=== PATIENT | male | born 1940 | race Two or more races ===

== ENCOUNTER 2024-09-09 12:47 | Emergency (ER) | payer MEDICAID, OTHER ==
[~2024-09-09] VITALS: Ht 172.7 cm; Wt 60.0 kg
[2024-09-09 13:47] VITALS: BP 120/64; PULSE 64; RESP 18; TEMP 98; O2SAT 100
--- NOTE | 2024-09-09 14:24 | ED.PDOC ---
HPI Comments Portions of this chart may have been created with an modal fluency direct voice recognition software. Occasional wrong-word or "sound-alike" substitutions may have occurred due to the inherent limitations of voice recognition software. Please read the chart carefully and recognize, using context, where these substitutions have occurred. 83 y/o M, presents to the ED for CC of wound check. Patient states, he has a superficial wound to his right great toe following, pulling off band aid x1week ago. Patient reports, he has been seen at urgent care for regular cleaning and dressing to wound; today (09/09/24) and was relayed to the ED d/t hypotension. Patient denies fever, chills, numbness, or pain to trauma site. No other symptoms or modifying factors present at this time. Chief Complaint: Wound Check Time Seen by MD: 13:01 Primary Care Provider: MARIA TERESA Reviewed Notes: Nurses Notes, Medications, Allergies Allergies: Coded Allergies: NO KNOWN ALLERGIES (Unverified , 09/09/24) Information Source: Patient Mode of Arrival: Ambulatory Severity: Moderate Severity of Laceration: Controlled Bleeding Complexity: Simple Timing: Days Prehospital treatment: None Laceration Location: Foot, Digit #1 Mechanism: Other (BAND AID) Laceration Length (cm): 1 Depth of Injury: Skin Tender: Moderate Discharge: None Erythema: None Associated Signs and Symptoms: None Past Medical History PAST MEDICAL HISTORY: Denies Surgical History: Denies all surgeries Family History Family History: Unknown Social History Smoker: Non-Smoker Alcohol: Denies ETOH Use Drugs: Denies Drug Use Lives In: Home All Other Systems: Reviewed and Negative ( PER HPI) Physical Exam General Appearance: No Apparent Distress, Normal HEENT: Normal ENT Inspection, Pharynx Normal, TMs Normal Neck: Full Range of Motion, Non-Tender, Normal, Normal Inspection Respiratory: Chest Non-Tender, Lungs Clear, No Accessory Muscle Use, No Respiratory Distress, Normal Breath Sounds Cardiovascular: No Edema, No JVD, No Murmur, No Gallop, Normal Peripheral Pulses, Regular Rate/Rhythm Breast Exam: Deferred Gastrointestinal: No Organomegaly, Non Tender, No Pulsatile Mass, Normal Bowel Sounds, Soft Genitalia: Deferred Pelvic: Deferred Rectal: Deferred Extremities: No calf tenderness, Normal capillary refill, Normal inspection, Normal range of motion, Non-tender, No pedal edema Musculoskeletal : Location: Right Extremity Location: Great Toe (no signs of cellulitis, healing approriately, no ttp, neurovascular senstion intact) Apperance: Normal 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 Was a procedure done?: No Differential diagnosis Generic Laceration: Abrasion/Contusion, Laceration, Avulsion X-Ray, Labs, Meds, VS Vital Signs Date Time Temp Pulse Resp B/P (MAP) Pulse Ox O2 Delivery O2 Flow Rate FiO2 09/09/24 13:47 64 18 100 Room Air 09/09/24 13:47 98.0 62 16 120/64 (82) 96 98.0 09/09/24 13:08 98.0 61 18 119/51 (73) 100 98.0 Current Medications Medications (Trade) Dose Ordered Sig/Miranda Route Start Time Stop Time Status Last Admin Neomycin/ Polymyxin/ Bacitracin (Triple Antibiotic) 1 applic ONCE ONCE TOP 09/09/24 14:15 09/09/24 14:16 DC 09/09/24 14:28 X-Ray, Labs, Meds, VS Comment 83 y/o M, presents to the ED for CC of wound check. Patient arrives alert and oriented, ABC's intact, afebrile, vital signs stable, saturating well in room air Wound was cleansed with normal saline, triple antibiotic was ordered, wound was wrapped with nonadherent dressing and Bonifacio wrap. Stable for discharge at this time. Additional MDM Review of External, Non-ED records: External records reviewed. Discussion with independent historian (EMS, family) history obtained from the patient/parents (if applicable) at bedside Chronic conditions affecting care: None Social determinants of health affecting care: None Consideration of admission (observation or admission): I considered escalation of care to admission for this patient, however given the reassuring workup, the patient is safe for outpatient management. Time of 1ST Reevaluation: 13:31 Reevaluation 1ST: Unchanged Patient Education/Counseling: Diagnosis, Treatment Family Education/Counseling: No Family Present Departure 1 Departure Time of Disposition: 14:24 Impression: Primary Impression: Visit for wound check Disposition: 01 HOME / SELF CARE / HOMELESS Condition: Stable Discharged With: Self Critical Care Note Critical Care Time?: No Stability Stability form required: No Heart Score Heart Score: Heart Score Response (Comments) Value History N/A 0 EKG N/A 0 Age N/A 0 Risk Factors N/A 0 Troponin N/A 0 Total 0 I personally scribed for ISAURO VOGT NP ([email or web address]) on 09/09/24 at 14:48. Electronically submitted by Gertrudis Marquez ([email or web address]). ISAURO VOGT NP Sep 09, 2024 14:24
[2024-09-09] MEDS: NEOMYCIN-BACITRACIN-POLYM UNITDOSE PKG TOP OINT TOP ONE (14:28)
== END 2024-09-09 14:37 | disposition home or self-care (01) ==
LOC: ER 13:04
DX: Z48.00 Encounter for change or removal of nonsurgical wound dressing (principal)

== ENCOUNTER 2024-09-10 12:08 | Inpatient (IN) | payer OTHER, MEDICAID ==
[~2024-09-10] VITALS: Ht 172.7 cm; Wt 67.5 kg
--- NOTE | 2024-09-10 12:44 | ED.PDOC ---
Musculoskeletal HPI Comments 83y M who presents to the ED for chief complaint of extremity pain. Pt states he has been having pain and swelling to the L great toe for the past 3 weeks. Pt states the pain started to get progressively worse and had went to urgent care today. Pt was given 1 gram rocephin and sent to the ED to rule out osteomyelitis. Pt in the ED, otherwise denies fever, shortness of breath, chills, or any associated symptoms. Pt otherwise denies any other symptoms at this time. Chief Complaint: Lower Extremity Time Seen by MD: 12:40 Primary Care Provider: MARIA TERESA Reviewed Notes: Medications, Allergies Allergies: Coded Allergies: NO KNOWN ALLERGIES (Unverified , 09/09/24) Information Source: Patient Mode of Arrival: Wheelchair Brought in by: self Location: Left Extremity Location: Great Toe Prehospital treatment: None Severity: Moderate Able to Move Extremity: Yes Bear Weight: Limited Pain: None Hand Dominance: Right Mechanism: Spontaneous Circumstances: Unknown Symptoms: Swelling, Pain DVT Risk Factors: NONE Last Tetanus: Unknown Associated signs and symptoms: Foot pain Past Medical History PAST MEDICAL HISTORY: DM, High Lipids, HTN Past Medical History (Other): prostate Surgical History: Appendectomy Surgical History (Other): cataracts Family History Family History: Unknown Social History Smoker: Non-Smoker Alcohol: Denies ETOH Use Drugs: Denies Drug Use Lives In: Home Constitutional: denies: chills, diaphoresis, fatigue, fever, malaise, sweats, weakness, others EENTM: denies: blurred vision, double vision, ear bleeding, ear discharge, ear drainage, ear pain, ear ringing, eye pain, eye redness, hearing loss, mouth pain, mouth swelling, nasal discharge, nose bleeding, nose congestion, nose pain, photophobia, tearing, throat pain, throat swelling, voice changes, others Respiratory: denies: cough, hemoptysis, orthopnea, SOB at rest, shortness of breath, SOB with excertion, stridor, wheezing, others Cardiovascular: denies: chest pain, dizzy spells, diaphoresis, Dyspnea on exertion, edema, irregular heart beat, left arm pain, lightheadedness, palpitations, PND, syncope, others Gastrointestinal: denies: abdomen distended, abdominal pain, blood streaked bowels, constipated, diarrhea, dysphagia, difficulty swallowing, hematemesis, melena, nausea, poor appetite, poor fluid intake, rectal bleeding, rectal pain, vomiting, others Genitourinary: denies: burning, dysuria, flank pain, frequency, hematuria, incontinence, penile discharge, penile sore, pain, testicle pain, testicle swelling, urgency, others Neurological: denies: dizziness, fainting, headache, left sided numbness, left sided weakness, numbness, paresthesia, pre-existing deficit, right sided numbness, right sided weakness, seizure, speech problems, tingling, tremors, weakness, others Musculoskeletal: reports: joint pain, joint swelling; denies: back pain, gout, muscle pain, muscle stiffness, neck pain, others Integumetry: denies: bruises, change in color, change in hair/nails, dryness, laceration, lesions, lumps, rash, wounds, others Allergic/Immunocompromised: denies: Difficulty Healing, Frequent Infections, Hives, Itching, others Hematologic/Lymphatic: denies: anemia, blood clots, easy bleeding, easy bruising, swollen glands, others Endocrine: denies: excessive hunger, excessive sweating, excessive thirst, excessive urination, flushing, intolerance to cold, intolerance to heat, unexplained weight gain, unexplained weight loss, others Psychiatric: denies: anxiety, bipolar disorder, depression, hopeless, panic di sorder, schizophrenia, sleepless, suicidal, others All Other Systems: Reviewed and Negative Physical Exam General Appearance: Moderate Distress HEENT: Normal ENT Inspection, Pharynx Normal, TMs Normal Neck: Full Range of Motion, Non-Tender, Normal, Normal Inspection Respiratory: Chest Non-Tender, Lungs Clear, No Accessory Muscle Use, No Respiratory Distress, Normal Breath Sounds Cardiovascular: No Edema, No JVD, No Murmur, No Gallop, Normal Peripheral Pulses, Regular Rate/Rhythm Breast Exam: Deferred Gastrointestinal: No Organomegaly, Non Tender, No Pulsatile Mass, Normal Bowel Sounds, Soft Genitalia: Deferred Pelvic: Deferred Rectal: Deferred Extremities: No calf tenderness, Normal capillary refill, No pedal edema, Other (Left foot great toe with swelling and redness and some drainage) Musculoskeletal : Apperance: Normal 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 Was a procedure done?: No Differential Diagnosis EXT Differential Diagnosis: Cellulitis, Deep Vein Thrombosis Other Differential Diagnosis osteomyelitis, erysipelas, bacteremia, X-Ray, Labs, Meds, VS Vital Signs Date Time Temp Pulse Resp B/P (MAP) Pulse Ox O2 Delivery O2 Flow Rate FiO2 09/10/24 13:27 97.8 80 18 130/76 (94) 98 97.8 09/10/24 13:27 80 18 98 Room Air 09/10/24 12:33 97.7 82 16 131/59 (83) 97 97.7 Lab Test 09/10/24 12:52 09/10/24 12:34 Range/Units White Blood Count 5.8 4.4-10.8 10^3/uL Red Blood Count 4.85 4.5-5.90 10^6/uL Hemoglobin 14.5 13.5-17.5 g/dL Hematocrit 42.7 41.0-53.0 % Mean Corpuscular Volume 88.2 80.0-100.0 fL Mean Corpuscular Hemoglobin 29.9 28.0-32.0 pg Mean Corpuscular Hemoglobin Concent 33.9 32.0-36.0 g/dL Red Cell Distribution Width 14.4 H 11.8-14.3 % Platelet Count 137 L 140-450 10^3/uL Mean Platelet Volume 8.8 6.9-10.8 fL Neutrophils (%) (Auto) 74.1 37.0-80.0 % Lymphocytes (%) (Auto) 16.9 10.0-50.0 % Monocytes (%) (Auto) 7.4 0.0-12.0 % Eosinophils (%) (Auto) 1.3 0.0-7.0 % Basophils (%) (Auto) 0.3 0.0-2.0 % Neutrophils # (Auto) 4.3 1.6-8.6 10 ^3/uL Lymphocytes # (Auto) 1.0 0.4-5.4 10 ^3/uL Monocytes # (Auto) 0.4 0-1.3 10 ^3/uL Eosinophils # (Auto) 0.1 0-0.8 10 ^3/uL Basophils # (Auto) 0 0-0.2 10 ^3/uL Nucleated Red Blood Cells 0.1 % Prothrombin Time 10.3 9.3-11.8 sec Prothrombin Time INR 0.97 0.9-1.15 Activated Partial Thromboplast Time 29.1 24.5-34.5 SEC Sodium Level 139 136-145 mmol/L Potassium Level 4.7 3.5-5.1 mmol/L Chloride Level 107 98-107 mmol/L Carbon Dioxide Level 26 20-31 mmol/L Anion Gap 6 5-15 Blood Urea Nitrogen 26 H 9-23 mg/dL Creatinine 1.10 0.700-1.30 mg/dL Glomerular Filtration Rate Calc 66 >90 mL/min BUN/Creatinine Ratio 23.6 H 10.0-20.0 Serum Glucose 280 H 74-106 mg/dL Calcium Level 9.9 8.7-10.4 mg/dL POC Glucose 295 H 70-106 mg/dl Current Medications Medications (Trade) Dose Ordered Sig/Miranda Route Start Time Stop Time Status Last Admin Sodium Chloride 500 ml @ 500 mls/hr Q1H ONCE IV 09/10/24 12:45 09/10/24 13:44 DC 09/10/24 13:52 EXAM: CT CT L FOOT WO CONTRAST IMPRESSION: 1. No CT evidence of osteomyelitis. If continued clinical concern, consider MRI. 2. No joint effusion. Circumferential subcutaneous tissue edema. No drainable fluid collection The patient's CBC is within normal limits The chemistry panel is within normal limits The patient's glucose is 295 The patient is being admitted at this time The patient is being started on clindamycin IV piggyback The patient understands and agrees with the management The patient is being admitted Images Reviewed?: Images reviewed and evaluated by me Time of 1ST Reevaluation: 13:10 Reevaluation 1ST: Unchanged Patient Education/Counseling: Diagnosis, Treatment, Prognosis Family Education/Counseling: No Family Present Departure 1 Departure Time of Disposition: 14:22 Impression: Primary Impression: Cellulitis of left foot Additional Impressions: Generalized weakness Hyperglycemia Disposition: 09 ADMITTED INPATIENT Condition: Fair Critical Care Note Critical Care Time?: No Stability Stability form required: Yes Unstable for transfer: ED Physician Assesment (Clinical assesment) Heart Score Heart Score: Heart Score Response (Comments) Value History N/A 0 EKG N/A 0 Age N/A 0 Risk Factors N/A 0 Troponin N/A 0 Total 0 I personally scribed for ELIAZAR CASTRO MD ([email or web address]) on 09/10/24 at 12:43. Electronically submitted by Sylvie Mcnulty ([email or web address]). I personally scribed for ELIAZAR CASTRO MD ([email or web address]) on 09/10/24 at 13:33. Electronically submitted by Sylvie Mcnulty ([email or web address]). ELIAZAR CASTRO MD Sep 10, 2024 12:43
[2024-09-10 13:05] LABS: Basophils # (auto) 0 10 ^3/uL (0-0.2); Basophils % (auto) 0.3 % (0.0-2.0); Eosinophils # (auto) 0.1 10 ^3/uL (0-0.8); Eosinophils % (auto) 1.3 % (0.0-7.0); Hematocrit 42.7 % (41.0-53.0); Hemoglobin 14.5 g/dL (13.5-17.5); Lymphocytes % (auto) 16.9 % (10.0-50.0); Mean Corpuscular Hemoglobin 29.9 pg (28.0-32.0); Mean Corpuscular Hgb Conc. 33.9 g/dL (32.0-36.0); Mean Corpuscular Volume 88.2 fL (80.0-100.0); Monocytes # (auto) 0.4 10 ^3/uL (0-1.3); Monocytes % (auto) 7.4 % (0.0-12.0); Neutrophils # (auto) 4.3 10 ^3/uL (1.6-8.6); Neutrophils % (auto) 74.1 % (37.0-80.0); Nucleated Red Blood Cells % 0.1 %; Platelet Count (auto) 137 10^3/uL (140-450); Red Blood Cells 4.85 10^6/uL (4.5-5.90); Red Cell Distribution Width 14.4 % (11.8-14.3); White Blood Cell 5.8 10^3/uL (4.4-10.8)
[2024-09-10 13:11] LABS: Chloride 107 mmol/L (98-107); Potassium 4.7 mmol/L (3.5-5.1); Sodium 139 mmol/L (136-145)
[2024-09-10 13:12] LABS: Anion Gap 6 (5-15); Carbon Dioxide 26 mmol/L (20-31)
[2024-09-10 13:13] LABS: Calcium 9.9 mg/dL (8.7-10.4)
[2024-09-10 13:17] LABS: BUN/Creatinine Ratio 23.6 (10.0-20.0)
[2024-09-10 13:19] LABS: Blood Urea Nitrogen 26 mg/dL (9-23); Glucose 280 mg/dL (74-106)
[2024-09-10 13:24] LABS: INR 0.97 (0.9-1.15); Partial Thromboplastin Time 29.1 SEC (24.5-34.5); Prothrombin Time 10.3 sec (9.3-11.8)
--- NOTE | 2024-09-10 13:24 | DVH ---
EXAM: CT CT L FOOT WO CONTRAST INDICATION: pain and infection TECHNIQUE: Axial images of left foot without contrast have been obtained along with coronal and sagit justine reformatted images. All CT scans at this facility use dose modulation, iterative reconstruction, and/or weight based dosing when appropriate to reduce radiation dose to as low as reasonably achievab le. COMPARISON: None FINDINGS: BONES: No CT evidence of an acute fracture or aggressive osseous lesion. MUSCLES: At least moderate fatty infiltration along the interosseous muscles of the level of the fore foot. JOINT SPACES: No joint effusion. TENDONS/LIGAMENTS: Intact. OTHER: Vascular calcifications. Circumferential subcutaneous tissue edema. IMPRESSION: 1. No CT evidence of osteomyelitis. If continued clinical concern, consider MRI. 2. No joint effusion. Circumferential subcutaneous tissue edema. No drainable fluid collection
[2024-09-10] MEDS: SODIUM CHLORIDE 0.9% 500 ML IV ONE (13:52)
--- NOTE | 2024-09-10 15:21 | DVHHP2 ---
History of Present Illness Reason for Visit: Left great toe pain History of Present Illness 83-year-old male past medical history diabetes hyperlipidemia hypertension prostate issues in the past appendectomy cataract surgery chief complaint patient states he has been having left great toe pain and swelling with a wound he has been going on for three weeks patient states there was no drainage from the wound but is causing him some pain he went to the urgent care today and they told him to go to the ED for IV antibiotics and admission patient is concerned because he is diabetic patient currently lives alone at home when evaluating patient's labs and imaging from the ED looks like normal saline was given CBC was unremarkable glucose was 280 CT scan of the foot shows no osteomyelitis but subacute edema no fluid collection or abscess patient currently has a wound to the dorsal medial aspect of the toe under the bottom of the toe was tenderness and blanching and swelling no drainage with the wound is there with these findings we will admit and provide IV antibiotics also we will consult Podiatry along with wound care consult we will also order ultrasound to check for DVT along with arterial occlusion Past Medical History See HPI above Past Surgical History See HPI above Family History Reviewed, non-contributory to the management of this case. Lives: Alone Past Social History The patient lives at home, denies smoking, alcohol or illicit drugs abuse. Review of Systems Constitutional: No: Fever, Chills, Sweats, Weakness, Malaise, Other Eyes: No: Pain, Vision change, Conjunctivae inflammation, Eyelid inflammation, Other, Redness ENT: No: Ear pain, Ear discharge, Nose pain, Nose discharge, Nose congestion, Mouth pain, Mouth swelling, Throat pain, Throat swelling, Other Respiratory: No: Cough, Dry, Shortness of breath, SOB with excertion, Wheezing, Hemoptysis, Pleuritic Pain, Sputum, Wheezing, Other Cardiovascular: No: Chest Pain, Palpitations, Orthopnea, Paroxysmal Noc. Dyspnea, Edema, Lt Headedness, Other Gastrointestinal: No: Nausea, Vomiting, Abdominal Pain, Diarrhea, Constipation, Melena, Hematochezia, Other Genitourinary: No Dysuria, No Frequency, No Incontinence, No Hematuria, No Retention, No Other Musculoskeletal: foot pain; No: other, neck pain, shoulder pain, arm pain, back pain, hand pain, leg pain Skin: No: Rash, Lesions, Jaundice, Bruising, Other Neurological: No: Weakness, Numbness, Incoordination, Change in speech, Confusion, Seizures, Other Allergies: Coded Allergies: NO KNOWN ALLERGIES (Unverified , 09/09/24) Exam Vital Signs Vital Signs Date Time Temp Pulse Resp B/P (MAP) Pulse Ox O2 Delivery O2 Flow Rate FiO2 09/10/24 13:27 97.8 80 18 130/76 (94) 98 97.8 09/10/24 13:27 Room Air General Appearance: Alert, Oriented X3, Cooperative, No acute distress, mild distress HEENT: Atraumatic, PERRLA, EOMI, Mucous membr. moist/pink Respiratory: Clear to auscultation, Normal air movement Cardiovascular: Regular rate, Normal S1, Normal S2, No murmurs Abdominal: Normal bowel sounds, Soft, No tenderness, No hepatospenomegaly, No masses Extremities: No clubbing, No cyanosis, No edema, Normal pulses, Other (wound to the dorsal medial aspect of the toe under the bottom of the toe was tenderness and blanching and swelling no drainage, no necrosis compartments soft swelling radiating to the dorsal aspect of the foot) Skin: No rashes Neuro: Normal gait, Normal speech, Strength at 5/5 X4 ext, Normal tone, Sensation intact, Cranial nerves 3-12 NL Psych/Mental Status: Mental status NL, Mood NL Labs/Xrays CT scan of the foot shows no osteomyelitis subacute edema no fluid collection I reviewed labs, imaging CT scan abdomen pelvis, EKG and all diagnostic studies on this patient from ED records and the medical chart Labs Test 09/10/24 12:52 09/10/24 12:34 Range/Units White Blood Count 5.8 4.4-10.8 10^3/uL Red Blood Count 4.85 4.5-5.90 10^6/uL Hemoglobin 14.5 13.5-17.5 g/dL Hematocrit 42.7 41.0-53.0 % Mean Corpuscular Volume 88.2 80.0-100.0 fL Mean Corpuscular Hemoglobin 29.9 28.0-32.0 pg Mean Corpuscular Hemoglobin Concent 33.9 32.0-36.0 g/dL Red Cell Distribution Width 14.4 H 11.8-14.3 % Platelet Count 137 L 140-450 10^3/uL Mean Platelet Volume 8.8 6.9-10.8 fL Neutrophils (%) (Auto) 74.1 37.0-80.0 % Lymphocytes (%) (Auto) 16.9 10.0-50.0 % Monocytes (%) (Auto) 7.4 0.0-12.0 % Eosinophils (%) (Auto) 1.3 0.0-7.0 % Basophils (%) (Auto) 0.3 0.0-2.0 % Neutrophils # (Auto) 4.3 1.6-8.6 10 ^3/uL Lymphocytes # (Auto) 1.0 0.4-5.4 10 ^3/uL Monocytes # (Auto) 0.4 0-1.3 10 ^3/uL Eosinophils # (Auto) 0.1 0-0.8 10 ^3/uL Basophils # (Auto) 0 0-0.2 10 ^3/uL Nucleated Red Blood Cells 0.1 % Prothrombin Time 10.3 9.3-11.8 sec Prothrombin Time INR 0.97 0.9-1.15 Activated Partial Thromboplast Time 29.1 24.5-34.5 SEC Sodium Level 139 136-145 mmol/L Potassium Level 4.7 3.5-5.1 mmol/L Chloride Level 107 98-107 mmol/L Carbon Dioxide Level 26 20-31 mmol/L Anion Gap 6 5-15 Blood Urea Nitrogen 26 H 9-23 mg/dL Creatinine 1.10 0.700-1.30 mg/dL Glomerular Filtration Rate Calc 66 >90 mL/min BUN/Creatinine Ratio 23.6 H 10.0-20.0 Serum Glucose 280 H 74-106 mg/dL Calcium Level 9.9 8.7-10.4 mg/dL POC Glucose 295 H 70-106 mg/dl Assessment/Plan Assessment/Plan acute left foot infection diabetic foot left great toe no om Found on ct left foot ordered arterial study fu results ordered ultrasound rule out DVT ordered vancomycin and zosyn ordered Morphine as needed for pain ordered Podiatry consult follow-up recs Wound care consult follow-up recs Monitor for circulation compromise ordered wound culture Uncontrolled type 2 diabetes Accu-Chek ACHS with sliding scale chronic problems dm hld prostrate problems cataracts fen/ppx no gi ppx lovenox diet plan admit to medicine for iv antibiotics for om care and podiatry care Plan discussed with: Patient Date of Service: Sep 10, 2024 Billing Provider: AMOR SMITH DNP Common Visit Codes: 52025-[id number] INP/OBS CARE (HIGH) AMOR SMITH DNP Sep 10, 2024 15:21
[2024-09-10] MEDS ORDERED: NITROGLYCERIN 0.4 MG SL TAB SL PRN (15:45)
[2024-09-10] MEDS ORDERED: DOCUSATE SOD 100 MG CAP PO PRN (15:45)
[2024-09-10] MEDS ORDERED: VANCOMYCIN PER PHARMACY 0 MG IV SCH (15:45)
[2024-09-10] MEDS ORDERED: PIPERACILLIN-TAZOB 3.375GM 100 ML IV ONE (15:45)
[2024-09-10] MEDS ORDERED: DEXTROSE (50%) 50ML SYRG IV PRN (15:45)
[2024-09-10] MEDS: ENOXAPARIN SOD 40 MG/0.4 ML SYRINGE SC SCH (15:45)
[2024-09-10] MEDS ORDERED: MORPHINE SULFATE 4 MG/ML SYR/VIAL IV PRN (16:15)
--- NOTE | 2024-09-10 16:58 | DVH ---
CLINICAL HISTORY: eval dvt with left leg swelling TECHNIQUE: Color and duplex doppler imaging of the left lower extremity veins was performed. Vessel c ompression if possible was also performed. WID: COMPARISON: None FINDINGS: Left common femoral vein: Normal compressibility and flow. Left femoral vein: Normal compressibility and flow. Left popliteal vein: Normal compressibility and flow. Proximal calf veins are normally compressible. IMPRESSION: NO SONOGRAPHIC EVIDENCE FOR DEEP VENOUS THROMBOSIS IN THE LEFT LOWER EXTREMITY VEINS.
[2024-09-10 17:01] VITALS: PULSE 85; RESP 15; O2SAT 99
[2024-09-10] MEDS ORDERED: VANCOMYCIN 1GM/200ML PM 200 ML IV ONE (17:15)
--- NOTE | 2024-09-10 17:30 | DVH ---
BILATERAL LOWER EXTREMITY ARTERIAL DUPLEX ULTRASOUND STUDY: REASON FOR EXAM: eval for arterial occlusiuon TECHNIQUE: The full lengths of the arterial segments were evaluated with color-flow Doppler ultrasoun d. Suspected abnormalities were evaluated with ferrari scale ultrasound. Weather Anchor spectral Doppler waveforms, with velocity measurements were obtained. Spectral waveforms with velocity measurements w ere obtained 2 to 4 cm central to any areas of significant stenosis. Common femoral, superficial femo ral, popliteal, posterior tibial, and dorsal pedal arteries were evaluated. FINDINGS: Right: There is extensive atherosclerotic plaque throughout the right lower extremity. The common fem oral artery waveform is multiphasic with a brisk upstroke. The superficial femoral and popliteal kirstin gabrielle are patent with monophasic waveforms. The popliteal waveform demonstrates tardus parvus morpholo gy. The posterior tibial artery is heavily calcified and demonstrates a monophasic waveform. The edwardo mini pedal artery is patent with low velocity monophasic waveform. Left: There is extensive atherosclerotic plaque throughout the left lower extremity. The common femo ral artery waveform is multiphasic with a brisk upstroke. There is possible short segment occlusion i n the midportion of the superficial femoral artery with distal reconstitution by a collateral. The d istal SFA demonstrates multiphasic morphology. The popliteal artery is patent with monophasic , tard us parvus morphology. The posterior tibial artery and dorsal pedal artery are patent with monophasic waveforms. IMPRESSION: Extensive bilateral lower extremity atherosclerotic vascular disease with possible short segment occl usion in the midportion of the left superficial femoral artery with reconstitution distal to the occl usion by collaterals.
[2024-09-10] MEDS: ACCU-CHEK COMFORT CURVE STRIP VI SCH (18:01)
[2024-09-10] MEDS: InsuLIN REG 1unit/0.01ml Soln (100units/ml) SC SCH (18:05)
[2024-09-10] MEDS: PIPERACILLIN-TAZOB 3.375GM 100 ML IV ONE (20:19)
[2024-09-10] MEDS: SODIUM CHLORIDE 0.9% 1,000 ML IV SCH (20:20)
[2024-09-10 21:00] VITALS: BP 152/72; PULSE 92; RESP 20; TEMP 97.7; O2SAT 98
[2024-09-10] MEDS: VANCOMYCIN 1GM/200ML PM 200 ML IV ONE (21:58)
[2024-09-11 01:00] VITALS: BP 142/70; PULSE 87; RESP 18; TEMP 97.7; O2SAT 96
[2024-09-11 05:00] VITALS: BP 134/62; PULSE 81; RESP 18; TEMP 97.7; O2SAT 98
[2024-09-11] MEDS: PIPERACILLIN-TAZOB 3.375GM 100 ML IV SCH (05:35)
[2024-09-11 06:15] LABS: Basophils # (auto) 0 10 ^3/uL (0-0.2); Basophils % (auto) 0.3 % (0.0-2.0); Eosinophils # (auto) 0 10 ^3/uL (0-0.8); Eosinophils % (auto) 0.4 % (0.0-7.0); Hematocrit 43.2 % (41.0-53.0); Hemoglobin 14.8 g/dL (13.5-17.5); Lymphocytes # (auto) 0.7 10 ^3/uL (0.4-5.4); Lymphocytes % (auto) 13.1 % (10.0-50.0); Mean Corpuscular Hemoglobin 30.1 pg (28.0-32.0); Mean Corpuscular Hgb Conc. 34.2 g/dL (32.0-36.0); Monocytes # (auto) 0.3 10 ^3/uL (0-1.3); Monocytes % (auto) 6.1 % (0.0-12.0); Neutrophils # (auto) 4.4 10 ^3/uL (1.6-8.6); Neutrophils % (auto) 80.1 % (37.0-80.0); Platelet Count (auto) 138 10^3/uL (140-450); Red Blood Cells 4.91 10^6/uL (4.5-5.90); Red Cell Distribution Width 14.7 % (11.8-14.3); White Blood Cell 5.5 10^3/uL (4.4-10.8)
[2024-09-11 06:41] LABS: Alanine Aminotransferase 12 U/L (7-40); Albumin 4.1 g/dL (3.2-4.8); Alkaline Phosphatase 70 U/L (46-116); Anion Gap 11 (5-15); BUN/Creatinine Ratio 19.2 (10.0-20.0); Blood Urea Nitrogen 20 mg/dL (9-23); Calcium 9.5 mg/dL (8.7-10.4); Carbon Dioxide 23 mmol/L (20-31); Potassium 4.7 mmol/L (3.5-5.1); Sodium 141 mmol/L (136-145); Total Protein 6.7 g/dL (5.7-8.2)
[2024-09-11 06:42] LABS: Bilirubin, Total 0.5 mg/dL (0.2-1.0)
[2024-09-11 06:46] LABS: Aspartate Aminotransferase 12 U/L (13-40); Chloride 107 mmol/L (98-107); Glucose 170 mg/dL (74-106)
[2024-09-11 08:37] VITALS: BP 118/64; PULSE 80; RESP 16; TEMP 98; O2SAT 98
--- NOTE | 2024-09-11 11:44 | DVH ---
CLINICAL INDICATION: r/o om COMPARISON: CT CT L FOOT WO CONTRAST on DOS: 09/10/24 TECHNIQUE: Multiplanar, multisequence MRI of the left foot was performed without intravenous contrast . Contrast: None. INTERPRETATION: Bones: There is patchy T1 hypointensity in the 1st distal phalanx with corresponding bone marrow felisa a. There is no fracture plain. Bone marrow Signal is otherwise unremarkable. Soft tissues: There is dorsal soft tissue swelling. There is also soft tissue swelling about the gre at toe distally. There is soft tissue swelling in the ankle, nonspecific. No fluid collection. No hig h-grade tendon or ligament injury. Edema within the intrinsic muscles of the foot. IMPRESSION: 1. Findings suspicious for osteomyelitis in the 1st distal phalanx, with overlying cellulitis. No flu id collection. 2. Edema in the intrinsic muscles of the foot may be related to denervation or myositis. 3. Nonspecific soft tissue edema in the ankle.
--- NOTE | 2024-09-11 12:19 | DVHPN2 ---
Reviewed: Care Plan, H&P, Labs, Medications, Previous Orders, Radiology Changes from previous H/P or p: No Changes Eyes: No Pain, No Vision change, No Conjunctivae inflammation, No Eyelid inflammation, No Other, No Redness ENT: No Ear pain, No Ear discharge, No Nose pain, No Nose discharge, No Nose congestion, No Mouth pain, No Mouth swelling, No Throat pain, No Throat swelling, No Other Cardiovascular: No Chest Pain, No Palpitations, No Orthopnea, No Paroxysmal Noc. Dyspnea, No Edema, No Lt Headedness, No Other Respiratory: No Cough, No Dry, No Shortness of breath, No SOB with excertion, No Wheezing, No Hemoptysis, No Pleuritic Pain, No Sputum, No Other Gastrointestinal: No Nausea, No Vomiting, No Abdominal Pain, No Diarrhea, No Constipation, No Melena, No Hematochezia, No Other Genitourinary: No Dysuria, No Frequency, No Incontinence, No Hematuria, No Retention, No Other Musculoskeletal: No other, No neck pain, No shoulder pain, No arm pain, No back pain, No hand pain, No leg pain; foot pain Skin: No Rash, No Lesions, No Jaundice, No Bruising, No Other Objective Vitals Vital Signs Date Time Temp Pulse Resp B/P (MAP) Pulse Ox O2 Delivery O2 Flow Rate FiO2 09/11/24 08:37 98.0 80 16 118/64 (82) 98 98.0 09/10/24 17:29 Room Air* 0 21 Intake/Output Intake and Output 09/11/24 07:00 Intake Total 1660 ml Balance 1660 ml Intake Oral 360 ml IV Total 1300 ml Medications Current Medications Medications Dose Ordered Sig/Miranda Route Start Time Stop Time Status Last Admin Dose Admin Vancomycin HCl 0 ml @ 0 mls/hr UD IV 09/10/24 15:45 Piperacillin Sod/ Tazobactam Sod 100 ml @ 25 mls/hr Q8HR IV 09/11/24 06:00 09/11/24 05:35 25 MLS/HR Diagnostic Test (Pha) 1 strip ACHS 09/10/24 17:00 09/11/24 11:25 1 STRIP Insulin Human Regular ACHS SC 09/10/24 17:00 09/11/24 11:25 6 UNITS Dextrose 50 ml UD PRN IV 09/10/24 15:45 Sodium Chloride 1,000 ml @ 100 mls/hr Q10H IV 09/10/24 15:45 09/11/24 11:28 100 MLS/HR Ondansetron HCl 4 mg Q4HP PRN IV 09/10/24 15:45 Docusate Sodium 100 mg BIDPRN PRN PO 09/10/24 15:45 Morphine Sulfate 2 mg Q4HPRN PRN IV 09/10/24 16:15 Enoxaparin Sodium 40 mg DAILY SC 09/10/24 15:45 09/11/24 09:16 40 MG Nitroglycerin 0.4 mg Q5MINP PRN SL 09/10/24 15:45 Vancomycin HCl 200 ml @ 200 mls/hr Q24H IV 09/11/24 21:00 Laboratory Results Laboratory Tests 09/11/24 05:37 Chemistry Test 09/10/24 12:52 09/11/24 05:37 Calcium Level 9.9 mg/dL (8.7-10.4) 9.5 mg/dL (8.7-10.4) Albumin 4.1 g/dL (3.2-4.8) Total Protein 6.7 g/dL (5.7-8.2) Coagulation Test 09/10/24 12:52 Prothrombin Time 10.3 sec (9.3-11.8) Prothrombin Time INR 0.97 (0.9-1.15) Activated Partial Thromboplast Time 29.1 SEC (24.5-34.5) LFT Test 09/11/24 05:37 Alanine Aminotransferase (ALT) 12 U/L (7-40) Alkaline Phosphatase 70 U/L (46-116) Aspartate Amino Transferase (AST) 12 U/L (13-40) L Total Bilirubin 0.5 mg/dL (0.2-1.0) Microbiology Microbiology Date/Time Source Procedure Growth Status 09/10/24 18:42 Toe Gram Stain Pending Resulted 09/10/24 18:42 Toe Wound Culture - Preliminary Resulted Labs and/or images reviewed: Labs reviewed by me, Image(s) reviewed by me Assessment/Plan Assessment/Plan Acute osteomyelitis left great toe: Vancomycin 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 Rdz DVT ruled out BPH Diabetes Hypertension Hypercholesterolemia Time spent 50 minutes Advanced care planning time 20 minutes Patient is full code Plan discussed with: Patient Date of Service: Sep 11, 2024 Billing Provider: SHABANA DIETZ MD Common Visit Codes: [id number] INP/OBS CARE(HIGH) SHABANA DIETZ MD Sep 11, 2024 12:19
--- NOTE | 2024-09-11 12:45 | DVHINCON2 ---
Date Seen: Sep 11, 2024 Reason for Consultation Left foot wound History of Present Illness 83-year-old male past medical history diabetes hyperlipidemia hypertension prostate issues in the past appendectomy cataract surgery chief complaint patient states he has been having left great toe pain and swelling with a wound he has been going on for three weeks patient states there was no drainage from the wound but is causing him some pain he went to the urgent care today and they told him to go to the ED for IV antibiotics and admission patient is concerned because he is diabetic patient currently lives alone at home when evaluating patient's labs and imaging from the ED looks like normal saline was given CBC was unremarkable glucose was 280 CT scan of the foot shows no osteomyelitis but subacute edema no fluid collection or abscess patient currently has a wound to the dorsal medial aspect of the toe under the bottom of the toe was tenderness and blanching and swelling no drainage with the wound is there with these findings we will admit and provide IV antibiotics also we will consult Podiatry along with wound care consult we will also order ultrasound to check for DVT along with arterial occlusion Past Medical History See H&P Past Surgical History See H&P Family History: Patient reports no known family medical history. Allergies: Coded Allergies: NO KNOWN ALLERGIES (Unverified , 09/09/24) Current Medications Current Medications Medications (Trade) Dose Ordered Sig/Miranda Route PRN Reason Start Time Stop Time Status Last Admin Vancomycin HCl 0 ml @ 0 mls/hr UD IV 09/10/24 15:45 Piperacillin Sod/ Tazobactam Sod 100 ml @ 25 mls/hr Q8HR IV 09/11/24 06:00 09/11/24 05:35 Diagnostic Test (Pha) (Accu-Chek Comfort Curve T) 1 strip ACHS 09/10/24 17:00 09/11/24 11:25 Insulin Human Regular (InsuLIN R) ACHS SC 09/10/24 17:00 09/11/24 11:25 Dextrose 50 ml UD PRN IV Blood Sugar LESS THAN 60 09/10/24 15:45 Sodium Chloride 1,000 ml @ 100 mls/hr Q10H IV 09/10/24 15:45 09/11/24 11:28 Ondansetron HCl (Zofran) 4 mg Q4HP PRN IV NAUSEA / VOMITING 09/10/24 15:45 Docusate Sodium (Colace Capsule) 100 mg BIDPRN PRN PO FOR CONSTIPATION 09/10/24 15:45 Morphine Sulfate 2 mg Q4HPRN PRN IV SEVERE PAIN (7-10 PAIN SCALE) 09/10/24 16:15 Enoxaparin Sodium (Lovenox) 40 mg DAILY SC 09/10/24 15:45 09/11/24 09:16 Nitroglycerin (Ntrostat Sublingual) 0.4 mg Q5MINP PRN SL FOR CHEST PAIN 09/10/24 15:45 Vancomycin HCl 200 ml @ 200 mls/hr Q24H IV 09/11/24 21:00 Vital Signs Vital Signs Date Time Temp Pulse Resp B/P (MAP) Pulse Ox O2 Delivery O2 Flow Rate FiO2 09/11/24 08:37 98.0 80 16 118/64 (82) 98 98.0 09/11/24 08:00 Room Air* 0 21 Physical Exam Dermatological: Skin is dry with mild erythema and some maceration around the wound site No gross deformities noted Mild non-pitting edema present bilaterally Wound: Location: Left hallux Measures: 1 cm in length, 1 cm in width, and 1 cm in depth. Depth: Full thickness Base: Mix of granulation/slough Drainage: Yes Odor: None Periwound: Yes Vascular: Dorsalis pedis and posterior tibial pulses are 1+ bilaterally Capillary refill is under 2 seconds Skin temperature is warm bilaterally Neurologic: Protective sensation is absent on the plantar forefoot bilaterally Monofilament testing reveals decreased sensation in multiple plantar sites Musculoskeletal: Range of motion at the ankle and MTP joints is within normal limits. Strength is 5/5 in all tested muscle groups. Gait is antalgic due to offloading of the affected limb. Labs/Diagnostic Data Labs Test 09/11/24 10:44 09/11/24 05:37 09/10/24 12:52 Range/Units POC Glucose 273 H 70-106 mg/dl White Blood Count 5.5 4.4-10.8 10^3/uL Red Blood Count 4.91 4.5-5.90 10^6/uL Hemoglobin 14.8 13.5-17.5 g/dL Hematocrit 43.2 41.0-53.0 % Mean Corpuscular Volume 88.0 80.0-100.0 fL Mean Corpuscular Hemoglobin 30.1 28.0-32.0 pg Mean Corpuscular Hemoglobin Concent 34.2 32.0-36.0 g/dL Red Cell Distribution Width 14.7 H 11.8-14.3 % Platelet Count 138 L 140-450 10^3/uL Mean Platelet Volume 9.0 6.9-10.8 fL Neutrophils (%) (Auto) 80.1 H 37.0-80.0 % Lymphocytes (%) (Auto) 13.1 10.0-50.0 % Monocytes (%) (Auto) 6.1 0.0-12.0 % Eosinophils (%) (Auto) 0.4 0.0-7.0 % Basophils (%) (Auto) 0.3 0.0-2.0 % Neutrophils # (Auto) 4.4 1.6-8.6 10 ^3/uL Lymphocytes # (Auto) 0.7 0.4-5.4 10 ^3/uL Monocytes # (Auto) 0.3 0-1.3 10 ^3/uL Eosinophils # (Auto) 0 0-0.8 10 ^3/uL Basophils # (Auto) 0 0-0.2 10 ^3/uL Nucleated Red Blood Cells 0.0 % Sodium Level 141 136-145 mmol/L Potassium Level 4.7 3.5-5.1 mmol/L Chloride Level 107 98-107 mmol/L Carbon Dioxide Level 23 20-31 mmol/L Anion Gap 11 5-15 Blood Urea Nitrogen 20 9-23 mg/dL Creatinine 1.04 0.700-1.30 mg/dL Glomerular Filtration Rate Calc 71 >90 mL/min BUN/Creatinine Ratio 19.2 10.0-20.0 Serum Glucose 170 #H 74-106 mg/dL Calcium Level 9.5 8.7-10.4 mg/dL Total Bilirubin 0.5 0.2-1.0 mg/dL Aspartate Amino Transferase (AST) 12 L 13-40 U/L Alanine Aminotransferase (ALT) 12 7-40 U/L Alkaline Phosphatase 70 46-116 U/L Total Protein 6.7 5.7-8.2 g/dL Albumin 4.1 3.2-4.8 g/dL Random Vancomycin Level 9.1 5-10 ug/mL Prothrombin Time 10.3 9.3-11.8 sec Prothrombin Time INR 0.97 0.9-1.15 Activated Partial Thromboplast Time 29.1 24.5-34.5 SEC Microbiology Date/Time Source Procedure Growth Status 09/10/24 18:42 Toe Gram Stain Pending Resulted 09/10/24 18:42 Toe Wound Culture - Preliminary Resulted Problems(with codes): (1) Visit for wound check (2) Generalized weakness (3) Hyperglycemia (4) Cellulitis of left foot Plan/Recommendation ASSESSMENT: Patient is a 83 year old seen on the floor for a worsening ulcer PLAN: - The patients chart was reviewed, clinical findings were discussed with the patient, the etiologies of the conditions were discussed in detail, and a treatment plan was agreed to at this time, with both oral and written instructions provided. - reviewed advanced imaging - patient does have distal hallux osteomyelitis - recommend vascular consult see if they can improve flow for distal amputation - after evaluation we will plan on procedure All questions were answered and concerns addressed to the patient's satisfaction. The patient was given the phone number to the clinic and was told how to make contact with the clinic should any concerns or questions arise. Patient understands that if any questions or concerns arise prior to the next appointment, we should be contacted immediately. FOLLOW-UP: Continue to follow while inpatient Plan discussed with: Patient Date of Service: Sep 11, 2024 Billing Provider: TANNER LEDEZMA DPM Common Visit Codes: CONSULT ONLY Consultation Codes: [id number] CONSULT <80MIN TANNER LEDEZMA DPM Sep 11, 2024 12:45
[2024-09-11 13:31] VITALS: BP 124/67; PULSE 78; RESP 17; TEMP 97.9; O2SAT 95
--- NOTE | 2024-09-11 15:51 | DVHCONRES ---
Date Seen: Sep 11, 2024 Resident Creating Document: SAEN CONSTANTINO Jr., MD Referring Physician J LUIS Reason for Consultation pad with left foot wound History of Present Illness 83y M who presents to the ED for chief complaint of extremity pain. Pt states he has been having pain and swelling to the L great toe for the past 3 weeks. Pt states the pain started to get progressively worse and had went to urgent care today. Pt was given 1 gram rocephin and sent to the ED to rule out osteomyelitis. Pt in the ED, otherwise denies fever, shortness of breath, chills, or any associated symptoms u/s demonstrated possible short segment occlusion of sfa. pt. does describe claudication of the left leg. non smoker Past Medical History dm, htn, chol Past Surgical History none Family History: Patient reports no known family medical history. Social History nno smoker Allergies: Coded Allergies: NO KNOWN ALLERGIES (Unverified , 09/09/24) Current Medications Current Medications Medications (Trade) Dose Ordered Sig/Miranda Route PRN Reason Start Time Stop Time Status Last Admin Piperacillin Sod/ Tazobactam Sod 100 ml @ 25 mls/hr Q8HR IV 09/11/24 06:00 09/11/24 13:36 Diagnostic Test (Pha) (Accu-Chek Comfort Curve T) 1 strip ACHS 09/10/24 17:00 09/11/24 11:25 Insulin Human Regular (InsuLIN R) ACHS SC 09/10/24 17:00 09/11/24 11:25 Morphine Sulfate 2 mg Q4HPRN PRN IV SEVERE PAIN (7-10 PAIN SCALE) 09/10/24 16:15 Vancomycin HCl 200 ml @ 200 mls/hr Q24H IV 09/11/24 21:00 Review of Systems all systems revieed otherswise negative Vital Signs Vital Signs Date Time Temp Pulse Resp B/P (MAP) Pulse Ox O2 Delivery O2 Flow Rate FiO2 09/11/24 13:31 97.9 78 17 124/67 (86) 95 97.9 09/11/24 08:00 Room Air* 0 21 Physical Exam right foot wrapped. bilateral femoral pulses palpable, weak palp. dp/pt bilaterally Labs/Diagnostic Data Labs Test 09/11/24 10:44 09/11/24 05:37 09/10/24 12:52 Range/Units POC Glucose 273 H 70-106 mg/dl White Blood Count 5.5 4.4-10.8 10^3/uL Red Blood Count 4.91 4.5-5.90 10^6/uL Hemoglobin 14.8 13.5-17.5 g/dL Hematocrit 43.2 41.0-53.0 % Mean Corpuscular Volume 88.0 80.0-100.0 fL Mean Corpuscular Hemoglobin 30.1 28.0-32.0 pg Mean Corpuscular Hemoglobin Concent 34.2 32.0-36.0 g/dL Red Cell Distribution Width 14.7 H 11.8-14.3 % Platelet Count 138 L 140-450 10^3/uL Mean Platelet Volume 9.0 6.9-10.8 fL Neutrophils (%) (Auto) 80.1 H 37.0-80.0 % Lymphocytes (%) (Auto) 13.1 10.0-50.0 % Monocytes (%) (Auto) 6.1 0.0-12.0 % Eosinophils (%) (Auto) 0.4 0.0-7.0 % Basophils (%) (Auto) 0.3 0.0-2.0 % Neutrophils # (Auto) 4.4 1.6-8.6 10 ^3/uL Lymphocytes # (Auto) 0.7 0.4-5.4 10 ^3/uL Monocytes # (Auto) 0.3 0-1.3 10 ^3/uL Eosinophils # (Auto) 0 0-0.8 10 ^3/uL Basophils # (Auto) 0 0-0.2 10 ^3/uL Nucleated Red Blood Cells 0.0 % Sodium Level 141 136-145 mmol/L Potassium Level 4.7 3.5-5.1 mmol/L Chloride Level 107 98-107 mmol/L Carbon Dioxide Level 23 20-31 mmol/L Anion Gap 11 5-15 Blood Urea Nitrogen 20 9-23 mg/dL Creatinine 1.04 0.700-1.30 mg/dL Glomerular Filtration Rate Calc 71 >90 mL/min BUN/Creatinine Ratio 19.2 10.0-20.0 Serum Glucose 170 #H 74-106 mg/dL Calcium Level 9.5 8.7-10.4 mg/dL Total Bilirubin 0.5 0.2-1.0 mg/dL Aspartate Amino Transferase (AST) 12 L 13-40 U/L Alanine Aminotransferase (ALT) 12 7-40 U/L Alkaline Phosphatase 70 46-116 U/L Total Protein 6.7 5.7-8.2 g/dL Albumin 4.1 3.2-4.8 g/dL Random Vancomycin Level 9.1 5-10 ug/mL Prothrombin Time 10.3 9.3-11.8 sec Prothrombin Time INR 0.97 0.9-1.15 Activated Partial Thromboplast Time 29.1 24.5-34.5 SEC Microbiology Date/Time Source Procedure Growth Status 09/10/24 18:42 Toe Gram Stain Pending Resulted 09/10/24 18:42 Toe Wound Culture - Preliminary Resulted BILATERAL LOWER EXTREMITY ARTERIAL DUPLEX ULTRASOUND STUDY: REASON FOR EXAM: eval for arterial occlusiuon TECHNIQUE: The full lengths of the arterial segments were evaluated with color- flow Doppler ultrasound. Suspected abnormalities were evaluated with ferrari scale ultrasound. Pure Culture Operator spectral Doppler waveforms, with velocity measurements were obtained. Spectral waveforms with velocity measurements were obtained 2 to 4 cm central to any areas of significant stenosis. Common femoral, superficial femoral, popliteal, posterior tibial, and dorsal pedal arteries were evaluated. FINDINGS: Right: There is extensive atherosclerotic plaque throughout the right lower extremity. The common femoral artery waveform is multiphasic with a brisk upstroke. The superficial femoral and popliteal arteries are patent with monophasic waveforms. The popliteal waveform demonstrates tardus parvus morphology. The posterior tibial artery is heavily calcified and demonstrates a monophasic waveform. The dorsal pedal artery is patent with low velocity monophasic waveform. Left: There is extensive atherosclerotic plaque throughout the left lower extremity. The common femoral artery waveform is multiphasic with a brisk upstroke. There is possible short segment occlusion in the midportion of the superficial femoral artery with distal reconstitution by a collateral. The distal SFA demonstrates multiphasic morphology. The popliteal artery is patent with monophasic , tardus parvus morphology. The posterior tibial artery and dorsal pedal artery are patent with monophasic waveforms. IMPRESSION: Extensive bilateral lower extremity atherosclerotic vascular disease with possible short segment occlusion in the midportion of the left superficial femoral artery with reconstitution distal to the occlusion by collaterals. Assessment bilaterally peripheral vascular disease. with left 1st toe ulcer. rec. Angiogram, and left lower extremity revascularization prior to surgical debridement will plan for 09/15/24 for angiogram. Plan/Recommendation bilaterally peripheral vascular disease. with left 1st toe ulcer. rec. Angiogram, and left lower extremity revascularization prior to surgical debridement will plan for 09/15/24 for angiogram. Plan discussed with: Patient SEAN CONSTANTINO Jr., MD Sep 11, 2024 15:51
[2024-09-11 17:11] VITALS: BP 105/58; PULSE 68; RESP 17; TEMP 98.3; O2SAT 98
[2024-09-11 21:00] VITALS: BP 111/59; PULSE 78; RESP 16; TEMP 97.4; O2SAT 97
[2024-09-11] MEDS: VANCOMYCIN 1GM/200ML PM 200 ML IV SCH (21:05)
[2024-09-12 01:00] VITALS: BP 112/62; PULSE 75; RESP 17; TEMP 98.5; O2SAT 99
[2024-09-12 05:00] VITALS: BP 144/80; PULSE 82; RESP 17; TEMP 98; O2SAT 99
[2024-09-12 08:56] VITALS: BP 129/57; PULSE 74; RESP 16; TEMP 96.5; O2SAT 99
--- NOTE | 2024-09-12 09:35 | DVHPN2 ---
Reviewed: Care Plan, H&P, Labs, Medications, Previous Orders, Radiology Changes from previous H/P or p: No Changes Eyes: No Pain, No Vision change, No Conjunctivae inflammation, No Eyelid inflammation, No Other, No Redness ENT: No Ear pain, No Ear discharge, No Nose pain, No Nose discharge, No Nose congestion, No Mouth pain, No Mouth swelling, No Throat pain, No Throat swelling, No Other Cardiovascular: No Chest Pain, No Palpitations, No Orthopnea, No Paroxysmal Noc. Dyspnea, No Edema, No Lt Headedness, No Other Respiratory: No Cough, No Dry, No Shortness of breath, No SOB with excertion, No Wheezing, No Hemoptysis, No Pleuritic Pain, No Sputum, No Other Gastrointestinal: No Nausea, No Vomiting, No Abdominal Pain, No Diarrhea, No Constipation, No Melena, No Hematochezia, No Other Genitourinary: No Dysuria, No Frequency, No Incontinence, No Hematuria, No Retention, No Other Musculoskeletal: No other, No neck pain, No shoulder pain, No arm pain, No back pain, No hand pain, No leg pain; foot pain Skin: No Rash, No Lesions, No Jaundice, No Bruising, No Other Objective Vitals Vital Signs Date Time Temp Pulse Resp B/P (MAP) Pulse Ox O2 Delivery O2 Flow Rate FiO2 09/12/24 08:56 96.5 74 16 129/57 (81) 99 96.5 09/11/24 20:00 Room Air* 0 21 Intake/Output Intake and Output 09/12/24 07:00 Intake Total 1600 ml Balance 1600 ml Intake Oral 1200 ml IV Total 400 ml # Voids 4 Medications Current Medications Medications Dose Ordered Sig/Miranda Route Start Time Stop Time Status Last Admin Dose Admin Vancomycin HCl 0 ml @ 0 mls/hr UD IV 09/10/24 15:45 Piperacillin Sod/ Tazobactam Sod 100 ml @ 25 mls/hr Q8HR IV 09/11/24 06:00 09/12/24 06:16 25 MLS/HR Diagnostic Test (Pha) 1 strip ACHS 09/10/24 17:00 09/12/24 06:22 1 STRIP Insulin Human Regular ACHS SC 09/10/24 17:00 09/11/24 21:24 8 UNITS Dextrose 50 ml UD PRN IV 09/10/24 15:45 Sodium Chloride 1,000 ml @ 100 mls/hr Q10H IV 09/10/24 15:45 09/11/24 11:28 100 MLS/HR Ondansetron HCl 4 mg Q4HP PRN IV 09/10/24 15:45 Docusate Sodium 100 mg BIDPRN PRN PO 09/10/24 15:45 Morphine Sulfate 2 mg Q4HPRN PRN IV 09/10/24 16:15 Enoxaparin Sodium 40 mg DAILY SC 09/10/24 15:45 09/11/24 09:16 40 MG Nitroglycerin 0.4 mg Q5MINP PRN SL 09/10/24 15:45 Vancomycin HCl 200 ml @ 200 mls/hr Q24H IV 09/11/24 21:00 09/11/24 21:05 200 MLS/HR Laboratory Results Laboratory Tests 09/11/24 05:37 09/12/24 05:14 Microbiology Microbiology Date/Time Source Procedure Growth Status 09/10/24 18:42 Toe Gram Stain Pending Resulted 09/10/24 18:42 Toe Wound Culture - Preliminary Resulted Labs and/or images reviewed: Labs reviewed by me, Image(s) reviewed by me Assessment/Plan Assessment/Plan Acute osteomyelitis left great toe: Vancomycin 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 Rdz appreciated planning for peripheral angiogram on 09/15/2024 Mon DVT ruled out BPH Diabetes Hypertension Hypercholesterolemia Time spent 50 minutes Advanced care planning time 20 minutes Patient is full code Plan discussed with: Patient My Orders Orders - SHABANA DIETZ MD Procedure Category Date Status Time *Podiatry Consult CONS 09/11/24 Transmitted Amanda([facility]) 12:19 * Cardiology Consult CONS 09/11/24 Transmitted 12:21 Cleanse Wound With JOSE JUAN 09/11/24 In Process Wound Clean 11:07 * Dietary Consult CONS 09/11/24 Transmitted 14:56 Date of Service: Sep 12, 2024 Billing Provider: SHABANA DIETZ MD Common Visit Codes: [id number] INP/OBS CARE(HIGH) SHABANA DIETZ MD Sep 12, 2024 09:35
[2024-09-12 13:00] VITALS: BP 137/71; PULSE 97; RESP 16; TEMP 96.6; O2SAT 98
[2024-09-12 16:59] VITALS: BP 118/64; PULSE 74; RESP 16; TEMP 97.1; O2SAT 98
[2024-09-12 21:00] VITALS: BP 110/58; PULSE 90; RESP 20; TEMP 97.2; O2SAT 97
[2024-09-13 01:00] VITALS: BP 107/52; PULSE 83; RESP 20; TEMP 97.1; O2SAT 95
[2024-09-13 05:00] VITALS: BP 130/74; PULSE 84; RESP 19; TEMP 97.5; O2SAT 99
[2024-09-13 07:10] LABS: Basophils # (auto) 0 10 ^3/uL (0-0.2); Basophils % (auto) 0.5 % (0.0-2.0); Eosinophils # (auto) 0.1 10 ^3/uL (0-0.8); Hematocrit 38.6 % (41.0-53.0); Hemoglobin 13.3 g/dL (13.5-17.5); Lymphocytes # (auto) 1.1 10 ^3/uL (0.4-5.4); Lymphocytes % (auto) 28.8 % (10.0-50.0); Mean Corpuscular Hemoglobin 30.2 pg (28.0-32.0); Mean Corpuscular Hgb Conc. 34.4 g/dL (32.0-36.0); Mean Corpuscular Volume 87.9 fL (80.0-100.0); Monocytes # (auto) 0.4 10 ^3/uL (0-1.3); Monocytes % (auto) 9.6 % (0.0-12.0); Neutrophils # (auto) 2.3 10 ^3/uL (1.6-8.6); Neutrophils % (auto) 58.1 % (37.0-80.0); Nucleated Red Blood Cells % 0.2 %; Platelet Count (auto) 126 10^3/uL (140-450); Red Blood Cells 4.39 10^6/uL (4.5-5.90); Red Cell Distribution Width 14.6 % (11.8-14.3); White Blood Cell 3.9 10^3/uL (4.4-10.8)
[2024-09-13 09:00] VITALS: BP 106/61; PULSE 82; RESP 16; TEMP 97.5; O2SAT 98
--- NOTE | 2024-09-13 09:04 | DVHPN2 ---
Reviewed: Care Plan, H&P, Labs, Medications, Previous Orders, Radiology Changes from previous H/P or p: No Changes Eyes: No Pain, No Vision change, No Conjunctivae inflammation, No Eyelid inflammation, No Other, No Redness ENT: No Ear pain, No Ear discharge, No Nose pain, No Nose discharge, No Nose congestion, No Mouth pain, No Mouth swelling, No Throat pain, No Throat swelling, No Other Cardiovascular: No Chest Pain, No Palpitations, No Orthopnea, No Paroxysmal Noc. Dyspnea, No Edema, No Lt Headedness, No Other Respiratory: No Cough, No Dry, No Shortness of breath, No SOB with excertion, No Wheezing, No Hemoptysis, No Pleuritic Pain, No Sputum, No Other Gastrointestinal: No Nausea, No Vomiting, No Abdominal Pain, No Diarrhea, No Constipation, No Melena, No Hematochezia, No Other Genitourinary: No Dysuria, No Frequency, No Incontinence, No Hematuria, No Retention, No Other Musculoskeletal: No other, No neck pain, No shoulder pain, No arm pain, No back pain, No hand pain, No leg pain; foot pain Skin: No Rash, No Lesions, No Jaundice, No Bruising, No Other Objective Vitals Vital Signs Date Time Temp Pulse Resp B/P (MAP) Pulse Ox O2 Delivery O2 Flow Rate FiO2 09/13/24 05:00 97.5 84 19 130/74 (92) 99 97.5 09/12/24 20:00 Room Air* 0 21 Intake/Output Intake and Output 09/13/24 07:00 Intake Total 2440 ml Balance 2440 ml Intake Oral 1140 ml IV Total 1300 ml # Voids 4 # Bowel Movements 1 Medications Current Medications Medications Dose Ordered Sig/Miranda Route Start Time Stop Time Status Last Admin Dose Admin Vancomycin HCl 0 ml @ 0 mls/hr UD IV 09/10/24 15:45 Piperacillin Sod/ Tazobactam Sod 100 ml @ 25 mls/hr Q8HR IV 09/11/24 06:00 09/13/24 05:47 25 MLS/HR Diagnostic Test (Pha) 1 strip ACHS 09/10/24 17:00 09/13/24 06:45 1 STRIP Insulin Human Regular ACHS SC 09/10/24 17:00 09/13/24 06:45 2 UNITS Dextrose 50 ml UD PRN IV 09/10/24 15:45 Sodium Chloride 1,000 ml @ 100 mls/hr Q10H IV 09/10/24 15:45 09/12/24 15:40 100 MLS/HR Ondansetron HCl 4 mg Q4HP PRN IV 09/10/24 15:45 Docusate Sodium 100 mg BIDPRN PRN PO 09/10/24 15:45 Morphine Sulfate 2 mg Q4HPRN PRN IV 09/10/24 16:15 Enoxaparin Sodium 40 mg DAILY SC 09/10/24 15:45 09/12/24 11:00 40 MG Nitroglycerin 0.4 mg Q5MINP PRN SL 09/10/24 15:45 Vancomycin HCl 200 ml @ 200 mls/hr Q24H IV 09/11/24 21:00 09/12/24 21:08 200 MLS/HR Laboratory Results Laboratory Tests 09/11/24 05:37 09/13/24 05:57 Microbiology Microbiology Date/Time Source Procedure Growth Status 09/10/24 18:42 Toe Gram Stain Pending Resulted 09/10/24 18:42 Toe Wound Culture - Preliminary Resulted Labs and/or images reviewed: Labs reviewed by me, Image(s) reviewed by me Assessment/Plan Assessment/Plan Acute osteomyelitis left great toe: Vancomycin 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 Rdz appreciated planning for peripheral angiogram on 09/15/2024 Mon DVT ruled out BPH Diabetes Hypertension Hypercholesterolemia Time spent 50 minutes Advanced care planning time 20 minutes Patient is full code Wound cultures negative Patient is hospice revoked Patient lives alone Plan discussed with: Patient Date of Service: Sep 13, 2024 Billing Provider: SHABANA DIETZ MD Common Visit Codes: [id number] INP/OBS CARE(HIGH) SHABANA DIETZ MD Sep 13, 2024 09:04
[2024-09-13 12:56] VITALS: BP 125/75; PULSE 95; RESP 16; TEMP 96.9; O2SAT 99
[2024-09-13 16:59] VITALS: BP 111/65; PULSE 88; RESP 16; TEMP 97.1; O2SAT 97
[2024-09-13 21:00] VITALS: BP 116/64; PULSE 95; RESP 18; TEMP 97.6; O2SAT 97
[2024-09-13] MEDS: VANCOMYCIN 1GM/200ML PM 200 ML IV SCH (22:29)
[2024-09-14] VITALS (7 sets, daily range): BP systolic 108–122; BP diastolic 66–79; PULSE 77–93; RESP 15–18; TEMP 96.8–98.3; O2SAT 90–98
[2024-09-14 06:13] LABS: Basophils # (auto) 0 10 ^3/uL (0-0.2); Basophils % (auto) 0.3 % (0.0-2.0); Eosinophils # (auto) 0.2 10 ^3/uL (0-0.8); Hematocrit 36.5 % (41.0-53.0); Hemoglobin 12.8 g/dL (13.5-17.5); Lymphocytes # (auto) 1.3 10 ^3/uL (0.4-5.4); Lymphocytes % (auto) 26.2 % (10.0-50.0); Mean Corpuscular Hemoglobin 30.4 pg (28.0-32.0); Mean Corpuscular Hgb Conc. 35.1 g/dL (32.0-36.0); Mean Corpuscular Volume 86.6 fL (80.0-100.0); Monocytes # (auto) 0.6 10 ^3/uL (0-1.3); Monocytes % (auto) 11.5 % (0.0-12.0); Nucleated Red Blood Cells % 0.2 %; Platelet Count (auto) 141 10^3/uL (140-450); Red Blood Cells 4.22 10^6/uL (4.5-5.90); Red Cell Distribution Width 14.6 % (11.8-14.3); White Blood Cell 5.1 10^3/uL (4.4-10.8)
--- NOTE | 2024-09-14 10:02 | DVHPN2 ---
Reviewed: Care Plan, H&P, Labs, Medications, Previous Orders, Radiology Changes from previous H/P or p: No Changes Eyes: No Pain, No Vision change, No Conjunctivae inflammation, No Eyelid inflammation, No Other, No Redness ENT: No Ear pain, No Ear discharge, No Nose pain, No Nose discharge, No Nose congestion, No Mouth pain, No Mouth swelling, No Throat pain, No Throat swelling, No Other Cardiovascular: No Chest Pain, No Palpitations, No Orthopnea, No Paroxysmal Noc. Dyspnea, No Edema, No Lt Headedness, No Other Respiratory: No Cough, No Dry, No Shortness of breath, No SOB with excertion, No Wheezing, No Hemoptysis, No Pleuritic Pain, No Sputum, No Other Gastrointestinal: No Nausea, No Vomiting, No Abdominal Pain, No Diarrhea, No Constipation, No Melena, No Hematochezia, No Other Genitourinary: No Dysuria, No Frequency, No Incontinence, No Hematuria, No Retention, No Other Musculoskeletal: No other, No neck pain, No shoulder pain, No arm pain, No back pain, No hand pain, No leg pain; foot pain Skin: No Rash, No Lesions, No Jaundice, No Bruising, No Other Objective Vitals Vital Signs Date Time Temp Pulse Resp B/P (MAP) Pulse Ox O2 Delivery O2 Flow Rate FiO2 09/14/24 08:25 97.9 81 15 122/67 (85) 98 97.9 09/13/24 20:00 Room Air* 0 21 Intake/Output Intake and Output 09/14/24 07:00 Intake Total 1980 ml Balance 1980 ml Intake Oral 1280 ml IV Total 700 ml # Voids 5 # Bowel Movements 1 Medications Current Medications Medications Dose Ordered Sig/Miranda Route Start Time Stop Time Status Last Admin Dose Admin Vancomycin HCl 0 ml @ 0 mls/hr UD IV 09/10/24 15:45 Piperacillin Sod/ Tazobactam Sod 100 ml @ 25 mls/hr Q8HR IV 09/11/24 06:00 09/14/24 06:19 25 MLS/HR Diagnostic Test (Pha) 1 strip ACHS 09/10/24 17:00 09/14/24 07:08 1 STRIP Insulin Human Regular ACHS SC 09/10/24 17:00 09/14/24 00:04 6 UNITS Dextrose 50 ml UD PRN IV 09/10/24 15:45 Sodium Chloride 1,000 ml @ 100 mls/hr Q10H IV 09/10/24 15:45 09/13/24 23:45 100 MLS/HR Ondansetron HCl 4 mg Q4HP PRN IV 09/10/24 15:45 Docusate Sodium 100 mg BIDPRN PRN PO 09/10/24 15:45 Morphine Sulfate 2 mg Q4HPRN PRN IV 09/10/24 16:15 Enoxaparin Sodium 40 mg DAILY SC 09/10/24 15:45 09/13/24 10:08 40 MG Nitroglycerin 0.4 mg Q5MINP PRN SL 09/10/24 15:45 Vancomycin HCl 200 ml @ 200 mls/hr Q24H IV 09/13/24 22:30 09/13/24 22:29 200 MLS/HR Laboratory Results Laboratory Tests 09/11/24 05:37 09/14/24 05:36 Microbiology Microbiology Date/Time Source Procedure Growth Status 09/10/24 18:42 Toe Gram Stain - Final Resulted 09/10/24 18:42 Wound Culture - Preliminary Presumptive Sonal albicans Resulted Labs and/or images reviewed: Labs reviewed by me, Image(s) reviewed by me Assessment/Plan Assessment/Plan Acute osteomyelitis left great toe: Vancomycin Zosyn consult for title assistant appreciated, wound cultures growing presumptive Sonal albicans Bilateral peripheral arterial disease: Consult for Dr. Rdz appreciated planning for peripheral angiogram on 09/15/2024 Mon DVT ruled out BPH Diabetes Hypertension Hypercholesterolemia Time spent 50 minutes Advanced care planning time 20 minutes Patient is full code Wound cultures negative Patient is hospice revoked Patient lives alone Plan discussed with: Patient Date of Service: Sep 14, 2024 Billing Provider: SHABANA DIETZ MD Common Visit Codes: [id number] INP/OBS CARE(HIGH) SHABANA DIETZ MD Sep 14, 2024 10:02
[2024-09-14] MEDS: VANCOMYCIN 1GM/200ML PM 200 ML IV SCH (20:11)
[2024-09-15] VITALS (11 sets, daily range): BP systolic 110–127; BP diastolic 63–72; PULSE 82–95; RESP 12–18; TEMP 97.2–98.3; O2SAT 96–100
[2024-09-15 07:00] LABS: Basophils # (auto) 0 10 ^3/uL (0-0.2); Basophils % (auto) 0.4 % (0.0-2.0); Eosinophils # (auto) 0.2 10 ^3/uL (0-0.8); Eosinophils % (auto) 3.1 % (0.0-7.0); Hematocrit 37.5 % (41.0-53.0); Hemoglobin 12.9 g/dL (13.5-17.5); Lymphocytes # (auto) 1.1 10 ^3/uL (0.4-5.4); Lymphocytes % (auto) 21.6 % (10.0-50.0); Mean Corpuscular Hgb Conc. 34.5 g/dL (32.0-36.0); Monocytes # (auto) 0.5 10 ^3/uL (0-1.3); Neutrophils # (auto) 3.4 10 ^3/uL (1.6-8.6); Neutrophils % (auto) 65.9 % (37.0-80.0); Nucleated Red Blood Cells % 0.1 %; Platelet Count (auto) 136 10^3/uL (140-450); Red Blood Cells 4.31 10^6/uL (4.5-5.90); Red Cell Distribution Width 14.5 % (11.8-14.3); White Blood Cell 5.1 10^3/uL (4.4-10.8)
--- NOTE | 2024-09-15 10:02 | DVHPN2 ---
Reviewed: Care Plan, H&P, Labs, Medications, Previous Orders, Radiology Changes from previous H/P or p: No Changes Eyes: No Pain, No Vision change, No Conjunctivae inflammation, No Eyelid inflammation, No Other, No Redness ENT: No Ear pain, No Ear discharge, No Nose pain, No Nose discharge, No Nose congestion, No Mouth pain, No Mouth swelling, No Throat pain, No Throat swelling, No Other Cardiovascular: No Chest Pain, No Palpitations, No Orthopnea, No Paroxysmal Noc. Dyspnea, No Edema, No Lt Headedness, No Other Respiratory: No Cough, No Dry, No Shortness of breath, No SOB with excertion, No Wheezing, No Hemoptysis, No Pleuritic Pain, No Sputum, No Other Gastrointestinal: No Nausea, No Vomiting, No Abdominal Pain, No Diarrhea, No Constipation, No Melena, No Hematochezia, No Other Genitourinary: No Dysuria, No Frequency, No Incontinence, No Hematuria, No Retention, No Other Musculoskeletal: No other, No neck pain, No shoulder pain, No arm pain, No back pain, No hand pain, No leg pain; foot pain Skin: No Rash, No Lesions, No Jaundice, No Bruising, No Other Objective Vitals Vital Signs Date Time Temp Pulse Resp B/P (MAP) Pulse Ox O2 Delivery O2 Flow Rate FiO2 09/15/24 05:00 97.8 90 18 127/67 (87) 99 97.8 09/14/24 20:00 Room Air* 0 21 Intake/Output Intake and Output 09/15/24 07:00 Intake Total 2806 ml Balance 2806 ml Intake Oral 1656 ml IV Total 1150 ml # Voids 6 # Bowel Movements 1 Medications Current Medications Medications Dose Ordered Sig/Miranda Route Start Time Stop Time Status Last Admin Dose Admin Vancomycin HCl 0 ml @ 0 mls/hr UD IV 09/10/24 15:45 Piperacillin Sod/ Tazobactam Sod 100 ml @ 25 mls/hr Q8HR IV 09/11/24 06:00 09/15/24 06:06 25 MLS/HR Diagnostic Test (Pha) 1 strip ACHS 09/10/24 17:00 09/15/24 06:11 1 STRIP Insulin Human Regular ACHS SC 09/10/24 17:00 09/14/24 21:59 4 UNITS Dextrose 50 ml UD PRN IV 09/10/24 15:45 Sodium Chloride 1,000 ml @ 100 mls/hr Q10H IV 09/10/24 15:45 09/15/24 06:06 100 MLS/HR Ondansetron HCl 4 mg Q4HP PRN IV 09/10/24 15:45 Docusate Sodium 100 mg BIDPRN PRN PO 09/10/24 15:45 Morphine Sulfate 2 mg Q4HPRN PRN IV 09/10/24 16:15 Enoxaparin Sodium 40 mg DAILY SC 09/10/24 15:45 09/14/24 10:28 40 MG Nitroglycerin 0.4 mg Q5MINP PRN SL 09/10/24 15:45 Vancomycin HCl 200 ml @ 160 mls/hr Q16H IV 09/14/24 20:00 09/14/24 20:11 160 MLS/HR Laboratory Results Laboratory Tests 09/11/24 05:37 09/15/24 06:07 Microbiology Microbiology Date/Time Source Procedure Growth Status 09/10/24 18:42 Toe Gram Stain - Final Complete 09/10/24 18:42 Wound Culture - Final Staphylococcus haemolyticus Presumptive Sonal albicans Complete Labs and/or images reviewed: Labs reviewed by me, Image(s) reviewed by me Assessment/Plan Assessment/Plan Acute osteomyelitis left great toe: Vancomycin Zosyn consult for clinical ob appreciated, wound cultures growing presumptive Sonal albicans Bilateral peripheral arterial disease: Consult for Dr. Rdz appreciated planning for peripheral angiogram on 09/15/2024Sunday DVT ruled out BPH Diabetes Hypertension Hypercholesterolemia Time spent 50 minutes Advanced care planning time 20 minutes Patient is full code Wound cultures negative Patient is hospice revoked Patient lives alone Plan discussed with: Patient My Orders Orders - SHABANA DIETZ MD Procedure Category Date Status Time Npo (Nothing By DIET 09/15/24 Transmitted Mouth) Diet Breakfast Date of Service: Sep 15, 2024 Billing Provider: SHABANA DIETZ MD Common Visit Codes: [id number] INP/OBS CARE(HIGH) SHABANA DIETZ MD Sep 15, 2024 10:02
--- NOTE | 2024-09-15 11:49 | ECG ---
[facility] Test Date: 2024-09-15 Test Time: 11:45:55 Pat Name: ROULA GODOY Department: Room: 0220 A Gender: M It Specialist: Marvel GALLOWAY : 1940 Requested By: SEAN CONSTANTINO Order Number: [id number] Reading MD: Gael Barboza Measurements Intervals [place] Rate: 94 P: 47 SC: 204 QRS: 23 QRSD: 116 T: 103 QT: 362 QTc: 452 Interpretive Statements Normal sinus rhythm Anterior infarct , age undetermined Electronically Signed On 09-17-2024 20:20:30 PDT by Gael Barboza Please click the below link to view image of tracing.
[2024-09-15] MEDS: IOHEXOL 350 MG/ML 100ML IJ ONE (11:52)
[2024-09-15] MEDS: ANGIOMAX 250 MG VIAL IV ONE (11:59)
[2024-09-15] MEDS: fentaNYL CITRATE 100 MCG/2 ML VL ONE (12:00)
[2024-09-15] MEDS: MIDAZOLAM HCL 2MG/2ML 2ml VIAL (1mg/ml) ONE (12:00)
[2024-09-15] MEDS: LIDOCAINE 2%HCL (LOCAL ANESTH.) INJ 20ML MDV ONE (12:01)
[2024-09-15] MEDS: SODIUM CHL 0.9% 0 ML ONE (12:01)
[2024-09-15] MEDS: IODIXANOL 320MG/ML 100ML BTL IV ONE (12:11)
[2024-09-15] MEDS: HEPARIN SODIUM (PORCINE) 5000 UNITS/ML 1ML VIAL ONE (12:29)
--- NOTE | 2024-09-15 13:08 | DVHOP2 ---
Operative Report - 2 Report Details Date: 09/15/24 Preop Diagnosis: Severe peripheral vascular disease Postop Diagnosis: Left proximal SFA stenosis 70% treated to 0% residual. Distal SFA occlusion. Surgeon: Eliceo Christie MD Anesthesiologist: Conscious sedation Anesthesia: Local Consent: The patient was informed of the risks and benefits of the procedure. These include but are not limited to complications of anesthesia, postoperative infection, incomplete relief of symptoms, recurrence of symptoms, damage to blood vessels, nerves and tendons, deep venous thrombosis, pulmonary embolism and possible need for repeat surgery in the future. Estimated Blood Loss: Minimal Findings: Distal SFA occlusion Name of Procedure Performed Aortogram bilateral lower extremity arteriogram and left SFA angioplasty Procedure Details Procedure Details: Patient was identified in the preop hold area he was consented to preop by myself. He was brought back to the crime laboratory analyst placed on the crime laboratory analyst table in supine position after adequate induction of anesthesia antibiotics and time-out the left and right groin were prepped and draped in normal surgical fashion. 1% lidocaine was injected above the right common femoral artery the right common femoral artery was then cannulated with a four Mongolian micropuncture needle this was then exchanged out for a six Mongolian sheath. A right lower extremity arteriogram demonstrated a widely patent common femoral artery on the right side diseased calcified vessel but patent. Catheter and wire were then passed into the aorta aortogram demonstrated widely patent aorta and common iliacs bilaterally wire and catheter were then manipulated of the left external iliac artery a left lower extremity arteriogram demonstrated widely patent left common femoral artery. Profunda was the main runoff the SFA was sluggish there was multiple stenoses in the proximal SFA the most severe being 70%. Distal SFA was proximally 10 cm long occlusion with reconstitution of the popliteal artery ab ove the knee with collaterals from the profunda. The tibial vessels were patent below the knee however calcified. At this point in time 2007 and so heparin was given to the patient and the six Mongolian sheath was removed a six Mongolian 45 cm destination sheath was inserted using wire and catheter technique the wire was able to be manipulated to the proximal portion of the SFA a 5 x 1 100 mL balloon was used to angioplasty of the proximal stenosis residual stenosis was 0. At this point in time multiple attempts were undergone two traverse the distal SFA occlusion unfortunately this was unsuccessful. At this point in time completion angio demonstrated no significant change in the distal runoff. The wire and catheter were then removed. A six Mongolian Angio-Seal was deployed in the right common femoral artery. Manual pressure was held for proximally 5 minutes. Patient was taken to recovery in stable condition. Condition Good Disposition pacu ELICEO CHRISTIE Jr., MD Sep 15, 2024 13:08
[2024-09-15] MEDS: PIPERACILLIN-TAZOB 3.375GM 100 ML IV SCH (23:56)
[2024-09-16 01:00] VITALS: BP 112/67; PULSE 96; RESP 17; TEMP 98.5; O2SAT 99
[2024-09-16 05:00] VITALS: BP 120/66; PULSE 91; RESP 18; TEMP 98.2; O2SAT 100
[2024-09-16 07:24] LABS: Basophils # (auto) 0 10 ^3/uL (0-0.2); Basophils % (auto) 0.3 % (0.0-2.0); Eosinophils # (auto) 0.1 10 ^3/uL (0-0.8); Eosinophils % (auto) 2.1 % (0.0-7.0); Hemoglobin 12.9 g/dL (13.5-17.5); Lymphocytes # (auto) 0.9 10 ^3/uL (0.4-5.4); Lymphocytes % (auto) 18.5 % (10.0-50.0); Mean Corpuscular Hemoglobin 29.8 pg (28.0-32.0); Mean Corpuscular Volume 87.8 fL (80.0-100.0); Monocytes # (auto) 0.5 10 ^3/uL (0-1.3); Monocytes % (auto) 9.4 % (0.0-12.0); Neutrophils # (auto) 3.5 10 ^3/uL (1.6-8.6); Neutrophils % (auto) 69.7 % (37.0-80.0); Nucleated Red Blood Cells % 0.2 %; Red Blood Cells 4.33 10^6/uL (4.5-5.90); Red Cell Distribution Width 14.3 % (11.8-14.3)
[2024-09-16 07:40] LABS: Platelet Count (auto) 134 10^3/uL (140-450)
--- NOTE | 2024-09-16 08:27 | DVHPN2 ---
Reviewed: Care Plan, H&P, Labs, Medications, Previous Orders, Radiology Changes from previous H/P or p: No Changes Eyes: No Pain, No Vision change, No Conjunctivae inflammation, No Eyelid inflammation, No Other, No Redness ENT: No Ear pain, No Ear discharge, No Nose pain, No Nose discharge, No Nose congestion, No Mouth pain, No Mouth swelling, No Throat pain, No Throat swelling, No Other Cardiovascular: No Chest Pain, No Palpitations, No Orthopnea, No Paroxysmal Noc. Dyspnea, No Edema, No Lt Headedness, No Other Respiratory: No Cough, No Dry, No Shortness of breath, No SOB with excertion, No Wheezing, No Hemoptysis, No Pleuritic Pain, No Sputum, No Other Gastrointestinal: No Nausea, No Vomiting, No Abdominal Pain, No Diarrhea, No Constipation, No Melena, No Hematochezia, No Other Genitourinary: No Dysuria, No Frequency, No Incontinence, No Hematuria, No Retention, No Other Musculoskeletal: No other, No neck pain, No shoulder pain, No arm pain, No back pain, No hand pain, No leg pain; foot pain Skin: No Rash, No Lesions, No Jaundice, No Bruising, No Other Objective Vitals Vital Signs Date Time Temp Pulse Resp B/P (MAP) Pulse Ox O2 Delivery O2 Flow Rate FiO2 09/16/24 05:00 98.2 91 18 120/66 (84) 100 98.2 09/15/24 20:00 Room Air* 0 21 Intake/Output Intake and Output 09/16/24 06:59 Intake Total 1025 ml Output Total 1100 ml Balance -75 ml Intake Oral 425 ml IV Total 600 ml Output Urine Total 1100 ml Medications Current Medications Medications Dose Ordered Sig/Miranda Route Start Time Stop Time Status Last Admin Dose Admin Vancomycin HCl 0 ml @ 0 mls/hr UD IV 09/10/24 15:45 Diagnostic Test (Pha) 1 strip ACHS 09/10/24 17:00 09/16/24 06:05 1 STRIP Insulin Human Regular ACHS SC 09/10/24 17:00 09/16/24 06:06 3 UNITS Dextrose 50 ml UD PRN IV 09/10/24 15:45 Sodium Chloride 1,000 ml @ 100 mls/hr Q10H IV 09/10/24 15:45 09/16/24 05:01 100 MLS/HR Ondansetron HCl 4 mg Q4HP PRN IV 09/10/24 15:45 Docusate Sodium 100 mg BIDPRN PRN PO 09/10/24 15:45 Morphine Sulfate 2 mg Q4HPRN PRN IV 09/10/24 16:15 Enoxaparin Sodium 40 mg DAILY SC 09/10/24 15:45 09/14/24 10:28 40 MG Nitroglycerin 0.4 mg Q5MINP PRN SL 09/10/24 15:45 Vancomycin HCl 200 ml @ 160 mls/hr Q16H IV 09/14/24 20:00 09/16/24 04:14 160 MLS/HR Piperacillin Sod/ Tazobactam Sod 100 ml @ 25 mls/hr Q8H IV 09/16/24 00:00 09/16/24 08:18 25 MLS/HR Laboratory Results Laboratory Tests 09/11/24 05:37 09/16/24 06:03 Microbiology Microbiology Date/Time Source Procedure Growth Status 09/10/24 18:42 Toe Gram Stain - Final Complete 09/10/24 18:42 Wound Culture - Final Staphylococcus haemolyticus Presumptive Sonal albicans Complete Labs and/or images reviewed: Labs reviewed by me Assessment/Plan Assessment/Plan Acute osteomyelitis left great toe: Vancomycin Zosyn consult for process operator appreciated, wound cultures growing presumptive Sonal albicans Bilateral peripheral arterial disease: S/P unsuccessful aortogram bilateral lower extremity arteriogram and left SFA angioplasty by Dr Christie on 09-15-24 DVT ruled out BPH Diabetes Hypertension Hypercholesterolemia Time spent 50 minutes Advanced care planning time 20 minutes Patient is full code Wound cultures negative Patient is hospice revoked Patient lives alone Plan discussed with: Patient My Orders Orders - SHABANA DIETZ MD Procedure Category Date Status Time Cleanse Wound With JOSE JUAN 09/15/24 In Process Wound Clean 15:30 Date of Service: Sep 16, 2024 Billing Provider: SHABANA IDETZ MD Common Visit Codes: [id number] INP/OBS CARE(HIGH) SHABANA DIETZ MD Sep 16, 2024 08:27
[2024-09-16 09:00] VITALS: BP 125/68; PULSE 83; RESP 16; TEMP 98; O2SAT 98
--- NOTE | 2024-09-16 12:50 | DVHPN2 ---
Subjective 83-year-old male past medical history diabetes hyperlipidemia hypertension prostate issues in the past appendectomy cataract surgery chief complaint patient states he has been having left great toe pain and swelling with a wound he has been going on for three weeks patient states there was no drainage from the wound but is causing him some pain he went to the urgent care today and they told him to go to the ED for IV antibiotics and admission patient is concerned because he is diabetic patient currently lives alone at home when evaluating patient's labs and imaging from the ED looks like normal saline was given CBC was unremarkable glucose was 280 CT scan of the foot shows no osteomyelitis but subacute edema no fluid collection or abscess patient currently has a wound to the dorsal medial aspect of the toe under the bottom of the toe was tenderness and blanching and swelling no drainage with the wound is there with these findings we will admit and provide IV antibiotics also we will consult Podiatry along with wound care consult we will also order ultrasound to check for DVT along with arterial occlusion Reviewed: Care Plan, H&P, Labs, Medications, Previous Orders, Radiology Changes from previous H/P or p: No Changes Eyes: No Pain, No Vision change, No Conjunctivae inflammation, No Eyelid inflammation, No Other, No Redness ENT: No Ear pain, No Ear discharge, No Nose pain, No Nose discharge, No Nose congestion, No Mouth pain, No Mouth swelling, No Throat pain, No Throat swelling, No Other Cardiovascular: No Chest Pain, No Palpitations, No Orthopnea, No Paroxysmal Noc. Dyspnea, No Edema, No Lt Headedness, No Other Respiratory: No Cough, No Dry, No Shortness of breath, No SOB with excertion, No Wheezing, No Hemoptysis, No Pleuritic Pain, No Sputum, No Other Gastrointestinal: No Nausea, No Vomiting, No Abdominal Pain, No Diarrhea, No Constipation, No Melena, No Hematochezia, No Other Genitourinary: No Dysuria, No Frequency, No Incontinence, No Hematuria, No Retention, No Other Musculoskeletal: No other, No neck pain, No shoulder pain, No arm pain, No back pain, No hand pain, No leg pain; foot pain Skin: No Rash, No Lesions, No Jaundice, No Bruising, No Other Objective Vitals Vital Signs Date Time Temp Pulse Resp B/P (MAP) Pulse Ox O2 Delivery O2 Flow Rate FiO2 09/16/24 09:00 98.0 83 16 125/68 (87) 98 98.0 09/16/24 08:00 Room Air* 0 21 Intake/Output Intake and Output 09/16/24 07:00 Intake Total 1025 ml Output Total 1100 ml Balance -75 ml Intake Oral 425 ml IV Total 600 ml Output Urine Total 1100 ml Exam Dermatological: Skin is dry with mild erythema and some maceration around the wound site No gross deformities noted Mild non-pitting edema present bilaterally Left hallux with cellulitis and exposed bone Vascular: Dorsalis pedis and posterior tibial pulses are 1+ bilaterally Capillary refill is under 2 seconds Skin temperature is warm bilaterally Neurologic: Protective sensation is absent on the plantar forefoot bilaterally Monofilament testing reveals decreased sensation in multiple plantar sites Musculoskeletal: Range of motion at the ankle and MTP joints is within normal limits. Strength is 5/5 in all tested muscle groups. Gait is antalgic due to offloading of the affected limb. Medications Current Medications Medications Dose Ordered Sig/Miranda Route Start Time Stop Time Status Last Admin Dose Admin Vancomycin HCl 0 ml @ 0 mls/hr UD IV 09/10/24 15:45 Diagnostic Test (Pha) 1 strip ACHS 09/10/24 17:00 09/16/24 11:49 1 STRIP Insulin Human Regular ACHS SC 09/10/24 17:00 09/16/24 11:49 4 UNITS Dextrose 50 ml UD PRN IV 09/10/24 15:45 Sodium Chloride 1,000 ml @ 100 mls/hr Q10H IV 09/10/24 15:45 09/16/24 05:01 100 MLS/HR Ondansetron HCl 4 mg Q4HP PRN IV 09/10/24 15:45 Docusate Sodium 100 mg BIDPRN PRN PO 09/10/24 15:45 Morphine Sulfate 2 mg Q4HPRN PRN IV 09/10/24 16:15 Enoxaparin Sodium 40 mg DAILY SC 09/10/24 15:45 09/16/24 09:46 40 MG Nitroglycerin 0.4 mg Q5MINP PRN SL 09/10/24 15:45 Vancomycin HCl 200 ml @ 160 mls/hr Q16H IV 09/14/24 20:00 09/16/24 04:14 160 MLS/HR Piperacillin Sod/ Tazobactam Sod 100 ml @ 25 mls/hr Q8H IV 09/16/24 00:00 09/16/24 08:18 25 MLS/HR Laboratory Results Laboratory Tests 09/11/24 05:37 09/16/24 06:03 Microbiology Microbiology Date/Time Source Procedure Growth Status 09/10/24 18:42 Toe Gram Stain - Final Complete 09/10/24 18:42 Wound Culture - Final Staphylococcus haemolyticus Presumptive Sonal albicans Complete Assessment/Plan Assessment/Plan ASSESSMENT: Patient is a 83 year old seen on the floor for a worsening ulcer PLAN: - The patients chart was reviewed, clinical findings were discussed with the patient, the etiologies of the conditions were discussed in detail, and a treatment plan was agreed to at this time, with both oral and written instructions provided. - reviewed advanced imaging - discussed plan is to perform an incision and drainage and bone biopsy - patient will be NPO at midnight - take him to the OR tomorrow - we will get cultures in the OR - can weightbear as tolerated in postoperative shoe All questions were answered and concerns addressed to the patient's satisfaction. The patient was given the phone number to the clinic and was told how to make contact with the clinic should any concerns or questions arise. Patient understands that if any questions or concerns arise prior to the next appointment, we should be contacted immediately. FOLLOW-UP: Continue to follow while inpatient Plan discussed with: Patient My Orders Orders - TANNER LEDEZMA DPM Procedure Category Date Status Time Obtain Consent For: ORDERS 09/16/24 Transmitted 12:45 Problem List: (1) Generalized weakness (2) Hyperglycemia (3) Cellulitis of left foot (4) Visit for wound check Date of Service: Sep 16, 2024 Billing Provider: TANNER LEDEZMA DPM Common Visit Codes: [id number] INP/OBS CARE(HIGH) TANNER LEDEZMA DPM Sep 16, 2024 12:50
[2024-09-16 13:00] VITALS: BP 123/77; PULSE 83; RESP 16; TEMP 97.5; O2SAT 98
[2024-09-16 17:00] VITALS: BP 122/85; PULSE 94; RESP 18; TEMP 98.7; O2SAT 97
[2024-09-16 21:00] VITALS: BP 116/63; PULSE 91; RESP 16; TEMP 98.6; O2SAT 96
[2024-09-16] MEDS: MELATONIN 5 MG TAB PO ONE (22:00)
[2024-09-17 01:00] VITALS: BP 109/58; PULSE 80; RESP 17; TEMP 98.4; O2SAT 93
[2024-09-17 05:00] VITALS: BP 127/67; PULSE 89; RESP 18; TEMP 97.6; O2SAT 97
[2024-09-17 07:12] LABS: Basophils # (auto) 0 10 ^3/uL (0-0.2); Basophils % (auto) 0.3 % (0.0-2.0); Eosinophils # (auto) 0.1 10 ^3/uL (0-0.8); Eosinophils % (auto) 2.8 % (0.0-7.0); Hematocrit 36.1 % (41.0-53.0); Hemoglobin 12.3 g/dL (13.5-17.5); Lymphocytes # (auto) 0.7 10 ^3/uL (0.4-5.4); Lymphocytes % (auto) 16.9 % (10.0-50.0); Mean Corpuscular Hgb Conc. 34.1 g/dL (32.0-36.0); Mean Corpuscular Volume 87.8 fL (80.0-100.0); Monocytes # (auto) 0.5 10 ^3/uL (0-1.3); Monocytes % (auto) 10.4 % (0.0-12.0); Neutrophils % (auto) 69.6 % (37.0-80.0); Nucleated Red Blood Cells % 0.1 %; Red Blood Cells 4.11 10^6/uL (4.5-5.90); Red Cell Distribution Width 14.4 % (11.8-14.3); White Blood Cell 4.3 10^3/uL (4.4-10.8)
[2024-09-17 07:19] LABS: Platelet Count (auto) 123 10^3/uL (140-450)
[2024-09-17 07:23] LABS: Alanine Aminotransferase 10 U/L (7-40); Albumin 3.7 g/dL (3.2-4.8); Alkaline Phosphatase 60 U/L (46-116); Anion Gap 9 (5-15); BUN/Creatinine Ratio 13.2 (10.0-20.0); Blood Urea Nitrogen 12 mg/dL (9-23); Calcium 9.3 mg/dL (8.7-10.4); Carbon Dioxide 23 mmol/L (20-31); Potassium 3.7 mmol/L (3.5-5.1); Sodium 141 mmol/L (136-145)
[2024-09-17 07:24] LABS: Aspartate Aminotransferase 8 U/L (13-40); Bilirubin, Total 0.6 mg/dL (0.2-1.0); Chloride 109 mmol/L (98-107); Glucose 205 mg/dL (74-106)
[2024-09-17 07:27] LABS: INR 1.01 (0.9-1.15); Partial Thromboplastin Time 33.3 SEC (24.5-34.5); Prothrombin Time 10.7 sec (9.3-11.8)
--- NOTE | 2024-09-17 08:46 | DVHPN2 ---
Reviewed: Care Plan, H&P, Labs, Medications, Previous Orders, Radiology Changes from previous H/P or p: No Changes Eyes: No Pain, No Vision change, No Conjunctivae inflammation, No Eyelid inflammation, No Other, No Redness ENT: No Ear pain, No Ear discharge, No Nose pain, No Nose discharge, No Nose congestion, No Mouth pain, No Mouth swelling, No Throat pain, No Throat swelling, No Other Cardiovascular: No Chest Pain, No Palpitations, No Orthopnea, No Paroxysmal Noc. Dyspnea, No Edema, No Lt Headedness, No Other Respiratory: No Cough, No Dry, No Shortness of breath, No SOB with excertion, No Wheezing, No Hemoptysis, No Pleuritic Pain, No Sputum, No Other Gastrointestinal: No Nausea, No Vomiting, No Abdominal Pain, No Diarrhea, No Constipation, No Melena, No Hematochezia, No Other Genitourinary: No Dysuria, No Frequency, No Incontinence, No Hematuria, No Retention, No Other Musculoskeletal: No other, No neck pain, No shoulder pain, No arm pain, No back pain, No hand pain, No leg pain; foot pain Skin: No Rash, No Lesions, No Jaundice, No Bruising, No Other Objective Vitals Vital Signs Date Time Temp Pulse Resp B/P (MAP) Pulse Ox O2 Delivery O2 Flow Rate FiO2 09/17/24 07:45 Room Air* 0 21 09/17/24 05:00 97.6 89 18 127/67 (87) 97 97.6 Intake/Output Intake and Output 09/17/24 07:00 Intake Total 2025 ml Output Total 2565 ml Balance -540 ml Intake Oral 1425 ml IV Total 600 ml Output Urine Total 2565 ml Medications Current Medications Medications Dose Ordered Sig/Miranda Route Start Time Stop Time Status Last Admin Dose Admin Vancomycin HCl 0 ml @ 0 mls/hr UD IV 09/10/24 15:45 Diagnostic Test (Pha) 1 strip ACHS 09/10/24 17:00 09/17/24 06:18 1 STRIP Insulin Human Regular ACHS SC 09/10/24 17:00 09/16/24 16:38 4 UNITS Dextrose 50 ml UD PRN IV 09/10/24 15:45 Sodium Chloride 1,000 ml @ 100 mls/hr Q10H IV 09/10/24 15:45 09/17/24 06:19 100 MLS/HR Ondansetron HCl 4 mg Q4HP PRN IV 09/10/24 15:45 Docusate Sodium 100 mg BIDPRN PRN PO 09/10/24 15:45 Morphine Sulfate 2 mg Q4HPRN PRN IV 09/10/24 16:15 Enoxaparin Sodium 40 mg DAILY SC 09/10/24 15:45 09/16/24 09:46 40 MG Nitroglycerin 0.4 mg Q5MINP PRN SL 09/10/24 15:45 Vancomycin HCl 200 ml @ 160 mls/hr Q16H IV 09/14/24 20:00 09/16/24 20:46 160 MLS/HR Piperacillin Sod/ Tazobactam Sod 100 ml @ 25 mls/hr Q8H IV 09/16/24 00:00 09/17/24 07:33 25 MLS/HR Laboratory Results Laboratory Tests 09/17/24 06:31 Chemistry Test 09/17/24 06:31 Albumin 3.7 g/dL (3.2-4.8) Calcium Level 9.3 mg/dL (8.7-10.4) Total Protein 6.0 g/dL (5.7-8.2) Coagulation Test 09/17/24 06:31 Prothrombin Time 10.7 sec (9.3-11.8) Prothrombin Time INR 1.01 (0.9-1.15) Activated Partial Thromboplast Time 33.3 SEC (24.5-34.5) LFT Test 09/17/24 06:31 Alanine Aminotransferase (ALT) 10 U/L (7-40) Alkaline Phosphatase 60 U/L (46-116) Aspartate Amino Transferase (AST) 8 U/L (13-40) L Total Bilirubin 0.6 mg/dL (0.2-1.0) Microbiology Microbiology Date/Time Source Procedure Growth Status 09/10/24 18:42 Toe Gram Stain - Final Complete 09/10/24 18:42 Wound Culture - Final Staphylococcus haemolyticus Presumptive Sonal albicans Complete Labs and/or images reviewed: Labs reviewed by me, Image(s) reviewed by me Assessment/Plan Assessment/Plan Acute osteomyelitis left great toe: consult for battery installer appreciated, wound cultures growing Staph hemolyticus and presumptive Sonal albicans; DC vancomycin and Zosyn start Zyvox and Diflucan; battery installer planning for incision and drainage today Bilateral peripheral arterial disease: S/P unsuccessful aortogram bilateral lower extremity arteriogram and left SFA angioplasty by Dr Christie on 09-15-24 DVT ruled out BPH Diabetes Hypertension Hypercholesterolemia Time spent 50 minutes Advanced care planning time 20 minutes Patient is full code Wound cultures negative Patient is hospice revoked Patient lives alone Plan discussed with: Patient Date of Service: Sep 17, 2024 Billing Provider: SHABANA DIETZ MD Common Visit Codes: [id number] INP/OBS CARE(HIGH) SHABANA DIETZ MD Sep 17, 2024 08:46
[2024-09-17 08:51] VITALS: BP 123/70; PULSE 84; RESP 17; TEMP 97.8; O2SAT 96
[2024-09-17] MEDS: FLUCONAZOLE 200MG/100ML 100 ML IV SCH (09:41)
[2024-09-17] MEDS ORDERED: BUPIVACAINE HCL 50 ML ONE (11:33)
[2024-09-17] MEDS: LINEZOLID 600MG/300ML 300 ML IV SCH (11:47)
[2024-09-17] MEDS ORDERED: ONDANSETRON HCL 4 MG/2 ML VIAL ONE (12:41)
[2024-09-17] MEDS ORDERED: KETOROLAC TROMETH 30 MG/ML 1ML VIAL ONE (12:41)
[2024-09-17] MEDS ORDERED: DexAMETHasone SOD PHOS 10MG/1ML VIAL INJ ONE (12:41)
[2024-09-17] MEDS ORDERED: LIDOCAINE 1% INJ PF 5ML AMP ONE (12:41)
[2024-09-17] MEDS ORDERED: PROPOFOL 10 MG/ML 20 ML IV ONE (12:42)
[2024-09-17] MEDS ORDERED: GLYCOPYRROLATE 0.2 MG/ML 1ML VIAL ONE (12:42)
--- NOTE | 2024-09-17 13:09 | DVHPN2 ---
Subjective 83-year-old male past medical history diabetes hyperlipidemia hypertension prostate issues in the past appendectomy cataract surgery chief complaint patient states he has been having left great toe pain and swelling with a wound he has been going on for three weeks patient states there was no drainage from the wound but is causing him some pain he went to the urgent care today and they told him to go to the ED for IV antibiotics and admission patient is concerned because he is diabetic patient currently lives alone at home when evaluating patient's labs and imaging from the ED looks like normal saline was given CBC was unremarkable glucose was 280 CT scan of the foot shows no osteomyelitis but subacute edema no fluid collection or abscess patient currently has a wound to the dorsal medial aspect of the toe under the bottom of the toe was tenderness and blanching and swelling no drainage with the wound is there with these findings we will admit and provide IV antibiotics also we will consult Podiatry along with wound care consult we will also order ultrasound to check for DVT along with arterial occlusion Reviewed: Care Plan, H&P, Labs, Medications, Previous Orders, Radiology Changes from previous H/P or p: No Changes Eyes: No Pain, No Vision change, No Conjunctivae inflammation, No Eyelid inflammation, No Other, No Redness ENT: No Ear pain, No Ear discharge, No Nose pain, No Nose discharge, No Nose congestion, No Mouth pain, No Mouth swelling, No Throat pain, No Throat swelling, No Other Cardiovascular: No Chest Pain, No Palpitations, No Orthopnea, No Paroxysmal Noc. Dyspnea, No Edema, No Lt Headedness, No Other Respiratory: No Cough, No Dry, No Shortness of breath, No SOB with excertion, No Wheezing, No Hemoptysis, No Pleuritic Pain, No Sputum, No Other Gastrointestinal: No Nausea, No Vomiting, No Abdominal Pain, No Diarrhea, No Constipation, No Melena, No Hematochezia, No Other Genitourinary: No Dysuria, No Frequency, No Incontinence, No Hematuria, No Retention, No Other Musculoskeletal: No other, No neck pain, No shoulder pain, No arm pain, No back pain, No hand pain, No leg pain; foot pain Skin: No Rash, No Lesions, No Jaundice, No Bruising, No Other Objective Vitals Vital Signs Date Time Temp Pulse Resp B/P (MAP) Pulse Ox O2 Delivery O2 Flow Rate FiO2 09/17/24 08:51 97.8 84 17 123/70 (87) 96 97.8 09/17/24 07:45 Room Air* 0 21 Intake/Output Intake and Output 09/17/24 07:00 Intake Total 2025 ml Output Total 2565 ml Balance -540 ml Intake Oral 1425 ml IV Total 600 ml Output Urine Total 2565 ml Exam Dermatological: Skin is dry with mild erythema and some maceration around the wound site No gross deformities noted Mild non-pitting edema present bilaterally Left hallux with cellulitis and exposed bone Vascular: Dorsalis pedis and posterior tibial pulses are 1+ bilaterally Capillary refill is under 2 seconds Skin temperature is warm bilaterally Neurologic: Protective sensation is absent on the plantar forefoot bilaterally Monofilament testing reveals decreased sensation in multiple plantar sites Musculoskeletal: Range of motion at the ankle and MTP joints is within normal limits. Strength is 5/5 in all tested muscle groups. Gait is antalgic due to offloading of the affected limb. Medications Current Medications Medications Dose Ordered Sig/Miranda Route Start Time Stop Time Status Last Admin Dose Admin Diagnostic Test (Pha) 1 strip ACHS 09/10/24 17:00 09/17/24 11:42 1 STRIP Insulin Human Regular ACHS SC 09/10/24 17:00 09/17/24 11:43 4 UNITS Dextrose 50 ml UD PRN IV 09/10/24 15:45 Sodium Chloride 1,000 ml @ 100 mls/hr Q10H IV 09/10/24 15:45 09/17/24 06:19 100 MLS/HR Ondansetron HCl 4 mg Q4HP PRN IV 09/10/24 15:45 Docusate Sodium 100 mg BIDPRN PRN PO 09/10/24 15:45 Morphine Sulfate 2 mg Q4HPRN PRN IV 09/10/24 16:15 Enoxaparin Sodium 40 mg DAILY SC 09/10/24 15:45 09/16/24 09:46 40 MG Nitroglycerin 0.4 mg Q5MINP PRN SL 09/10/24 15:45 Linezolid 300 ml @ 150 mls/hr Q12HR IV 09/17/24 10:00 09/17/24 11:47 150 MLS/HR Fluconazole 100 ml @ 100 mls/hr 10,11 IV 09/17/24 10:00 09/17/24 10:42 100 MLS/HR Laboratory Results Laboratory Tests 09/17/24 06:31 Chemistry Test 09/17/24 06:31 Albumin 3.7 g/dL (3.2-4.8) Calcium Level 9.3 mg/dL (8.7-10.4) Total Protein 6.0 g/dL (5.7-8.2) Coagulation Test 09/17/24 06:31 Prothrombin Time 10.7 sec (9.3-11.8) Prothrombin Time INR 1.01 (0.9-1.15) Activated Partial Thromboplast Time 33.3 SEC (24.5-34.5) LFT Test 09/17/24 06:31 Alanine Aminotransferase (ALT) 10 U/L (7-40) Alkaline Phosphatase 60 U/L (46-116) Aspartate Amino Transferase (AST) 8 U/L (13-40) L Total Bilirubin 0.6 mg/dL (0.2-1.0) Microbiology Microbiology Date/Time Source Procedure Growth Status 09/10/24 18:42 Toe Gram Stain - Final Complete 09/10/24 18:42 Wound Culture - Final Staphylococcus haemolyticus Presumptive Sonal albicans Complete Assessment/Plan Assessment/Plan ASSESSMENT: Patient is a 83 year old seen on the floor for a worsening ulcer PLAN: - The patients chart was reviewed, clinical findings were discussed with the patient, the etiologies of the conditions were discussed in detail, and a treatment plan was agreed to at this time, with both oral and written instructions provided. - reviewed advanced imaging - discussed plan is to perform an incision and drainage and bone biopsy - patient has been NPO since midnight - take him to the OR today - we will get cultures in the OR - can weightbear as tolerated in postoperative shoe All questions were answered and concerns addressed to the patient's satisfaction. The patient was given the phone number to the clinic and was told how to make contact with the clinic should any concerns or questions arise. Patient understands that if any questions or concerns arise prior to the next appointment, we should be contacted immediately. FOLLOW-UP: Continue to follow while inpatient Plan discussed with: Patient My Orders Orders - TANNER LEDEZMA DPM Procedure Category Date Status Time Consistent DIET 09/17/24 Transmitted Carb(Ccho)Diabetes Lunch Anaerobic Culture DAVEY 09/17/24 Logged 13:05 Gram Stain DAVEY 09/17/24 Logged 13:05 Routine Bacterial DAVEY 09/17/24 Logged Culture 13:05 Problem List: (1) Generalized weakness (2) Hyperglycemia (3) Cellulitis of left foot (4) Visit for wound check Date of Service: Sep 17, 2024 Billing Provider: TANNER LEDEZMA DPM Common Visit Codes: [id number] INP/OBS CARE(HIGH) TANNER LEDEZMA DPM Sep 17, 2024 13:09
[2024-09-17 13:12] VITALS: PULSE 79; RESP 18; O2SAT 98
--- NOTE | 2024-09-17 13:27 | DVHOP2 ---
Operative Report - 2 Report Details Date: 09/17/24 Preop Diagnosis: 1. Left foot osteomyelitis 2. Left foot cellulitis 3. Left foot abscess 4. Left foot PAD Postop Diagnosis: Same as preop Surgeon: Tanner Ledezma MD Anesthesiologist: See anesthesia Anesthesia: Mac Consent: The patient was informed of the risks and benefits of the procedure. These include but are not limited to complications of anesthesia, postoperative infection, incomplete relief of symptoms, recurrence of symptoms, damage to blood vessels, nerves and tendons, deep venous thrombosis, pulmonary embolism and possible need for repeat surgery in the future. Complications: None Estimated Blood Loss: Minimal Fluids: See anesthesia Findings: Consistent with a diagnosis Indications for Surgery: Worsening left foot wound Name of Procedure Performed 1. Left foot I&D to bone (89675) 2. Left foot hallux bone biopsy () 3. Left foot rotational skin flap (23126) 4. Left foot delayed closure (48680) Procedure Details Procedure Details: PRE-PROCEDURE INFORMATION: In the pre-op holding area, the extremity to be operated on was clearly marked and the patient verified correct laterality of the marking. The patient was transferred to the OR table and placed in a supine position. A timeout was performed in which identification of the correct patient, procedure, location, and materials was done. The left foot and leg were prepped and draped in normal sterile fashion. DESCRIPTION OF PROCEDURE: Attention was directed to the left where area of fluctuance was noted. An incision was made over this area and was deepened through blunt dissection. The incision was deepened to the level of abscess and bone. Care was taken to the dissection to avoid any neurovascular and tendinous structures. The incision was deepened to the bone, and the abscess appeared to be purulent fluid consistent with pus. The cortices of the bone was then removed with rongeur an all necrotic tissue. After the abscess was drained, the area was irrigated with 3 L normal saline using cysto tubing. Deep cultures were then obtained from the wound. The area was then inspected and any areas of tracking, especially along the tendons were also drained. A bone biopsy was then taken of the left hallux which was deepened to the muscle belly and tendons. The bone was then sent to pathology to determine the extent of osteomyelitis. Due to the soft tissue deficit, rotational advancement flap was designed medially to laterally and elevated preserving vascularity. A delayed closure was then performed using 2-0 nylon after was deemed appropriate with no longer concern for infection. POSTOPERATIVE INFORMATION: The patient tolerated the above noted procedure and anesthesia well and was transferred to the PACU with vital signs stable, and vascular status intact with capillary refill intact to all digits. Recommend patient gets IV antibiotics. Patient can weightbear as a postoperative shoe. The patient can be discharged with the antibiotics. Specimen: Left hallux Condition Good Disposition Still a Patient TANNER LEDEZMA DPM Sep 17, 2024 13:27
[2024-09-17] MEDS ORDERED: NALOXONE HCL 0.4 MG/ML VIAL IV PRN (13:30)
[2024-09-17] MEDS ORDERED: FLUMAZENIL 0.1 MG/ML INJ 10ML MDV IV PRN (13:30)
[2024-09-17] MEDS ORDERED: HYDROmorphone HCL 2 MG/ML VL/or syr IV PRN (13:30)
[2024-09-17] MEDS ORDERED: hydrALAZINE HCL 20 MG/ML VL IV PRN (13:30)
[2024-09-17] MEDS ORDERED: ONDANSETRON HCL 4 MG/2 ML VIAL IV PRN (13:30)
[2024-09-17] MEDS ORDERED: ePHEDrine SULFATE 50 MG/ML AMP IV PRN (13:30)
[2024-09-17] MEDS ORDERED: fentaNYL CITRATE 100 MCG/2 ML VL IV PRN (13:30)
[2024-09-17 17:00] VITALS: BP 111/71; PULSE 94; RESP 17; TEMP 98; O2SAT 95
[2024-09-17 21:00] VITALS: BP 111/72; PULSE 104; RESP 16; TEMP 97.8; O2SAT 94
[2024-09-17] MEDS ORDERED: DEXTROSE (50%) 50ML SYRG IV PRN ×2 (22:30→22:45)
[2024-09-17] MEDS: ACCU-CHEK COMFORT CURVE STRIP VI SCH (22:45)
[2024-09-17] MEDS: MELATONIN 5 MG TAB PO ONE (22:53)
[2024-09-17] MEDS: InsuLIN REG 1unit/0.01ml Soln (100units/ml) SC SCH (22:57)
[2024-09-17] MEDS: MELATONIN 5 MG TAB ONE (22:58)
[2024-09-18] VITALS (7 sets, daily range): BP systolic 111–131; BP diastolic 68–80; PULSE 79–90; RESP 16–20; TEMP 82–98.2; O2SAT 92–98
[2024-09-18] MEDS ORDERED: InsuLIN REG 1unit/0.01ml Soln (100units/ml) SC SCH
[2024-09-18] MEDS ORDERED: ACCU-CHEK COMFORT CURVE STRIP VI SCH
[2024-09-18] MEDS: ACCU-CHEK COMFORT CURVE STRIP VI SCH (02:03)
[2024-09-18] MEDS: InsuLIN REG 1unit/0.01ml Soln (100units/ml) SC SCH (02:07)
--- NOTE | 2024-09-18 09:27 | DVHPN2 ---
Reviewed: Care Plan, H&P, Labs, Medications, Previous Orders, Radiology Changes from previous H/P or p: No Changes Eyes: No Pain, No Vision change, No Conjunctivae inflammation, No Eyelid inflammation, No Other, No Redness ENT: No Ear pain, No Ear discharge, No Nose pain, No Nose discharge, No Nose congestion, No Mouth pain, No Mouth swelling, No Throat pain, No Throat swelling, No Other Cardiovascular: No Chest Pain, No Palpitations, No Orthopnea, No Paroxysmal Noc. Dyspnea, No Edema, No Lt Headedness, No Other Respiratory: No Cough, No Dry, No Shortness of breath, No SOB with excertion, No Wheezing, No Hemoptysis, No Pleuritic Pain, No Sputum, No Other Gastrointestinal: No Nausea, No Vomiting, No Abdominal Pain, No Diarrhea, No Constipation, No Melena, No Hematochezia, No Other Genitourinary: No Dysuria, No Frequency, No Incontinence, No Hematuria, No Retention, No Other Musculoskeletal: No other, No neck pain, No shoulder pain, No arm pain, No back pain, No hand pain, No leg pain; foot pain Skin: No Rash, No Lesions, No Jaundice, No Bruising, No Other Objective Vitals Vital Signs Date Time Temp Pulse Resp B/P (MAP) Pulse Ox O2 Delivery O2 Flow Rate FiO2 09/18/24 07:30 Room Air* 0 21 09/18/24 05:00 97.0 81 16 120/76 (91) 92 97.0 Intake/Output Intake and Output 09/18/24 07:00 Intake Total 1500 ml Output Total 870 ml Balance 630 ml Intake Oral 450 ml IV Total 1050 ml Output Urine Total 870 ml Medications Current Medications Medications Dose Ordered Sig/Miranda Route Start Time Stop Time Status Last Admin Dose Admin Sodium Chloride 1,000 ml @ 100 mls/hr Q10H IV 09/10/24 15:45 09/18/24 01:10 100 MLS/HR Ondansetron HCl 4 mg Q4HP PRN IV 09/10/24 15:45 Docusate Sodium 100 mg BIDPRN PRN PO 09/10/24 15:45 Morphine Sulfate 2 mg Q4HPRN PRN IV 09/10/24 16:15 Enoxaparin Sodium 40 mg DAILY SC 09/10/24 15:45 09/18/24 09:08 40 MG Nitroglycerin 0.4 mg Q5MINP PRN SL 09/10/24 15:45 Linezolid 300 ml @ 150 mls/hr Q12HR IV 09/17/24 10:00 09/17/24 22:38 150 MLS/HR Fluconazole 100 ml @ 100 mls/hr 10,11 IV 09/17/24 10:00 09/18/24 08:06 100 MLS/HR Dextrose 50 ml UD PRN IV 09/17/24 22:45 Diagnostic Test (Pha) 1 strip IQ4HR 09/18/24 02:00 09/18/24 09:08 1 STRIP Insulin Human Regular IQ4HR SC 09/18/24 02:00 09/18/24 05:40 4 UNITS Laboratory Results Laboratory Tests 09/17/24 06:31 Microbiology Microbiology Date/Time Source Procedure Growth Status 09/10/24 18:42 Toe Gram Stain - Final Complete 09/10/24 18:42 Wound Culture - Final Staphylococcus haemolyticus Presumptive Sonal albicans Complete Labs and/or images reviewed: Labs reviewed by me, Image(s) reviewed by me Assessment/Plan Assessment/Plan Acute osteomyelitis left great toe: 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 Patel on 09-17-24 1. Left foot I&D to bone (54543) 2. Left foot hallux bone biopsy () 3. Left foot rotational skin flap (57868) 4. Left foot delayed closure (1316 Bilateral peripheral arterial disease: S/P unsuccessful aortogram bilateral lower extremity arteriogram and left SFA angioplasty by Dr Christie on 09-15-24 DVT ruled out BPH Diabetes Hypertension Hypercholesterolemia Plan discussed with: Patient Date of Service: Sep 18, 2024 Billing Provider: SHABANA DIETZ MD Common Visit Codes: [id number] INP/OBS CARE(HIGH) SHABANA DIETZ MD Sep 18, 2024 09:27
--- NOTE | 2024-09-18 09:34 | DVHDS2 ---
Discharge Summary Date of Admission Sep 10, 2024 at 15:45 Date of Discharge: Sep 18, 2024 Admitting Diagnosis Cellulitis left foot Wounds: Incision drainage of the left foot infection Labs/Diagnostic Data: Laboratory Results Test 09/18/24 09:00 09/17/24 06:31 09/16/24 18:52 09/11/24 05:37 POC Glucose 229 mg/dl (70-106) White Blood Count 4.3 10^3/uL (4.4-10.8) Red Blood Count 4.11 10^6/uL (4.5-5.90) Hemoglobin 12.3 g/dL (13.5-17.5) Hematocrit 36.1 % (41.0-53.0) Mean Corpuscular Volume 87.8 fL (80.0-100.0) Mean Corpuscular Hemoglobin 30.0 pg (28.0-32.0) Mean Corpuscular Hemoglobin Concent 34.1 g/dL (32.0-36.0) Red Cell Distribution Width 14.4 % (11.8-14.3) Platelet Count 123 10^3/uL (140-450) Mean Platelet Volume 9.3 fL (6.9-10.8) Neutrophils (%) (Auto) 69.6 % (37.0-80.0) Lymphocytes (%) (Auto) 16.9 % (10.0-50.0) Monocytes (%) (Auto) 10.4 % (0.0-12.0) Eosinophils (%) (Auto) 2.8 % (0.0-7.0) Basophils (%) (Auto) 0.3 % (0.0-2.0) Neutrophils # (Auto) 3.0 10 ^3/uL (1.6-8.6) Lymphocytes # (Auto) 0.7 10 ^3/uL (0.4-5.4) Monocytes # (Auto) 0.5 10 ^3/uL (0-1.3) Eosinophils # (Auto) 0.1 10 ^3/uL (0-0.8) Basophils # (Auto) 0 10 ^3/uL (0-0.2) Nucleated Red Blood Cells 0.1 % Prothrombin Time 10.7 sec (9.3-11.8) Prothrombin Time INR 1.01 (0.9-1.15) Activated Partial Thromboplast Time 33.3 SEC (24.5-34.5) Sodium Level 141 mmol/L (136-145) Potassium Level 3.7 mmol/L (3.5-5.1) Chloride Level 109 mmol/L (98-107) Carbon Dioxide Level 23 mmol/L (20-31) Anion Gap 9 (5-15) Blood Urea Nitrogen 12 mg/dL (9-23) Creatinine 0.91 mg/dL (0.700-1.30) Glomerular Filtration Rate Calc 83 mL/min (>90) BUN/Creatinine Ratio 13.2 (10.0-20.0) Serum Glucose 205 mg/dL (74-106) Calcium Level 9.3 mg/dL (8.7-10.4) Total Bilirubin 0.6 mg/dL (0.2-1.0) Aspartate Amino Transferase (AST) 8 U/L (13-40) Alanine Aminotransferase (ALT) 10 U/L (7-40) Alkaline Phosphatase 60 U/L (46-116) Total Protein 6.0 g/dL (5.7-8.2) Albumin 3.7 g/dL (3.2-4.8) Vancomycin Level Trough 14.1 ug/mL (5-10) Random Vancomycin Level 9.1 ug/mL (5-10) Other Laboratory Tests 09/17/24 06:31 Brief Hx & Hospital Course: 83-year-old male with a history of diabetes hypertension hypercholesterolemia BPH came in for complaining of chronic infection of the left foot. MRI showed osteomyelitis left great toe podiatric consult Dr. Patel who performed I&D to the bone with a bone biopsy. Wound cultures grew Staph hemolyticus and presumptive Sonal albicans started on Zyvox 600 mg IV q.12h and Diflucan 200 mg IV daily. Patient also had peripheral arterial disease left lower extremity vascular surgeon Dr. Christie attempted to open with the arteries but was unsuccessful. Patient is being discharged home on home health for Zyvox 600 mg IV q.12h for one month along with Diflucan tablets Consults/Reason for consult [employer] Dr. 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 Patel on 09-17-24 1. Left foot I&D to bone () 2. Left foot hallux bone biopsy () 3. Left foot rotational skin flap () 4. Left foot delayed closure (131 Bilateral peripheral arterial disease: S/P unsuccessful aortogram bilateral lower extremity arteriogram and left SFA angioplasty by Dr Christie on 09-15-24 DVT ruled out BPH Diabetes Hypertension Hypercholesterolemia Discharge Disposition: Home with Health Services Discharge Instruct/Medications Diet: Consistent carbohydrate, Cardiac 2g Na,low cholest Activity: Light activity Follow Up/Referral: Follow up with the primary Dr in one week Follow up with the cushion assembler Dr. Patel in two weeks for the biopsy result Resume all your previous home medications Medications: Zyvox 600 mg IV q.12h for one month 39 (Time taken for discharge summary 39 minutes) Discharge Statement: "Patient was advised to return to the ER or call 911 if any headaches, dizziness, shortness of breath, chest pain, abdominal pain, bleeding, fevers, or worsening of medical condition. Patient was counseled about treatment plan, medications, possible side effects, patientverbalized understanding. All questions were answered to the best of my ability. This discharge took greater then 30 minutes in planning, reviewing documentation, counseling the patient, and discussing with other team members." ASSESSMENT ASSESSMENT Hospital Course Uneventful Assessment Acute osteomyelitis left great toe: consult for cushion assembler appreciated, wound cultures growing Staph hemolyticus and presumptive Sonal albicans; continue Zyvox and Diflucan; status post surgery by Dr. Patel on 09-17-24 1. Left foot I&D to bone () 2. Left foot hallux bone biopsy () 3. Left foot rotational skin flap () 4. Left foot delayed closure (131 Bilateral peripheral arterial disease: S/P unsuccessful aortogram bilateral lower extremity arteriogram and left SFA angioplasty by Dr Christie on 09-15-24 DVT ruled out BPH Diabetes Hypertension Hypercholesterolemia Date of Service: Sep 18, 2024 Billing Provider: SHABANA DIETZ MD Common Visit Codes: [id number] DISCH DAY >30min SHABANA DIETZ MD Sep 18, 2024 09:34
[2024-09-18] MEDS: MAALOX PLUS or MAALOX 30 ML PO ONE (17:02)
[2024-09-18] MEDS ORDERED: MELATONIN 5 MG TAB PO ONE (22:00)
[2024-09-19] VITALS (7 sets, daily range): BP systolic 115–134; BP diastolic 69–82; PULSE 78–94; RESP 16–20; TEMP 97.2–98.2; O2SAT 94–98
--- NOTE | 2024-09-19 09:27 | DVHPN2 ---
Reviewed: Care Plan, H&P, Labs, Medications, Previous Orders, Radiology Changes from previous H/P or p: No Changes Eyes: No Pain, No Vision change, No Conjunctivae inflammation, No Eyelid inflammation, No Other, No Redness ENT: No Ear pain, No Ear discharge, No Nose pain, No Nose discharge, No Nose congestion, No Mouth pain, No Mouth swelling, No Throat pain, No Throat swelling, No Other Cardiovascular: No Chest Pain, No Palpitations, No Orthopnea, No Paroxysmal Noc. Dyspnea, No Edema, No Lt Headedness, No Other Respiratory: No Cough, No Dry, No Shortness of breath, No SOB with excertion, No Wheezing, No Hemoptysis, No Pleuritic Pain, No Sputum, No Other Gastrointestinal: No Nausea, No Vomiting, No Abdominal Pain, No Diarrhea, No Constipation, No Melena, No Hematochezia, No Other Genitourinary: No Dysuria, No Frequency, No Incontinence, No Hematuria, No Retention, No Other Musculoskeletal: No other, No neck pain, No shoulder pain, No arm pain, No back pain, No hand pain, No leg pain; foot pain Skin: No Rash, No Lesions, No Jaundice, No Bruising, No Other Objective Vitals Vital Signs Date Time Temp Pulse Resp B/P (MAP) Pulse Ox O2 Delivery O2 Flow Rate FiO2 09/19/24 09:16 97.7 86 17 134/81 (98) 98 97.7 09/18/24 20:00 Room Air* 0 21 Intake/Output Intake and Output 09/19/24 07:00 Intake Total 3780 ml Output Total 1100 ml Balance 2680 ml Intake Oral 500 ml IV Total 2900 ml Tube Feeding 380 ml Output Urine Total 1100 ml Medications Current Medications Medications Dose Ordered Sig/Miranda Route Start Time Stop Time Status Last Admin Dose Admin Sodium Chloride 1,000 ml @ 100 mls/hr Q10H IV 09/10/24 15:45 09/19/24 01:13 100 MLS/HR Ondansetron HCl 4 mg Q4HP PRN IV 09/10/24 15:45 Docusate Sodium 100 mg BIDPRN PRN PO 09/10/24 15:45 Morphine Sulfate 2 mg Q4HPRN PRN IV 09/10/24 16:15 Enoxaparin Sodium 40 mg DAILY SC 09/10/24 15:45 09/19/24 09:15 40 MG Nitroglycerin 0.4 mg Q5MINP PRN SL 09/10/24 15:45 Linezolid 300 ml @ 150 mls/hr Q12HR IV 09/17/24 10:00 09/18/24 20:51 150 MLS/HR Fluconazole 100 ml @ 100 mls/hr 10,11 IV 09/17/24 10:00 09/19/24 09:14 100 MLS/HR Dextrose 50 ml UD PRN IV 09/17/24 22:45 Diagnostic Test (Pha) 1 strip IQ4HR 09/18/24 02:00 09/19/24 08:00 1 STRIP Insulin Human Regular IQ4HR SC 09/18/24 02:00 09/19/24 08:00 2 UNITS Laboratory Results Laboratory Tests 09/17/24 06:31 Microbiology Microbiology Date/Time Source Procedure Growth Status 09/17/24 13:00 Foot Left Gram Stain - Final Resulted 09/17/24 13:00 Foot Left Anaerobic Culture - Preliminary Resulted 09/17/24 13:00 Foot Left Aerobic Culture - Preliminary Resulted Labs and/or images reviewed: Labs reviewed by me, Image(s) reviewed by me Assessment/Plan Assessment/Plan Acute osteomyelitis left great toe: consult for mail sorter appreciated, wound cultures growing Staph hemolyticus and presumptive Sonal albicans; continue Zyvox and Diflucan; status post surgery by Dr. Patel on 09-17-24 1. Left foot I&D to bone (13732) 2. Left foot hallux bone biopsy () 3. Left foot rotational skin flap (05456) 4. Left foot delayed closure (7066 Bilateral peripheral arterial disease: S/P unsuccessful aortogram bilateral lower extremity arteriogram and left SFA angioplasty by Dr Christie on 09-15-24 DVT ruled out BPH Diabetes Hypertension Hypercholesterolemia Patient was discharged home on home health on 09/18/2024, social work associate making arrangements. Plan discussed with: Patient My Orders Orders - SHABANA DIETZ MD Procedure Category Date Status Time Insert Midline ORDERS 09/18/24 Transmitted 09:27 * Control Room Tender CONS 09/18/24 Transmitted Consult Home Health Nursing REFER 09/18/24 Transmitted 09:27 Ss Consult To Arrange JOSE JUAN 09/18/24 In Process Home Iv 09:34 Ss Consult To Arrange JOSE JUAN 09/18/24 In Process Home Iv 09:43 Discharge DISCHARGE 09/19/24 Transmitted 09:12 Date of Service: Sep 19, 2024 Billing Provider: SHABANA DIETZ MD Common Visit Codes: [id number] INP/OBS CARE(HIGH) SHABANA DIEZT MD Sep 19, 2024 09:27
[2024-09-20] VITALS (8 sets, daily range): BP systolic 124–137; BP diastolic 69–84; PULSE 64–90; RESP 15–20; TEMP 96.3–98.1; O2SAT 93–98
[2024-09-20] MEDS: ONDANSETRON HCL 4 MG/2 ML VIAL IV PRN (06:02)
--- NOTE | 2024-09-20 08:46 | DVHPN2 ---
Reviewed: Care Plan, H&P, Labs, Medications, Previous Orders, Radiology Changes from previous H/P or p: No Changes Eyes: No Pain, No Vision change, No Conjunctivae inflammation, No Eyelid inflammation, No Other, No Redness ENT: No Ear pain, No Ear discharge, No Nose pain, No Nose discharge, No Nose congestion, No Mouth pain, No Mouth swelling, No Throat pain, No Throat swelling, No Other Cardiovascular: No Chest Pain, No Palpitations, No Orthopnea, No Paroxysmal Noc. Dyspnea, No Edema, No Lt Headedness, No Other Respiratory: No Cough, No Dry, No Shortness of breath, No SOB with excertion, No Wheezing, No Hemoptysis, No Pleuritic Pain, No Sputum, No Other Gastrointestinal: No Nausea, No Vomiting, No Abdominal Pain, No Diarrhea, No Constipation, No Melena, No Hematochezia, No Other Genitourinary: No Dysuria, No Frequency, No Incontinence, No Hematuria, No Retention, No Other Musculoskeletal: No other, No neck pain, No shoulder pain, No arm pain, No back pain, No hand pain, No leg pain; foot pain Skin: No Rash, No Lesions, No Jaundice, No Bruising, No Other Objective Vitals Vital Signs Date Time Temp Pulse Resp B/P (MAP) Pulse Ox O2 Delivery O2 Flow Rate FiO2 09/20/24 08:40 97.6 90 16 135/72 (93) 96 97.6 09/19/24 20:00 Room Air* 0 21 Intake/Output Intake and Output 09/20/24 07:00 Intake Total 2275 ml Output Total 975 ml Balance 1300 ml Intake Oral 775 ml IV Total 1500 ml Output Urine Total 975 ml # Voids 2 # Bowel Movements 1 Medications Current Medications Medications Dose Ordered Sig/Miranda Route Start Time Stop Time Status Last Admin Dose Admin Sodium Chloride 1,000 ml @ 100 mls/hr Q10H IV 09/10/24 15:45 09/19/24 21:28 100 MLS/HR Ondansetron HCl 4 mg Q4HP PRN IV 09/10/24 15:45 09/20/24 06:02 4 MG Docusate Sodium 100 mg BIDPRN PRN PO 09/10/24 15:45 Enoxaparin Sodium 40 mg DAILY SC 09/10/24 15:45 09/19/24 09:15 40 MG Nitroglycerin 0.4 mg Q5MINP PRN SL 09/10/24 15:45 Linezolid 300 ml @ 150 mls/hr Q12HR IV 09/17/24 10:00 09/19/24 21:27 150 MLS/HR Fluconazole 100 ml @ 100 mls/hr 10,11 IV 09/17/24 10:00 09/19/24 12:09 100 MLS/HR Dextrose 50 ml UD PRN IV 09/17/24 22:45 Diagnostic Test (Pha) 1 strip IQ4HR 09/18/24 02:00 09/20/24 06:02 1 STRIP Insulin Human Regular IQ4HR SC 09/18/24 02:00 09/20/24 02:29 3 UNITS Laboratory Results Laboratory Tests 09/17/24 06:31 Microbiology Microbiology Date/Time Source Procedure Growth Status 09/17/24 13:00 Foot Left Gram Stain - Final Resulted 09/17/24 13:00 Foot Left Anaerobic Culture - Preliminary Resulted 09/17/24 13:00 Foot Left Aerobic Culture - Preliminary Resulted Labs and/or images reviewed: Labs reviewed by me, Image(s) reviewed by me Assessment/Plan Assessment/Plan Acute osteomyelitis left great toe: consult for non destructive testing specialist appreciated, wound cultures growing Staph hemolyticus and presumptive Sonal albicans; continue Zyvox and Diflucan; status post surgery by Dr. Patel on 09-17-24 1. Left foot I&D to bone (51481) 2. Left foot hallux bone biopsy () 3. Left foot rotational skin flap (16459) 4. Left foot delayed closure (1316 Bilateral peripheral arterial disease: S/P unsuccessful aortogram bilateral lower extremity arteriogram and left SFA angioplasty by Dr Christie on 09-15-24 DVT ruled out BPH Diabetes Hypertension Hypercholesterolemia Patient was discharged home on home health on 09/18/2024, social media content specialist making arrangements. Per correctional case records supervisor [place], patient will be discharged home on Sunday and home health will follow up on Sunday for IV antibiotics Plan discussed with: Patient, Other (RN) My Orders Orders - SHABANA DIETZ MD Procedure Category Date Status Time Discharge DISCHARGE 09/19/24 Transmitted 09: Discharge DISCHARGE 09/19/24 Transmitted 09:31 * Business Services Sales Representative CONS 6/13/25 Transmitted Consult 09:31 Date of Service: Sep 20, 2024 Billing Provider: SHABANA DIETZ MD Common Visit Codes: [id number] INP/OBS CARE(HIGH) SHABANA DIETZ MD Sep 20, 2024 08:46
[2024-09-20] MEDS: ACETAMINOPHEN 325 MG TAB PO ONE (09:07)
[2024-09-20] MEDS: ACETAMINOPHEN 325 MG TAB PO PRN (17:20)
[2024-09-21 01:00] VITALS: BP 125/77; PULSE 88; RESP 18; TEMP 97.1; O2SAT 94
[2024-09-21 05:00] VITALS: BP 124/73; PULSE 90; RESP 18; TEMP 97.7; O2SAT 95
[2024-09-21 07:50] VITALS: PULSE 88; RESP 19; O2SAT 94
--- NOTE | 2024-09-21 09:26 | DVHPN2 ---
Reviewed: Care Plan, H&P, Labs, Medications, Previous Orders, Radiology Changes from previous H/P or p: No Changes Eyes: No Pain, No Vision change, No Conjunctivae inflammation, No Eyelid inflammation, No Other, No Redness ENT: No Ear pain, No Ear discharge, No Nose pain, No Nose discharge, No Nose congestion, No Mouth pain, No Mouth swelling, No Throat pain, No Throat swelling, No Other Cardiovascular: No Chest Pain, No Palpitations, No Orthopnea, No Paroxysmal Noc. Dyspnea, No Edema, No Lt Headedness, No Other Respiratory: No Cough, No Dry, No Shortness of breath, No SOB with excertion, No Wheezing, No Hemoptysis, No Pleuritic Pain, No Sputum, No Other Gastrointestinal: No Nausea, No Vomiting, No Abdominal Pain, No Diarrhea, No Constipation, No Melena, No Hematochezia, No Other Genitourinary: No Dysuria, No Frequency, No Incontinence, No Hematuria, No Retention, No Other Musculoskeletal: No other, No neck pain, No shoulder pain, No arm pain, No back pain, No hand pain, No leg pain; foot pain Skin: No Rash, No Lesions, No Jaundice, No Bruising, No Other Objective Vitals Vital Signs Date Time Temp Pulse Resp B/P (MAP) Pulse Ox O2 Delivery O2 Flow Rate FiO2 09/21/24 05:00 97.7 90 18 124/73 (90) 95 97.7 09/20/24 20:00 Room Air* 0 21 Intake/Output Intake and Output 09/21/24 07:00 Intake Total 1800 ml Balance 1800 ml Intake Oral 1000 ml IV Total 800 ml # Voids 3 # Bowel Movements 3 Medications Current Medications Medications Dose Ordered Sig/Miranda Route Start Time Stop Time Status Last Admin Dose Admin Sodium Chloride 1,000 ml @ 100 mls/hr Q10H IV 09/10/24 15:45 09/21/24 01:23 100 MLS/HR Ondansetron HCl 4 mg Q4HP PRN IV 09/10/24 15:45 09/20/24 21:21 4 MG Docusate Sodium 100 mg BIDPRN PRN PO 09/10/24 15:45 Enoxaparin Sodium 40 mg DAILY SC 09/10/24 15:45 09/21/24 09:08 40 MG Nitroglycerin 0.4 mg Q5MINP PRN SL 09/10/24 15:45 Linezolid 300 ml @ 150 mls/hr Q12HR IV 09/17/24 10:00 09/20/24 20:59 150 MLS/HR Fluconazole 100 ml @ 100 mls/hr 10,11 IV 09/17/24 10:00 09/21/24 09:08 100 MLS/HR Dextrose 50 ml UD PRN IV 09/17/24 22:45 Diagnostic Test (Pha) 1 strip IQ4HR 09/18/24 02:00 09/21/24 08:14 1 STRIP Insulin Human Regular IQ4HR SC 09/18/24 02:00 09/21/24 04:14 3 UNITS Acetaminophen 650 mg Q6HP PRN PO 09/20/24 16:30 09/20/24 17:20 650 MG Laboratory Results Laboratory Tests 09/17/24 06:31 Microbiology Microbiology Date/Time Source Procedure Growth Status 09/17/24 13:00 Foot Left Gram Stain - Final Resulted 09/17/24 13:00 Foot Left Anaerobic Culture - Preliminary Resulted 09/17/24 13:00 Foot Left Aerobic Culture - Preliminary Resulted Labs and/or images reviewed: Labs reviewed by me, Image(s) reviewed by me Assessment/Plan Assessment/Plan Acute osteomyelitis left great toe: consult for customs compliance analyst appreciated, wound cultures growing Staph hemolyticus and presumptive Sonal albicans; continue Zyvox and Diflucan; status post surgery by Dr. Patel on 09-17-24 1. Left foot I&D to bone (90422) 2. Left foot hallux bone biopsy () 3. Left foot rotational skin flap (85462) 4. Left foot delayed closure (7056 Bilateral peripheral arterial disease: S/P unsuccessful aortogram bilateral lower extremity arteriogram and left SFA angioplasty by Dr Christie on 09-15-24 DVT ruled out BPH Diabetes Hypertension Hypercholesterolemia Patient is discharged today on home health for IV antibiotics Plan discussed with: Patient My Orders Orders - SHABANA DIETZ MD Procedure Category Date Status Time Acetaminophen Tablet PHA 09/20/24 In Process (Tylenol Tablet) 16:30 Mrsa Screen DAVEY 09/21/24 In Process 07:20 Discharge DISCHARGE 09/21/24 Transmitted 09:21 * Electrical And Instrument Technician CONS 09/21/24 Transmitted Consult Date of Service: Sep 21, 2024 Billing Provider: SHABANA DIETZ MD Common Visit Codes: [id number] INP/OBS CARE(HIGH) SHABANA DIETZ MD Sep 21, 2024 09:26
[2024-09-21 09:30] VITALS: BP 139/77; PULSE 88; RESP 19; TEMP 98.1; O2SAT 94
[2024-09-21 11:23] VITALS: BP 139/77; PULSE 88; RESP 19; TEMP 98.1; O2SAT 94
[2024-09-21 13:00] VITALS: BP 140/74; PULSE 65; RESP 19; TEMP 97.6; O2SAT 94
== END 2024-09-21 14:15 | disposition home health service (06) | DRG 253 ==
LOC: ER 12:08 → OVERFLOW 15:45 → CENTRAL 18:38
PROVIDERS: ADMIT Family Medicine; ATTEND Family Medicine
PROC: 047L3ZZ Dilation of Left Femoral Artery, Percutaneous Approach (ICD-10-PCS; 2024-09-15)
PROC: B41DYZZ Fluoroscopy of Aorta and Bilateral Lower Extremity Arteries using Other Contrast (ICD-10-PCS; 2024-09-15)
PROC: 0HXNXZZ Transfer Left Foot Skin, External Approach (ICD-10-PCS; 2024-09-17)
PROC: 0Y9N0ZZ Drainage of Left Foot, Open Approach (ICD-10-PCS; 2024-09-17)
PROC: 0QBP0ZX Excision of Left Metatarsal, Open Approach, Diagnostic (ICD-10-PCS; principal; 2024-09-17 12:51)
PROC: 05HD33Z Insertion of Infusion Device into Right Cephalic Vein, Percutaneous Approach (ICD-10-PCS; 2024-09-18)
PROC: B54MZZA Ultrasonography of Right Upper Extremity Veins, Guidance (ICD-10-PCS; 2024-09-18)
DX: E11.51 Type 2 diabetes mellitus with diabetic peripheral angiopathy without gangrene (principal); L02.612 Cutaneous abscess of left foot; L03.116 Cellulitis of left lower limb; M86.172 Other acute osteomyelitis, left ankle and foot; E11.69 Type 2 diabetes mellitus with other specified complication; I70.202 Unspecified atherosclerosis of native arteries of extremities, left leg; E11.65 Type 2 diabetes mellitus with hyperglycemia; E78.00 Pure hypercholesterolemia, unspecified; N40.0 Benign prostatic hyperplasia without lower urinary tract symptoms; I10 Essential (primary) hypertension; Z90.49 Acquired absence of other specified parts of digestive tract
CPT/HCPCS: 36415; 37224; 73700; 73718; 80048; 80053; 80202; 82565; 82962; 85025; 85610; 85730; 86850; 86900; 86901; 87070; 87075; 87077; 87081; 87186; 87205; 93005; 93925; 93971; 96361; 96365; 99152; C1769; C1894; G0378; J1100; J1450; J1815; J1885; J2250; J2405; J2543; J2704; J3490; Q9967

== ENCOUNTER 2024-09-25 11:50 | Inpatient (IN) | payer OTHER, MEDICAID ==
[~2024-09-25] VITALS: Ht 170.2 cm; Wt 75.2 kg
--- NOTE | 2024-09-25 11:57 | ED.PDOC ---
History of Present Illness HPI Comments 83 year old male presents to the ED via EMS with a chief complaint of generalized weakness onset 1 week. PMHx DM, HTN, HLD. Per EMS, patient has been experiencing generalized weakness for the past week, was not able to get out of bed this morning due to weakness. He has not taken insulin for the past week, upon EMS arrival blood glucose was 500. No other symptoms or modifying factors present at this time. Time Seen by MD: 11:50 Primary Care Provider: MOREL Reviewed Notes: Medications, Allergies Allergies: Coded Allergies: NO KNOWN ALLERGIES (Unverified , 09/09/24) Home Meds No Active Prescriptions or Reported Meds Information Source: Patient, Emergency Med Personnel Mode of Arrival: EMS Severity: Moderate Timing: Weeks Duration: Since onset Prehospital treatment: None Past Medical History PAST MEDICAL HISTORY: DM, High Lipids, HTN Surgical History: Appendectomy Family History Family History: Unknown Social History Smoker: Non-Smoker Alcohol: Denies ETOH Use Drugs: Denies Drug Use Lives In: Home Constitutional: reports: weakness; denies: chills, diaphoresis, fatigue, fever, malaise, sweats, others EENTM: denies: blurred vision, double vision, ear bleeding, ear discharge, ear drainage, ear pain, ear ringing, eye pain, eye redness, hearing loss, mouth pain, mouth swelling, nasal discharge, nose bleeding, nose congestion, nose pain, photophobia, tearing, throat pain, throat swelling, voice changes, others Respiratory: denies: cough, hemoptysis, orthopnea, SOB at rest, shortness of breath, SOB with excertion, stridor, wheezing, others Cardiovascular: denies: chest pain, dizzy spells, diaphoresis, Dyspnea on exertion, edema, irregular heart beat, left arm pain, lightheadedness, palpitations, PND, syncope, others Gastrointestinal: denies: abdomen distended, abdominal pain, blood streaked bowels, constipated, diarrhea, dysphagia, difficulty swallowing, hematemesis, melena, nausea, poor appetite, poor fluid intake, rectal bleeding, rectal pain, vomiting, others Genitourinary: denies: burning, dysuria, flank pain, frequency, hematuria, incontinence, penile discharge, penile sore, pain, testicle pain, testicle swelling, urgency, others Neurological: reports: weakness; denies: dizziness, fainting, headache, left sided numbness, left sided weakness, numbness, paresthesia, pre-existing deficit, right sided numbness, right sided weakness, seizure, speech problems, tingling, tremors, others Musculoskeletal: denies: back pain, gout, joint pain, joint swelling, muscle pain, muscle stiffness, neck pain, others Integumetry: denies: bruises, change in color, change in hair/nails, dryness, laceration, lesions, lumps, rash, wounds, others Allergic/Immunocompromised: denies: Difficulty Healing, Frequent Infections, Hives, Itching, others Hematologic/Lymphatic: denies: anemia, blood clots, easy bleeding, easy bruising, swollen glands, others Endocrine: denies: excessive hunger, excessive sweating, excessive thirst, excessive urination, flushing, intolerance to cold, intolerance to heat, un explained weight gain, unexplained weight loss, others Psychiatric: denies: anxiety, bipolar disorder, depression, hopeless, panic disorder, schizophrenia, sleepless, suicidal, others All Other Systems: Reviewed and Negative Physical Exam General Appearance: Normal, Other (chronically ill appearing) HEENT: Normal ENT Inspection, Pharynx Normal, TMs Normal Neck: Full Range of Motion, Non-Tender, Normal, Normal Inspection Respiratory: Chest Non-Tender, Lungs Clear, No Accessory Muscle Use, No Respiratory Distress, Normal Breath Sounds Cardiovascular: No Edema, No JVD, No Murmur, No Gallop, Normal Peripheral Pulses, Regular Rate/Rhythm Breast Exam: Deferred Gastrointestinal: No Organomegaly, Non Tender, No Pulsatile Mass, Normal Bowel Sounds, Soft Genitalia: Deferred Pelvic: Deferred Rectal: Deferred Extremities: No calf tenderness, Normal capillary refill, Normal inspection, Normal range of motion, Non-tender, No pedal edema Musculoskeletal : Apperance: Normal Neurologic: Alert, bilingual secretary II-XII nml as Tested, No Motor Deficits, Normal Affect, Normal Mood, No Sensory Deficits Cerebellar Function: Normal Reflexes: Normal Skin: Dry, Normal Color, Warm Lymphatic: No Adenopathy Was a procedure done? Was a procedure done?: No Differential Dx Considerations may include: ACS, CVA, electrolyte abnormality, infectious etiology, viral syndrome X-Ray, Labs, Meds, VS Vital Signs Date Time Temp Pulse Resp B/P (MAP) Pulse Ox O2 Delivery O2 Flow Rate FiO2 6/19/25 12:25 95 20 98 Room Air* 0 21 09/25/24 12:25 97.8 96 18 139/78 (98) 96 97.8 09/25/24 12:25 98.0 95 20 136/76 (96) 98 98.0 09/25/24 11:51 94 Lab Test 09/25/24 14:21 09/25/24 13:40 09/25/24 13:05 09/25/24 12:40 Range/Units Troponin I High Sensitivity 90 *H 91 *H </=54 ng/L Urine Color Pending Urine Clarity Pending Urine pH Pending Urine Specific [place] Pending Urine Protein Pending Urine Ketones Pending Urine Blood Pending Urine Nitrite Pending Urine Bilirubin Pending Urine Urobilinogen Pending Urine Leukocyte Esterase Pending Urine RBC Pending Urine Microscopic WBC Pending Urine Squamous Epithelial Cells Pending Urine Bacteria Pending Urine Glucose Pending White Blood Count 9.9 4.4-10.8 10^3/uL Red Blood Count 4.73 4.5-5.90 10^6/uL Hemoglobin 14.3 13.5-17.5 g/dL Hematocrit 42.4 41.0-53.0 % Mean Corpuscular Volume 89.5 80.0-100.0 fL Mean Corpuscular Hemoglobin 30.2 28.0-32.0 pg Mean Corpuscular Hemoglobin Concent 33.7 32.0-36.0 g/dL Red Cell Distribution Width 15.4 H 11.8-14.3 % Platelet Count 153 140-450 10^3/uL Mean Platelet Volume 9.2 6.9-10.8 fL Neutrophils (%) (Auto) 89.5 H 37.0-80.0 % Lymphocytes (%) (Auto) 4.4 L 10.0-50.0 % Monocytes (%) (Auto) 6.0 0.0-12.0 % Eosinophils (%) (Auto) 0.0 0.0-7.0 % Basophils (%) (Auto) 0.1 0.0-2.0 % Neutrophils # (Auto) 8.8 H 1.6-8.6 10 ^3/uL Lymphocytes # (Auto) 0.4 0.4-5.4 10 ^3/uL Monocytes # (Auto) 0.6 0-1.3 10 ^3/uL Eosinophils # (Auto) 0 0-0.8 10 ^3/uL Basophils # (Auto) 0 0-0.2 10 ^3/uL Nucleated Red Blood Cells 0.1 % Sodium Level 134 L 136-145 mmol/L Potassium Level 5.3 H 3.5-5.1 mmol/L Chloride Level 99 98-107 mmol/L Carbon Dioxide Level 19 L 20-31 mmol/L Anion Gap 16 H 5-15 Blood Urea Nitrogen 40 H 9-23 mg/dL Creatinine 1.25 0.700-1.30 mg/dL Glomerular Filtration Rate Calc 57 >90 mL/min BUN/Creatinine Ratio 32.0 H 10.0-20.0 Serum Glucose 478 *H 74-106 mg/dL Lactic Acid Level 2.2 *H 0.4-2.0 mmol/L Calcium Level 9.4 8.7-10.4 mg/dL Total Bilirubin 0.5 0.2-1.0 mg/dL Aspartate Amino Transferase (AST) 32 <34 U/L Alanine Aminotransferase (ALT) 60 H 7-40 U/L Alkaline Phosphatase 128 H 46-116 U/L Total Protein 6.0 5.7-8.2 g/dL Albumin 3.9 3.2-4.8 g/dL POC Glucose 461 *H 70-106 mg/dl Test 09/25/24 12:39 Range/Units POC Glucose 441 *H 70-106 mg/dl Current Medications Medications (Trade) Dose Ordered Sig/Miranda Route Start Time Stop Time Status Last Admin Insulin Human Regular (InsuLIN R) 10 units ONCE ONCE IV 09/25/24 14:15 09/25/24 14:16 DC 09/25/24 14:21 Sodium Chloride 1,000 ml @ 1,000 mls/hr Q1H ONCE IV 09/25/24 14:15 09/25/24 15:14 DC 09/25/24 14:20 Aspirin 324 mg ONCE ONCE PO 09/25/24 14:15 09/25/24 14:16 DC 09/25/24 14:20 Time of 1ST Reevaluation: 12:20 Reevaluation 1ST: Unchanged Patient Education/Counseling: Diagnosis, Treatment, Prognosis Family Education/Counseling: No Family Present SEPSIS Sepsis Screen Physician Orders Urinalysis (09/25/24 11:54) Chest Portable (09/25/24 12:01) Blood Culture (09/25/24 11:54) Troponin-I Hs (09/25/24 14:54) Electrocardigram (09/25/24 12:32) Vital Signs Date Time Temp Pulse Resp B/P (MAP) Pulse Ox O2 Delivery O2 Flow Rate FiO2 09/25/24 12:25 95 20 98 Room Air* 0 21 09/25/24 12: 97.8 96 18 139/78 (98) 96 97.8 09/25/24 12: 98.0 95 20 136/76 (96) 98 98.0 09/25/24 11:51 94 Laboratory Tests Test 09/25/24 13:05 Lactic Acid Level 2.2 mmol/L (0.4-2.0) *H White Blood Count 9.9 10^3/uL (4.4-10.8) Medications Medications Dose Ordered Sig/Miranda Route Start Time Stop Time Status Last Admin Dose Admin Aspirin 324 mg ONCE ONCE PO 09/25/24 14:15 09/25/24 14:16 DC 09/25/24 14:20 Insulin Human Regular 10 units ONCE ONCE IV 09/25/24 14:15 09/25/24 14:16 DC 09/25/24 14:21 Sodium Chloride 1,000 ml @ 1,000 mls/hr Q1H ONCE IV 09/25/24 14:15 09/25/24 15:14 DC 09/25/24 14:20 Departure 1 Departure Time of Disposition: 16:03 (Patient with cellulitis of the left lower extremity. Patient also with a uncontrolled diabetes. We will empirically cover patient with antibiotics fluids and insulin. Patient is not septic.) Impression: Primary Impression: Uncontrolled diabetes mellitus Qualified Codes: E11.65 - Type 2 diabetes mellitus with hyperglycemia Additional Impression: Cellulitis of left foot Disposition: ADMITTED INPATIENT Admit to: Med Surg Condition: Serious e-Prescriptions No Active Prescriptions or Reported Meds Critical Care Note Critical Care Time?: Yes Critical care comment: Uncontrolled diabetes Authorized and Performed by: Roberta Santana MD Total critical care time: Approximately 43 minutes Due to a high probability of clinically significant, life threatening deterioration, the patient required my highest level of preparedness to intervene emergently and I personally spent this critical care time directly and personally managing the patient. This critical care time included obtaining a history; examining the patient; pulse oximetry; ordering and review of studies; arranging urgent treatment with development of a management plan; evaluation of patient's response to treatment; frequent reassessment; and, discussions with other providers. This critical care time was performed to assess and manage the high probability of imminent, life-threatening deterioration that could result in multi-organ failure. It was exclusive of separately billable procedures and treating other patients and teaching time. Please see my other sections and the rest of the note for further information on patient assessment and treatment. Stability Stability form required: No I personally scribed for ROBERTA SANTANA MD ([email or web address]) on 09/25/24 at 11:57. Electronically submitted by Tina Peña ([email or web address]). ROBERTA SANTANA MD Sep 25, 2024 11:57
--- NOTE | 2024-09-25 12:24 | DVH ---
CHEST RADIOGRAPH Indication: weakness Technique: Single frontal view of the chest was obtained COMPARISON: None FINDINGS: Lines and Tubes: None Lungs: Increased interstitial prominence Pleura: No effusion. No pneumothorax. Cardiomediastinal contours: Cardiomegaly Bones: Unremarkable IMPRESSION: Pulmonary vascular congestion
[2024-09-25 12:25] VITALS: PULSE 95; RESP 20; O2SAT 98
[2024-09-25 13:36] LABS: Basophils # (auto) 0 10 ^3/uL (0-0.2); Basophils % (auto) 0.1 % (0.0-2.0); Eosinophils # (auto) 0 10 ^3/uL (0-0.8); Hematocrit 42.4 % (41.0-53.0); Hemoglobin 14.3 g/dL (13.5-17.5); Lymphocytes # (auto) 0.4 10 ^3/uL (0.4-5.4); Lymphocytes % (auto) 4.4 % (10.0-50.0); Mean Corpuscular Hemoglobin 30.2 pg (28.0-32.0); Mean Corpuscular Hgb Conc. 33.7 g/dL (32.0-36.0); Mean Corpuscular Volume 89.5 fL (80.0-100.0); Monocytes # (auto) 0.6 10 ^3/uL (0-1.3); Neutrophils # (auto) 8.8 10 ^3/uL (1.6-8.6); Neutrophils % (auto) 89.5 % (37.0-80.0); Nucleated Red Blood Cells % 0.1 %; Platelet Count (auto) 153 10^3/uL (140-450); Red Blood Cells 4.73 10^6/uL (4.5-5.90); Red Cell Distribution Width 15.4 % (11.8-14.3); White Blood Cell 9.9 10^3/uL (4.4-10.8)
[2024-09-25 13:53] LABS: Albumin 3.9 g/dL (3.2-4.8); Anion Gap 16 (5-15); Aspartate Aminotransferase 32 U/L (<34); Calcium 9.4 mg/dL (8.7-10.4); Chloride 99 mmol/L (98-107)
[2024-09-25 13:54] LABS: Bilirubin, Total 0.5 mg/dL (0.2-1.0)
[2024-09-25 13:56] LABS: Alanine Aminotransferase 60 U/L (7-40); Alkaline Phosphatase 128 U/L (46-116); Blood Urea Nitrogen 40 mg/dL (9-23); Carbon Dioxide 19 mmol/L (20-31); Glucose 478 mg/dL (74-106); Lactic Acid w/Reflex 2.2 mmol/L (0.4-2.0); Potassium 5.3 mmol/L (3.5-5.1); Sodium 134 mmol/L (136-145)
[2024-09-25] MEDS: ASPirin 81 mg TAB PO ONE (14:20)
[2024-09-25] MEDS: SODIUM CHLORIDE 0.9% 1,000 ML IV ONE ×2 (14:20→16:59)
[2024-09-25] MEDS: InsuLIN REG 1unit/0.01ml Soln (100units/ml) IV ONE (14:21)
[2024-09-25 15:54] LABS: Urine Bacteria None Seen /hpf (None Seen)
[2024-09-25 16:06] LABS: Urine Blood Negative /uL (Negative); Urine Clarity Clear (Clear); Urine Color Light-Yellow (Yellow); Urine Hyaline Cast FEW /lpf (0 - 2); Urine Protein, UAD Negative (Negative); Urine Specific Gravity 1.028 (1.001-1.035); Urine Squamous Epithelial Cell None Seen /hpf (<5); Urine Urobilinogen Normal (Negative); Urine WBC < 1 /HPF (0-3); Urine pH 5.5 (5.0-9.0)
[2024-09-25] MEDS: VANCOMYCIN 1GM/200ML PM 200 ML IV ONE (16:49)
[2024-09-25] MEDS: CEFEPIME 2GM/50ML NS 50 ML IV ONE (17:58)
[2024-09-25 19:40] VITALS: PULSE 94; RESP 18; O2SAT 98
[2024-09-25] MEDS ORDERED: MORPHINE SULFATE INJ 2 MG/ml SYRG IV PRN (22:00)
[2024-09-25] MEDS ORDERED: NITROGLYCERIN 0.4 MG SL TAB SL PRN (22:00)
[2024-09-25 22:20] LABS: Base Excess -6.6 mmol/L (-2.0-3.0)
[2024-09-25 22:28] LABS: Basophils # (auto) 0 10 ^3/uL (0-0.2); Basophils % (auto) 0.2 % (0.0-2.0); Eosinophils # (auto) 0 10 ^3/uL (0-0.8); Hematocrit 40.3 % (41.0-53.0); Hemoglobin 13.8 g/dL (13.5-17.5); Lymphocytes # (auto) 0.4 10 ^3/uL (0.4-5.4); Mean Corpuscular Hemoglobin 30.3 pg (28.0-32.0); Mean Corpuscular Hgb Conc. 34.2 g/dL (32.0-36.0); Mean Corpuscular Volume 88.7 fL (80.0-100.0); Monocytes # (auto) 0.7 10 ^3/uL (0-1.3); Monocytes % (auto) 6.6 % (0.0-12.0); Neutrophils # (auto) 9.4 10 ^3/uL (1.6-8.6); Neutrophils % (auto) 89.2 % (37.0-80.0); Nucleated Red Blood Cells % 0.2 %; Platelet Count (auto) 138 10^3/uL (140-450); Red Blood Cells 4.55 10^6/uL (4.5-5.90); Red Cell Distribution Width 14.6 % (11.8-14.3); White Blood Cell 10.5 10^3/uL (4.4-10.8)
[2024-09-25 22:39] LABS: Chloride 103 mmol/L (98-107); Sodium 136 mmol/L (136-145)
[2024-09-25 22:40] LABS: Anion Gap 11 (5-15); Calcium 8.9 mg/dL (8.7-10.4); Carbon Dioxide 22 mmol/L (20-31)
[2024-09-25 22:42] LABS: INR 1.15 (0.9-1.15); Partial Thromboplastin Time 33.2 SEC (24.5-34.5)
[2024-09-25 22:45] LABS: BUN/Creatinine Ratio 28.6 (10.0-20.0)
[2024-09-25 22:53] LABS: Blood Urea Nitrogen 32 mg/dL (9-23); Glucose 385 mg/dL (74-106)
[2024-09-25 22:57] LABS: Lactic Acid w/Reflex 2.2 mmol/L (0.4-2.0)
[2024-09-26] VITALS (10 sets, daily range): BP systolic 108–124; BP diastolic 53–76; PULSE 88–93; RESP 16–18; TEMP 97.3–98.3; O2SAT 94–98
[2024-09-26] MEDS: INSULIN LANTUS (GLARGINE) 1 /0.01ml (100units/ml) SC ONE (00:06)
[2024-09-26] MEDS: PANTOPRAZOLE 40 MG/10 ML VIAL INJ IV ONE (00:07)
[2024-09-26 00:12] LABS: Rapid Influenza A Negative (Negative); Rapid Influenza B Negative (Negative)
[2024-09-26 00:13] LABS: COVID19 ANTIGEN SOFIA FIA NEGATIVE (NEGATIVE)
[2024-09-26] MEDS: SODIUM CHLORIDE 0.9% 500 ML IV ONE (00:26)
[2024-09-26] MEDS: ENOXAPARIN SOD 40 MG/0.4 ML SYRINGE SC ONE (02:50)
--- NOTE | 2024-09-26 03:32 | DVH ---
CT HEAD WITHOUT CONTRAST INDICATION: rule out brainstem stroke COMPARISON: None TECHNIQUE: CT of the head without intravenous contrast. RADIATION DOSE: CTDIvol: 54.54 mGy, DLP: 765.34 mGy*cm FINDINGS: There is no evidence of acute intracranial hemorrhage, extra-axial collection, mass effect, midline s hift, herniation or hydrocephalus. The ventricles, sulci and cisterns are age appropriate. The ferrari -white differentiation is intact. Mild periventricular white matter hypodensity likely represents chr onic microvascular ischemic change. The patient is post bilateral cataract surgery. The visualized pa ranasal sinuses and mastoid air cells are clear. The surrounding soft tissues and osseous structures are unremarkable. IMPRESSION: 1. No evidence of acute intracranial hemorrhage, mass effect or hydrocephalus.
--- NOTE | 2024-09-26 03:32 | DVH ---
Bilateral lower extremity venous duplex Clinical History: rule out DVT Comparison: US LT LOWER DVT on DOS: 09/10/24 Technique: Duplex Doppler evaluation of the deep venous systems of both lower extremities from the common femora l veins to the popliteal veins including color Doppler and spectral/pulsed waveform analysis was perf ormed. Findings: RIGHT SIDE: The common femoral vein demonstrates appropriate compressibility and waveform variability. There is compressibility/patency of the great saphenous vein at the proximal thigh. The femoral vein demonstrates appropriate compressibility and waveform variability. The deep femoral vein demonstrates appropriate compressibility and waveform variability. The popliteal vein demonstrates appropriate compressibility and waveform variability. There is normal compressibility at the tibioperoneal trunk. LEFT SIDE: The common femoral vein demonstrates appropriate compressibility and waveform variability. There is compressibility/patency of the great saphenous vein at the proximal thigh. The femoral vein demonstrates appropriate compressibility and waveform variability. The deep femoral vein demonstrates appropriate compressibility and waveform variability. The popliteal vein demonstrates appropriate compressibility and waveform variability. There is normal compressibility at the tibioperoneal trunk. Impression: 1. No right or left femoropopliteal venous thrombosis.
--- NOTE | 2024-09-26 03:34 | DVHHPRES ---
History of Present Illness Resident Creating Document: SANDHYA MORIN RESIDENT History of Present Illness Patient is a 83-year-old male with a past medical history of congestive heart failure, insulin-dependent type 2 diabetes mellitus, presented to the ED with a chief complaint of generalized weakness for 1 week. Patient was recently discharged from the hospital after undergoing left foot hallux I&D for a wound and possible osteomyelitis, left SFA angioplasty. Patient reported that when he started to feel weak and had decreased appetite. Also reported of difficulty swallowing with things getting stuck in his throat. Patient denied any focal weakness, blurred vision, headache, dizziness, loss of consciousness. Noted that he had more difficulty swallowing to solids than liquids and whenever he ate food he had to drink water to swallow it. Patient denied fever, chills, cough, chest pain. Denied diarrhea or constipation. Past medical history as per HPI Past surgical history: Left foot I and D, angioplasty to left SFA Social history: Patient lives alone and denies smoking, alcohol, drug use Home medications: Patient does not exactly remember but according to the medication history Insulin Humulin 70 30, Entresto 24-26, clopidogrel, aspirin, Jardiance 25 mg, carvedilol 3.125, atorvastatin 40, tamsulosin 0.4 Review of Systems Review of Systems Patient seen and examined at the bedside Alert and oriented to person, place but disoriented to time Does not report of any shortness of breath, chest pain Reports that he has difficulty swallowing food with the feeling that the food is getting stuck in his throat No dysuria, diarrhea Allergies: Coded Allergies: NO KNOWN ALLERGIES (Unverified , 09/09/24) Medications Current Medications Medications Dose Ordered Sig/Miranda Route Start Time Stop Time Status Last Admin Dose Admin Nitroglycerin 0.4 mg Q5MINP PRN SL 09/25/24 22:00 Morphine Sulfate 2 mg Q30M PRN IV 09/25/24 22:00 Vancomycin HCl 0 ml @ 0 mls/hr UD IV 09/26/24 10:00 UNV Pantoprazole Sodium 40 mg DAILY IV 09/26/24 10:00 Enoxaparin Sodium 40 mg DAILY SC 09/26/24 10:00 Cefepime HCl 50 ml @ 12.5 mls/hr Q12HR IV 09/26/24 10:00 Metronidazole 100 ml @ 100 mls/hr Q8HR IV 09/26/24 06:00 Exam Vital Signs Vital Signs Date Time Temp Pulse Resp B/P (MAP) Pulse Ox O2 Delivery O2 Flow Rate FiO2 09/26/24 00:00 92 09/26/24 00:00 26 127/67 (87) 97 09/25/24 20:00 97.7 97.7 09/25/24 12:25 Room Air* 0 21 Exam Gen - no pallor, no icterus, no cyanosis, no clubbing, no LAD, bilateral lower extremity 2+ pitting edema Skin - Patients skin is warm and dry. HEENT - normocephalic, atraumatic, dry mucous membranes. Neck - full ROM, no LAD, jugular venous pulsation seen of the middle 3rd of the SCM with a positive hepatojugular reflux Pulmonary - B/L air entry present with a right-sided lower lobe inspiratory crackles, no wheezing, no stridor. cardiovascular - regular S1,S2 heard, no added sounds, no murmurs heard. capillary refill normal about 4 sec GI - soft, nontender abdomen. no hepatospleenomegaly. Bowel sounds normoactive Neurological - Patient is A/O X 2 . Bilateral upper extremity strength 4/5, bilateral lower extremity strength 4/5, no facial droop, normal speech, no tremor, no sensory deficiets. Labs/Xrays Labs Test 09/26/24 00:14 09/25/24 23:56 09/25/24 23:46 09/25/24 22:17 Range/Units Lactic Acid Level 2.0 0.4-2.0 mmol/L POC Glucose 370 H 70-106 mg/dl Influenza Type A Antigen Negative Negative Influenza Type B Antigen Negative Negative SARS-CoV-2 Antigen (Rapid) Negative NEGATIVE White Blood Count 10.5 4.4-10.8 10^3/uL Red Blood Count 4.55 4.5-5.90 10^6/uL Hemoglobin 13.8 13.5-17.5 g/dL Hematocrit 40.3 L 41.0-53.0 % Mean Corpuscular Volume 88.7 80.0-100.0 fL Mean Corpuscular Hemoglobin 30.3 28.0-32.0 pg Mean Corpuscular Hemoglobin Concent 34.2 32.0-36.0 g/dL Red Cell Distribution Width 14.6 H 11.8-14.3 % Platelet Count 138 L 140-450 10^3/uL Mean Platelet Volume 8.5 6.9-10.8 fL Neutrophils (%) (Auto) 89.2 H 37.0-80.0 % Lymphocytes (%) (Auto) 4.0 L 10.0-50.0 % Monocytes (%) (Auto) 6.6 0.0-12.0 % Eosinophils (%) (Auto) 0.0 0.0-7.0 % Basophils (%) (Auto) 0.2 0.0-2.0 % Neutrophils # (Auto) 9.4 H 1.6-8.6 10 ^3/uL Lymphocytes # (Auto) 0.4 0.4-5.4 10 ^3/uL Monocytes # (Auto) 0.7 0-1.3 10 ^3/uL Eosinophils # (Auto) 0 0-0.8 10 ^3/uL Basophils # (Auto) 0 0-0.2 10 ^3/uL Nucleated Red Blood Cells 0.2 % Prothrombin Time 12.0 H 9.3-11.8 sec Prothrombin Time INR 1.15 0.9-1.15 Activated Partial Thromboplast Time 33.2 24.5-34.5 SEC Sodium Level 136 136-145 mmol/L Potassium Level 5.0 3.5-5.1 mmol/L Chloride Level 103 98-107 mmol/L Carbon Dioxide Level 22 20-31 mmol/L Anion Gap 11 5-15 Blood Urea Nitrogen 32 H 9-23 mg/dL Creatinine 1.12 0.700-1.30 mg/dL Glomerular Filtration Rate Calc 65 >90 mL/min BUN/Creatinine Ratio 28.6 H 10.0-20.0 Serum Glucose 385 H 74-106 mg/dL Hemoglobin A1c 9.9 H <5.7 % A1C Calcium Level 8.9 8.7-10.4 mg/dL B-Type Natriuretic Peptide 3097.71 0-100 pg/mL Beta-Hydroxybutyric Acid > 4.500 H < 0.4 mmol/L Test 09/25/24 22:11 09/25/24 16:21 09/25/24 13:40 09/25/24 13:05 Range/Units Blood Gas Specimen Type Arterial Blood Gas Sample Site Right radial Blood Gas Patient Temperature 37.0 Arterial Blood Date Drawn [id number] Arterial Blood pH 7.456 H 7.350-7.450 Arterial Blood Partial Pressure CO2 21.9 L 35.0-48.0 mmHg Arterial Blood Partial Pressure O2 76.8 L 83.0-108.0 mmHg Arterial Blood HCO3 15.1 L 21.0-28.0 mmol/L Arterial Blood Oxygen Saturation 94.5 94.0-98.0 % Arterial Blood Base Excess -6.6 L -2.0-3.0 mmol/L Arterial Blood Oxyhemoglobin 92.8 L 94.0-98.0 % Arterial Blood Carboxyhemoglobin 1.1 0.5-1.5 % Arterial Blood Methemoglobin 0.7 0.0-1.5 % Camron Test Modified Blood Gas Total Hemoglobin 13.70 13.5-17.5 g/dL Blood Gas Modality Room air FiO2 % 21.0 Troponin I High Sensitivity 76 *H </=54 ng/L Urine Color Light-yellow Yellow Urine Clarity Clear Clear Urine pH 5.5 5.0-9.0 Urine Specific [place] 1.028 1.001-1.035 Urine Protein Negative Negative Urine Ketones 2+ H Negative Urine Blood Negative Negative /uL Urine Nitrite Negative Negative Urine Bilirubin Negative Negative Urine Urobilinogen Normal Negative mg/dL Urine Leukocyte Esterase Negative Negative /uL Urine RBC 1 0 - 3 /hpf Urine Microscopic WBC < 1 0-3 /HPF Urine Squamous Epithelial Cells None seen <5 /hpf Urine Bacteria None seen None Seen /hpf Urine Hyaline Casts Few 0 - 2 /lpf Urine Glucose 4+ H Normal mg/dL Total Bilirubin 0.5 0.2-1.0 mg/dL Aspartate Amino Transferase (AST) 32 <34 U/L Alanine Aminotransferase (ALT) 60 H 7-40 U/L Alkaline Phosphatase 128 H 46-116 U/L Total Protein 6.0 5.7-8.2 g/dL Albumin 3.9 3.2-4.8 g/dL Assessment/Plan Assessment/Plan Acute metabolic encephalopathy likely due to sepsis - IV antibiotics Congestive heart failure with preserved versus reduced ejection fraction, likely in exacerbation Possible right lower lobe pneumonia due to aspiration NSTEMI likely type 2 due to demand ischemia Peripheral artery disease s/p left SFA angioplasty( done in the last admission ) - IV antibiotics - patient was not taking his medications in the last 1 week including Entresto , carvedilol, Jardiance ( medications as per the records ) - Lasix currently held because the patient was in sepsis - strict I/O - EKG did not show any acute ST or T-wave changes - BNP elevated - echocardiogram pending Left foot hallux osteomyelitis S/p Left foot hallux I&D(done 1 week ago) Sepsis likely due to above Respiratory alkalosis likely from early sepsis - IV antibiotics with the vancomycin, cefepime and metronidazole - 2.5 L IV fluid given, further fluids to be given judiciously as patient is likely in heart failure exacerbation - blood cultures pending - sputum cultures pending Uncontrolled type 2 diabetes mellitus with hyperglycemia Starvation ketosis likely due to difficulty swallowing Probable mild DKA, resolved - insulin Lantus 15 units - mild insulin sliding scale a.c. - IV fluids given - HbA1c 9.9% Dysphagia likely oropharyngeal Rule out stroke - head CT pending - patient may need barium swallow study - swallow evaluation pending - on pureed diet H/O BPH - on tamsulosin PUD prophylaxis: Protonix DVT prophylaxis: Enoxaparin Goals of care discussed with the patient for over 25 minutes. Full code Time spent: 43 minutes Plan discussed with Dr. Rosen Plan discussed with: Patient My Orders Orders - SANDHYA MORIN RESIDENT Procedure Category Date Status Time Admit ADMIT 09/25/24 Transmitted 21:59 Nitroglycerin PHA 09/25/24 In Process Sublingual (Ntrostat 22:00 Morphine Sulfate PHA 09/25/24 In Process Injection 22:00 Oxygen By Nasal RT 09/25/24 Transmitted Cannula 21:59 Stat Ekg For Chest JOSE JUAN 09/25/24 In Process Pain 21:59 Notify Of Changes JOSE JUAN 09/25/24 In Process From Base 21:59 Fire Equipment Operator For JOSE JUAN 09/25/24 In Process 24 Hours 21:59 Emergency Dysrhythmia JOSE JUAN 09/25/24 In Process Protocol 21:59 Respiratory Culture DAVEY 09/25/24 Logged W/ Gs 21:59 Abg W/ Co-Ox RT 09/25/24 Logged 21:59 Vancomycin Per PHA 09/26/24 Pending Pharmacy 10:00 * Swallow Request ST 09/25/24 Transmitted 21:59 Pureed DIET 09/26/24 Transmitted Breakfast Pantoprazole PHA 09/26/24 In Process (Protonix) 10:[address] 09/25/24 Taken 23:45 Bilat Lower Dvt US 09/26/24 Taken 00:08 Enoxaparin Sodium PHA 09/26/24 In Process (Lovenox) 10:00 Echo 2d Mode Cardiac US 09/26/24 Logged DOP 00:08 Cefepime 2gm/50ml Ns PHA 09/26/24 In Process (Maxipime 2gm/50ml) 10:00 Metronidazole PHA 09/26/24 In Process 500mg/100ml (Flagyl 06:00 Chest Xray 1 View XY 09/26/24 Logged 05:00 Date of Service: Sep 25, 2024 Billing Provider: ARNIE ROSEN MD Common Visit Codes: [id number] INP/OBS CARE (HIGH) Secondary Visit Codes: [id number] CARE PLAN 30 MINUTES SANDHYA MORIN RESIDENT Sep 26, 2024 03:34
[2024-09-26] MEDS: TAMSULOSIN HYDROCHLORIDE 0.4 MG CAP PO ONE (03:37)
[2024-09-26] MEDS: metroNIDAZOLE 500MG/100ML 100 ML IV SCH (05:03)
[2024-09-26] MEDS ORDERED: PIPERACILLIN-TAZOB 3.375GM 100 ML IV SCH (06:00)
[2024-09-26] MEDS: ACCU-CHEK COMFORT CURVE STRIP VI SCH (07:06)
[2024-09-26] MEDS: InsuLIN REG 1unit/0.01ml Soln (100units/ml) SC SCH (07:08)
[2024-09-26] MEDS ORDERED: MORPHINE SULFATE 4 MG/ML SYR/VIAL IV PRN ×2 (09:15→11:15)
--- NOTE | 2024-09-26 09:37 | DVH ---
CHEST RADIOGRAPH Indication: SOB Technique: Single frontal view of the chest was obtained COMPARISON: XY CHEST PORTABLE on DOS: 09/25/24 FINDINGS: Lines and Tubes: None Lungs: Multifocal airspace disease. Pleura: No effusion. No pneumothorax. Cardiomediastinal contours: Cardiomegaly Bones: Unremarkable IMPRESSION: Pulmonary edema
[2024-09-26] MEDS: ENOXAPARIN SOD 40 MG/0.4 ML SYRINGE SC SCH (10:00)
[2024-09-26] MEDS ORDERED: VANCOMYCIN PER PHARMACY 0 MG IV SCH (10:00)
[2024-09-26] MEDS: ASPirin 81 mg TAB PO SCH (10:00)
[2024-09-26] MEDS ORDERED: CEFEPIME 1GM/ 50ML 50 ML IV SCH (10:00)
[2024-09-26] MEDS: PANTOPRAZOLE 40 MG/10 ML VIAL INJ IV SCH (10:26)
[2024-09-26] MEDS: CEFEPIME 2GM/50ML NS 50 ML IV SCH (10:26)
[2024-09-26 11:18] LABS: Hepatitis B Surface Antigen Negative (Negative); Hepatitis C Antibody Negative (Negative)
[2024-09-26] MEDS: FUROSEMIDE 40 MG/4 ML VIAL IV ONE (12:28)
--- NOTE | 2024-09-26 13:49 | DVHINCON2 ---
GI Consult Consult Note GI consult note Date of Consultation: 09/2024 Chief Complaint: Dysphagia Referring Physician: Dr. Khalil H&P: 83-year-old male presented to ER with generalized weakness for one-week Patient is status post left foot hallux I and D and possible osteomyelitis Patient now complaining of difficulty swallowing more with solids than liquids, for the past one month. No nausea or vomiting. Denies weight loss. No abdominal pain. No EGD in past. No melena or red blood in stool Patient is on Lovenox and aspirin at this time Past Medical History: congestive heart failure, insulin-dependent type 2 diabetes mellitus, Past Surgical History: Left foot I and D, angioplasty Social History: NO smoking, drinking ETOH and use of illegal drugs. Family History: Noncontributory Review of Systems: Constitutional: no fever, chill, weight loss HEENT: no eye pain, no hearing loss, no oral lesion, no scleral icterus Heart: no chest pain, no chest pressure Lung: no cough, no dyspnea with exertion Abdomen: see HPI Physical exam: General: NAD, AAOX3 Chest: lung prince clear to auscultation Heart: RRR, no murmur Abdomen: non-distended, no tenderness to palpation, +BS Labs: Labs Test 09/26/24 12:15 09/26/24 00:14 09/25/24 23:46 09/25/24 22:17 Range/Units POC Glucose 221 H 70-106 mg/dl Lactic Acid Level 2.0 0.4-2.0 mmol/L Hepatitis B Surface Antigen Negative Negative Hepatitis C Antibody Negative Negative Influenza Type A Antigen Negative Negative Influenza Type B Antigen Negative Negative SARS-CoV-2 Antigen (Rapid) Negative NEGATIVE White Blood Count 10.5 4.4-10.8 10^3/uL Red Blood Count 4.55 4.5-5.90 10^6/uL Hemoglobin 13.8 13.5-17.5 g/dL Hematocrit 40.3 L 41.0-53.0 % Mean Corpuscular Volume 88.7 80.0-100.0 fL Mean Corpuscular Hemoglobin 30.3 28.0-32.0 pg Mean Corpuscular Hemoglobin Concent 34.2 32.0-36.0 g/dL Red Cell Distribution Width 14.6 H 11.8-14.3 % Platelet Count 138 L 140-450 10^3/uL Mean Platelet Volume 8.5 6.9-10.8 fL Neutrophils (%) (Auto) 89.2 H 37.0-80.0 % Lymphocytes (%) (Auto) 4.0 L 10.0-50.0 % Monocytes (%) (Auto) 6.6 0.0-12.0 % Eosinophils (%) (Auto) 0.0 0.0-7.0 % Basophils (%) (Auto) 0.2 0.0-2.0 % Neutrophils # (Auto) 9.4 H 1.6-8.6 10 ^3/uL Lymphocytes # (Auto) 0.4 0.4-5.4 10 ^3/uL Monocytes # (Auto) 0.7 0-1.3 10 ^3/uL Eosinophils # (Auto) 0 0-0.8 10 ^3/uL Basophils # (Auto) 0 0-0.2 10 ^3/uL Nucleated Red Blood Cells 0.2 % Prothrombin Time 12.0 H 9.3-11.8 sec Prothrombin Time INR 1.15 0.9-1.15 Activated Partial Thromboplast Time 33.2 24.5-34.5 SEC Sodium Level 136 136-145 mmol/L Potassium Level 5.0 3.5-5.1 mmol/L Chloride Level 103 98-107 mmol/L Carbon Dioxide Level 22 20-31 mmol/L Anion Gap 11 5-15 Blood Urea Nitrogen 32 H 9-23 mg/dL Creatinine 1.12 0.700-1.30 mg/dL Glomerular Filtration Rate Calc 65 >90 mL/min BUN/Creatinine Ratio 28.6 H 10.0-20.0 Serum Glucose 385 H 74-106 mg/dL Hemoglobin A1c 9.9 H <5.7 % A1C Calcium Level 8.9 8.7-10.4 mg/dL B-Type Natriuretic Peptide 3097.71 0-100 pg/mL Beta-Hydroxybutyric Acid > 4.500 H < 0.4 mmol/L Test 09/25/24 22:11 09/25/24 16:21 09/25/24 13:40 09/25/24 13:05 Range/Units Blood Gas Specimen Type Arterial Blood Gas Sample Site Right radial Blood Gas Patient Temperature 37.0 Arterial Blood Date Drawn [id number] Arterial Blood pH 7.456 H 7.350-7.450 Arterial Blood Partial Pressure CO2 21.9 L 35.0-48.0 mmHg Arterial Blood Partial Pressure O2 76.8 L 83.0-108.0 mmHg Arterial Blood HCO3 15.1 L 21.0-28.0 mmol/L Arterial Blood Oxygen Saturation 94.5 94.0-98.0 % Arterial Blood Base Excess -6.6 L -2.0-3.0 mmol/L Arterial Blood Oxyhemoglobin 92.8 L 94.0-98.0 % Arterial Blood Carboxyhemoglobin 1.1 0.5-1.5 % Arterial Blood Methemoglobin 0.7 0.0-1.5 % Camron Test Modified Blood Gas Total Hemoglobin 13.70 13.5-17.5 g/dL Blood Gas Modality Room air FiO2 % 21.0 Troponin I High Sensitivity 76 *H </=54 ng/L Urine Color Light-yellow Yellow Urine Clarity Clear Clear Urine pH 5.5 5.0-9.0 Urine Specific [place] 1.028 1.001-1.035 Urine Protein Negative Negative Urine Ketones 2+ H Negative Urine Blood Negative Negative /uL Urine Nitrite Negative Negative Urine Bilirubin Negative Negative Urine Urobilinogen Normal Negative mg/dL Urine Leukocyte Esterase Negative Negative /uL Urine RBC 1 0 - 3 /hpf Urine Microscopic WBC < 1 0-3 /HPF Urine Squamous Epithelial Cells None seen <5 /hpf Urine Bacteria None seen None Seen /hpf Urine Hyaline Casts Few 0 - 2 /lpf Urine Glucose 4+ H Normal mg/dL Total Bilirubin 0.5 0.2-1.0 mg/dL Aspartate Amino Transferase (AST) 32 <34 U/L Alanine Aminotransferase (ALT) 60 H 7-40 U/L Alkaline Phosphatase 128 H 46-116 U/L Total Protein 6.0 5.7-8.2 g/dL Albumin 3.9 3.2-4.8 g/dL Microbiology Date/Time Source Procedure Growth Status 09/25/24 13:05 Blood Blood Culture - Preliminary NO GROWTH AFTER 24 HOURS OF INCUBATION. Resulted Imaging: Assessment: Dysphagia Generalized weakness Plan: Discussed with Dr. Velasco Protonix and Carafate Diet as tolerated Possible EGD discussed with patient Patient on blood thinners which we will need to be held for any procedures Thank you for this consult Date of Service: Sep 26, 2024 Billing Provider: DON DIETZ Common Visit Codes: CONSULT ONLY Consultation Codes: [id number] CONSULT <60MIN DON DIETZ Sep 26, 2024 13:49
--- NOTE | 2024-09-26 14:17 | DVHPNRES ---
Progress Note Date Seen: Sep 26, 2024 Resident Creating Document: BLAKE SIMMS RESIDENT Has the PT tested + for MRSA If YES, has PT been informed?: No Medical Necessity Reason Pt with a Central, PICC or Fol: No Subjective Review of Systems Patient is a 83-year-old male with a past medical history of congestive heart failure, insulin-dependent type 2 diabetes mellitus, presented to the ED with a chief complaint of generalized weakness for 1 week. Patient was recently discharged from the hospital after undergoing left foot hallux I&D for a wound and possible osteomyelitis, left SFA angioplasty. Patient reported that when he started to feel weak and had decreased appetite. Also reported of difficulty swallowing with things getting stuck in his throat. Patient denied any focal weakness, blurred vision, headache, dizziness, loss of consciousness. Noted that he had more difficulty swallowing to solids than liquids and whenever he ate food he had to drink water to swallow it. Patient denied fever, chills, cough, chest pain. Denied diarrhea or constipation. Past medical history as per HPI Past surgical history: Left foot I and D, angioplasty to left SFA Social history: Patient lives alone and denies smoking, alcohol, drug use Home medications: Patient does not exactly remember but according to the medication history Insulin Humulin 70 30, Entresto 24-26, clopidogrel, aspirin, Jardiance 25 mg, carvedilol 3.125, atorvastatin 40, tamsulosin 0.4 09/27/2024: sepsis and mentas status is improving, GI consider possible EGD due to dysphagia, pending podiatry consult Objective vital signs Vital Sign Date Time Temp Pulse Resp B/P (MAP) Pulse Ox O2 Delivery O2 Flow Rate FiO2 09/26/24 12:36 97.5 88 17 108/66 (80) 94 97.5 09/26/24 02:37 Room Air* 0 21 Total Intake and Output 09/25/24 09/25/24 09/26/24 15:00 23:00 07:00 Intake Total 2250 ml 340 ml Output Total 0 ml Balance 2250 ml 340 ml medications Current Medications Medications Dose Ordered Sig/Miranda Route Start Time Stop Time Status Last Admin Dose Admin Nitroglycerin 0.4 mg Q5MINP PRN SL 09/25/24 22:00 Morphine Sulfate 2 mg Q30M PRN IV 09/25/24 22:00 Cancel Vancomycin HCl 0 ml @ 0 mls/hr UD IV 09/26/24 10:00 UNV Pantoprazole Sodium 40 mg DAILY IV 09/26/24 10:00 09/26/24 10:26 40 MG Enoxaparin Sodium 40 mg DAILY SC 09/26/24 10:00 Cefepime HCl 50 ml @ 12.5 mls/hr Q12HR IV 09/26/24 10:00 09/26/24 10:26 12.5 MLS/HR Metronidazole 100 ml @ 100 mls/hr Q8HR IV 09/26/24 06:00 09/26/24 05:03 100 MLS/HR Tamsulosin HCl 0.4 mg QPM PO 09/26/24 18:00 Diagnostic Test (Pha) 1 strip ACHS 09/26/24 07:00 09/26/24 11:30 1 STRIP Insulin Human Regular ACHS SC 09/26/24 07:00 09/26/24 12:27 4 UNITS Dextrose 50 ml UD PRN IV 09/26/24 03:15 Aspirin 81 mg DAILY PO 09/26/24 10:00 Atorvastatin Calcium 40 mg HS PO 09/26/24 22:00 Morphine Sulfate 2 mg Q30M PRN IV 09/26/24 09:15 Cancel Insulin Glargine 20 units HS SC 09/26/24 22:00 Morphine Sulfate 2 mg Q30M PRN IV 09/26/24 11:15 Examination Gen - no pallor, no icterus, no cyanosis, no clubbing, no LAD, bilateral lower extremity 2+ pitting edema Skin - Patients skin is warm and dry. HEENT - normocephalic, atraumatic, wet mucous membranes. Neck - full ROM, no LAD, jugular venous pulsation seen of the middle 3rd of the SCM with a positive hepatojugular reflux Pulmonary - B/L air entry present with a right-sided lower lobe inspiratory crackles, no wheezing, no stridor. cardiovascular - regular S1,S2 heard, no added sounds, no murmurs heard. capillary refill normal about 4 sec GI - soft, nontender abdomen. no hepatospleenomegaly. Bowel sounds normoactive Neurological - Patient is A/O X 2 . Bilateral upper extremity strength 4/5, bilateral lower extremity strength 4/5, no facial droop, normal speech, no tremor, no sensory deficiets. laboratory and microbiology Laboratory Tests 09/25/24 22:17 Test 09/25/24 22:17 Range/Units Serum Glucose 385 H 74-106 mg/dL Microbiology Date/Time Source Procedure Growth Status 09/25/24 13:05 Blood Blood Culture - Preliminary NO GROWTH AFTER 24 HOURS OF INCUBATION. Resulted Problem List/Assessment/Plan Problem List/Assessment/Plan cute metabolic encephalopathy likely due to sepsis - IV antibiotics Congestive heart failure with preserved versus reduced ejection fraction, likely in exacerbation Possible right lower lobe pneumonia due to aspiration NSTEMI likely type 2 due to demand ischemia Peripheral artery disease s/p left SFA angioplasty( done in the last admission ) - IV antibiotics - patient was not taking his medications in the last 1 week including Entresto , carvedilol, Jardiance ( medications as per the records ) - Lasix given due to mild pulmonary congestion today - strict I/O - EKG did not show any acute ST or T-wave changes - BNP elevated - echocardiogram pending Left foot hallux osteomyelitis S/p Left foot hallux I&D(done 1 week ago) Sepsis likely due to above Respiratory alkalosis likely from early sepsis - IV antibiotics with the vancomycin, cefepime and metronidazole - 2.5 L IV fluid given, further fluids to be given judiciously as patient is likely in heart failure exacerbation - blood cultures pending - sputum cultures pending -Pending ultrasound technologist assessment Uncontrolled type 2 diabetes mellitus with hyperglycemia Starvation ketosis likely due to difficulty swallowing Probable mild DKA, resolved - insulin Lantus 15 units - mild insulin sliding scale a.c. - IV fluids given - HbA1c 9.9% Dysphagia likely oropharyngeal Rule out stroke - head CT normal - GI on board: possible EGD - on pureed diet H/O BPH - on tamsulosin PUD prophylaxis: Protonix DVT prophylaxis: Enoxaparin Goals of care discussed with the patient for over 25 minutes. Full code Time spent: 43 minutes Plan discussed with Dr. Spencer Plan discussed with: Patient, Other My Orders My Orders Orders - BLAKE SIMMS RESIDENT Procedure Category Date Status Time Insulin Lantus PHA 09/26/24 In Process (Glargine) (Lantus) 22:00 * Gi D[facility] Judge'S Clerk CONS 09/26/24 Transmitted 12:10 Date of Service: Sep 26, 2024 Billing Provider: ETHAN SPENCER MD Common Visit Codes: [id number] INP/OBS CARE(HIGH) BLAKE SIMMS RESIDENT Sep 26, 2024 14:17 ETHAN SPENCER MD Oct 06, 2024 20:48
[2024-09-26] MEDS: VANCOMYCIN 1.25GM/250ML 250 ML IV SCH (17:00)
[2024-09-26] MEDS: TAMSULOSIN HYDROCHLORIDE 0.4 MG CAP PO SCH (18:00)
[2024-09-26] MEDS ORDERED: Glucerna Carbsteady SHAKE Chocolate 8oz PEG SCH (18:00)
--- NOTE | 2024-09-26 20:00 | DVHSR ---
APPROVED REPORT EXAM: Two-dimensional and M-mode echocardiogram with Doppler and color Doppler. Blood Pressure: 109/76 mmHg INDICATION Heart Failure RISK FACTORS Height: 5'7", Weight: 157 DIMENSIONS LVDd5.8 (3.8-5.7cm)LA (2D)4.8 (1.9-4.0cm)Aortic Root2.8 (2.0-3.7cm) LVDs5.7 (2.5-4.0cm)LA (MM) (1.9-4.0cm)Aortic Cusp Exc1.5 (1.5-2.0cm) EF (%) 10.0 (55-70%)Rt. Atrium4.7 (1.9-4.0cm)Asc. Aorta cm IVSd0.6 (0.7-1.1cm)RV (D)4.6 (1.8-2.4cm) Mitral Valve MitralMitral Stenosis E wave0.96m/sMV Mean GR.mmHg A wave0.69m/sMV Peak GR.mmHg E/A ratio1.42D MVAcm2 DECEL [id number] 1/2 Timems Aortic Valve Aortic ValveAortic Stenosis V10.51m/Sanaz Mean GR.2mmHg V20.93m/Sanaz Peak GR.3mmHg LVOT Diameter1.9 (1.8-2.4cm)Doppler AVA1.55cm2 AI P 1/2 Tvlm667.47ms Pulmonic Valve V20.63m/s Tricuspid Valve TR Velocity2.63m/s [id number] Other Information Quality : Technically LimitedRhythm : Conclusion LVEF severely reduced at 10-15%. Global hypokinesis. Moderately dilated ventricle Moderate right ventricular dysfunction, mildly dilated Mild left and right atrial dilation Moderate MR Moderate AR
[2024-09-26] MEDS ORDERED: INSULIN LANTUS (GLARGINE) 1 /0.01ml (100units/ml) SC SCH (22:00)
[2024-09-26] MEDS: ATORVASTATIN 20 MG TAB PO SCH (22:38)
[2024-09-26] MEDS: INSULIN LANTUS (GLARGINE) 1 /0.01ml (100units/ml) SC SCH (22:50)
[2024-09-27] VITALS (7 sets, daily range): BP systolic 109–121; BP diastolic 51–69; PULSE 88–103; RESP 16–18; TEMP 97.4–98.6; O2SAT 97–98
[2024-09-27 07:24] LABS: Anion Gap 9 (5-15); Carbon Dioxide 25 mmol/L (20-31); Chloride 106 mmol/L (98-107); Potassium 3.7 mmol/L (3.5-5.1); Sodium 140 mmol/L (136-145)
[2024-09-27 07:25] LABS: Basophils # (auto) 0 10 ^3/uL (0-0.2); Basophils % (auto) 0.1 % (0.0-2.0); Calcium 8.8 mg/dL (8.7-10.4); Eosinophils # (auto) 0.1 10 ^3/uL (0-0.8); Eosinophils % (auto) 1.3 % (0.0-7.0); Hematocrit 37.8 % (41.0-53.0); Hemoglobin 13.2 g/dL (13.5-17.5); Lymphocytes # (auto) 0.8 10 ^3/uL (0.4-5.4); Mean Corpuscular Hemoglobin 30.4 pg (28.0-32.0); Mean Corpuscular Hgb Conc. 34.8 g/dL (32.0-36.0); Mean Corpuscular Volume 87.2 fL (80.0-100.0); Monocytes # (auto) 0.6 10 ^3/uL (0-1.3); Monocytes % (auto) 6.7 % (0.0-12.0); Neutrophils # (auto) 7.5 10 ^3/uL (1.6-8.6); Neutrophils % (auto) 82.9 % (37.0-80.0); Nucleated Red Blood Cells % 0.1 %; Platelet Count (auto) 106 10^3/uL (140-450); Red Blood Cells 4.34 10^6/uL (4.5-5.90); Red Cell Distribution Width 14.5 % (11.8-14.3)
[2024-09-27 07:30] LABS: BUN/Creatinine Ratio 25.6 (10.0-20.0); Blood Urea Nitrogen 22 mg/dL (9-23)
[2024-09-27 07:33] LABS: Glucose 112 mg/dL (74-106)
--- NOTE | 2024-09-27 11:50 | DVHPNRES ---
Progress Note Date Seen: Sep 27, 2024 Resident Creating Document: TORI HERNANDEZ ALE Has the PT tested + for MRSA If YES, has PT been informed?: No Medical Necessity Reason Pt with a Central, PICC or Fol: No Subjective Review of Systems Patient seen and examined at the bedside. Patient is still complaining of difficulty in swallowing. Patient reports: No new complaints, Feels better Changes from previous H/P or p: Changes Objective vital signs Vital Sign Date Time Temp Pulse Resp B/P (MAP) Pulse Ox O2 Delivery O2 Flow Rate FiO2 09/27/24 08:37 98.6 91 17 114/51 (72) 98 98.6 09/26/24 20:00 Room Air* 0 21 Total Intake and Output 09/26/24 09/26/24 09/27/24 15:00 23:00 07:00 Intake Total 50 ml 650 ml 500 ml Output Total 1500 ml 970 ml Balance 50 ml -850 ml -470 ml medications Current Medications Medications Dose Ordered Sig/Miranda Route Start Time Stop Time Status Last Admin Dose Admin Nitroglycerin 0.4 mg Q5MINP PRN SL 09/25/24 22:00 Morphine Sulfate 2 mg Q30M PRN IV 09/25/24 22:00 Cancel Vancomycin HCl 0 ml @ 0 mls/hr UD IV 09/26/24 10:00 Pantoprazole Sodium 40 mg DAILY IV 09/26/24 10:00 09/27/24 10:48 40 MG Enoxaparin Sodium 40 mg DAILY SC 09/26/24 10:00 Cefepime HCl 50 ml @ 12.5 mls/hr Q12HR IV 09/26/24 10:00 09/27/24 10:49 12.5 MLS/HR Metronidazole 100 ml @ 100 mls/hr Q8HR IV 09/26/24 06:00 09/27/24 05:54 100 MLS/HR Tamsulosin HCl 0.4 mg QPM PO 09/26/24 18:00 09/26/24 18:00 0.4 MG Diagnostic Test (Pha) 1 strip ACHS 09/26/24 07:00 09/27/24 05:54 1 STRIP Insulin Human Regular ACHS SC 09/26/24 07:00 09/26/24 22:49 3 UNITS Dextrose 50 ml UD PRN IV 09/26/24 03:15 Aspirin 81 mg DAILY PO 09/26/24 10:00 Atorvastatin Calcium 40 mg HS PO 09/26/24 22:00 09/26/24 22:38 40 MG Morphine Sulfate 2 mg Q30M PRN IV 09/26/24 09:15 Cancel Insulin Glargine 20 units HS SC 09/26/24 22:00 09/26/24 22:50 20 UNITS Morphine Sulfate 2 mg Q30M PRN IV 09/26/24 11:15 Vancomycin HCl 250 ml @ 200 mls/hr DAILY@1700 IV 09/26/24 17:00 09/26/24 17:00 200 MLS/HR Examination Gen - no pallor, no icterus, no cyanosis, no clubbing, no LAD, bilateral lower extremity 2+ pitting edema Skin - Patients skin is warm and dry. HEENT - normocephalic, atraumatic, wet mucous membranes. Neck - full ROM, no LAD, jugular venous pulsation seen of the middle 3rd of the SCM with a positive hepatojugular reflux Pulmonary - B/L air entry present with a right-sided lower lobe inspiratory crackles, no wheezing, no stridor. cardiovascular - regular S1,S2 heard, no added sounds, no murmurs heard. capillary refill normal about 4 sec GI - soft, nontender abdomen. no hepatospleenomegaly. Bowel sounds normoactive Neurological - Patient is A/O X 2 . Bilateral upper extremity strength 4/5, bilateral lower extremity strength 4/5, no facial droop, normal speech, no tremor, no sensory deficiets. laboratory and microbiology Laboratory Tests 09/27/24 06:19 Test 09/27/24 06:19 Range/Units Serum Glucose 112 #H 74-106 mg/dL Microbiology Date/Time Source Procedure Growth Status 09/25/24 13:05 Blood Blood Culture - Preliminary NO GROWTH AFTER 24 HOURS OF INCUBATION. Resulted Labs and/or images reviewed: Labs reviewed by me, Image(s) reviewed by me Problem List/Assessment/Plan Problem List/Assessment/Plan cute metabolic encephalopathy likely due to sepsis - IV antibiotics Congestive heart failure with preserved versus reduced ejection fraction, likely in exacerbation Possible right lower lobe pneumonia due to aspiration NSTEMI likely type 2 due to demand ischemia Peripheral artery disease s/p left SFA angioplasty( done in the last admission ) - IV antibiotics - patient was not taking his medications in the last 1 week including Entresto , carvedilol, Jardiance ( medications as per the records ) - Lasix given due to mild pulmonary congestion today - strict I/O - EKG did not show any acute ST or T-wave changes - BNP elevated - echocardiogram pending Left foot hallux osteomyelitis S/p Left foot hallux I&D(done 1 week ago) Sepsis likely due to above Respiratory alkalosis likely from early sepsis - IV antibiotics with the vancomycin, cefepime and metronidazole - 2.5 L IV fluid given, further fluids to be given judiciously as patient is likely in heart failure exacerbation - blood cultures pending - sputum cultures pending -Pending junior electrical engineer assessment Uncontrolled type 2 diabetes mellitus with hyperglycemia Starvation ketosis likely due to difficulty swallowing Probable mild DKA, resolved - insulin Lantus 15 units - mild insulin sliding scale a.c. - IV fluids given - HbA1c 9.9% Dysphagia likely oropharyngeal Rule out stroke - head CT normal - GI on board: Planned for EGD - on pureed diet H/O BPH - on tamsulosin PUD prophylaxis: Protonix DVT prophylaxis: Enoxaparin Goals of care discussed with the patient for over 25 minutes. Full code Time spent: 43 minutes Plan discussed with Dr. Spencer Plan discussed with: Patient, Other (RN) Date of Service: Sep 27, 2024 Billing Provider: ETHAN SPENCER MD Common Visit Codes: [id number] INP/OBS CARE(HIGH) PITOSHARATHMIRELAPITOLuis RESDIENT Sep 27, 2024 11:50 ETHAN SPENCER MD Oct 06, 2024 20:51
[2024-09-28] VITALS (8 sets, daily range): BP systolic 111–124; BP diastolic 63–79; PULSE 53–97; RESP 16–18; TEMP 97.6–97.9; O2SAT 97–100
[2024-09-28] MEDS: MELATONIN 5 MG TAB PO SCH (00:20)
[2024-09-28 06:36] LABS: Basophils # (auto) 0 10 ^3/uL (0-0.2); Eosinophils # (auto) 0.1 10 ^3/uL (0-0.8); Eosinophils % (auto) 0.8 % (0.0-7.0); Hematocrit 35.3 % (41.0-53.0); Hemoglobin 12.2 g/dL (13.5-17.5); Lymphocytes # (auto) 0.8 10 ^3/uL (0.4-5.4); Lymphocytes % (auto) 9.3 % (10.0-50.0); Mean Corpuscular Hemoglobin 30.1 pg (28.0-32.0); Mean Corpuscular Hgb Conc. 34.6 g/dL (32.0-36.0); Monocytes # (auto) 0.5 10 ^3/uL (0-1.3); Monocytes % (auto) 6.3 % (0.0-12.0); Neutrophils # (auto) 6.8 10 ^3/uL (1.6-8.6); Neutrophils % (auto) 83.6 % (37.0-80.0); Platelet Count (auto) 103 10^3/uL (140-450); Red Blood Cells 4.06 10^6/uL (4.5-5.90); Red Cell Distribution Width 14.9 % (11.8-14.3); White Blood Cell 8.1 10^3/uL (4.4-10.8)
[2024-09-28 06:45] LABS: Anion Gap 8 (5-15); Carbon Dioxide 28 mmol/L (20-31); Chloride 105 mmol/L (98-107); Sodium 141 mmol/L (136-145)
[2024-09-28 06:51] LABS: BUN/Creatinine Ratio 23.3 (10.0-20.0); Blood Urea Nitrogen 20 mg/dL (9-23); Glucose 86 mg/dL (74-106)
--- NOTE | 2024-09-28 11:18 | DVH ---
MRI LEFT HEEL WITHOUT CONTRAST HISTORY: r/o OM COMPARISON: MRI MRI L FOOT WO CONTRAST on DOS: 09/11/24, CT CT L FOOT WO CONTRAST on DOS: 09/10/24 CONTRAST: none TECHNIQUE: Standard MR imaging of the left heel without contrast. FINDINGS: There is marrow placement with edema involving the entirety of the 1st distal phalanx. There is overl jay soft tissue swelling of the 1st digit. No additional areas marrow placement identified. Mild 1st metatarsophalangeal joint and interphalangeal joint degenerative changes. There is extensive subcutaneous edema and mild edema within the intrinsic muscles of the foot. Image tendons appear int act. No abscess. IMPRESSION: 1. Worsening acute osteomyelitis of the 1st distal phalanx when compared to 09/11/2024 2. Diffuse subcutaneous and intrinsic foot muscle edema. Foot muscle edema again may be related to my ositis versus denervation.
--- NOTE | 2024-09-28 14:13 | DVHPNRES ---
Progress Note Date Seen: Sep 28, 2024 Resident Creating Document: BLAKE SIMMS RESIDENT Has the PT tested + for MRSA If YES, has PT been informed?: No Medical Necessity Reason Pt with a Central, PICC or Fol: No Subjective Review of Systems Patient is a 83-year-old male with a past medical history of congestive heart failure, insulin-dependent type 2 diabetes mellitus, presented to the ED with a chief complaint of generalized weakness for 1 week. Patient was recently discharged from the hospital after undergoing left foot hallux I&D for a wound and possible osteomyelitis, left SFA angioplasty. Patient reported that when he started to feel weak and had decreased appetite. Also reported of difficulty swallowing with things getting stuck in his throat. Patient denied any focal weakness, blurred vision, headache, dizziness, loss of consciousness. Noted that he had more difficulty swallowing to solids than liquids and whenever he ate food he had to drink water to swallow it. Patient denied fever, chills, cough, chest pain. Denied diarrhea or constipation. Past medical history as per HPI Past surgical history: Left foot I and D, angioplasty to left SFA Social history: Patient lives alone and denies smoking, alcohol, drug use Home medications: Patient does not exactly remember but according to the medication history Insulin Humulin 70 30, Entresto 24-26, clopidogrel, aspirin, Jardiance 25 mg, carvedilol 3.125, atorvastatin 40, tamsulosin 0.4 09/27/2024: sepsis and mental status is improving, GI consider possible EGD due to dysphagia, pending podiatry consult 09/28/2024: foot MRI showed Worsening acute osteomyelitis of the 1st distal phalanx when compared to 09/11/2024, pending EGD Objective vital signs Vital Sign Date Time Temp Pulse Resp B/P (MAP) Pulse Ox O2 Delivery O2 Flow Rate FiO2 09/28/24 12:45 97.9 91 18 124/63 (83) 97 97.9 09/28/24 08:20 Room Air* 0 21 Total Intake and Output 09/27/24 09/27/24 09/28/24 15:00 23:00 07:00 Intake Total 50 ml 1310 ml 125 ml Output Total 740 ml Balance 50 ml 570 ml 125 ml medications Current Medications Medications Dose Ordered Sig/Miranda Route Start Time Stop Time Status Last Admin Dose Admin Nitroglycerin 0.4 mg Q5MINP PRN SL 09/25/24 22:00 Morphine Sulfate 2 mg Q30M PRN IV 09/25/24 22:00 Cancel Vancomycin HCl 0 ml @ 0 mls/hr UD IV 09/26/24 10:00 Pantoprazole Sodium 40 mg DAILY IV 09/26/24 10:00 09/28/24 10:18 40 MG Enoxaparin Sodium 40 mg DAILY SC 09/26/24 10:00 Cefepime HCl 50 ml @ 12.5 mls/hr Q12HR IV 09/26/24 10:00 09/28/24 10:18 12.5 MLS/HR Metronidazole 100 ml @ 100 mls/hr Q8HR IV 09/26/24 06:00 09/28/24 06:01 100 MLS/HR Tamsulosin HCl 0.4 mg QPM PO 09/26/24 18:00 09/27/24 18:01 0.4 MG Diagnostic Test (Pha) 1 strip ACHS 09/26/24 07:00 09/28/24 11:41 1 STRIP Insulin Human Regular ACHS SC 09/26/24 07:00 09/28/24 11:38 4 UNITS Dextrose 50 ml UD PRN IV 09/26/24 03:15 Aspirin 81 mg DAILY PO 09/26/24 10:00 09/28/24 10:18 81 MG Atorvastatin Calcium 40 mg HS PO 09/26/24 22:00 09/27/24 21:55 40 MG Morphine Sulfate 2 mg Q30M PRN IV 09/26/24 09:15 Cancel Insulin Glargine 20 units HS SC 09/26/24 22:00 09/27/24 21:49 20 UNITS Morphine Sulfate 2 mg Q30M PRN IV 09/26/24 11:15 Vancomycin HCl 250 ml @ 200 mls/hr DAILY@1700 IV 09/26/24 17:00 09/27/24 18:01 200 MLS/HR Melatonin 5 mg HS PO 09/28/24 00:07 09/28/24 00:20 5 MG Examination Gen - no pallor, no icterus, no cyanosis, no clubbing, no LAD, bilateral lower extremity 2+ pitting edema Skin - Patients skin is warm and dry. HEENT - normocephalic, atraumatic, wet mucous membranes. Neck - full ROM, no LAD, jugular venous pulsation seen of the middle 3rd of the SCM with a positive hepatojugular reflux Pulmonary - B/L air entry present with a right-sided lower lobe inspiratory crackles, no wheezing, no stridor. cardiovascular - regular S1,S2 heard, no added sounds, no murmurs heard. capillary refill normal about 4 sec GI - soft, nontender abdomen. no hepatospleenomegaly. Bowel sounds normoactive Neurological - Patient is A/O X 2 . Bilateral upper extremity strength 4/5, bilateral lower extremity strength 4/5, no facial droop, normal speech, no tremor, no sensory deficiets. laboratory and microbiology Laboratory Tests 09/28/24 05:53 Test 09/28/24 05:53 Range/Units Serum Glucose 86 74-106 mg/dL Microbiology Date/Time Source Procedure Growth Status 09/25/24 13:05 Blood Blood Culture - Preliminary NO GROWTH AFTER 72 HOURS OF INCUBATION. Resulted Problem List/Assessment/Plan Problem List/Assessment/Plan Acute metabolic encephalopathy likely due to sepsis - IV antibiotics Congestive heart failure with reduced ejection fraction, likely in exacerbation Possible right lower lobe pneumonia due to aspiration NSTEMI likely type 2 due to demand ischemia Peripheral artery disease s/p left SFA angioplasty( done in the last admission ) - IV antibiotics - patient was not taking his medications in the last 1 week including Entresto , carvedilol, Jardiance ( medications as per the records ) - Lasix given due to mild pulmonary congestion today - strict I/O - EKG did not show any acute ST or T-wave changes - BNP elevated - echocardiogram LVEF severely reduced at 10-15%. Global hypokinesis. Moderately dilated ventricle Left foot hallux osteomyelitis S/p Left foot hallux I&D(done 1 week ago) Sepsis likely due to above Respiratory alkalosis likely from early sepsis - IV antibiotics with the vancomycin, cefepime and metronidazole - 2.5 L IV fluid given, further fluids to be given judiciously as patient is likely in heart failure exacerbation - blood cultures: prelim negative -MRI: foot MRI showed Worsening acute osteomyelitis of the 1st distal phalanx when compared to 09/11/2024 Uncontrolled type 2 diabetes mellitus with hyperglycemia Starvation ketosis likely due to difficulty swallowing Probable mild DKA, resolved - insulin Lantus 15 units - mild insulin sliding scale a.c. - IV fluids given - HbA1c 9.9% Dysphagia likely oropharyngeal Rule out stroke - head CT normal - GI on board: possible EGD - on pureed diet H/O BPH - on tamsulosin PUD prophylaxis: Protonix DVT prophylaxis: Enoxaparin Goals of care discussed with the patient for over 25 minutes. Full code Time spent: 43 minutes Plan discussed with Dr. Spencer Plan discussed with: Patient, Other (rn) My Orders My Orders Orders - BLAKE SIMMS RESIDENT Procedure Category Date Status Time Notify Provider NOTICE 09/27/24 Transmitted Malnutrition 14:06 Nutritional NOURISH 09/27/24 Transmitted Supplements 14:06 Dietary NOTICE 09/27/24 Transmitted Recommendations 14:06 Dietary Evaluation Review Recommendations by RD: Dietary education by RD, Protein Supplementation Comments: 1) Initiate Eze @ 1 pk bid 2) Initate MVI @ 1 tb qd 3) Add 60g CCHo restriction to puree diet 4) Encourage optimal PO intake 5) Advance to 60g CCHO cardiac diet when medically feasible, pending ST approval 6) Refer to outpatient RD/[facility] for diabetes education 7) Follow-up with podiatry 8) Continue to monitor I&O, labs, and skin integrity Expected Outcomes/Goals: 1) appetite and labs to improve 2) wound to improve 3) f/u in 3-5 days Date of Service: Sep 28, 2024 Billing Provider: ETHAN SPENCER MD Common Visit Codes: [id number] INP/OBS CARE(HIGH) BLAKE SIMMS RESIDENT Sep 28, 2024 14:13 ETHAN SPENCER MD Oct 06, 2024 21:11
--- NOTE | 2024-09-28 15:13 | DVHPN2 ---
Progress Note - Dictate Date Seen: Sep 28, 2024 Has the PT tested + for MRSA If YES, has PT been informed?: No Medical Necessity Reason Pt with a Central, PICC or Fol: No Subjective No new complaints, patient resting comfortably He still has complaints of some dysphagia but he is tolerating a pureed diet MRI of the foot shows worsening osteomyelitis vital signs Vital Sign Date Time Temp Pulse Resp B/P (MAP) Pulse Ox O2 Delivery O2 Flow Rate FiO2 09/28/24 12:45 97.9 91 18 124/63 (83) 97 97.9 09/28/24 08:20 Room Air* 0 21 Total Intake and Output 09/27/24 09/27/24 09/28/24 15:00 23:00 07:00 Intake Total 50 ml 1310 ml 125 ml Output Total 740 ml Balance 50 ml 570 ml 125 ml medications Current Medications Medications Dose Ordered Sig/Miranda Route Start Time Stop Time Status Last Admin Dose Admin Nitroglycerin 0.4 mg Q5MINP PRN SL 09/25/24 22:00 Morphine Sulfate 2 mg Q30M PRN IV 09/25/24 22:00 Cancel Vancomycin HCl 0 ml @ 0 mls/hr UD IV 09/26/24 10:00 Pantoprazole Sodium 40 mg DAILY IV 09/26/24 10:00 09/28/24 10:18 40 MG Enoxaparin Sodium 40 mg DAILY SC 09/26/24 10:00 Cefepime HCl 50 ml @ 12.5 mls/hr Q12HR IV 09/26/24 10:00 09/28/24 10:18 12.5 MLS/HR Metronidazole 100 ml @ 100 mls/hr Q8HR IV 09/26/24 06:00 09/28/24 06:01 100 MLS/HR Tamsulosin HCl 0.4 mg QPM PO 09/26/24 18:00 09/27/24 18:01 0.4 MG Diagnostic Test (Pha) 1 strip ACHS 09/26/24 07:00 09/28/24 11:41 1 STRIP Insulin Human Regular ACHS SC 09/26/24 07:00 09/28/24 11:38 4 UNITS Dextrose 50 ml UD PRN IV 09/26/24 03:15 Aspirin 81 mg DAILY PO 09/26/24 10:00 09/28/24 10:18 81 MG Atorvastatin Calcium 40 mg HS PO 09/26/24 22:00 09/27/24 21:55 40 MG Morphine Sulfate 2 mg Q30M PRN IV 09/26/24 09:15 Cancel Insulin Glargine 20 units HS SC 09/26/24 22:00 09/27/24 21:49 20 UNITS Morphine Sulfate 2 mg Q30M PRN IV 09/26/24 11:15 Vancomycin HCl 250 ml @ 200 mls/hr DAILY@1700 IV 09/26/24 17:00 09/27/24 18:01 200 MLS/HR Melatonin 5 mg HS PO 09/28/24 00:07 09/28/24 00:20 5 MG objective General: NAD, AAOX3 Chest: lung prince clear to auscultation Heart: RRR, no murmur Abdomen: non-distended, no tenderness to palpation, +BS laboratory and microbiology Laboratory Tests 09/28/24 05:53 Test 09/28/24 05:53 Range/Units Serum Glucose 86 74-106 mg/dL Problems(with codes): (1) Oropharyngeal dysphagia (2) Cellulitis of left foot (3) Hyperglycemia (4) Generalized weakness Prognosis Plan Sepsis and mental status is improving, Continue IV antibiotics IV Protonix 40 mg q.12 hours NPO after midnight for tentative plan for an endoscopy with possible dilation on 09/29/2024 Dietary Evaluation Review Recommendations by RD: Dietary education by RD, Protein Supplementation Comments: 1) Initiate Eze @ 1 pk bid 2) Initate MVI @ 1 tb qd 3) Add 60g CCHo restriction to puree diet 4) Encourage optimal PO intake 5) Advance to 60g CCHO cardiac diet when medically feasible, pending ST approval 6) Refer to outpatient RD/[facility] for diabetes education 7) Follow-up with podiatry 8) Continue to monitor I&O, labs, and skin integrity Expected Outcomes/Goals: 1) appetite and labs to improve 2) wound to improve 3) f/u in 3-5 days Plan discussed with: Patient, Other (Nurse Shaji) BETH PATE MD Sep 28, 2024 15:13
[2024-09-28] MEDS ORDERED: MELATONIN 5 MG TAB PO SCH (22:00)
[2024-09-29 01:00] VITALS: BP 110/83; PULSE 98; RESP 17; TEMP 97.7; O2SAT 100
[2024-09-29 01:51] LABS: Urine Bacteria None Seen /hpf (None Seen)
[2024-09-29 02:13] LABS: Urine Blood Negative /uL (Negative); Urine Clarity Clear (Clear); Urine Color Yellow (Yellow); Urine Hyaline Cast FEW /lpf (0 - 2); Urine Mucus FEW (None Seen); Urine Protein, UAD TRACE (Negative); Urine Specific Gravity 1.027 (1.001-1.035); Urine Squamous Epithelial Cell FEW /hpf (<5); Urine Urobilinogen Normal (Negative); Urine WBC 1 /HPF (0-3)
[2024-09-29 05:00] VITALS: BP 111/58; PULSE 98; RESP 17; TEMP 97.5; O2SAT 100
[2024-09-29] MEDS: DEXTROSE (50%) 50ML SYRG IV PRN (06:13)
[2024-09-29 06:44] LABS: INR 1.25 (0.9-1.15); Partial Thromboplastin Time 35.1 SEC (24.5-34.5)
[2024-09-29 08:00] VITALS: PULSE 83
--- NOTE | 2024-09-29 08:10 | ECG ---
[facility] Test Date: 2024-09-29 Test Time: 06:24:30 Pat Name: ROULA GODOY Department: Respiratoy Room: 0220T B Gender: M Drawing Hand: : 1940 Requested By: BETH PATE Order Number: [id number] Reading MD: Gael Barboza Measurements Intervals [place] Rate: 89 P: 41 IA: 177 QRS: 10 QRSD: 102 T: 0 QT: 399 QTc: 486 Interpretive Statements Sinus rhythm Paired ventricular premature complexes Low voltage, extremity leads Nonspecific T abnormalities, lateral leads Borderline prolonged QT interval Electronically Signed On 09-30-2024 22:18:24 PDT by Gael Barboza Please click the below link to view image of tracing.
[2024-09-29 08:20] VITALS: PULSE 88; RESP 16; O2SAT 100
[2024-09-29 09:00] VITALS: BP 107/76; PULSE 88; RESP 16; TEMP 97; O2SAT 100
--- NOTE | 2024-09-29 12:15 | ECG ---
[facility] Test Date: 2024-09-25 Test Time: 11:51:57 Pat Name: ROULA GODOY Department: ED Room: 0220T B Gender: M Assistant Surveyor: HARISH : 1940 Requested By: ROBERTA MCLAUGHLIN Order Number: [id number] Reading MD: Gael Barboza Measurements Intervals [place] Rate: 94 P: 37 NM: 155 QRS: 14 QRSD: 124 T: -41 QT: 373 QTc: 467 Interpretive Statements Sinus rhythm Nonspecific intraventricular conduction delay Borderline T abnormalities, diffuse leads Electronically Signed On 09-30-2024 22:29:43 PDT by Gael Barboza Please click the below link to view image of tracing.
--- NOTE | 2024-09-29 15:38 | DVHDSRES ---
Discharge Summary Date of Admission Resident Creating Document: BLAKE SIMMS RESIDENT Sep 25, 2024 at 21:59 Date of Discharge: Sep 30, 2024 Admitting Diagnosis Acute metabolic encephalopathy likely due to sepsis Labs/Diagnostic Data: Laboratory Results Test 09/29/24 07:27 09/29/24 06:09 09/29/24 01:26 09/28/24 15:53 POC Glucose 104 mg/dl (70-106) Prothrombin Time 13.0 sec (9.3-11.8) Prothrombin Time INR 1.25 (0.9-1.15) Activated Partial Thromboplast Time 35.1 SEC (24.5-34.5) Creatinine 0.86 mg/dL (0.700-1.30) Glomerular Filtration Rate Calc 85 mL/min (>90) Urine Color Yellow (Yellow) Urine Clarity Clear (Clear) Urine pH 5.0 (5.0-9.0) Urine Specific [place] 1.027 (1.001-1.035) Urine Protein Trace (Negative) Urine Ketones 1+ (Negative) Urine Blood Negative /uL (Negative) Urine Nitrite 1+ (Negative) Urine Bilirubin Negative (Negative) Urine Urobilinogen Normal mg/dL (Negative) Urine Leukocyte Esterase Negative /uL (Negative) Urine RBC 1 /hpf (0 - 3) Urine Microscopic WBC 1 /HPF (0-3) Urine Squamous Epithelial Cells Few /hpf (<5) Urine Bacteria None seen /hpf (None Seen) Urine Hyaline Casts Few /lpf (0 - 2) Urine Mucus Few (None Seen) Urine Glucose 1+ mg/dL (Normal) Vancomycin Level Trough 11.0 ug/mL (5-10) Test 09/28/24 05:53 09/26/24 00:14 09/25/24 23:46 09/25/24 22:17 White Blood Count 8.1 10^3/uL (4.4-10.8) Red Blood Count 4.06 10^6/uL (4.5-5.90) Hemoglobin 12.2 g/dL (13.5-17.5) Hematocrit 35.3 % (41.0-53.0) Mean Corpuscular Volume 87.0 fL (80.0-100.0) Mean Corpuscular Hemoglobin 30.1 pg (28.0-32.0) Mean Corpuscular Hemoglobin Concent 34.6 g/dL (32.0-36.0) Red Cell Distribution Width 14.9 % (11.8-14.3) Platelet Count 103 10^3/uL (140-450) Mean Platelet Volume 8.6 fL (6.9-10.8) Neutrophils (%) (Auto) 83.6 % (37.0-80.0) Lymphocytes (%) (Auto) 9.3 % (10.0-50.0) Monocytes (%) (Auto) 6.3 % (0.0-12.0) Eosinophils (%) (Auto) 0.8 % (0.0-7.0) Basophils (%) (Auto) 0.0 % (0.0-2.0) Neutrophils # (Auto) 6.8 10 ^3/uL (1.6-8.6) Lymphocytes # (Auto) 0.8 10 ^3/uL (0.4-5.4) Monocytes # (Auto) 0.5 10 ^3/uL (0-1.3) Eosinophils # (Auto) 0.1 10 ^3/uL (0-0.8) Basophils # (Auto) 0 10 ^3/uL (0-0.2) Nucleated Red Blood Cells 0.0 % Sodium Level 141 mmol/L (136-145) Potassium Level 4.0 mmol/L (3.5-5.1) Chloride Level 105 mmol/L (98-107) Carbon Dioxide Level 28 mmol/L (20-31) Anion Gap 8 (5-15) Blood Urea Nitrogen 20 mg/dL (9-23) BUN/Creatinine Ratio 23.3 (10.0-20.0) Serum Glucose 86 mg/dL (74-106) Calcium Level 9.0 mg/dL (8.7-10.4) Lactic Acid Level 2.0 mmol/L (0.4-2.0) Hepatitis B Surface Antigen Negative (Negative) Hepatitis C Antibody Negative (Negative) Influenza Type A Antigen Negative (Negative) Influenza Type B Antigen Negative (Negative) SARS-CoV-2 Antigen (Rapid) Negative (NEGATIVE) Hemoglobin A1c 9.9 % A1C (<5.7) B-Type Natriuretic Peptide 3097.71 pg/mL (0-100) Beta-Hydroxybutyric Acid > 4.500 mmol/L (< 0.4) Test 09/25/24 22:11 09/25/24 16:21 09/25/24 13:05 Blood Gas Specimen Type Arterial Blood Gas Sample Site Right radial Blood Gas Patient Temperature 37.0 Arterial Blood Date Drawn [id number] Arterial Blood pH 7.456 (7.350-7.450) Arterial Blood Partial Pressure CO2 21.9 mmHg (35.0-48.0) Arterial Blood Partial Pressure O2 76.8 mmHg (83.0-108.0) Arterial Blood HCO3 15.1 mmol/L (21.0-28.0) Arterial Blood Oxygen Saturation 94.5 % (94.0-98.0) Arterial Blood Base Excess -6.6 mmol/L (-2.0-3.0) Arterial Blood Oxyhemoglobin 92.8 % (94.0-98.0) Arterial Blood Carboxyhemoglobin 1.1 % (0.5-1.5) Arterial Blood Methemoglobin 0.7 % (0.0-1.5) Camron Test Modified Blood Gas Total Hemoglobin 13.70 g/dL (13.5-17.5) Blood Gas Modality Room air FiO2 % 21.0 Troponin I High Sensitivity 76 ng/L (</=54) Total Bilirubin 0.5 mg/dL (0.2-1.0) Aspartate Amino Transferase (AST) 32 U/L (<34) Alanine Aminotransferase (ALT) 60 U/L (7-40) Alkaline Phosphatase 128 U/L (46-116) Total Protein 6.0 g/dL (5.7-8.2) Albumin 3.9 g/dL (3.2-4.8) Other Laboratory Tests 09/29/24 06:09 09/28/24 05:53 Brief Hx & Hospital Course: A 63-year-old male with a history of congestive heart failure with reduced ejection fraction, insulin-dependent type 2 diabetes mellitus, and recent left foot hallux I&D for osteomyelitis was admitted with one week of generalized weakness. He reported dysphagia, chills, and decreased appetite, without focal neurological symptoms. He was recently discharged from a prior hospitalization and had not been compliant with home medications including Entresto, Jardiance, and carvedilol. Pertinent Hospital Course: Infectious Disease: Treated empirically for sepsis likely from left foot osteomyelitis with vancomycin, cefepime, and metronidazole. Blood cultures remained negative. Cardiology: CHF exacerbation managed with diuretics. Echo showed LVEF severely reduced (10-15%) with global hypokinesis and moderately dilated ventricles. Pulmonary: Concern for aspiration pneumonia; treated empirically. No respiratory distress observed during stay. GI: Dysphagia with solids and liquids; CT neck unremarkable. EGD was pending but not performed. Endocrine: Hyperglycemia and suspected starvation ketosis (mild DKA, resolved). IV insulin and fluids given. HbA1c 9.6%. Podiatry: Foot MRI on 09/28/2024 showed worsening osteomyelitis of the 1st distal phalanx. Podiatry consultation was pending. Nutrition: Patient on pureed diet; poor oral intake. Neurology: Head CT scan normal, acute stroke was ruled out Left the hospital against medical advice prior to completion of full evaluation including EGD and podiatry re-evaluation. Gen - no pallor, no icterus, no cyanosis, no clubbing, no LAD, bilateral lower extremity 2+ pitting edema Skin - Patients skin is warm and dry. HEENT - normocephalic, atraumatic, wet mucous membranes. Neck - full ROM, no LAD, jugular venous pulsation seen of the middle 3rd of the SCM with a positive hepatojugular reflux Pulmonary - B/L air entry present with a right-sided lower lobe inspiratory crackles, no wheezing, no stridor. cardiovascular - regular S1,S2 heard, no added sounds, no murmurs heard. capillary refill normal about 4 sec GI - soft, nontender abdomen. no hepatospleenomegaly. Bowel sounds normoactive Neurological - Patient is A/O X 2 . Bilateral upper extremity strength 4/5, bilateral lower extremity strength 4/5, no facial droop, normal speech, no tremor, no sensory deficiets. 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 FINDINGS: There is marrow placement with edema involving the entirety of the 1st distal phalanx. There is overlying soft tissue swelling of the 1st digit. No additional areas marrow placement identified. Mild 1st metatarsophalangeal joint and interphalangeal joint degenerative changes. There is extensive subcutaneous edema and mild edema within the intrinsic muscles of the foot. Image tendons appear intact. No abscess. IMPRESSION: 1. Worsening acute osteomyelitis of the 1st distal phalanx when compared to 09/11/2024 2. Diffuse subcutaneous and intrinsic foot muscle edema. Foot muscle edema again may be related to myositis versus denervation. Condition at Discharge: Stable Final Diagnosis/Problems List Acute metabolic encephalopathy likely due to sepsis Congestive heart failure with reduced ejection fraction, likely in exacerbation Possible right lower lobe pneumonia due to aspiration NSTEMI likely type 2 due to demand ischemia Peripheral artery disease s/p left SFA angioplasty( done in the last admission ) Left foot hallux osteomyelitis S/p Left foot hallux I&D(done 1 week ago) Sepsis likely due to above Respiratory alkalosis likely from early sepsis Uncontrolled type 2 diabetes mellitus with hyperglycemia Starvation ketosis likely due to difficulty swallowing Probable mild DKA, resolved Dysphagia likely oropharyngeal Ruled out stroke H/O BPH Discharge Disposition: AMA Discharge Statement: "Patient was advised to return to the ER or call 911 if any headaches, dizziness, shortness of breath, chest pain, abdominal pain, bleeding, fevers, or worsening of medical condition. Patient was counseled about treatment plan, medications, possible side effects, patientverbalized understanding. All questions were answered to the best of my ability. This discharge took greater then 30 minutes in planning, reviewing documentation, counseling the patient, and discussing with other team members." ASSESSMENT ASSESSMENT Assessment Date of Service: Sep 30, 2024 Billing Provider: ETHAN SPENCER MD Common Visit Codes: 01262-LJA/OBS DISCH DAY >30min BLAKE SIMMS RESIDENT Sep 29, 2024 15:38 ETHAN SPENCER MD Oct 06, 2024 21:37
[2024-09-29] MEDS ORDERED: VANCOMYCIN 1.75GM/350ML 350 ML IV SCH (17:00)
== END 2024-09-29 11:00 | disposition left against medical advice (07) | DRG 871 ==
LOC: EDBD 11:50 → ER 11:50 → OVERFLOW 21:59 → TELE-CENTR 09-26 01:36
PROVIDERS: ADMIT Student in an Organized Health Care Education/Training Program; ATTEND Student in an Organized Health Care Education/Training Program
DX: A41.9 Sepsis, unspecified organism (principal); E11.10 Type 2 diabetes mellitus with ketoacidosis without coma; G93.41 Metabolic encephalopathy; J69.0 Pneumonitis due to inhalation of food and vomit; I21.A1 Myocardial infarction type 2; I50.23 Acute on chronic systolic (congestive) heart failure; J18.9 Pneumonia, unspecified organism; E87.3 Alkalosis; L03.116 Cellulitis of left lower limb; M86.8X7 Other osteomyelitis, ankle and foot; Z53.29 Procedure and treatment not carried out because of patient's decision for other reasons; R13.12 Dysphagia, oropharyngeal phase; E78.5 Hyperlipidemia, unspecified; E11.69 Type 2 diabetes mellitus with other specified complication; T73.0XXA Starvation, initial encounter; N40.0 Benign prostatic hyperplasia without lower urinary tract symptoms; I11.0 Hypertensive heart disease with heart failure; Z79.4 Long term (current) use of insulin; Z91.148 Patient's other noncompliance with medication regimen for other reason; Z79.899 Other long term (current) drug therapy; X58.XXXA Exposure to other specified factors, initial encounter
CPT/HCPCS: 36415; 36600; 70450; 71045; 73718; 80048; 80053; 80202; 81001; 82010; 82565; 82805; 82962; 83036; 83605; 83880; 84484; 85025; 85610; 85730; 86803; 86850; 86900; 86901; 87040; 87340; 87426; 87804; 93005; 93306; 93970; 96365; 99291; G0378; J0692; J1815; J2470; J3490

== ENCOUNTER 2024-11-10 14:19 | Inpatient (IN) | payer OTHER, MEDICAID ==
[~2024-11-10] VITALS: Ht 172.7 cm; Wt 60.0 kg
[~2024-11-10 14:19] MED LIST: CARV3.1240 PO; SIMV20TA20 PO
--- NOTE | 2024-11-10 16:06 | ED.PDOC ---
Musculoskeletal HPI Comments This is a 84 year old male presenting to the ED with chief complaint of wound check. Patient reports that he has had a black left great toe worsening for the past 2 weeks along with associated left foot redness and pain. Patient denies any fever, chills, leg pain, numbness, or weakness. Chief Complaint: Wound Check Time Seen by MD: 16:03 Primary Care Provider: MARIA TERESA Reviewed Notes: Nurses Notes, Medications, Allergies Allergies: Coded Allergies: NO KNOWN ALLERGIES (Unverified , 09/09/24) Home Meds No Active Prescriptions or Reported Meds Information Source: Patient Mode of Arrival: Ambulatory Location: Left Extremity Location: Foot, Great Toe Timing: Weeks Prehospital treatment: None Severity: Severe Able to Move Extremity: Yes Bear Weight: Limited Pain: Moderate Mechanism: Spontaneous Circumstances: Preceding Wound Onset of Symptoms: Spontaneous Symptoms: Pain, Erythema DVT Risk Factors: NONE Last Tetanus: Unknown Past Medical History PAST MEDICAL HISTORY: DM, High Lipids, HTN Surgical History: Appendectomy Family History Family History: Unknown Social History Smoker: Non-Smoker Alcohol: Denies ETOH Use Drugs: Denies Drug Use Lives In: Home Constitutional: denies: chills, diaphoresis, fatigue, fever, malaise, sweats, weakness, others EENTM: denies: blurred vision, double vision, ear bleeding, ear discharge, ear drainage, ear pain, ear ringing, eye pain, eye redness, hearing loss, mouth pain, mouth swelling, nasal discharge, nose bleeding, nose congestion, nose pain, photophobia, tearing, throat pain, throat swelling, voice changes, others Respiratory: denies: cough, hemoptysis, orthopnea, SOB at rest, shortness of breath, SOB with excertion, stridor, wheezing, others Cardiovascular: denies: chest pain, dizzy spells, diaphoresis, Dyspnea on exertion, edema, irregular heart beat, left arm pain, lightheadedness, palpitations, PND, syncope, others Gastrointestinal: denies: abdomen distended, abdominal pain, blood streaked bowels, constipated, diarrhea, dysphagia, difficulty swallowing, hematemesis, melena, nausea, poor appetite, poor fluid intake, rectal bleeding, rectal pain, vomiting, others Genitourinary: denies: burning, dysuria, flank pain, frequency, hematuria, incontinence, penile discharge, penile sore, pain, testicle pain, testicle swelling, urgency, others Neurological: denies: dizziness, fainting, headache, left sided numbness, left sided weakness, numbness, paresthesia, pre-existing deficit, right sided numbness, right sided weakness, seizure, speech problems, tingling, tremors, weakness, others Musculoskeletal: denies: back pain, gout, joint pain, joint swelling, muscle pain, muscle stiffness, neck pain, others Integumetry: reports: change in color, wounds (Left great toe necrotic, left foot redness); denies: bruises, change in hair/nails, dryness, laceration, lesions, lumps, rash, others Allergic/Immunocompromised: denies: Difficulty Healing, Frequent Infections, Hives, Itching, others Hematologic/Lymphatic: denies: anemia, blood clots, easy bleeding, easy bruising, swollen glands, others Endocrine: denies: excessive hunger, excessive sweating, excessive thirst, excessive urination, flushing, intolerance to cold, intolerance to heat, unexplained weight gain, unexplained weight loss, others Psychiatric: denies: anxiety, bipolar disorder, depression, hopeless, panic disorder, schizophrenia, sleepless, suicidal, others All Other Systems: Reviewed and Negative Physical Exam General Appearance: Moderate Distress, Normal HEENT: Normal ENT Inspection, Pharynx Normal, TMs Normal Neck: Full Range of Motion, Non-Tender, Normal, Normal Inspection Respiratory: Chest Non-Tender, Lungs Clear, No Accessory Muscle Use, No Respiratory Distress, Normal Breath Sounds Cardiovascular: No Edema, No JVD, No Murmur, No Gallop, Normal Peripheral Pulses, Regular Rate/Rhythm Breast Exam: Deferred Gastrointestinal: No Organomegaly, Non Tender, No Pulsatile Mass, Normal Bowel Sounds, Soft Genitalia: Deferred Pelvic: Deferred Rectal: Deferred Extremities: No calf tenderness, Normal capillary refill, Normal range of motion, Non-tender, No pedal edema Musculoskeletal : Apperance: Normal Neurologic: Alert, settlement technician II-XII nml as Tested, No Motor Deficits, Normal Affect, Normal Mood, No Sensory Deficits Cerebellar Function: NOT DONE Reflexes: NOT DONE Skin: Dry, Normal Color, Warm, Wounds (Left great toe necrotic other toes red) Peripheral Pulses: 3+ Radial (R), 3+ Radial (L) Lymphatic: No Adenopathy Was a procedure done? Was a procedure done?: No Differential Diagnosis EXT Differential Diagnosis: Cellulitis, Other (Necrosis) X-Ray, Labs, Meds, VS Vital Signs Date Time Temp Pulse Resp B/P (MAP) Pulse Ox O2 Delivery O2 Flow Rate FiO2 11/10/24 14:20 97.8 101 15 103/53 99 97.8 Patient alert. Necrotic left great toe. Vitals stable. Answering questions. Establish intravenous access. Was given fluids. Was given Zosyn. Was given clindamycin. Sepsis protocol. Explained to the patient. Podiatric consultation. Time of 1ST Reevaluation: 17:03 Reevaluation 1ST: Unchanged Patient Education/Counseling: Diagnosis, Treatment Family Education/Counseling: No Family Present Departure 1 Departure Time of Disposition: 16:10 Impression: Primary Impression: Uncontrolled diabetes mellitus Qualified Codes: E13.65 - Other specified diabetes mellitus with hyperg lycemia Additional Impression: Necrosis of toe Disposition: ADMITTED INPATIENT Admit to: Med Surg Condition: Guarded e-Prescriptions No Active Prescriptions or Reported Meds Critical Care Note Critical Care Time?: Yes (90 min-critical care time only) Stability Stability form required: No Heart Score Heart Score: Heart Score Response (Comments) Value History N/A 0 EKG N/A 0 Age N/A 0 Risk Factors N/A 0 Troponin N/A 0 Total 0 I personally scribed for CUCA CHUNG MD ([email or web address]) on 11/10/24 at 16:06. Electronically submitted by Luís Mendoza ([email or web address]). CUCA CHUNG MD Nov 10, 2024 16:06
[2024-11-10 16:40] LABS: Hematocrit 43.0 % (41.0-53.0); Hemoglobin 14.8 g/dL (13.5-17.5); Mean Corpuscular Hemoglobin 30.4 pg (28.0-32.0); Mean Corpuscular Volume 88.1 fL (80.0-100.0); Nucleated Red Blood Cells % 0.1 %
[2024-11-10 16:47] LABS: Chloride 95 mmol/L (98-107); Potassium 3.9 mmol/L (3.5-5.1); Sodium 135 mmol/L (136-145)
[2024-11-10 16:48] LABS: Anion Gap 14 (5-15); Calcium 9.2 mg/dL (8.7-10.4); Carbon Dioxide 26 mmol/L (20-31)
[2024-11-10 16:53] LABS: BUN/Creatinine Ratio 27.0 (10.0-20.0)
[2024-11-10 16:59] LABS: Blood Urea Nitrogen 34 mg/dL (9-23); Glucose 186 mg/dL (74-106)
[2024-11-10 17:05] LABS: Lactic Acid w/Reflex 3.9 mmol/L (0.4-2.0)
--- NOTE | 2024-11-10 20:43 | DVH ---
EXAMINATION: CT CT L FOOT WO CONTRAST INDICATION: necrotic COMPARISON: MRI MRI L FOOT WO CONTRAST on DOS: 09/28/24, MRI MRI L FOOT WO CONTRAST on DOS: 09/11/24, CT CT L FOOT WO CONTRAST on DOS: 09/10/24 TECHNIQUE: CT of the rightleft foot was performed without contrast. Volume transverse images were obt ained reconstructed in multiple planes using bone and soft tissue algorithms. FINDINGS: Further worsening of 1st distal phalangeal erosion with intraosseous gas and deficient soft tissues. Gas extends along the plantar aspect of the toe to the level of the proximal phalangeal neck. No obv ious associated fluid collection. No other evidence of soft tissue ulceration or osseous pathologic sclerosis, erosion, or periostitis. Mild polyarticular osteoarthrosis. Unremarkable CT appearance of the muscles and tendons. Mild generalized subcutaneous stranding/edema. Dense peripheral atherosclerosis. IMPRESSION: 1. 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 2. No other CT evidence of osteomyelitis within the left foot.
--- NOTE | 2024-11-10 21:20 | DVHHPRES ---
History of Present Illness Resident Creating Document: MAG KULKARNI RESIDENT History of Present Illness Chin Villanueva is a 84 year old male with past medical history if CHF, DM2, CAD and BPH. The patient presented to the ED with chief complaint of 2 weeks of noticing change in color on his left great toe, associated left foot redness, cool to touch, swelling and pain 7/10 with pins and needles sensation. The patient reports he was admitted at [facility] 2 mo ago for an infected small wound/ulcer on the left foot first digit after 2 weeks of admission she was discharged with home-health services and wound care. The patient reports that despite the wound care, the left great toe start changing in color, appearance and increase in pain. Today, the pain exacerbates to 9/10 that prompt his visit to the ED. On the ED, the left foot CT scan showed: Worsened appearance of 1st toe osteomyelitis from 09/28/2024, now with development of intraosseous gas c oncerning for emphysematous osteomyelitis. No other CT evidence of osteomyelitis within the left foot. WBC 13.0 x10e3, HbA1C 9.8mg/dl. The patient denies any fever, chills, weakness or other complains. Cardiovascular: CAD, CHF Renal/: Benign prostatic enlarg. Past Surgical History: None Family History: None Smoke: Quit (Smoked for about 15 years, quit >40 years ago. ) ALCOHOL: none Drugs: None Lives: Alone Review of Systems Constitutional: No: Fever, Chills, Sweats, Weakness, Malaise, Other Eyes: No: Pain, Vision change, Conjunctivae inflammation, Eyelid inflammation, Other, Redness ENT: No: Ear pain, Ear discharge, Nose pain, Nose discharge, Nose congestion, Mouth pain, Mouth swelling, Throat pain, Throat swelling, Other Respiratory: No: Cough, Dry, Shortness of breath, SOB with excertion, Wheezing, Hemoptysis, Pleuritic Pain, Sputum, Wheezing, Other Cardiovascular: No: Chest Pain, Palpitations, Orthopnea, Paroxysmal Noc. Dyspnea, Edema, Lt Headedness, Other Gastrointestinal: No: Nausea, Vomiting, Abdominal Pain, Diarrhea, Constipation, Melena, Hematochezia, Other Genitourinary: No Dysuria, No Frequency, No Incontinence, No Hematuria, No Retention, No Other Musculoskeletal: foot pain (Left great toe with ulcer and now has turned back. ) Skin: No: Rash, Lesions, Jaundice, Bruising, Other Neurological: No: Weakness, Numbness, Incoordination, Change in speech, Confusion, Seizures, Other Allergies: Coded Allergies: NO KNOWN ALLERGIES (Unverified , 09/09/24) Exam Vital Signs Vital Signs Date Time Temp Pulse Resp B/P (MAP) Pulse Ox O2 Delivery O2 Flow Rate FiO2 11/10/24 14:20 97.8 101 15 103/53 99 97.8 General Appearance: Alert, Oriented X3, Cooperative, mild distress HEENT: Atraumatic, PERRLA, Mucous membr. moist/pink Respiratory: Clear to auscultation, Normal air movement Cardiovascular: Regular rate, Normal S1, Normal S2, No murmurs Abdominal: Normal bowel sounds, Soft, No tenderness, No hepatospenomegaly, No masses Extremities: No clubbing, No cyanosis, Other (Left foot with diffused erythema and swelling up to the ankle. Left foot is cold to touch with absent dorsal pedis pulse, 1st toe with black schar extending laterally to the 2nd digit, hard to touch. ) Skin: No rashes, No breakdown, No significant lesion (Multiple scars of healed ulcer on left polk and leg. ) Neuro: Normal speech, Strength at 5/5 X4 ext, Normal tone, Cranial nerves 3-12 NL Psych/Mental Status: Mental status NL, Mood NL Labs/Xrays Labs Test 11/10/24 18:58 11/10/24 16:22 Range/Units Lactic Acid Level 2.1 *H 0.4-2.0 mmol/L White Blood Count 13.0 H 4.4-10.8 10^3/uL Red Blood Count 4.88 4.5-5.90 10^6/uL Hemoglobin 14.8 13.5-17.5 g/dL Hematocrit 43.0 41.0-53.0 % Mean Corpuscular Volume 88.1 80.0-100.0 fL Mean Corpuscular Hemoglobin 30.4 28.0-32.0 pg Mean Corpuscular Hemoglobin Concent 34.5 32.0-36.0 g/dL Red Cell Distribution Width 16.0 H 11.8-14.3 % Platelet Count 109 L 140-450 10^3/uL Mean Platelet Volume 9.2 6.9-10.8 fL Neutrophils (%) (Auto) 91.9 H 37.0-80.0 % Lymphocytes (%) (Auto) 5.3 L 10.0-50.0 % Monocytes (%) (Auto) 2.6 0.0-12.0 % Eosinophils (%) (Auto) 0.0 0.0-7.0 % Basophils (%) (Auto) 0.2 0.0-2.0 % Neutrophils # (Auto) 11.9 H 1.6-8.6 10 ^3/uL Lymphocytes # (Auto) 0.7 0.4-5.4 10 ^3/uL Monocytes # (Auto) 0.3 0-1.3 10 ^3/uL Eosinophils # (Auto) 0 0-0.8 10 ^3/uL Basophils # (Auto) 0 0-0.2 10 ^3/uL Nucleated Red Blood Cells 0.1 % Sodium Level 135 L 136-145 mmol/L Potassium Level 3.9 3.5-5.1 mmol/L Chloride Level 95 L 98-107 mmol/L Carbon Dioxide Level 26 20-31 mmol/L Anion Gap 14 5-15 Blood Urea Nitrogen 34 H 9-23 mg/dL Creatinine 1.26 0.700-1.30 mg/dL Glomerular Filtration Rate Calc 56 >90 mL/min BUN/Creatinine Ratio 27.0 H 10.0-20.0 Serum Glucose 186 H 74-106 mg/dL Calcium Level 9.2 8.7-10.4 mg/dL SEPSIS Sepsis Screen Date sepsis recognized/suspect: Nov 10, 2024 Time Sepsis recognized/suspect: 4 Recent Procedure: No On Antibiotic Therapy: No Respiratory Rate >20: No Heart Rate >90: No Temp<36 C (96.8 F) or >38.3 C: No SBP <90 or MAP <65 mmHG: No New Acute Mental Status Change: No Is the patient on CPAP, BIPAP,: No Physician Orders Ct L Foot Wo Contrast (11/10/24 16:06) Blood Culture (11/10/24 16:06) Urinalysis (11/10/24 16:06) Sodium Chloride 0.9% (11/10/24 16:15) Podiatry Consult (11/10/24 16:11) Vital Signs Date Time Temp Pulse Resp B/P (MAP) Pulse Ox O2 Delivery O2 Flow Rate FiO2 11/10/24 14:20 97.8 101 15 103/53 99 97.8 Laboratory Tests Test 11/10/24 16:22 11/10/24 18:58 Lactic Acid Level 3.9 mmol/L (0.4-2.0) *H 2.1 mmol/L (0.4-2.0) *H White Blood Count 13.0 10^3/uL (4.4-10.8) H Assessment/Plan Assessment/Plan #Left foot 1st and 2nd digit osteomyelitis with necrosis. #Peripheral artery disease #Diabetic left foot ulcer Clindamycin IV Zosyn IV Morphine 2mg IV Surgical consult Wound Consult #Peripheral neuropathy Gabapentin 100mg TID #Uncontrolled DM2 with hyperglycemia Insulin Sliding scale Hb A1c #CHF Entresto 2mg (med reconciliation) Jardiance 25mg #BPH Tamsulosin (med reconciliation) Diabetic diet DVT prophylaxis PUD prophylaxis Protonic Goals of care discussed with the patient > 35 min. Discussed plan of care with Dr. Carmichael Code status : DNR PCP: Dr. Antony. Plan discussed with: Patient, the patient agrees with the admission plan. Plan discussed with: Patient Common Visit Codes: 02722-[id number] INP/OBS CARE (HIGH) Secondary Visit Codes: 46914-[id number] CARE PLAN 30 MINUTES MAG KULKARNI RESIDENT Nov 10, 2024 21:20
[2024-11-10 22:16] LABS: Potassium 4.1 mmol/L (3.5-5.1)
[2024-11-10 22:17] LABS: Anion Gap 14 (5-15); Calcium 9.6 mg/dL (8.7-10.4); Carbon Dioxide 24 mmol/L (20-31); Chloride 97 mmol/L (98-107); Sodium 135 mmol/L (136-145)
[2024-11-10 22:22] LABS: BUN/Creatinine Ratio 33.6 (10.0-20.0); Blood Urea Nitrogen 37 mg/dL (9-23); Glucose 210 mg/dL (74-106)
[2024-11-10] MEDS ORDERED: DEXTROSE (50%) 50ML SYRG IV PRN (23:00)
[2024-11-11] MEDS: SODIUM CHLORIDE 0.9% 1,000 ML IV ONE ×2 (01:57)
[2024-11-11] MEDS: ACCU-CHEK COMFORT CURVE STRIP VI SCH (02:00)
[2024-11-11] MEDS: GABAPENTIN 100 MG CAP PO SCH (02:08)
[2024-11-11] MEDS: InsuLIN REG 1unit/0.01ml Soln (100units/ml) SC SCH (02:08)
[2024-11-11] MEDS: PIPERACILLIN-TAZOB 3.375GM 100 ML IV ONE (02:08)
[2024-11-11] MEDS: CLINDAMYCIN 300MG IV 50 ML IV ONE (04:24)
[2024-11-11 04:33] VITALS: PULSE 112; RESP 18; O2SAT 98
[2024-11-11 04:59] LABS: Urine Budding Yeast FEW /hpf (None Seen); Urine Protein, UAD Negative (Negative)
[2024-11-11 05:12] LABS: Amphetamine Screen, Urine Neg (NEGATIVE); Barbiturate Scree,Urine Neg (NEGATIVE); Benzodiazephine Screen, Urine Neg (NEGATIVE); Cannabinoid Screen, Urine Neg (NEGATIVE); Cocaine Screen, Urine Neg (NEGATIVE); Opiate Scree,Urine Neg (NEGATIVE); Phencyclidine Screen, Urine Neg (NEGATIVE)
[2024-11-11] MEDS ORDERED: METO5TAB5 PO (06:00)
[2024-11-11] MEDS ORDERED: CLOP75TA70 PO (06:00)
[2024-11-11] MEDS ORDERED: ASPI-325 PO (06:00)
[2024-11-11] MEDS ORDERED: LINE1TAB10 PO (06:00)
[2024-11-11] MEDS ORDERED: TAMS0.4C39 PO (06:00)
[2024-11-11] MEDS ORDERED: GAB100C PO (06:00)
[2024-11-11] MEDS ORDERED: EMPA1TAB3 PO (06:00)
[2024-11-11] MEDS ORDERED: SACU1TAB PO (06:00)
[2024-11-11] MEDS: CLINDAMYCIN 300MG IV 50 ML IV SCH (06:38)
[2024-11-11 08:00] VITALS: RESP 18; O2SAT 96
[2024-11-11 08:45] VITALS: BP 110/51; PULSE 88; RESP 16; TEMP 98.3; O2SAT 98
[2024-11-11 09:01] LABS: Hematocrit 31.6 % (41.0-53.0); Hemoglobin 11.0 g/dL (13.5-17.5); Mean Corpuscular Hemoglobin 30.7 pg (28.0-32.0); Mean Corpuscular Volume 88.1 fL (80.0-100.0); Nucleated Red Blood Cells % 0.0 %
[2024-11-11 09:16] LABS: Alanine Aminotransferase 12 U/L (7-40); Albumin 3.5 g/dL (3.2-4.8); Alkaline Phosphatase 90 U/L (46-116); Anion Gap 10 (5-15); BUN/Creatinine Ratio 33.3 (10.0-20.0); Bilirubin, Total 0.5 mg/dL (0.2-1.0); Carbon Dioxide 28 mmol/L (20-31); Chloride 100 mmol/L (98-107); Sodium 138 mmol/L (136-145); Total Protein 6.0 g/dL (5.7-8.2)
[2024-11-11 09:40] LABS: Blood Urea Nitrogen 34 mg/dL (9-23); Calcium 8.4 mg/dL (8.7-10.4); Glucose 50 mg/dL (74-106); Potassium 3.2 mmol/L (3.5-5.1)
[2024-11-11] MEDS: SACUBITRIL-VALSARTAN 24mg/26mg TAB PO SCH (10:00)
[2024-11-11] MEDS: PANTOPRAZOLE 40 MG TAB PO SCH (10:25)
[2024-11-11] MEDS: CEFEPIME 1GM/ 50ML 50 ML IV SCH (10:25)
[2024-11-11] MEDS ORDERED: VANCOMYCIN PER PHARMACY 0 MG IV SCH (10:45)
[2024-11-11 12:49] VITALS: BP 104/53; PULSE 84; RESP 18; TEMP 97.6; O2SAT 96
--- NOTE | 2024-11-11 12:57 | DVHCONRES ---
Date Seen: Nov 11, 2024 Reason for Consultation Left hallux gangrene History of Present Illness Chin Villanueva is a 84 year old male with past medical history if CHF, DM2, CAD and BPH. The patient presented to the ED with chief complaint of 2 weeks of noticing change in color on his left great toe, associated left foot redness, cool to touch, swelling and pain 7/10 with pins and needles sensation. The patient reports he was admitted at [facility] 2 mo ago for an infected small wound/ulcer on the left foot first digit after 2 weeks of admission she was discharged with home-health services and wound care. The patient reports that despite the wound care, the left great toe start changing in color, appearance and increase in pain. Today, the pain exacerbates to 9/10 that prompt his visit to the ED. 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 No other CT evidence of osteomyelitis within the left foot. WBC 13.0 x10e3, HbA1C 9.8mg/dl. The patient denies any fever, chills, weakness or other complains. Past Medical History See H&P Past Surgical History See H&P Family History: Diabetes mellitus G8 MOTHER G8 FATHER Allergies: Coded Allergies: NO KNOWN ALLERGIES (Unverified , 09/09/24) Home Meds Reported Medications Clopidogrel Bisulfate (CLOPIDOGREL) 75 Mg Tab, 1 TAB PO DAILY 11/11/24 Metolazone (Metolazone) 5 Mg Tab, 2.5 MG PO DAILY 11/11/24 Empagliflozin (Jardiance) 25 Mg Tab, 1 TAB PO DAILY 11/11/24 Linezolid (Linezolid) 600 Mg Tab, 1 TAB PO BID 11/11/24 Sacubitril-Valsartan (Entresto 24-26 mg) 1 Tab Tab, 1 TAB PO BID 11/11/24 Aspirin (Aspirin Low Dose) 81 Mg Tab, 1 TAB PO DAILY 11/11/24 Gabapentin (Gabapentin) 100 Mg Cap, 1 CAP PO DAILY 11/11/24 Tamsulosin Hcl (Tamsulosin Hcl) 0.4 Mg Cap, 0.4 MG PO DAILY 11/11/24 Current Medications Current Medications Medications (Trade) Dose Ordered Sig/Miranda Route PRN Reason Start Time Stop Time Status Last Admin Acetaminophen/ Hydrocodone Bitart ([place] 5/325MG Tab) 1 tab Q4HP PRN PO MODERATE PAIN (4-6 PAIN SCALE) 11/10/24 21:30 Morphine Sulfate 2 mg Q4HPRN PRN IV SEVERE PAIN (7-10 PAIN SCALE) 11/10/24 21:30 Enoxaparin Sodium (Lovenox) 30 mg DAILY SC 11/11/24 10:00 Gabapentin (Neurontin Capsule) 100 mg TID PO 11/10/24 22:00 11/11/24 06:16 Pantoprazole Sodium (Protonix Tablet) 40 mg DAILY PO 11/11/24 10:00 11/11/24 10:25 Diagnostic Test (Pha) (Accu-Chek Comfort Curve T) 1 strip Q6HR 11/11/24 00:00 11/11/24 06:19 Insulin Human Regular (InsuLIN R) Q6HR SC 11/11/24 00:00 11/11/24 06:19 Dextrose 50 ml UD PRN IV Blood Sugar LESS THAN 60 11/10/24 23:00 Clindamycin Phosphate 50 ml @ 50 mls/hr Q8HR IV 11/11/24 06:00 11/11/24 10:40 DC 11/11/24 06:38 Cefepime HCl 50 ml @ 12.5 mls/hr DAILY IV 11/11/24 10:00 11/11/24 10:25 Aspirin (Ecotrin Enteric Coated Tablet) 81 mg DAILY PO 11/11/24 10:00 Clopidogrel Bisulfate (Plavix) 75 mg DAILY PO 11/11/24 10:00 Metolazone (Zaroxolyn) 2.5 mg DAILY PO 11/11/24 10:00 Hold Sacubitril/ Valsartan (Entresto 24-26 Mg tab) 1 tab BID PO 11/11/24 10:00 Hold Vancomycin HCl 0 ml @ 0 mls/hr UD IV 11/11/24 10:45 Vital Signs Vital Signs Date Time Temp Pulse Resp B/P (MAP) Pulse Ox O2 Delivery O2 Flow Rate FiO2 11/11/24 12:49 97.6 84 18 104/53 (70) 96 97.6 11/11/24 04:33 Room Air* 0 21 Physical Exam Dermatological: Skin is dry with mild erythema and some maceration around the wound site No gross deformities noted Mild non-pitting edema present bilaterally Left hallux gangrene with fluctuance Vascular: Dorsalis pedis and posterior tibial pulses are 1+ bilaterally Capillary refill is under 2 seconds Skin temperature is warm bilaterally Neurologic: Protective sensation is absent on the plantar forefoot bilaterally Monofilament testing reveals decreased sensation in multiple plantar sites Musculoskeletal: Range of motion at the ankle and MTP joints is within normal limits. Strength is 5/5 in all tested muscle groups. Gait is antalgic due to offloading of the affected limb. Labs/Diagnostic Data Labs Test 11/11/24 12:05 11/11/24 08:47 11/11/24 04:58 11/11/24 03:30 Range/Units White Blood Count 10.2 4.4-10.8 10^3/uL Red Blood Count 3.58 L 4.5-5.90 10^6/uL Hemoglobin 11.0 #L 13.5-17.5 g/dL Hematocrit 31.6 #L 41.0-53.0 % Mean Corpuscular Volume 88.1 80.0-100.0 fL Mean Corpuscular Hemoglobin 30.7 28.0-32.0 pg Mean Corpuscular Hemoglobin Concent 34.9 32.0-36.0 g/dL Red Cell Distribution Width 16.0 H 11.8-14.3 % Platelet Count 97 L 140-450 10^3/uL Mean Platelet Volume 9.2 6.9-10.8 fL Neutrophils (%) (Auto) 77.5 37.0-80.0 % Lymphocytes (%) (Auto) 15.4 10.0-50.0 % Monocytes (%) (Auto) 6.8 0.0-12.0 % Eosinophils (%) (Auto) 0.1 0.0-7.0 % Basophils (%) (Auto) 0.2 0.0-2.0 % Neutrophils # (Auto) 7.9 1.6-8.6 10 ^3/uL Lymphocytes # (Auto) 1.6 0.4-5.4 10 ^3/uL Monocytes # (Auto) 0.7 0-1.3 10 ^3/uL Eosinophils # (Auto) 0 0-0.8 10 ^3/uL Basophils # (Auto) 0 0-0.2 10 ^3/uL Nucleated Red Blood Cells 0.0 % Sodium Level 138 136-145 mmol/L Potassium Level 3.2 L 3.5-5.1 mmol/L Chloride Level 100 98-107 mmol/L Carbon Dioxide Level 28 20-31 mmol/L Anion Gap 10 5-15 Blood Urea Nitrogen 34 H 9-23 mg/dL Creatinine 1.02 0.700-1.30 mg/dL Glomerular Filtration Rate Calc 72 >90 mL/min BUN/Creatinine Ratio 33.3 H 10.0-20.0 Serum Glucose 50 L 74-106 mg/dL Calcium Level 8.4 L 8.7-10.4 mg/dL Total Bilirubin 0.5 0.2-1.0 mg/dL Aspartate Amino Transferase (AST) 16 13-40 U/L Alanine Aminotransferase (ALT) 12 7-40 U/L Alkaline Phosphatase 90 46-116 U/L B-Type Natriuretic Peptide 2262.90 0-100 pg/mL Total Protein 6.0 5.7-8.2 g/dL Albumin 3.5 3.2-4.8 g/dL Thyroid Stimulating Hormone (TSH) 0.82 0.55-4.78 uIU/mL Plasma/Serum Blood Alcohol 3.0 <10 mg/dL POC Glucose 160 H 70-106 mg/dl Urine Color Light-yellow Yellow Urine Clarity Clear Clear Urine pH 5.0 5.0-9.0 Urine Specific [place] 1.022 1.001-1.035 Urine Protein Negative Negative Urine Ketones Negative Negative Urine Blood Negative Negative /uL Urine Nitrite Negative Negative Urine Bilirubin Negative Negative Urine Urobilinogen Normal Negative mg/dL Urine Leukocyte Esterase 1+ Negative /uL Urine RBC 3 0 - 3 /hpf Urine Microscopic WBC 2 0-3 /HPF Urine Squamous Epithelial Cells Few <5 /hpf Urine Bacteria None seen None Seen /hpf Urine Yeast (Budding) Few None Seen /hpf Urine Glucose 4+ H Normal mg/dL Urine Opiates Screen Neg NEGATIVE Urine Fentanyl Screen Neg NEGATIVE Urine Barbiturates Screen Neg NEGATIVE Urine Phencyclidine Screen Neg NEGATIVE Urine Amphetamines Screen Neg NEGATIVE Urine Benzodiazepines Screen Neg NEGATIVE Urine Cocaine Screen Neg NEGATIVE Urine Cannabinoids Screen Neg NEGATIVE Test 11/10/24 16:22 Range/Units Hemoglobin A1c 9.8 H <5.7 % A1C Problems(with codes): (1) Visit for wound check (2) Cellulitis of left foot (3) Oropharyngeal dysphagia (4) Generalized weakness (5) Hyperglycemia (6) Uncontrolled diabetes mellitus (7) Necrosis of toe Plan/Recommendation ASSESSMENT: Patient is a 84 year old seen on the floor for a worsening ulcer PLAN: - The patients chart was reviewed, clinical findings were discussed with the patient, the etiologies of the conditions were discussed in detail, and a treatment plan was agreed to at this time, with both oral and written instructions provided. - reviewed advanced imaging - discussed plan is to perform hallux amputation tomorrow - patient will be NPO at midnight - take him to the OR tomorrow - we will get cultures in the OR - can weightbear as tolerated in postoperative shoe All questions were answered and concerns addressed to the patient's satisfaction. The patient was given the phone number to the clinic and was told how to make contact with the clinic should any concerns or questions arise. Patient understands that if any questions or concerns arise prior to the next appointment, we should be contacted immediately. FOLLOW-UP: Continue to follow while inpatient Plan discussed with: Patient Visit Coding Podiatry Date of Service if different f: Nov 11, 2024 Billing Provider: TANNER LEDEZMA DPM Podiatry Common Visit Codes: CONSULT ONLY Podiatry Consult Codes: 84375-OQ/OBS [id number] NEW/EST HI 80 TANNER LEDEZMA DPM Nov 11, 2024 12:57
[2024-11-11] MEDS: POTASSIUM CHL 20 Meq TABLET PO ONE (13:29)
[2024-11-11] MEDS: VANCOMYCIN 1.25GM/250ML 250 ML IV ONE (13:31)
[2024-11-11] MEDS: ENOXAPARIN SOD 30 MG/0.3 ML SYRINGE SC SCH (13:44)
[2024-11-11] MEDS: CLOPIDOGREL BISULFATE 75 MG TAB PO SCH (13:44)
[2024-11-11] MEDS: ASPirin-EC 81 mg tab PO SCH (13:44)
[2024-11-11 16:58] VITALS: BP 102/62; PULSE 89; RESP 16; TEMP 98.1; O2SAT 94
--- NOTE | 2024-11-11 17:33 | DVHPNRES ---
Progress Note Date Seen: Nov 11, 2024 Resident Creating Document: RAUL MCCRACKEN RESIDENT Medical Necessity Reason Pt with a Central, PICC or Fol: No Subjective Review of Systems 84-year-old male with a past medical history of CHF with HFrEF 10 -15%, diabetes mellitus type 2 (HBA1c 9.8), CAD and BPH came to the emergency yesterday with chief complaints discoloration of his left great toe associated with left foot redness, cool to touch, swelling and pain of 7/ in 10 intensity with pins and needles sensation. He says that he is being having these symptoms for the past 2 weeks. Patient reports that in September you need to cough his bandage from his legs this can we would go off and he had come to the hospital and podiatry had done an incision and drainage procedure. He was sent home with home health services and wound care and his home health worker had gone for a vacation. It was then that his left big toe became black and so when she came back suggested that he come to the hospital. PMH: CHF, CAD, type 2 diabetes mellitus, BPH PSH: None ( patient refused pacemaker suggested by door repairer bus) Family History: reviewed and noncontributory to this case Smoke: Quit (Smoked for about 15 years, quit >20 years ago. ) ALCOHOL: none Drugs: None Lives: Alone Code status : DNR PCP: Dr. Antony. ROS: Patient was seen and examined by me at the bedside. Patient's clindamycin was stopped and replaced by vancomycin. Cefepime is continued. we are giving morphine for pain management and podiatry has suggested a hallux amputation tomorrow and that the patient can weight bear as tolerated in the postoperative shoe. He is going to be kept NPO from [facility] at midnight. Objective vital signs Vital Sign Date Time Temp Pulse Resp B/P (MAP) Pulse Ox O2 Delivery O2 Flow Rate FiO2 11/11/24 16:58 98.1 89 16 102/62 (75) 94 98.1 11/11/24 04:33 Room Air* 0 21 Total Intake and Output 11/10/24 11/10/24 11/11/24 15:00 23:00 07:00 Intake Total 400 ml Balance 400 ml medications Current Medications Medications Dose Ordered Sig/Miranda Route Start Time Stop Time Status Last Admin Dose Admin Acetaminophen/ Hydrocodone Bitart 1 tab Q4HP PRN PO 8/4/25 21:30 Morphine Sulfate 2 mg Q4HPRN PRN IV 11/10/24 21:30 Enoxaparin Sodium 30 mg DAILY SC 11/11/24 10:00 11/11/24 13:44 30 MG Gabapentin 100 mg TID PO 11/10/24 22:00 11/11/24 13:31 100 MG Pantoprazole Sodium 40 mg DAILY PO 11/11/24 10:00 11/11/24 10:25 40 MG Diagnostic Test (Pha) 1 strip Q6HR 11/11/24 00:00 11/11/24 17:22 1 STRIP Insulin Human Regular Q6HR SC 11/11/24 00:00 11/11/24 17:22 3 UNITS Dextrose 50 ml UD PRN IV 11/10/24 23:00 Cefepime HCl 50 ml @ 12.5 mls/hr DAILY IV 11/11/24 10:00 11/11/24 10:25 12.5 MLS/HR Aspirin 81 mg DAILY PO 11/11/24 10:00 11/11/24 13:44 81 MG Clopidogrel Bisulfate 75 mg DAILY PO 11/11/24 10:00 11/11/24 13:44 75 MG Metolazone 2.5 mg DAILY PO 11/11/24 10:00 Hold Sacubitril/ Valsartan 1 tab BID PO 11/11/24 10:00 Hold Vancomycin HCl 0 ml @ 0 mls/hr UD IV 11/11/24 10:45 Examination General Appearance: Alert, Oriented X3, Cooperative, mild distress HEENT: Atraumatic, PERRLA, Mucous membr. moist/pink Respiratory: Clear to auscultation, Normal air movement Cardiovascular: Regular rate, Normal S1, Normal S2, No murmurs Abdominal: Normal bowel sounds, Soft, No tenderness, No hepatospenomegaly, No masses Extremities: No clubbing, No cyanosis, Other (Left foot with diffused erythema and swelling up to the ankle. Left foot is cold to touch with absent dorsal pedis pulse, 1st toe with black schar extending laterally to the 2nd digit, hard to touch. right foot has chronic wound on 2nd toe which is black in color.) Skin: No rashes, No breakdown, No significant lesion (Multiple scars of healed ulcer on left polk and leg. ) Neuro: Normal speech, Strength at 5/5 X4 ext, Normal tone, Cranial nerves 3-12 NL Psych/Mental Status: Mental status NL, Mood NL laboratory and microbiology Laboratory Tests 11/11/24 08:47 Test 11/11/24 08:47 Range/Units Serum Glucose 50 L 74-106 mg/dL Microbiology Date/Time Source Procedure Growth Status 11/10/24 16:22 Blood Blood Culture - Preliminary NO GROWTH AFTER 24 HOURS OF INCUBATION. 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 -Clindamycin IV stopped replaced by vancomycin IV -Cefepime IV -Morphine 2mg IV -Surgical consult -Wound Consult podiatry consult suggested: discussed plan is to perform hallux amputation tomorrow, can weightbear as tolerated in postoperative shoe -NPO #Peripheral neuropathy -Gabapentin 100mg TID #Uncontrolled DM2 with hyperglycemia -Insulin Sliding scale -Hb A1c #CHF -Entresto 2mg (med reconciliation) -Jardiance 25mg #BPH -Tamsulosin (med reconciliation) GI prophylaxis: Protonix 40 mg per orally daily DVT prophylaxis: Lovenox 40 mg subcutaneous daily Diet: diabetic diet Goals of care discussed with the patient for more than 27 minutes: Full code status Case discussed with Dr. Gaines, patient and nurse. Plan discussed with: Patient, Other (rn) My Orders My Orders Orders - RAUL MCCRACKEN Procedure Category Date Status Time Microalbumin Random LAB 11/11/24 Logged Urine 09:43 Urine LAB 11/11/24 Logged Protein/Creatinine Date of Service: Nov 11, 2024 Billing Provider: PRASAD ARIAS MD Common Visit Codes: [id number] INP/OBS CARE(HIGH) RAUL MCCRACKEN Nov 11, 2024 17:33 PRASAD ARIAS MD Nov 24, 2024 02:14
[2024-11-11 23:37] LABS: Protein, Urine 6.1 mg/dL (1-14)
[2024-11-12] VITALS (8 sets, daily range): BP systolic 93–110; BP diastolic 57–62; PULSE 101–112; RESP 14–17; TEMP 97.5–100.6; O2SAT 96–100
[2024-11-12] MEDS: SODIUM CHLORIDE 0.9% 500 ML IV ONE (01:30)
[2024-11-12 07:32] LABS: Hematocrit 30.1 % (41.0-53.0); Hemoglobin 10.5 g/dL (13.5-17.5); Mean Corpuscular Hemoglobin 31.0 pg (28.0-32.0); Mean Corpuscular Volume 88.8 fL (80.0-100.0); Nucleated Red Blood Cells % 0.0 %
[2024-11-12 07:47] LABS: Chloride 102 mmol/L (98-107); Potassium 4.2 mmol/L (3.5-5.1); Sodium 138 mmol/L (136-145)
[2024-11-12 07:48] LABS: Anion Gap 10 (5-15); Carbon Dioxide 26 mmol/L (20-31)
[2024-11-12 07:53] LABS: BUN/Creatinine Ratio 26.2 (10.0-20.0)
[2024-11-12 07:59] LABS: Blood Urea Nitrogen 28 mg/dL (9-23); Calcium 8.6 mg/dL (8.7-10.4); Glucose 182 mg/dL (74-106)
[2024-11-12 08:13] LABS: INR 1.08 (0.9-1.15); Partial Thromboplastin Time 49.0 SEC (24.5-34.5); Prothrombin Time 11.4 sec (9.3-11.8)
--- NOTE | 2024-11-12 08:45 | DVH ---
CHEST RADIOGRAPH Indication: congestion, chf Technique: Single frontal view of the chest was obtained Comparison: XY CHEST XRAY 1 VIEW on DOS: 09/26/24, XY CHEST PORTABLE on DOS: 09/25/24 FINDINGS: Lines and Tubes: None Lungs: No focal consolidation. Pleura: No effusion. No pneumothorax. Cardiomediastinal contours: Unremarkable Bones: No acute osseous abnormality. IMPRESSION: No acute cardiopulmonary disease.
--- NOTE | 2024-11-12 08:54 | DVHPNRES ---
Progress Note Date Seen: Nov 12, 2024 Resident Creating Document: RAUL MCCRACKEN RESIDENT Medical Necessity Reason Pt with a Central, PICC or Fol: No Subjective Review of Systems 84-year-old male with a past medical history of CHF with HFrEF 10 -15%, diabetes mellitus type 2 (HBA1c 9.8), CAD and BPH came to the emergency yesterday with chief complaints discoloration of his left great toe associated with left foot redness, cool to touch, swelling and pain of 7/ in 10 intensity with pins and needles sensation. He says that he is being having these symptoms for the past 2 weeks. Patient reports that in September you need to cough his bandage from his legs this can we would go off and he had come to the hospital and podiatry had done an incision and drainage procedure. He was sent home with home health services and wound care and his home health worker had gone for a vacation. It was then that his left big toe became black and so when she came back suggested that he come to the hospital. PMH: CHF, CAD, type 2 diabetes mellitus, BPH PSH: None ( patient refused pacemaker suggested by catalyst supervisor) Family History: reviewed and noncontributory to this case Smoke: Quit (Smoked for about 15 years, quit >20 years ago. ) ALCOHOL: none Drugs: None Lives: Alone Code status : DNR PCP: Dr. Antony. ROS: Patient was seen and examined by me at the bedside. Patient's clindamycin was stopped and replaced by vancomycin. Cefepime is continued. we are giving morphine for pain management and podiatry has suggested a hallux amputation tomorrow and that the patient can weight bear as tolerated in the postoperative shoe. He is going to be kept NPO from [facility] at midnight. 11/12/2024 patient was seen and examined by me at the bedside. Overnight events were reviewed. Patient has no new active complaints. Podiatry did Left foot I&D to bone, Left hallux amputation. Objective vital signs Vital Sign Date Time Temp Pulse Resp B/P (MAP) Pulse Ox O2 Delivery O2 Flow Rate FiO2 11/12/24 05:00 98.4 112 14 104/62 (76) 97 98.4 11/11/24 04:33 Room Air* 0 21 Total Intake and Output 11/11/24 11/11/24 11/12/24 15:00 23:00 07:00 Intake Total 300 ml 0 ml Output Total 775 ml Balance 300 ml -775 ml medications Current Medications Medications Dose Ordered Sig/Miranda Route Start Time Stop Time Status Last Admin Dose Admin Acetaminophen/ Hydrocodone Bitart 1 tab Q4HP PRN PO 11/10/24 21:30 Morphine Sulfate 2 mg Q4HPRN PRN IV 11/10/24 21:30 Enoxaparin Sodium 30 mg DAILY SC 11/11/24 10:00 11/11/24 13:44 30 MG Gabapentin 100 mg TID PO 11/10/24 22:00 11/11/24 13:31 100 MG Pantoprazole Sodium 40 mg DAILY PO 11/11/24 10:00 11/11/24 10:25 40 MG Diagnostic Test (Pha) 1 strip Q6HR 11/11/24 00:00 11/12/24 05:20 1 STRIP Insulin Human Regular Q6HR SC 11/11/24 00:00 11/11/24 17:22 3 UNITS Dextrose 50 ml UD PRN IV 11/10/24 23:00 Cefepime HCl 50 ml @ 12.5 mls/hr DAILY IV 11/11/24 10:00 11/11/24 10:25 12.5 MLS/HR Aspirin 81 mg DAILY PO 11/11/24 10:00 11/11/24 13:44 81 MG Clopidogrel Bisulfate 75 mg DAILY PO 11/11/24 10:00 11/11/24 13:44 75 MG Metolazone 2.5 mg DAILY PO 11/11/24 10:00 Hold Sacubitril/ Valsartan 1 tab BID PO 11/11/24 10:00 Hold Vancomycin HCl 0 ml @ 0 mls/hr UD IV 11/11/24 10:45 Examination General Appearance: Alert, Oriented X3, Cooperative, mild distress HEENT: Atraumatic, PERRLA, Mucous membr. moist/pink Respiratory: Clear to auscultation, Normal air movement Cardiovascular: Regular rate, Normal S1, Normal S2, No murmurs Abdominal: Normal bowel sounds, Soft, No tenderness, No hepatospenomegaly, No masses Extremities: No clubbing, No cyanosis, Other (Left foot with diffused erythema and swelling up to the ankle. Left foot is cold to touch with absent dorsal pedis pulse, 1st toe with black schar extending laterally to the 2nd digit, hard to touch. right foot has chronic wound on 2nd toe which is black in color.) Skin: No rashes, No breakdown, No significant lesion (Multiple scars of healed ulcer on left polk and leg. ) Neuro: Normal speech, Strength at 5/5 X4 ext, Normal tone, Cranial nerves 3-12 NL Psych/Mental Status: Mental status NL, Mood NL laboratory and microbiology Laboratory Tests 11/12/24 06:28 Test 11/12/24 06:28 Range/Units Serum Glucose 182 #H 74-106 mg/dL Microbiology Date/Time Source Procedure Growth Status 11/10/24 16:22 Blood Blood Culture - Preliminary NO GROWTH AFTER 24 HOURS OF INCUBATION. 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 -Clindamycin IV stopped replaced by vancomycin IV -Cefepime IV -Morphine 2mg IV -Surgical consult -Wound Consult -Left foot I&D to bone, Left hallux amputation #Peripheral neuropathy -Gabapentin 100mg TID #Uncontrolled DM2 with hyperglycemia -Insulin Sliding scale -Hb A1c 9.8 #CHF -Entresto 2mg (med reconciliation) -Jardiance 25mg #BPH -Tamsulosin (med reconciliation) GI prophylaxis: Protonix 40 mg per orally daily DVT prophylaxis: Lovenox 40 mg subcutaneous daily Diet: diabetic diet Goals of care discussed with the patient for more than 27 minutes: Full code status Case discussed with Dr. Gaines, patient and nurse. Plan discussed with: Patient, Other (rn) My Orders My Orders Orders - RAUL MCCRACKEN RESIDENT Procedure Category Date Status Time Mrsa Screen DAVEY 11/12/24 In Process 01:40 Covid19 Antigen Day LAB 11/12/24 Logged Rapid Influenza A&B LAB 11/12/24 Logged 06:49 Urine Bacterial DAVEY 11/12/24 Logged Culture 06:49 Blood Culture DAVEY 11/12/24 Logged 06:49 Date of Service: Nov 12, 2024 Billing Provider: PRASAD ARIAS MD Common Visit Codes: [id number] INP/OBS CARE(HIGH) RAUL MCCRACKEN RESIDENT Nov 12, 2024 08:54 PRASAD ARIAS MD Nov 24, 2024 02:40
[2024-11-12] MEDS ORDERED: MIDAZOLAM HCL 2MG/2ML 2ml VIAL (1mg/ml) ONE (16:27)
[2024-11-12] MEDS ORDERED: fentaNYL CITRATE 100 MCG/2 ML VL ONE (16:27)
[2024-11-12] MEDS ORDERED: PROPOFOL 10 MG/ML 20 ML IV ONE (16:28)
[2024-11-12] MEDS ORDERED: LIDOCAINE 2% (LOCAL ANESTH.) PF 5ml SDV ONE (16:28)
[2024-11-12] MEDS ORDERED: METOCLOPRAMIDE HCL 5MG/ml INJ 2ml VIAL ONE (16:28)
[2024-11-12] MEDS ORDERED: ONDANSETRON HCL 4 MG/2 ML VIAL ONE (16:28)
[2024-11-12] MEDS ORDERED: HYDROmorphone HCL 2 MG/ML VL/or syr IV PRN (16:30)
[2024-11-12] MEDS ORDERED: hydrALAZINE HCL 20 MG/ML VL IV PRN (16:30)
[2024-11-12] MEDS: BUPIVACAINE 0.5% MPF INJ 30ML SDV IJ ONE (16:44)
--- NOTE | 2024-11-12 16:53 | DVHOP2 ---
Operative Report - 2 Report Details Date: 11/12/24 Preop Diagnosis: 1. Left hallux osteomyelitis 2. Left hallux gas gangrene 3. Left hallux cellulitis 4. Left hallux abscess Postop Diagnosis: Same as preop Surgeon: Tanner Ledezma MD Anesthesiologist: See anesthesia Anesthesia: Mac Consent: The patient was informed of the risks and benefits of the procedure. These include but are not limited to complications of anesthesia, postoperative infection, incomplete relief of symptoms, recurrence of symptoms, damage to blood vessels, nerves and tendons, deep venous thrombosis, pulmonary embolism and possible need for repeat surgery in the future. Complications: None Estimated Blood Loss: Minimal Fluids: See anesthesia Findings: Consistent with diagnosis Indications for Surgery: Worsening left foot wound Name of Procedure Performed 1. Left foot I&D to bone (62902) 2. Left hallux amputation (62888) Procedure Details Procedure Details: PRE-PROCEDURE INFORMATION: In the pre-op holding area, the extremity to be operated on was clearly marked and the patient verified correct laterality of the marking. The patient was transferred to the OR table and placed in a supine position. A timeout was performed in which identification of the correct patient, procedure, location, and materials was done. The left foot and leg were prepped and draped in normal sterile fashion. The foot and leg were exsanguinated and the _ tourniquet was inflated to 250 mmHg. DESCRIPTION OF PROCEDURE: Attention was directed to the left where area of fluctuance was noted. An incision was made over this area and was deepened through blunt dissection. The incision was deepened to the level of abscess and bone. Care was taken to the dissection to avoid any neurovascular and tendinous structures. The incision was deepened to the bone, and the abscess appeared to be purulent fluid consistent with pus. The cortices of the bone was then removed with rongeur an all necrotic tissue. Sedative this point that a complete amputation of the hallux to be made at the [facility]. Using sharp instrumentation, the hallux was amputated at the metatarsophalangeal joint. After the abscess was drained, the area was irrigated with 3 L normal saline using cysto tubing. Deep cultures were then obtained from the wound. The area was then inspected and any areas of tracking, especially along the tendons were also drained. The wound was packed with Betadine-soaked gauze and we will need to be closed at a later date. POSTOPERATIVE INFORMATION: The patient tolerated the above noted procedure and anesthesia well and was transferred to the PACU with vital signs stable, and vascular status intact with capillary refill intact to all digits. Deep cultures were taken. Patient will return to floor continue IV antibiotics. Patient needs vascular consult as there was no some minimal bleeding after amputation of the infected hallux. Condition Good Disposition Still a Patient Visit Coding Podiatry Date of Service if different f: Nov 12, 2024 Billing Provider: TANNER LEDEZMA DPM Podiatry Common Visit Codes: PROCEDURE ONLY TANNER LEDEZMA DPM Nov 12, 2024 16:53
--- NOTE | 2024-11-12 17:00 | DVHPN2 ---
Subjective Chin Villanueva is a 84 year old male with past medical history if CHF, DM2, CAD and BPH. The patient presented to the ED with chief complaint of 2 weeks of noticing change in color on his left great toe, associated left foot redness, cool to touch, swelling and pain 7/10 with pins and needles sensation. The patient reports he was admitted at [facility] 2 mo ago for an infected small wound/ulcer on the left foot first digit after 2 weeks of admission she was discharged with home-health services and wound care. The patient reports that despite the wound care, the left great toe start changing in color, appearance and increase in pain. Today, the pain exacerbates to 9/10 that prompt his visit to the ED. 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 No other CT evidence of osteomyelitis within the left foot. WBC 13.0 x10e3, HbA1C 9.8mg/dl. The patient denies any fever, chills, weakness or other complains. Changes from previous H/P or p: No Changes Eyes: No Pain, No Vision change, No Conjunctivae inflammation, No Eyelid inflammation, No Other, No Redness ENT: No Ear pain, No Ear discharge, No Nose pain, No Nose discharge, No Nose congestion, No Mouth pain, No Mouth swelling, No Throat pain, No Throat swelling, No Other Cardiovascular: No Chest Pain, No Palpitations, No Orthopnea, No Paroxysmal Noc. Dyspnea, No Edema, No Lt Headedness, No Other Respiratory: No Cough, No Dry, No Shortness of breath, No SOB with excertion, No Wheezing, No Hemoptysis, No Pleuritic Pain, No Sputum, No Other Gastrointestinal: No Nausea, No Vomiting, No Abdominal Pain, No Diarrhea, No Constipation, No Melena, No Hematochezia, No Other Genitourinary: No Dysuria, No Frequency, No Incontinence, No Hematuria, No Retention, No Other Musculoskeletal: foot pain (Left great toe with ulcer and now has turned back. ) Skin: No Rash, No Lesions, No Jaundice, No Bruising, No Other Objective Vitals Vital Signs Date Time Temp Pulse Resp B/P (MAP) Pulse Ox O2 Delivery O2 Flow Rate FiO2 11/12/24 13:00 97.5 101 17 105/62 (76) 98 97.5 11/11/24 04:33 Room Air* 0 21 Intake/Output Intake and Output 11/12/24 07:00 Intake Total 300 ml Output Total 775 ml Balance -475 ml Intake Oral 300 ml Output Urine Total 775 ml # Voids 1 # Bowel Movements 1 Exam Dermatological: Skin is dry with mild erythema and some maceration around the wound site No gross deformities noted Mild non-pitting edema present bilaterally Left hallux gangrene with fluctuance Vascular: Dorsalis pedis and posterior tibial pulses are 1+ bilaterally Capillary refill is under 2 seconds Skin temperature is warm bilaterally Neurologic: Protective sensation is absent on the plantar forefoot bilaterally Monofilament testing reveals decreased sensation in multiple plantar sites Musculoskeletal: Range of motion at the ankle and MTP joints is within normal limits. Strength is 5/5 in all tested muscle groups. Gait is antalgic due to offloading of the affected limb. Medications Current Medications Medications Dose Ordered Sig/Miranda Route Start Time Stop Time Status Last Admin Dose Admin Acetaminophen/ Hydrocodone Bitart 1 tab Q4HP PRN PO 11/10/24 21:30 Morphine Sulfate 2 mg Q4HPRN PRN IV 11/10/24 21:30 Enoxaparin Sodium 30 mg DAILY SC 11/11/24 10:00 11/11/24 13:44 30 MG Gabapentin 100 mg TID PO 11/10/24 22:00 11/11/24 13:31 100 MG Pantoprazole Sodium 40 mg DAILY PO 11/11/24 10:00 11/11/24 10:25 40 MG Diagnostic Test (Pha) 1 strip Q6HR 11/11/24 00:00 11/12/24 12:00 1 STRIP Insulin Human Regular Q6HR SC 11/11/24 00:00 11/11/24 17:22 3 UNITS Dextrose 50 ml UD PRN IV 11/10/24 23:00 Cefepime HCl 50 ml @ 12.5 mls/hr DAILY IV 11/11/24 10:00 11/12/24 10:00 12.5 MLS/HR Aspirin 81 mg DAILY PO 11/11/24 10:00 11/11/24 13:44 81 MG Clopidogrel Bisulfate 75 mg DAILY PO 11/11/24 10:00 11/11/24 13:44 75 MG Metolazone 2.5 mg DAILY PO 11/11/24 10:00 Hold Sacubitril/ Valsartan 1 tab BID PO 11/11/24 10:00 Hold Vancomycin HCl 0 ml @ 0 mls/hr UD IV 11/11/24 10:45 Hydralazine HCl 2.5 mg Q20M PRN IV 11/12/24 16:30 11/12/24 17:31 Hydromorphone HCl 0.5 mg Q10M PRN IV 11/12/24 16:30 11/12/24 17:11 Laboratory Results Laboratory Tests 11/12/24 06:28 Chemistry Test 11/12/24 06:28 Calcium Level 8.6 mg/dL (8.7-10.4) L Coagulation Test 11/12/24 06:28 Prothrombin Time 11.4 sec (9.3-11.8) Prothrombin Time INR 1.08 (0.9-1.15) Activated Partial Thromboplast Time 49.0 SEC (24.5-34.5) H Urinalysis Test 11/11/24 03:30 Urine Color Light-yellow (Yellow) Urine Clarity Clear (Clear) Urine pH 5.0 (5.0-9.0) Urine Specific [place] 1.022 (1.001-1.035) Urine Protein Negative (Negative) Urine Ketones Negative (Negative) Urine Blood Negative /uL (Negative) Urine Nitrite Negative (Negative) Urine Bilirubin Negative (Negative) Urine Urobilinogen Normal mg/dL (Negative) Urine Leukocyte Esterase 1+ /uL (Negative) Urine RBC 3 /hpf (0 - 3) Urine Microscopic WBC 2 /HPF (0-3) Urine Squamous Epithelial Cells Few /hpf (<5) Urine Bacteria None seen /hpf (None Seen) Urine Yeast (Budding) Few /hpf (None Seen) Urine Creatinine 63.45 mg/dL (30.0-125.0) Urine Microalbumin 4.0 mg/L (<30.0) Urine Protein/Creatinine Ratio 0.10 Urine Glucose 4+ mg/dL (Normal) H Urine Total Protein 6.1 mg/dL (1-14) Microbiology Microbiology Date/Time Source Procedure Growth Status 11/12/24 01:40 Nose MRSA Screen - Final Complete 11/10/24 16:22 Blood Blood Culture - Preliminary NO GROWTH AFTER 48 HOURS OF INCUBATION. Resulted Assessment/Plan Assessment/Plan ASSESSMENT: Patient is a 84 year old seen on the floor for a worsening ulcer PLAN: - The patients chart was reviewed, clinical findings were discussed with the patient, the etiologies of the conditions were discussed in detail, and a treatment plan was agreed to at this time, with both oral and written instructions provided. - reviewed advanced imaging - discussed plan is to perform an incision and drainage - patient has been NPO since midnight - take him to the OR today - we will get cultures in the OR - can weightbear as tolerated in postoperative shoe All questions were answered and concerns addressed to the patient's satisfaction. The patient was given the phone number to the clinic and was told how to make contact with the clinic should any concerns or questions arise. Patient understands that if any questions or concerns arise prior to the next appointment, we should be contacted immediately. FOLLOW-UP: Continue to follow while inpatient Plan discussed with: Patient My Orders Orders - TANNER LEDEZMA DPM Procedure Category Date Status Time Anaerobic Culture DAVEY 11/12/24 Logged 16:47 Gram Stain DAVEY 11/12/24 Logged 16:47 Routine Bacterial DAVEY 11/12/24 Logged Culture 16:47 Problem List: (1) Oropharyngeal dysphagia (2) Generalized weakness (3) Hyperglycemia (4) Uncontrolled diabetes mellitus (5) Cellulitis of left foot (6) Visit for wound check (7) Necrosis of toe Visit Coding Podiatry Date of Service if different f: Nov 12, 2024 Billing Provider: TANNER LEDEZMA DPM Podiatry Common Visit Codes: [id number] INP/OBS CARE(HIGH) TANNER LEDEZMA DPM Nov 12, 2024 17:00
[2024-11-12] MEDS: VANCOMYCIN 1GM/250ML KIT 250 ML IV SCH (18:13)
[2024-11-13] VITALS (8 sets, daily range): BP systolic 91–107; BP diastolic 49–68; PULSE 89–94; RESP 12–20; TEMP 97.2–99.1; O2SAT 82–99
[2024-11-13 06:43] LABS: Hematocrit 30.9 % (41.0-53.0); Hemoglobin 10.8 g/dL (13.5-17.5); Mean Corpuscular Hemoglobin 30.9 pg (28.0-32.0); Mean Corpuscular Volume 88.6 fL (80.0-100.0); Nucleated Red Blood Cells % 0.0 %
[2024-11-13 06:59] LABS: Chloride 103 mmol/L (98-107); Potassium 3.9 mmol/L (3.5-5.1); Sodium 140 mmol/L (136-145)
[2024-11-13 07:00] LABS: Anion Gap 9 (5-15); Calcium 9.1 mg/dL (8.7-10.4); Carbon Dioxide 28 mmol/L (20-31)
[2024-11-13 07:05] LABS: BUN/Creatinine Ratio 24.5 (10.0-20.0); Blood Urea Nitrogen 24 mg/dL (9-23); Glucose 65 mg/dL (74-106)
[2024-11-13] MEDS: HYDROcodone-ACET 5/325MG TAB PO PRN (10:20)
[2024-11-13] MEDS: MORPHINE SULFATE INJ 2 MG/ml SYRG IV PRN (13:17)
[2024-11-13] MEDS: BUPIVACAINE W/ EPINEPH 0.5% MPF 30ML VIAL IJ ONE (16:15)
[2024-11-13] MEDS: ONDANSETRON HCL 4 MG/2 ML VIAL IV ONE (16:15)
--- NOTE | 2024-11-13 18:21 | DVHPNRES ---
Progress Note Date Seen: Nov 13, 2024 Resident Creating Document: RAUL MCCRACKEN RESIDENT Medical Necessity Reason Pt with a Central, PICC or Fol: No Subjective Review of Systems 84-year-old male with a past medical history of CHF with HFrEF 10 -15%, diabetes mellitus type 2 (HBA1c 9.8), CAD and BPH came to the emergency yesterday with chief complaints discoloration of his left great toe associated with left foot redness, cool to touch, swelling and pain of 7/ in 10 intensity with pins and needles sensation. He says that he is being having these symptoms for the past 2 weeks. Patient reports that in September you need to cough his bandage from his legs this can we would go off and he had come to the hospital and podiatry had done an incision and drainage procedure. He was sent home with home health services and wound care and his home health worker had gone for a vacation. It was then that his left big toe became black and so when she came back suggested that he come to the hospital. PMH: CHF, CAD, type 2 diabetes mellitus, BPH PSH: None ( patient refused pacemaker suggested by senior database programmer) Family History: reviewed and noncontributory to this case Smoke: Quit (Smoked for about 15 years, quit >20 years ago. ) ALCOHOL: none Drugs: None Lives: Alone Code status : DNR PCP: Dr. Antony. ROS: Patient was seen and examined by me at the bedside. Patient's clindamycin was stopped and replaced by vancomycin. Cefepime is continued. we are giving morphine for pain management and podiatry has suggested a hallux amputation tomorrow and that the patient can weight bear as tolerated in the postoperative shoe. He is going to be kept NPO from [facility] at midnight. 11/12/2024 patient was seen and examined by me at the bedside. Overnight events were reviewed. Patient has no new active complaints. 11/13/2024: Patient was seen and examined by me at the bedside. Overnight events were reviewed. Patient has no new active complaints. he had an amputation of the left for stool done yesterday. Patient tolerated the procedure well. Patient offered PT evaluation which she declined today. We consulted vascular surgery as podiatry had suggested patient needs consult vascular. Aspirin to be continued, Plavix held. Objective vital signs Vital Sign Date Time Temp Pulse Resp B/P (MAP) Pulse Ox O2 Delivery O2 Flow Rate FiO2 11/13/24 16:52 97.2 90 17 98/56 (70) 99 97.2 11/13/24 08:00 Room Air* 0 21 Total Intake and Output 11/12/24 11/12/24 11/13/24 15:00 23:00 07:00 Intake Total 250 ml 500 ml Output Total 1000 ml 1000 ml Balance -750 ml -500 ml medications Current Medications Medications Dose Ordered Sig/Miranda Route Start Time Stop Time Status Last Admin Dose Admin Acetaminophen/ Hydrocodone Bitart 1 tab Q4HP PRN PO 11/10/24 21:30 11/13/24 10:20 1 TAB Morphine Sulfate 2 mg Q4HPRN PRN IV 11/10/24 21:30 11/13/24 13:17 2 MG Enoxaparin Sodium 30 mg DAILY SC 11/11/24 10:00 11/13/24 13:08 30 MG Gabapentin 100 mg TID PO 11/10/24 22:00 11/13/24 13:08 100 MG Pantoprazole Sodium 40 mg DAILY PO 11/11/24 10:00 11/13/24 10:14 40 MG Diagnostic Test (Pha) 1 strip Q6HR 11/11/24 00:00 11/13/24 18:09 1 STRIP Insulin Human Regular Q6HR SC 11/11/24 00:00 11/13/24 13:09 6 UNITS Dextrose 50 ml UD PRN IV 11/10/24 23:00 Cefepime HCl 50 ml @ 12.5 mls/hr DAILY IV 11/11/24 10:00 11/13/24 10:14 12.5 MLS/HR Metolazone 2.5 mg DAILY PO 11/11/24 10:00 Hold Sacubitril/ Valsartan 1 tab BID PO 11/11/24 10:00 Hold Vancomycin HCl 0 ml @ 0 mls/hr UD IV 11/11/24 10:45 Vancomycin HCl 250 ml @ 250 mls/hr DAILY@1800 IV 11/12/24 18:00 11/13/24 18:09 250 MLS/HR Examination General Appearance: Alert, Oriented X3, Cooperative, mild distress HEENT: Atraumatic, PERRLA, Mucous membr. moist/pink Respiratory: Clear to auscultation, Normal air movement Cardiovascular: Regular rate, Normal S1, Normal S2, No murmurs Abdominal: Normal bowel sounds, Soft, No tenderness, No hepatospenomegaly, No masses Extremities: No clubbing, No cyanosis, left leg bandaged, no soakage, right foot has chronic wound on 2nd toe which is black in color Skin: No rashes, No breakdown, No significant lesion (Multiple scars of healed ulcer on left polk and leg. ) Neuro: Normal speech, Strength at 5/5 X4 ext, Normal tone, Cranial nerves 3-12 NL Psych/Mental Status: Mental status NL, Mood NL laboratory and microbiology Laboratory Tests 11/13/24 06:19 Test 11/13/24 06:19 Range/Units Serum Glucose 65 #L 74-106 mg/dL Microbiology Date/Time Source Procedure Growth Status 11/12/24 16:46 Foot Left Gram Stain Pending Resulted 11/12/24 16:46 Foot Left Anaerobic Culture - Preliminary Resulted 11/12/24 16:46 Foot Left Aerobic Culture - Preliminary Resulted 11/12/24 09:20 Blood Blood Culture - Preliminary NO GROWTH AFTER 24 HOURS OF INCUBATION. 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 -Clindamycin IV stopped replaced by vancomycin IV -Cefepime IV -Morphine 2mg IV -Surgical consult -Wound Consult -Left foot I&D to bone, Left hallux amputation -physical therapy declined today, will try tomm -aspirin continued, Plavix hold #Peripheral neuropathy -Gabapentin 100mg TID #Uncontrolled DM2 with hyperglycemia -Insulin Sliding scale -Hb A1c #CHF -Entresto 2mg (med reconciliation) -Jardiance 25mg #BPH -Tamsulosin (med reconciliation) GI prophylaxis: Protonix 40 mg per orally daily DVT prophylaxis: Lovenox 40 mg subcutaneous daily Diet: diabetic diet Goals of care discussed with the patient for more than 27 minutes: Full code status Case discussed with Dr. Gaines, patient and nurse. Plan discussed with: Patient, Other (rn) My Orders My Orders Orders - RAUL MCCRACKEN Procedure Category Date Status Time Consistent DIET 11/12/24 [facility]Diabetes Dinner Pt Request For Service PT 11/13/24 Logged 08:10 Dietary Evaluation Review Comments: [facility]-45 cardiac diet Glucerna PO 240ml bid supplementation Expected Outcomes/Goals: Gradaully healed wounds. Gradual wt gain Date of Service: Nov 13, 2024 Billing Provider: PRASAD ARIAS MD Common Visit Codes: [id number] INP/OBS CARE(HIGH) RAUL MCCRACKEN Nov 13, 2024 18:21 PRASAD ARIAS MD Nov 24, 2024 03:00
[2024-11-14] VITALS (8 sets, daily range): BP systolic 102–127; BP diastolic 56–78; PULSE 64–104; RESP 17–20; TEMP 97.4–98.4; O2SAT 91–100
[2024-11-14 08:48] LABS: COVID19 ANTIGEN SOFIA FIA NEGATIVE (NEGATIVE)
[2024-11-14] MEDS: ASPirin-EC 81 mg tab PO SCH (10:00)
[2024-11-14 11:15] LABS: Hematocrit 29.8 % (41.0-53.0); Hemoglobin 10.1 g/dL (13.5-17.5); Mean Corpuscular Hemoglobin 30.2 pg (28.0-32.0); Mean Corpuscular Volume 89.3 fL (80.0-100.0); Nucleated Red Blood Cells % 0.0 %
[2024-11-14] MEDS ORDERED: cefTAZidime 2GM/NS 50 ML IV SCH (14:00)
--- NOTE | 2024-11-14 14:25 | DVHPNRES ---
Progress Note Date Seen: Nov 14, 2024 Resident Creating Document: RAUL MCCRACKEN RESIDENT Medical Necessity Reason Pt with a Central, PICC or Fol: No Subjective Review of Systems 84-year-old male with a past medical history of CHF with HFrEF 10 -15%, diabetes mellitus type 2 (HBA1c 9.8), CAD and BPH came to the emergency yesterday with chief complaints discoloration of his left great toe associated with left foot redness, cool to touch, swelling and pain of 7/ in 10 intensity with pins and needles sensation. He says that he is being having these symptoms for the past 2 weeks. Patient reports that in September you need to cough his bandage from his legs this can we would go off and he had come to the hospital and podiatry had done an incision and drainage procedure. He was sent home with home health services and wound care and his home health worker had gone for a vacation. It was then that his left big toe became black and so when she came back suggested that he come to the hospital. PMH: CHF, CAD, type 2 diabetes mellitus, BPH PSH: None ( patient refused pacemaker suggested by director regulatory agency) Family History: reviewed and noncontributory to this case Smoke: Quit (Smoked for about 15 years, quit >20 years ago. ) ALCOHOL: none Drugs: None Lives: Alone Code status : DNR PCP: Dr. Antony. ROS: Patient was seen and examined by me at the bedside. Patient's clindamycin was stopped and replaced by vancomycin. Cefepime is continued. we are giving morphine for pain management and podiatry has suggested a hallux amputation tomorrow and that the patient can weight bear as tolerated in the postoperative shoe. He is going to be kept NPO from [facility] at midnight. 11/12/2024 patient was seen and examined by me at the bedside. Overnight events were reviewed. Patient has no new active complaints. 11/13/2024: Patient was seen and examined by me at the bedside. Overnight events were reviewed. Patient has no new active complaints. he had an amputation of the left for stool done yesterday. Patient tolerated the procedure well. Patient offered PT evaluation which she declined today. We consulted vascular surgery as podiatry had suggested patient needs consult vascular. Aspirin to be continued, Plavix held. 11/14/2024. Patient was seen and examined by me at the bedside. Overnight events were reviewed. Patient reports he has been in the sole of his feet on the operated leg. Patient declined PT evaluation yesterday and is going to be evaluated today. We are waiting on vascular surgery. we are holding Plavix for now, aspirin will be held from Sunday and Lovenox is being continued for now. Objective vital signs Vital Sign Date Time Temp Pulse Resp B/P (MAP) Pulse Ox O2 Delivery O2 Flow Rate FiO2 11/14/24 09:00 97.7 103 18 110/57 (74) 97 97.7 11/13/24 20:00 Room Air* 0 21 Total Intake and Output 11/13/24 11/13/24 11/14/24 15:00 23:00 07:00 Intake Total 1000 ml 800 ml Output Total 600 ml 400 ml Balance 400 ml 400 ml medications Current Medications Medications Dose Ordered Sig/Miranda Route Start Time Stop Time Status Last Admin Dose Admin Acetaminophen/ Hydrocodone Bitart 1 tab Q4HP PRN PO 11/10/24 21:30 11/13/24 10:20 1 TAB Morphine Sulfate 2 mg Q4HPRN PRN IV 11/10/24 21:30 11/13/24 13:17 2 MG Enoxaparin Sodium 30 mg DAILY SC 11/11/24 10:00 11/14/24 11:42 30 MG Gabapentin 100 mg TID PO 11/10/24 22:00 11/14/24 06:20 100 MG Pantoprazole Sodium 40 mg DAILY PO 11/11/24 10:00 11/14/24 10:19 40 MG Diagnostic Test (Pha) 1 strip Q6HR 11/11/24 00:00 11/14/24 11:33 1 STRIP Insulin Human Regular Q6HR SC 11/11/24 00:00 11/14/24 11:40 6 UNITS Dextrose 50 ml UD PRN IV 11/10/24 23:00 Metolazone 2.5 mg DAILY PO 11/11/24 10:00 Hold Sacubitril/ Valsartan 1 tab BID PO 11/11/24 10:00 Hold Aspirin 81 mg DAILY PO 11/14/24 10:00 11/14/24 11:41 81 MG Ceftazidime/ Dextrose 50 ml @ 12.5 mls/hr Q8HR IV 11/14/24 14:00 UNV Examination General Appearance: Alert, Oriented X3, Cooperative, mild distress HEENT: Atraumatic, PERRLA, Mucous membr. moist/pink Respiratory: Clear to auscultation, Normal air movement Cardiovascular: Regular rate, Normal S1, Normal S2, No murmurs Abdominal: Normal bowel sounds, Soft, No tenderness, No hepatospenomegaly, No masses Extremities: No clubbing, No cyanosis, left leg bandaged, no soakage, right foot has chronic wound on 2nd toe which is black in color Skin: No rashes, No breakdown, No significant lesion (Multiple scars of healed ulcer on left polk and leg. ) Neuro: Normal speech, Strength at 5/5 X4 ext, Normal tone, Cranial nerves 3-12 NL Psych/Mental Status: Mental status NL, Mood NL laboratory and microbiology Laboratory Tests 11/14/24 10:15 11/13/24 06:19 Test 11/13/24 06:19 Range/Units Serum Glucose 65 #L 74-106 mg/dL Microbiology Date/Time Source Procedure Growth Status 11/12/24 16:46 Foot Left Gram Stain Pending Resulted 11/12/24 16:46 Foot Left Anaerobic Culture - Preliminary Resulted 11/12/24 16:46 Aerobic Culture - Preliminary Citrobacter freundii Klebsiella oxytoca Resulted 11/12/24 09:20 Blood Blood Culture - Preliminary NO GROWTH AFTER 48 HOURS OF INCUBATION. 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 -Clindamycin IV stopped replaced by vancomycin IV -Cefepime IV replaced by ceftazidime (11/14/24) -Morphine 2mg IV -Surgical consult -Wound Consult -Left foot I&D to bone, Left hallux amputation -physical therapy -aspirin continued, lovenox cont, Plavix hold for possible vasc surg #Peripheral neuropathy -Gabapentin 100mg TID #Uncontrolled DM2 with hyperglycemia -Insulin Sliding scale -Hb A1c 9.8 #CHF -Entresto 2mg (med reconciliation) -Jardiance 25mg #BPH -Tamsulosin (med reconciliation) GI prophylaxis: Protonix 40 mg per orally daily DVT prophylaxis: Lovenox 40 mg subcutaneous daily Diet: diabetic diet Goals of care discussed with the patient for more than 27 minutes: Full code status Case discussed with Dr. Gaines, patient and nurse. Plan discussed with: Patient, Other (rn) My Orders My Orders Orders - RAUL MCCRACKEN Procedure Category Date Status Time Aspirin Enteric PHA 11/14/24 In Process Coated Tablet 10:00 Dietary Evaluation Review Comments: [facility]-45 cardiac diet Glucerna PO 240ml bid supplementation Expected Outcomes/Goals: Gradaully healed wounds. Gradual wt gain Date of Service: Nov 14, 2024 Billing Provider: PRASAD ARIAS MD Common Visit Codes: [id number] INP/OBS CARE(HIGH) RAUL MCCRACKEN Nov 14, 2024 14:25 PRASAD ARIAS MD Nov 24, 2024 03:19
[2024-11-14] MEDS: cefTAZidime 1GM/50ML D5W 50 ML IV ONE (15:23)
[2024-11-15] VITALS (8 sets, daily range): BP systolic 98–110; BP diastolic 54–67; PULSE 87–109; RESP 16–18; TEMP 97.5–98.3; O2SAT 96–99
[2024-11-15] MEDS: cefTAZidime 1GM/50ML D5W 50 ML IV ONE (01:00)
--- NOTE | 2024-11-15 16:04 | DVHPNRES ---
Progress Note Date Seen: Nov 15, 2024 Resident Creating Document: RAUL MCCRACKEN RESIDENT Medical Necessity Reason Pt with a Central, PICC or Fol: No Subjective Review of Systems 84-year-old male with a past medical history of CHF with HFrEF 10 -15%, diabetes mellitus type 2 (HBA1c 9.8), CAD and BPH came to the emergency yesterday with chief complaints discoloration of his left great toe associated with left foot redness, cool to touch, swelling and pain of 7/ in 10 intensity with pins and needles sensation. He says that he is being having these symptoms for the past 2 weeks. Patient reports that in September you need to cough his bandage from his legs this can we would go off and he had come to the hospital and podiatry had done an incision and drainage procedure. He was sent home with home health services and wound care and his home health worker had gone for a vacation. It was then that his left big toe became black and so when she came back suggested that he come to the hospital. PMH: CHF, CAD, type 2 diabetes mellitus, BPH PSH: None ( patient refused pacemaker suggested by biological engineer) Family History: reviewed and noncontributory to this case Smoke: Quit (Smoked for about 15 years, quit >20 years ago. ) ALCOHOL: none Drugs: None Lives: Alone Code status : DNR PCP: Dr. Antony. Patient was seen and examined by me at the bedside. Patient's clindamycin was stopped and replaced by vancomycin. Cefepime is continued. we are giving morphine for pain management and podiatry has suggested a hallux amputation tomorrow and that the patient can weight bear as tolerated in the postoperative shoe. He is going to be kept NPO from [facility] at midnight. 11/12/2024 patient was seen and examined by me at the bedside. Overnight events were reviewed. Patient has no new active complaints. 11/13/2024: Patient was seen and examined by me at the bedside. Overnight events were reviewed. Patient has no new active complaints. he had an amputation of the left for stool done yesterday. Patient tolerated the procedure well. Patient offered PT evaluation which she declined today. We consulted vascular surgery as podiatry had suggested patient needs consult vascular. Aspirin to be continued, Plavix held. 11/14/2024. Patient was seen and examined by me at the bedside. Overnight events were reviewed. Patient reports he has been in the sole of his feet on the operated leg. Patient declined PT evaluation yesterday and is going to be evaluated today. We are waiting on vascular surgery. we are holding Plavix for now, aspirin will be held from Sunday and Lovenox is being continued for now. 11/15/2024: Patient was seen and examined by me at the bedside. Overnight events were reviewed. Patient complained that he had pain and denied and pain killers helped him. He has agreed for physical therapy evaluation today. We are going to be discontinuing aspirin tomorrow, Plavix held. Waiting for vascular surgery to see him tomorrow. Objective vital signs Vital Sign Date Time Temp Pulse Resp B/P (MAP) Pulse Ox O2 Delivery O2 Flow Rate FiO2 11/15/24 08:30 97.6 89 16 107/63 (78) 98 97.6 11/15/24 08:10 Room Air* 0 21 Total Intake and Output 11/14/24 11/14/24 11/15/24 15:00 23:00 07:00 Intake Total 725 ml 375 ml Output Total 700 ml 150 ml Balance 25 ml 225 ml medications Current Medications Medications Dose Ordered Sig/Miranda Route Start Time Stop Time Status Last Admin Dose Admin Acetaminophen/ Hydrocodone Bitart 1 tab Q4HP PRN PO 11/10/24 21:30 11/14/24 23:33 1 TAB Morphine Sulfate 2 mg Q4HPRN PRN IV 11/10/24 21:30 11/13/24 13:17 2 MG Enoxaparin Sodium 30 mg DAILY SC 11/11/24 10:00 11/15/24 09:26 30 MG Gabapentin 100 mg TID PO 11/10/24 22:00 11/15/24 14:19 100 MG Pantoprazole Sodium 40 mg DAILY PO 11/11/24 10:00 11/15/24 09:26 40 MG Diagnostic Test (Pha) 1 strip Q6HR 11/11/24 00:00 11/15/24 11:48 1 STRIP Insulin Human Regular Q6HR SC 11/11/24 00:00 11/15/24 12:06 6 UNITS Dextrose 50 ml UD PRN IV 11/10/24 23:00 Metolazone 2.5 mg DAILY PO 11/11/24 10:00 Hold Sacubitril/ Valsartan 1 tab BID PO 11/11/24 10:00 Hold Aspirin 81 mg DAILY PO 11/14/24 10:00 11/14/24 11:41 81 MG Ceftazidime/ Dextrose 50 ml @ 12.5 mls/hr Q8HR IV 11/14/24 14:00 UNV laboratory and microbiology Laboratory Tests 11/14/24 10:15 11/13/24 06:19 Test 11/13/24 06:19 Range/Units Serum Glucose 65 #L 74-106 mg/dL Microbiology Date/Time Source Procedure Growth Status 11/12/24 16:46 Foot Left Gram Stain Pending Resulted 11/12/24 16:46 Foot Left Anaerobic Culture - Preliminary Resulted 11/12/24 16:46 Aerobic Culture - Preliminary Citrobacter freundii Klebsiella oxytoca Resulted 11/12/24 09:20 Blood Blood Culture - Preliminary NO GROWTH AFTER 72 HOURS OF INCUBATION. 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 -Clindamycin IV stopped replaced by vancomycin IV -Cefepime IV replaced by ceftazidime (11/14/24) -Morphine 2mg IV -Surgical consult -Wound Consult -Left foot I&D to bone, Left hallux amputation -physical therapy -aspirin continued, lovenox cont, Plavix hold for possible vasc surg #Peripheral neuropathy -Gabapentin 100mg TID #Uncontrolled DM2 with hyperglycemia -Insulin Sliding scale -Hb A1c 9.8 #CHF -Entresto 2mg (med reconciliation) -Jardiance 25mg #BPH -Tamsulosin (med reconciliation) GI prophylaxis: Protonix 40 mg per orally daily DVT prophylaxis: Lovenox 40 mg subcutaneous daily Diet: diabetic diet Goals of care discussed with the patient for more than 27 minutes: Full code status Case discussed with Dr. Spencer, patient and nurse. Plan discussed with: Patient, Other (rn) My Orders My Orders Orders - RAUL MCCRACKEN RESIDENT Procedure Category Date Status Time Pt Request For Service PT 11/15/24 Logged 06:45 Dietary Evaluation Review Comments: CCHO-45 cardiac diet Glucerna PO 240ml bid supplementation Expected Outcomes/Goals: Gradaully healed wounds. Gradual wt gain Date of Service: Nov 15, 2024 Billing Provider: ETHAN SPENCER MD Common Visit Codes: [id number] INP/OBS CARE(HIGH) RAUL MCCRACKEN RESIDENT Nov 15, 2024 16:04 ETHAN SPENCER MD Nov 17, 2024 21:09
[2024-11-16] VITALS (7 sets, daily range): BP systolic 92–117; BP diastolic 48–70; PULSE 74–94; RESP 14–18; TEMP 97.5–98.8; O2SAT 94–100
--- NOTE | 2024-11-16 14:54 | DVHPNRES ---
Progress Note Date Seen: Nov 16, 2024 Resident Creating Document: MONICA BARROS RESIDENT Medical Necessity Reason Pt with a Central, PICC or Fol: No Subjective Review of Systems 84-year-old male with a past medical history of CHF with HFrEF 10 -15%, diabetes mellitus type 2 (HBA1c 9.8), CAD and BPH came to the emergency yesterday with chief complaints discoloration of his left great toe associated with left foot redness, cool to touch, swelling and pain of 7/ in 10 intensity with pins and needles sensation. He says that he is being having these symptoms for the past 2 weeks. Patient reports that in September you need to cough his bandage from his legs this can we would go off and he had come to the hospital and podiatry had done an incision and drainage procedure. He was sent home with home health services and wound care and his home health worker had gone for a vacation. It was then that his left big toe became black and so when she came back suggested that he come to the hospital. PMH: CHF, CAD, type 2 diabetes mellitus, BPH PSH: None ( patient refused pacemaker suggested by civil engineering technician) Family History: reviewed and noncontributory to this case Smoke: Quit (Smoked for about 15 years, quit >20 years ago. ) ALCOHOL: none Drugs: None Lives: Alone Code status : DNR PCP: Dr. Antony. Patient was seen and examined by me at the bedside. Patient's clindamycin was stopped and replaced by vancomycin. Cefepime is continued. we are giving morphine for pain management and podiatry has suggested a hallux amputation tomorrow and that the patient can weight bear as tolerated in the postoperative shoe. He is going to be kept NPO from [facility] at midnight. 11/12/2024 patient was seen and examined by me at the bedside. Overnight events were reviewed. Patient has no new active complaints. 11/13/2024: Patient was seen and examined by me at the bedside. Overnight events were reviewed. Patient has no new active complaints. he had an amputation of the left for stool done yesterday. Patient tolerated the procedure well. Patient offered PT evaluation which she declined today. We consulted vascular surgery as podiatry had suggested patient needs consult vascular. Aspirin to be continued, Plavix held. 11/14/2024. Patient was seen and examined by me at the bedside. Overnight events were reviewed. Patient reports he has been in the sole of his feet on the operated leg. Patient declined PT evaluation yesterday and is going to be evaluated today. We are waiting on vascular surgery. we are holding Plavix for now, aspirin will be held from Sunday and Lovenox is being continued for now. 11/15/2024: Patient was seen and examined by me at the bedside. Overnight events were reviewed. Patient complained that he had pain and denied and pain killers helped him. He has agreed for physical therapy evaluation today. We are going to be discontinuing aspirin tomorrow, Plavix held. Waiting for vascular surgery to see him tomorrow. 11/16/2024: patient was seen at bedside. no overnight events were noted. Patient complained of pain in left foot . waiting for vascular surgery to see him tomorrow. RCRI score 3 points, 10% of major cardiac event. Objective vital signs Vital Sign Date Time Temp Pulse Resp B/P (MAP) Pulse Ox O2 Delivery O2 Flow Rate FiO2 11/16/24 13:17 98.3 88 16 98/48 (65) 100 98.3 11/16/24 08:05 Room Air* 0 21 Total Intake and Output 11/15/24 11/15/24 11/16/24 15:00 23:00 07:00 Intake Total 400 ml 580 ml Output Total 690 ml Balance -290 ml 580 ml medications Current Medications Medications Dose Ordered Sig/Miranda Route Start Time Stop Time Status Last Admin Dose Admin Acetaminophen/ Hydrocodone Bitart 1 tab Q4HP PRN PO 11/10/24 21:30 11/14/24 23:33 1 TAB Morphine Sulfate 2 mg Q4HPRN PRN IV 11/10/24 21:30 11/13/24 13:17 2 MG Enoxaparin Sodium 30 mg DAILY SC 11/11/24 10:00 11/15/24 09:26 30 MG Gabapentin 100 mg TID PO 11/10/24 22:00 11/16/24 14:38 100 MG Pantoprazole Sodium 40 mg DAILY PO 11/11/24 10:00 11/16/24 10:03 40 MG Diagnostic Test (Pha) 1 strip Q6HR 11/11/24 00:00 11/16/24 12:11 1 STRIP Insulin Human Regular Q6HR SC 11/11/24 00:00 11/16/24 12:19 6 UNITS Dextrose 50 ml UD PRN IV 11/10/24 23:00 Metolazone 2.5 mg DAILY PO 11/11/24 10:00 Hold Sacubitril/ Valsartan 1 tab BID PO 11/11/24 10:00 Hold Aspirin 81 mg DAILY PO 11/14/24 10:00 11/16/24 10:03 81 MG Ceftazidime/ Dextrose 50 ml @ 12.5 mls/hr Q8HR IV 11/14/24 14:00 UNV Examination General: Patient alert and oriented in person, place and time. Patient following commands. HEENT: Normocephalic, atraumatic, moist mucous membranes Respiratory/pulmonary: Clear lungs bilaterally, vesicular murmurs present in almost all lung prince, no associated crackles or wheezes. Cardiovascular: Normal heart sounds S1 and S2 with no associated murmurs Abdomen: Abdomen nondistended, there is no pain to palpation in any of the abdominal quadrants, no palpable masses. Extremities: There is no peripheral edema present at the lower extremities. right foot has chronic wound on 2nd toe which is black in color, S/P Left hallux amputation Peripheral Pulses: 3+ Radial (R). 3+ Radial (L). 3+ Dorsalis pedis (R). 3+ Dorsalis pedis(L) Skin: No rashes or pruritus, there is no sacral edema present at this time. Neurological: Intact cranial nerves with no focal neurologic deficits laboratory and microbiology Laboratory Tests 11/14/24 10:15 11/13/24 06:19 Test 11/13/24 06:19 Range/Units Serum Glucose 65 #L 74-106 mg/dL Microbiology Date/Time Source Procedure Growth Status 11/12/24 16:46 Foot Left Gram Stain - Final Resulted 11/12/24 16:46 Foot Left Anaerobic Culture - Preliminary Resulted 11/12/24 16:46 Aerobic Culture - Final Citrobacter freundii Klebsiella oxytoca Resulted 11/12/24 09:20 Blood Blood Culture - Preliminary NO GROWTH AFTER 72 HOURS OF INCUBATION. 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 -Clindamycin IV stopped replaced by vancomycin IV -Cefepime IV replaced by ceftazidime (11/14/24) -Morphine 2mg IV -Surgical consult -Wound Consult -Left foot I&D to bone, Left hallux amputation -physical therapy -aspirin continued, lovenox cont, Plavix hold for possible vasc surg -RCRI risk of 3 points, 10% risk of major cardiac event #Peripheral neuropathy -Gabapentin 100mg TID #Uncontrolled DM2 with hyperglycemia -Insulin Sliding scale -Hb A1c 9.8 #CHF -Entresto 2mg (med reconciliation) -Jardiance 25mg #BPH -Tamsulosin (med reconciliation) GI prophylaxis: Protonix 40 mg per orally daily DVT prophylaxis: Lovenox 40 mg subcutaneous daily Diet: diabetic diet Goals of care discussed with the patient for more than 27 minutes: Full code status Case discussed with Dr. Hyatt, patient and nurse. Plan discussed with: Patient, Other (RN) Dietary Evaluation Review Comments[facility] Glucerna PO 240ml bid supplementation Expected Outcomes/Goals: Gradaully healed wounds. Gradual wt gain Date of Service: Nov 16, 2024 Billing Provider: ETHAN HYATT MD Common Visit Codes: [id number] INP/OBS CARE(HIGH) MONICA BARROS RESIDENT Nov 16, 2024 14:54 ETHAN HYATT MD Nov 21, 2024 21:48
[2024-11-17] VITALS (7 sets, daily range): BP systolic 102–109; BP diastolic 54–60; PULSE 68–101; RESP 16–18; TEMP 96.6–99.4; O2SAT 90–100
[2024-11-17 07:44] LABS: Hematocrit 29.7 % (41.0-53.0); Hemoglobin 10.2 g/dL (13.5-17.5); Mean Corpuscular Hemoglobin 30.3 pg (28.0-32.0); Mean Corpuscular Volume 88.2 fL (80.0-100.0); Nucleated Red Blood Cells % 0.1 %
[2024-11-17 07:51] LABS: INR 1.09 (0.9-1.15); Prothrombin Time 11.5 sec (9.3-11.8)
[2024-11-17 07:53] LABS: Anion Gap 11 (5-15); Carbon Dioxide 25 mmol/L (20-31); Chloride 99 mmol/L (98-107); Potassium 4.3 mmol/L (3.5-5.1)
[2024-11-17 07:59] LABS: BUN/Creatinine Ratio 27.6 (10.0-20.0)
[2024-11-17 08:00] LABS: Blood Urea Nitrogen 24 mg/dL (9-23); Calcium 8.5 mg/dL (8.7-10.4); Glucose 143 mg/dL (74-106); Sodium 135 mmol/L (136-145)
--- NOTE | 2024-11-17 14:31 | DVH ---
Bilateral Lower Extremity Arterial Duplex Clinical History: PAD, history of angioplasty one month back Comparison: US BILAT LOWER DVT on DOS: 09/26/24, CL ANGIO EXTREMITY BILAT Laura on DOS: 09/15/24, US KALE AT LOW EXT ART DUPLEX on DOS: 09/10/24, US LT LOWER DVT on DOS: 09/10/24 Technique: Duplex Doppler evaluation including color Doppler and spectral/pulsed waveform analysis of the lower extremity arteries was performed. Findings: RIGHT: Peak systolic velocities are less than 150 cm/sec. The waveforms are monophasic with diastolic flow. LEFT: Peak systolic velocities are less than 150 cm/sec. The waveforms are monophasic with diastolic flow. IMPRESSION: No hemodynamically significant stenosis based on peak systolic velocity criteria. Monophasic arterial waveforms are present within bilateral lower extremities suggestive of underlying peripheral arterial disease. REFERENCE VALUES, [facility]) vascular Imaging Lab Criteria: Peak systolic velocity rang es (in cm/sec) are as follows: <150 cm/s - <20 % stenosis 150-200 cm/s - 20-49% stenosis 200-300 cm/s - 50-75% stenosis >300 cm/s -> 75% stenosis
--- NOTE | 2024-11-17 16:30 | DVHPNRES ---
Progress Note Date Seen: Nov 17, 2024 Resident Creating Document: RAUL MCCRACKEN RESIDENT Medical Necessity Reason Pt with a Central, PICC or Fol: No Subjective Review of Systems 84-year-old male with a past medical history of CHF with HFrEF 10 -15%, diabetes mellitus type 2 (HBA1c 9.8), CAD and BPH came to the emergency yesterday with chief complaints discoloration of his left great toe associated with left foot redness, cool to touch, swelling and pain of 7/ in 10 intensity with pins and needles sensation. He says that he is being having these symptoms for the past 2 weeks. Patient reports that in September you need to cough his bandage from his legs this can we would go off and he had come to the hospital and podiatry had done an incision and drainage procedure. He was sent home with home health services and wound care and his home health worker had gone for a vacation. It was then that his left big toe became black and so when she came back suggested that he come to the hospital. PMH: CHF, CAD, type 2 diabetes mellitus, BPH PSH: None ( patient refused pacemaker suggested by rail assembler) Family History: reviewed and noncontributory to this case Smoke: Quit (Smoked for about 15 years, quit >20 years ago. ) ALCOHOL: none Drugs: None Lives: Alone Code status : DNR PCP: Dr. Antony. 11/12/2024 patient was seen and examined by me at the bedside. Overnight events were reviewed. Patient has no new active complaints. 11/13/2024: Patient was seen and examined by me at the bedside. Overnight events were reviewed. Patient has no new active complaints. he had an amputation of the left for stool done yesterday. Patient tolerated the procedure well. Patient offered PT evaluation which she declined today. We consulted vascular surgery as podiatry had suggested patient needs consult vascular. Aspirin to be continued, Plavix held. 11/14/2024. Patient was seen and examined by me at the bedside. Overnight events were reviewed. Patient reports he has been in the sole of his feet on the operated leg. Patient declined PT evaluation yesterday and is going to be evaluated today. We are waiting on vascular surgery. we are holding Plavix for now, aspirin will be held from Sunday and Lovenox is being continued for now. 11/15/2024: Patient was seen and examined by me at the bedside. Overnight events were reviewed. Patient complained that he had pain and denied and pain killers helped him. He has agreed for physical therapy evaluation today. We are going to be discontinuing aspirin tomorrow, Plavix held. Waiting for vascular surgery to see him tomorrow. 11/16/2024: patient was seen at bedside. no overnight events were noted. Patient complained of pain in left foot . waiting for vascular surgery to see him tomorrow. RCRI score 3 points, 10% of major cardiac event. 11/17/2024: Patient was seen at bedside. No overnight events were noted. Patient still complains of slight pain in the left foot. arterial duplex was ordered and showedNo hemodynamically significant stenosis based on peak systolic velocity criteria. ask the surgery consult pending. Objective vital signs Vital Sign Date Time Temp Pulse Resp B/P (MAP) Pulse Ox O2 Delivery O2 Flow Rate FiO2 11/17/24 13:00 96.6 68 17 109/56 (73) 98 96.6 11/17/24 08:30 Room Air* 0 21 Total Intake and Output 11/16/24 11/16/24 11/17/24 15:00 23:00 07:00 Intake Total 236 ml 600 ml 400 ml Output Total 236 ml Balance 236 ml 364 ml 400 ml medications Current Medications Medications Dose Ordered Sig/Miranda Route Start Time Stop Time Status Last Admin Dose Admin Acetaminophen/ Hydrocodone Bitart 1 tab Q4HP PRN PO 11/10/24 21:30 11/16/24 21:00 1 TAB Morphine Sulfate 2 mg Q4HPRN PRN IV 11/10/24 21:30 11/13/24 13:17 2 MG Enoxaparin Sodium 30 mg DAILY SC 11/11/24 10:00 11/15/24 09:26 30 MG Gabapentin 100 mg TID PO 11/10/24 22:00 11/17/24 13:41 100 MG Pantoprazole Sodium 40 mg DAILY PO 11/11/24 10:00 11/16/24 10:03 40 MG Diagnostic Test (Pha) 1 strip Q6HR 11/11/24 00:00 11/17/24 11:58 1 STRIP Insulin Human Regular Q6HR SC 11/11/24 00:00 11/17/24 06:28 2 UNITS Dextrose 50 ml UD PRN IV 11/10/24 23:00 Metolazone 2.5 mg DAILY PO 11/11/24 10:00 Hold Sacubitril/ Valsartan 1 tab BID PO 11/11/24 10:00 Hold Aspirin 81 mg DAILY PO 11/14/24 10:00 11/16/24 10:03 81 MG Ceftazidime/ Dextrose 50 ml @ 12.5 mls/hr Q8HR IV 11/14/24 14:00 UNV Ceftazidime/ Dextrose 1 gm/ Sodium Chloride 50 ml @ 16.667 mls/ hr Q8HR IV 11/17/24 14:00 Examination General Appearance: Alert, Oriented X3, Cooperative, mild distress HEENT: Atraumatic, PERRLA, Mucous membr. moist/pink Respiratory: Clear to auscultation, Normal air movement Cardiovascular: Regular rate, Normal S1, Normal S2, No murmurs Abdominal: Normal bowel sounds, Soft, No tenderness, No hepatospenomegaly, No masses Extremities: No clubbing, No cyanosis, Fresh bandage wrapped around the left foot no soakage. right foot has chronic wound on 2nd toe which is black in color.) Skin: No rashes, No breakdown, No significant lesion (Multiple scars of healed ulcer on left polk and leg. ) Neuro: Normal speech, Strength at 5/5 X4 ext, Normal tone, Cranial nerves 3-12 NL Psych/Mental Status: Mental status NL, Mood NL laboratory and microbiology Laboratory Tests 11/17/24 06:58 Test 11/17/24 06:58 Range/Units Serum Glucose 143 H 74-106 mg/dL Microbiology Date/Time Source Procedure Growth Status 11/12/24 16:46 Foot Left Gram Stain - Final Resulted 11/12/24 16:46 Foot Left Anaerobic Culture - Preliminary Resulted 11/12/24 16:46 Aerobic Culture - Final Citrobacter freundii Klebsiella oxytoca Resulted 11/12/24 09:20 Blood Blood Culture - Final NO GROWTH AFTER 5 DAYS OF INCUBATION. 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 -Clindamycin IV stopped replaced by vancomycin IV -Cefepime IV stopped -Morphine 2mg IV -Surgical consult -Wound Consult -Left foot I&D to bone, Left hallux amputation -pt declined today, will try tomm -aspirin continued, Plavix hold -wound culture reports show Citrobacter freundii and klebsiella oxytoca -abx changed to ceftazidime since 11/15/24 -Art duplex(11/17)- No hemodynamically significant stenosis based on peak systolic velocity criteria. -vasc surg consult,pending #Peripheral neuropathy -Gabapentin 100mg TID #Uncontrolled DM2 with hyperglycemia HbA1c- 9.8 -Mod Insulin Sliding scale #CHF -Entresto 2mg (med reconciliation) -Jardiance 25mg #BPH -Tamsulosin (med reconciliation) GI prophylaxis: Protonix 40 mg per orally daily DVT prophylaxis: Lovenox 40 mg subcutaneous daily Diet: diabetic diet Goals of care discussed with the patient for more than 27 minutes: Full code status Case discussed with Dr. Gaines, patient and nurse. Diabetic diet DVT prophylaxis PUD prophylaxis Protonic Plan discussed with: Patient, Other (rn) My Orders My Orders Orders - RAUL MCCRACKEN Procedure Category Date Status Time Consult CONS 11/17/24 Transmitted Vascular/Endovascular 06:29 Bilat Low Ext Art US 11/17/24 Resulted Duplex 13:18 Cardiac DIET 11/17/24 Transmitted Diet-2gna,Lofat,Lochol Lunch Dietary Evaluation Review Comments: CCHO-45 cardiac diet Glucerna PO 240ml bid supplementation Expected Outcomes/Goals: Gradaully healed wounds. Gradual wt gain Date of Service: Nov 17, 2024 Billing Provider: ZENAIDA DE MD Common Visit Codes: [id number] INP/OBS CARE(HIGH) RAUL MCCRACKEN Nov 17, 2024 16:30 ZENAIDA DE MD Nov 18, 2024 17:39
[2024-11-17] MEDS: cefTAZidime 1 GM in SODIUM CHL 0.9% 50 ML IV SCH (17:43)
--- NOTE | 2024-11-17 20:26 | DVHCONRES ---
Date Seen: Nov 17, 2024 Resident Creating Document: SEAN CONSTANTINO Jr., MD Referring Physician medicine Reason for Consultation Severe peripheral vascular disease of the left leg. Nonhealing toe amputation noon SFA occlusion History of Present Illness 84 year old male with past medical history if CHF, DM2, CAD and BPH. The patient presented to the ED with chief complaint of 2 weeks of noticing change in color on his left great toe, associated left foot redness, cool to touch, swelling and pain 7/10 with pins and needles sensation. The patient reports he was admitted at [facility] 2 mo ago for an infected small wound/ulcer on the left foot first digit after 2 weeks of admission she was discharged with home-health services and wound care. The patient reports that despite the wound care, the left great toe start changing in color, appearance and increase in pain. Today, the pain exacerbates to 9/10 that prompt his visit to the ED. 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 No other CT evidence of osteomyelitis within the left foot. WBC 13.0 x10e3, HbA1C 9.8mg/dl. The patient denies any fever, chills, weakness or other complains. Patient underwent amputation of his digit on the left side several days ago with comments of no bleeding at all at the incision sites line. Patient 2 months ago had a SFA angioplasty however the had a distal occlusion which was proximally 10 cm long with reconstitution of the popliteal artery via profunda. With tibial vessel is patent [id number]. His main runoff was via the profunda and branches. Patient states over the last several weeks his pain has worsened on the left side. He also has a significant history of CHF with the EF of 10-15%. Patient at this time was counseled on the need for probable below-knee amputation. At this point he is refusing. Would like to consider surgical options. I discussed with them significant risk of surgery and we will need cardiac clearance prior to any intervention. Past Medical History CHF, DM2, CAD and BPH. Past Surgical History Amputation Family History: Diabetes mellitus G8 MOTHER G8 FATHER Social History Nonsmoker Allergies: Coded Allergies: NO KNOWN ALLERGIES (Unverified , 09/09/24) Home Meds Reported Medications Clopidogrel Bisulfate (CLOPIDOGREL) 75 Mg Tab, 1 TAB PO DAILY 11/11/24 Metolazone (Metolazone) 5 Mg Tab, 2.5 MG PO DAILY 11/11/24 Empagliflozin (Jardiance) 25 Mg Tab, 1 TAB PO DAILY 11/11/24 Linezolid (Linezolid) 600 Mg Tab, 1 TAB PO BID 11/11/24 Sacubitril-Valsartan (Entresto 24-26 mg) 1 Tab Tab, 1 TAB PO BID 11/11/24 Aspirin (Aspirin Low Dose) 81 Mg Tab, 1 TAB PO DAILY 11/11/24 Gabapentin (Gabapentin) 100 Mg Cap, 1 CAP PO DAILY 11/11/24 Tamsulosin Hcl (Tamsulosin Hcl) 0.4 Mg Cap, 0.4 MG PO DAILY 11/11/24 Current Medications Current Medications Medications (Trade) Dose Ordered Sig/Miranda Route PRN Reason Start Time Stop Time Status Last Admin Ceftazidime/ Dextrose 1 gm/ Sodium Chloride 50 ml @ 16.667 mls/ hr Q8HR IV 11/17/24 14:00 11/17/24 17:43 Review of Systems All systems reviewed otherwise negative other than what is in HPI. Vital Signs Vital Signs Date Time Temp Pulse Resp B/P (MAP) Pulse Ox O2 Delivery O2 Flow Rate FiO2 11/17/24 17:00 97.7 96 16 108/58 (75) 98 97.7 11/17/24 08:30 Room Air* 0 21 Physical Exam Head eyes ears nose and throat exam eyes are nonicteric lungs clear to auscultation heart was regular rate and rhythm abdomen is soft nontender tubular with no pulsatile abdominal masses or bruits lower extremities palpable femoral pulses nonpalpable pedal pulses bilaterally he has a nonhealing left amputation wound with the gangrenous 2nd and 3rd digits. The 1st digit amputation site nonhealing. TS dependent rubor. Labs/Diagnostic Data Labs Test 11/17/24 17:28 11/17/24 06:58 11/14/24 08:10 11/12/24 06:28 Range/Units POC Glucose 252 H 70-106 mg/dl White Blood Count 10.5 4.4-10.8 10^3/uL Red Blood Count 3.37 L 4.5-5.90 10^6/uL Hemoglobin 10.2 L 13.5-17.5 g/dL Hematocrit 29.7 L 41.0-53.0 % Mean Corpuscular Volume 88.2 80.0-100.0 fL Mean Corpuscular Hemoglobin 30.3 28.0-32.0 pg Mean Corpuscular Hemoglobin Concent 34.3 32.0-36.0 g/dL Red Cell Distribution Width 15.9 H 11.8-14.3 % Platelet Count 255 # 140-450 10^3/uL Mean Platelet Volume 8.7 6.9-10.8 fL Neutrophils (%) (Auto) 86.7 H 37.0-80.0 % Lymphocytes (%) (Auto) 7.8 L 10.0-50.0 % Monocytes (%) (Auto) 5.2 0.0-12.0 % Eosinophils (%) (Auto) 0.1 0.0-7.0 % Basophils (%) (Auto) 0.2 0.0-2.0 % Neutrophils # (Auto) 9.1 H 1.6-8.6 10 ^3/uL Lymphocytes # (Auto) 0.8 0.4-5.4 10 ^3/uL Monocytes # (Auto) 0.5 0-1.3 10 ^3/uL Eosinophils # (Auto) 0 0-0.8 10 ^3/uL Basophils # (Auto) 0 0-0.2 10 ^3/uL Nucleated Red Blood Cells 0.1 % Erythrocyte Sedimentation Rate 49 H 0-20 mm/hr Prothrombin Time 11.5 9.3-11.8 sec Prothrombin Time INR 1.09 0.9-1.15 Sodium Level 135 #L 136-145 mmol/L Potassium Level 4.3 3.5-5.1 mmol/L Chloride Level 99 98-107 mmol/L Carbon Dioxide Level 25 20-31 mmol/L Anion Gap 11 5-15 Blood Urea Nitrogen 24 H 9-23 mg/dL Creatinine 0.87 0.700-1.30 mg/dL Glomerular Filtration Rate Calc 85 >90 mL/min BUN/Creatinine Ratio 27.6 H 10.0-20.0 Serum Glucose 143 H 74-106 mg/dL Calcium Level 8.5 L 8.7-10.4 mg/dL C-Reactive Protein High Sensitivity 6.67 H <1.0 mg/dL Influenza Type A Antigen Negative Negative Influenza Type B Antigen Negative Negative SARS-CoV-2 Antigen (Rapid) Negative NEGATIVE Activated Partial Thromboplast Time 49.0 H 24.5-34.5 SEC Random Vancomycin Level 11.3 H 5-10 ug/mL Test 11/11/24 12:05 11/11/24 08:47 11/11/24 03:30 11/10/24 16:22 Range/Units Lactic Acid Level 1.1 0.4-2.0 mmol/L Total Bilirubin 0.5 0.2-1.0 mg/dL Aspartate Amino Transferase (AST) 16 13-40 U/L Alanine Aminotransferase (ALT) 12 7-40 U/L Alkaline Phosphatase 90 46-116 U/L B-Type Natriuretic Peptide 2262.90 0-100 pg/mL Total Protein 6.0 5.7-8.2 g/dL Albumin 3.5 3.2-4.8 g/dL Thyroid Stimulating Hormone (TSH) 0.82 0.55-4.78 uIU/mL Plasma/Serum Blood Alcohol 3.0 <10 mg/dL Urine Color Light-yellow Yellow Urine Clarity Clear Clear Urine pH 5.0 5.0-9.0 Urine Specific [place] 1.022 1.001-1.035 Urine Protein Negative Negative Urine Ketones Negative Negative Urine Blood Negative Negative /uL Urine Nitrite Negative Negative Urine Bilirubin Negative Negative Urine Urobilinogen Normal Negative mg/dL Urine Leukocyte Esterase 1+ Negative /uL Urine RBC 3 0 - 3 /hpf Urine Microscopic WBC 2 0-3 /HPF Urine Squamous Epithelial Cells Few <5 /hpf Urine Bacteria None seen None Seen /hpf Urine Yeast (Budding) Few None Seen /hpf Urine Creatinine 63.45 30.0-125.0 mg/dL Urine Microalbumin 4.0 <30.0 mg/L Urine Protein/Creatinine Ratio 0.10 Urine Glucose 4+ H Normal mg/dL Urine Total Protein 6.1 1-14 mg/dL Urine Opiates Screen Neg NEGATIVE Urine Fentanyl Screen Neg NEGATIVE Urine Barbiturates Screen Neg NEGATIVE Urine Phencyclidine Screen Neg NEGATIVE Urine Amphetamines Screen Neg NEGATIVE Urine Benzodiazepines Screen Neg NEGATIVE Urine Cocaine Screen Neg NEGATIVE Urine Cannabinoids Screen Neg NEGATIVE Hemoglobin A1c 9.8 H <5.7 % A1C Microbiology Date/Time Source Procedure Growth Status 11/12/24 16:46 Foot Left Gram Stain - Final Resulted 11/12/24 16:46 Foot Left Anaerobic Culture - Preliminary Resulted 11/12/24 16:46 Aerobic Culture - Final Citrobacter freundii Klebsiella oxytoca Resulted 11/12/24 09:20 Blood Blood Culture - Final NO GROWTH AFTER 5 DAYS OF INCUBATION. Complete Bilateral Lower Extremity Arterial Duplex Clinical History: PAD, history of angioplasty one month back Comparison: US BILAT LOWER DVT on DOS: 09/26/24, CL ANGIO EXTREMITY BILAT Laura on DOS: 09/15/24, US BILAT LOW EXT ART DUPLEX on DOS: 09/10/24, US LT LOWER DVT on DOS: 09/10/24 Technique: Duplex Doppler evaluation including color Doppler and spectral/pulsed waveform analysis of the lower extremity arteries was performed. Findings: RIGHT: Peak systolic velocities are less than 150 cm/sec. The waveforms are monophasic with diastolic flow. LEFT: Peak systolic velocities are less than 150 cm/sec. The waveforms are monophasic with diastolic flow. IMPRESSION: No hemodynamically significant stenosis based on peak systolic velocity criteria. Monophasic arterial waveforms are present within bilateral lower extremities sug gestive of underlying peripheral arterial disease. Assessment Left SFA occlusion severe peripheral vascular disease nonhealing toe amputation on the left side 1st digit with gangrenous changes of his remaining digits. At this point in time he has a severe peripheral vascular disease with a significantly low EF. Discussed with the patient his options of highly risky bypass surgery versus below-knee amputation. We will discuss with the Cardiology tomorrow regarding the possibility of clearing for any intervention. Plan/Recommendation Left SFA occlusion severe peripheral vascular disease nonhealing toe amputation on the left side 1st digit with gangrenous changes of his remaining digits. At this point in time he has a severe peripheral vascular disease with a significantly low EF. Discussed with the patient his options of highly risky bypass surgery versus below-knee amputation. We will discuss with the Cardiology tomorrow regarding the possibility of clearing for any intervention. Plan discussed with: Patient SEAN CONSTANTINO Jr., MD Nov 17, 2024 20:26
[2024-11-18] VITALS (7 sets, daily range): BP systolic 91–113; BP diastolic 49–62; PULSE 75–87; RESP 16–22; TEMP 97.5–98.8; O2SAT 86–99
[2024-11-18] MEDS ORDERED: PATIENTS OWN MEDICATION (Empagliflozin (Jardiance) 1 TAB) PO SCH (10:00)
[2024-11-18] MEDS: EMPAGLIFLOZIN 10 MG TAB PO SCH (10:34)
[2024-11-18 11:30] LABS: Iron 25.0 ug/dL (65-175)
[2024-11-18 11:36] LABS: Total Iron Binding Capacity 186.0 ug/dL (250-425)
--- NOTE | 2024-11-18 11:36 | DVHINCON2 ---
Date Seen: Nov 18, 2024 Referring Physician MD Елена resident Reason for Consultation Cardiac risk stratification History of Present Illness This is a Kazakh-speaking 84-year-old male patient who presents to the emergency room with chief complaint of left great toe wound. The patient came to the emergency room for further evaluation of his left great toe which was becoming necrotic at home. During this admission, the patient underwent a left foot I&D to bone and left hallux amputation. Cardiology consultation has been requested by vascular for cardiac risk stratification pending possible [id number] amputation. No twelve lead electrocardiogram was done during this admission. A twelve lead electrocardiogram was ordered at time of assessment and reveals normal sinus rhythm with nonspecific ST segment changes to anterolateral leads. The patient denies any cardiac symptoms such as chest pain, shortness of breath, or palpitations. Significant past medical history includes questionable coronary artery disease, congestive heart failure, hy pertension, dyslipidemia, peripheral arterial disease, and BPH. The patient states he sees manager investment banking in the outpatient setting. The patient is a very poor historian, but claims that he has had a coronary angiogram in the past to which no stents were placed but he was told that he had a "blockage" and has since then been medically managed with Plavix. Past Medical History Past medical history reviewed. No other significant than mentioned above. Past Surgical History Appendectomy Left foot I&D to bone and left hallux amputation on 11/12/2024 Family History: Diabetes mellitus G8 MOTHER G8 FATHER Family History Family history reviewed. Social History Denies the use of tobacco, alcohol or illicit drugs. Allergies: Coded Allergies: NO KNOWN ALLERGIES (Unverified , 09/09/24) Home Meds Reported Medications Carvedilol (Carvedilol) 3.125 Mg Tab, 1 TAB PO BID for 90 Days, #180 11/18/24 Simvastatin (Simvastatin) 20 Mg Tab, 1 TAB PO DAILY for 31 Days, #31 11/18/24 Clopidogrel Bisulfate (CLOPIDOGREL) 75 Mg Tab, 1 TAB PO DAILY 11/11/24 Metolazone (Metolazone) 5 Mg Tab, 2.5 MG PO DAILY 11/11/24 Empagliflozin (Jardiance) 25 Mg Tab, 1 TAB PO DAILY 11/11/24 Linezolid (Linezolid) 600 Mg Tab, 1 TAB PO BID 11/11/24 Sacubitril-Valsartan (Entresto 24-26 mg) 1 Tab Tab, 1 TAB PO BID 11/11/24 Aspirin (Aspirin Low Dose) 81 Mg Tab, 1 TAB PO DAILY 11/11/24 Gabapentin (Gabapentin) 100 Mg Cap, 1 CAP PO DAILY 11/11/24 Tamsulosin Hcl (Tamsulosin Hcl) 0.4 Mg Cap, 0.4 MG PO DAILY 11/11/24 Home Meds Home medications reviewed. Current Medications Current Medications Medications (Trade) Dose Ordered Sig/Miranda Route PRN Reason Start Time Stop Time Status Last Admin Ceftazidime/ Dextrose 1 gm/ Sodium Chloride 50 ml @ 16.667 mls/ hr Q8HR IV 11/17/24 14:00 11/18/24 05:27 Patient Own Medication 1 tab DAILY PO 11/18/24 10:00 11/18/24 06:55 DC Empaglifozin (Jardiance) 25 mg DAILY PO 11/18/24 10:00 11/18/24 10:34 Review of Systems Constitutional: No symptom reported Ears, Nose, & Throat: No symptom reported Eyes: No symptom reported Neurological: No symptoms reported Pulmonary/Respiratory: No symptoms reported Cardiovascular: No symptom reported Gastrointestinal: No symptom reported Genitourinary: No symptom reported Musculoskeletal: No symptom reported Skin: Left great toe wound Psychiatric: No symptom reported Endocrine: No symptom reported Hematologic/Lymphatic: No symptom reported Vital Signs Vital Signs Date Time Temp Pulse Resp B/P (MAP) Pulse Ox O2 Delivery O2 Flow Rate FiO2 11/18/24 09:00 97.5 81 16 100/62 (75) 97 97.5 11/17/24 20:00 Room Air* 0 21 Physical Exam General Appearance: Cooperative. Well-developed. Well-nourished. No acute distress. Pulmonary/Respiratory: Clear, bilateral breaths sounds. Cardiovascular/Chest: Regular rate and rhythm. Peripheral Pulses: 2+ Radial (R). 2+ Radial (L). Abdominal Exam: Normal bowel sounds. Ankle Exam: Negative ankle edema Lower extremities: Negative lower extremity edema Neuro/Mental Status: A/OX4, coherent. Thoughts/Psych: Normal thought pattern. Appropriate mood and affect. Good judgment and insight. Appearance: No acute distress. Skin Exam: Dressing to left foot clean, dry, and intact. Labs/Diagnostic Data Labs Test 11/18/24 10:55 11/18/24 04:34 11/17/24 06:58 11/14/24 08:10 Range/Units Iron Level 25 L 65-175 ug/dL POC Glucose 137 H 70-106 mg/dl White Blood Count 10.5 4.4-10.8 10^3/uL Red Blood Count 3.37 L 4.5-5.90 10^6/uL Hemoglobin 10.2 L 13.5-17.5 g/dL Hematocrit 29.7 L 41.0-53.0 % Mean Corpuscular Volume 88.2 80.0-100.0 fL Mean Corpuscular Hemoglobin 30.3 28.0-32.0 pg Mean Corpuscular Hemoglobin Concent 34.3 32.0-36.0 g/dL Red Cell Distribution Width 15.9 H 11.8-14.3 % Platelet Count 255 # 140-450 10^3/uL Mean Platelet Volume 8.7 6.9-10.8 fL Neutrophils (%) (Auto) 86.7 H 37.0-80.0 % Lymphocytes (%) (Auto) 7.8 L 10.0-50.0 % Monocytes (%) (Auto) 5.2 0.0-12.0 % Eosinophils (%) (Auto) 0.1 0.0-7.0 % Basophils (%) (Auto) 0.2 0.0-2.0 % Neutrophils # (Auto) 9.1 H 1.6-8.6 10 ^3/uL Lymphocytes # (Auto) 0.8 0.4-5.4 10 ^3/uL Monocytes # (Auto) 0.5 0-1.3 10 ^3/uL Eosinophils # (Auto) 0 0-0.8 10 ^3/uL Basophils # (Auto) 0 0-0.2 10 ^3/uL Nucleated Red Blood Cells 0.1 % Erythrocyte Sedimentation Rate 49 H 0-20 mm/hr Prothrombin Time 11.5 9.3-11.8 sec Prothrombin Time INR 1.09 0.9-1.15 Sodium Level 135 #L 136-145 mmol/L Potassium Level 4.3 3.5-5.1 mmol/L Chloride Level 99 98-107 mmol/L Carbon Dioxide Level 25 20-31 mmol/L Anion Gap 11 5-15 Blood Urea Nitrogen 24 H 9-23 mg/dL Creatinine 0.87 0.700-1.30 mg/dL Glomerular Filtration Rate Calc 85 >90 mL/min BUN/Creatinine Ratio 27.6 H 10.0-20.0 Serum Glucose 143 H 74-106 mg/dL Calcium Level 8.5 L 8.7-10.4 mg/dL C-Reactive Protein High Sensitivity 6.67 H <1.0 mg/dL Influenza Type A Antigen Negative Negative Influenza Type B Antigen Negative Negative SARS-CoV-2 Antigen (Rapid) Negative NEGATIVE Test 11/12/24 06:28 11/11/24 12:05 11/11/24 08:47 11/11/24 03:30 Range/Units Activated Partial Thromboplast Time 49.0 H 24.5-34.5 SEC Random Vancomycin Level 11.3 H 5-10 ug/mL Lactic Acid Level 1.1 0.4-2.0 mmol/L Total Bilirubin 0.5 0.2-1.0 mg/dL Aspartate Amino Transferase (AST) 16 13-40 U/L Alanine Aminotransferase (ALT) 12 7-40 U/L Alkaline Phosphatase 90 46-116 U/L B-Type Natriuretic Peptide 2262.90 0-100 pg/mL Total Protein 6.0 5.7-8.2 g/dL Albumin 3.5 3.2-4.8 g/dL Thyroid Stimulating Hormone (TSH) 0.82 0.55-4.78 uIU/mL Plasma/Serum Blood Alcohol 3.0 <10 mg/dL Urine Color Light-yellow Yellow Urine Clarity Clear Clear Urine pH 5.0 5.0-9.0 Urine Specific [place] 1.022 1.001-1.035 Urine Protein Negative Negative Urine Ketones Negative Negative Urine Blood Negative Negative /uL Urine Nitrite Negative Negative Urine Bilirubin Negative Negative Urine Urobilinogen Normal Negative mg/dL Urine Leukocyte Esterase 1+ Negative /uL Urine RBC 3 0 - 3 /hpf Urine Microscopic WBC 2 0-3 /HPF Urine Squamous Epithelial Cells Few <5 /hpf Urine Bacteria None seen None Seen /hpf Urine Yeast (Budding) Few None Seen /hpf Urine Creatinine 63.45 30.0-125.0 mg/dL Urine Microalbumin 4.0 <30.0 mg/L Urine Protein/Creatinine Ratio 0.10 Urine Glucose 4+ H Normal mg/dL Urine Total Protein 6.1 1-14 mg/dL Urine Opiates Screen Neg NEGATIVE Urine Fentanyl Screen Neg NEGATIVE Urine Barbiturates Screen Neg NEGATIVE Urine Phencyclidine Screen Neg NEGATIVE Urine Amphetamines Screen Neg NEGATIVE Urine Benzodiazepines Screen Neg NEGATIVE Urine Cocaine Screen Neg NEGATIVE Urine Cannabinoids Screen Neg NEGATIVE Test 11/10/24 16:22 Range/Units Hemoglobin A1c 9.8 H <5.7 % A1C Microbiology Date/Time Source Procedure Growth Status 11/12/24 16:46 Foot Left Gram Stain - Final Complete 11/12/24 16:46 Foot Left Anaerobic Culture - Final Complete 11/12/24 16:46 Aerobic Culture - Final Citrobacter freundii Klebsiella oxytoca Complete 11/12/24 09:20 Blood Blood Culture - Final NO GROWTH AFTER 5 DAYS OF INCUBATION. Complete Assessment Preprocedural cardiovascular examination Chronic compensated HFrEF, NYHA class II Coronary artery disease without stent placement (on Plavix) Severe peripheral arterial disease Moderate aortic and mitral regurgitation Hypertension Dyslipidemia Type 2 diabetes mellitus BPH Plan/Recommendation We will continue with the following plan/recommendations (Dr. Gomez): Patient seen and examined at bedside with . A previous transthoracic echocardiogram from 09/26/2024 reveals an EF of 10-15% with a global hypokinesis and RVSP 43 mmHg. A chest x-ray done on this admission reveals no acute cardiopulmonary disease. Revised cardiac risk index (Shaji criteria): 2 points (5% risk of major cardiac event). The patient does have an underlying history of congestive heart failure as well as coronary artery disease. At the time of assessment, the patient has no cardiac symptoms. Prior to admission, the patient reports a good functional capacity. Per Cardiology standpoint, the patient is at a moderate risk for moderate risk surgery. Spoke with the patient and educated him that he has a low ejection fraction and he has at least a moderate risk for surgery. Patient verified understanding, all questions answered. There is no additional cardiac workup indicated prior to surgery. Thank you for allowing us to care for this patient. Please call with any questions or concerns. Critical care time spent: 44 minutes This medical document was created using an electronic medical record system with voice recognition software and computerized dictation system. Although this document has been carefully reviewed, there might still be some phonetic and typographical errors. Occasional wrong-word or ``sound-alike substitutions may have occurred due to the inherent limitations of voice recognition software. These areas are purely typographical due to imperfections of the software programs and do not reflect any compromise in the patient's medical care. Please read the chart carefully and recognize, using context, where these substitutions have occurred. Plan discussed with: Patient NYHA Physical activity limitations: Class2(Slight)fatigue,sob (palpitatns, angina w activityv) Date of Service: Nov 18, 2024 Billing Provider: LEOPOLDO COLON Cardiology Common Codes: 58932-FDMJVWC INP/OBS CARE (High) Cardiology Consultation Codes: 16326-[id number] CONSULT <45MIN LEOPOLDO COLON Nov 18, 2024 11:35
--- NOTE | 2024-11-18 14:50 | DVHPNRES ---
Progress Note Date Seen: Nov 18, 2024 Resident Creating Document: RAUL MCCRACKEN RESIDENT Medical Necessity Reason Pt with a Central, PICC or Fol: No Subjective Review of Systems 84-year-old male with a past medical history of CHF with HFrEF 10 -15%, diabetes mellitus type 2 (HBA1c 9.8), CAD and BPH came to the emergency yesterday with chief complaints discoloration of his left great toe associated with left foot redness, cool to touch, swelling and pain of 7/ in 10 intensity with pins and needles sensation. He says that he is being having these symptoms for the past 2 weeks. Patient reports that in September you need to cough his bandage from his legs this can we would go off and he had come to the hospital and podiatry had done an incision and drainage procedure. He was sent home with home health services and wound care and his home health worker had gone for a vacation. It was then that his left big toe became black and so when she came back suggested that he come to the hospital. PMH: CHF, CAD, type 2 diabetes mellitus, BPH PSH: None ( patient refused pacemaker suggested by transcribing machine operator) Family History: reviewed and noncontributory to this case Smoke: Quit (Smoked for about 15 years, quit >20 years ago. ) ALCOHOL: none Drugs: None Lives: Alone Code status : DNR PCP: Dr. Antony. 11/12/2024 patient was seen and examined by me at the bedside. Overnight events were reviewed. Patient has no new active complaints. 11/13/2024: Patient was seen and examined by me at the bedside. Overnight events were reviewed. Patient has no new active complaints. he had an amputation of the left for stool done yesterday. Patient tolerated the procedure well. Patient offered PT evaluation which she declined today. We consulted vascular surgery as podiatry had suggested patient needs consult vascular. Aspirin to be continued, Plavix held. 11/14/2024. Patient was seen and examined by me at the bedside. Overnight events were reviewed. Patient reports he has been in the sole of his feet on the operated leg. Patient declined PT evaluation yesterday and is going to be evaluated today. We are waiting on vascular surgery. we are holding Plavix for now, aspirin will be held from Sunday and Lovenox is being continued for now. 11/15/2024: Patient was seen and examined by me at the bedside. Overnight events were reviewed. Patient complained that he had pain and denied and pain killers helped him. He has agreed for physical therapy evaluation today. We are going to be discontinuing aspirin tomorrow, Plavix held. Waiting for vascular surgery to see him tomorrow. 11/16/2024: patient was seen at bedside. no overnight events were noted. Patient complained of pain in left foot . waiting for vascular surgery to see him tomorrow. RCRI score 3 points, 10% of major cardiac event. 11/17/2024: Patient was seen at bedside. No overnight events were noted. Patient still complains of slight pain in the left foot. arterial duplex was ordered and showed-No hemodynamically significant stenosis based on peak systolic velocity criteria. ask the surgery consult pending. 11/18/2024: Patient was seen at the bedside. No overnight events were noted. Patient is of pain in the right foot. Vascular surgery consult was done and we are awaiting cardiac clearance so that a procedure can be done by vascular surgery tomorrow. Objective vital signs Vital Sign Date Time Temp Pulse Resp B/P (MAP) Pulse Ox O2 Delivery O2 Flow Rate FiO2 11/18/24 13:00 97.7 77 19 103/54 (70) 94 97.7 11/17/24 20:00 Room Air* 0 21 Total Intake and Output 11/17/24 11/17/24 11/18/24 15:00 23:00 07:00 Intake Total 500 ml Output Total 260 ml Balance 240 ml medications Current Medications Medications Dose Ordered Sig/Miranda Route Start Time Stop Time Status Last Admin Dose Admin Acetaminophen/ Hydrocodone Bitart 1 tab Q4HP PRN PO 11/10/24 21:30 11/17/24 23:57 1 TAB Morphine Sulfate 2 mg Q4HPRN PRN IV 11/10/24 21:30 11/13/24 13:17 2 MG Enoxaparin Sodium 30 mg DAILY SC 11/11/24 10:00 11/18/24 10:34 30 MG Gabapentin 100 mg TID PO 11/10/24 22:00 11/18/24 14:09 100 MG Pantoprazole Sodium 40 mg DAILY PO 11/11/24 10:00 11/18/24 10:29 40 MG Diagnostic Test (Pha) 1 strip Q6HR 11/11/24 00:00 11/18/24 12:27 1 STRIP Insulin Human Regular Q6HR SC 11/11/24 00:00 11/18/24 12:54 9 UNITS Dextrose 50 ml UD PRN IV 11/10/24 23:00 Metolazone 2.5 mg DAILY PO 11/11/24 10:00 Hold Sacubitril/ Valsartan 1 tab BID PO 11/11/24 10:00 Hold Aspirin 81 mg DAILY PO 11/14/24 10:00 11/18/24 10:29 81 MG Ceftazidime/ Dextrose 50 ml @ 12.5 mls/hr Q8HR IV 11/14/24 14:00 UNV Ceftazidime/ Dextrose 1 gm/ Sodium Chloride 50 ml @ 16.667 mls/ hr Q8HR IV 11/17/24 14:00 11/18/24 14:15 16.667 MLS/HR Empaglifozin 25 mg DAILY PO 11/18/24 10:00 11/18/24 10:34 25 MG Examination General Appearance: Alert, Oriented X3, Cooperative, mild distress HEENT: Atraumatic, PERRLA, Mucous membr. moist/pink Respiratory: Clear to auscultation, Normal air movement Cardiovascular: Regular rate, Normal S1, Normal S2, No murmurs Abdominal: Normal bowel sounds, Soft, No tenderness, No hepatospenomegaly, No masses Extremities: No clubbing, No cyanosis, Fresh bandage wrapped around the left foot no soakage. right foot has chronic wound on 2nd toe which is black in color.) Skin: No rashes, No breakdown, No significant lesion (Multiple scars of healed ulcer on left polk and leg. ) Neuro: Normal speech, Strength at 5/5 X4 ext, Normal tone, Cranial nerves 3-12 NL Psych/Mental Status: Mental status NL, Mood NL laboratory and microbiology Laboratory Tests 11/17/24 06:58 Test 11/17/24 06:58 Range/Units Serum Glucose 143 H 74-106 mg/dL Microbiology Date/Time Source Procedure Growth Status 11/12/24 16:46 Foot Left Gram Stain - Final Complete 11/12/24 16:46 Foot Left Anaerobic Culture - Final Complete 11/12/24 16:46 Aerobic Culture - Final Citrobacter freundii Klebsiella oxytoca Complete 11/12/24 09:20 Blood Blood Culture - Final NO GROWTH AFTER 5 DAYS OF INCUBATION. 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 -Clindamycin IV stopped replaced by vancomycin IV -Cefepime IV stopped -Morphine 2mg IV -Surgical consult -Wound Consult -Left foot I&D to bone, Left hallux amputation -pt declined today, will try tomm -aspirin continued, Plavix hold -wound culture reports show Citrobacter freundii and klebsiella oxytoca -abx changed to ceftazidime since 11/15/24 -Art duplex(11/17)- No hemodynamically significant stenosis based on peak systolic velocity criteria. -vasc surg consult, Left SFA occlusion severe peripheral vascular disease nonhealing toe amputation on the left side 1st digit with gangrenous changes of his remaining digits. At this point in time he has a severe peripheral vascular disease with a significantly low EF. Discussed with the patient his options of highly risky bypass surgery versus below-knee amputation. We will discuss with the Cardiology tomorrow regarding the possibility of clearing for any intervention. -cardiac consultation for clearance, pending #Peripheral neuropathy -Gabapentin 100mg TID #Uncontrolled DM2 with hyperglycemia HbA1c- 9.8 -Mod Insulin Sliding scale #CHF -Entresto 2mg (med reconciliation) -Jardiance 25mg #BPH -Tamsulosin (med reconciliation) GI prophylaxis: Protonix 40 mg per orally daily DVT prophylaxis: Lovenox 40 mg subcutaneous daily Diet: diabetic diet Goals of care discussed with the patient for more than 27 minutes: Full code status Case discussed with Dr. De, patient and nurse. Plan discussed with: Patient, Other (rn) My Orders My Orders Orders - RAUL MCCRACKEN RESIDENT Procedure Category Date Status Time Empagliflozin PHA 11/18/24 In Process (Jardiance) 10:00 * Cardiology Consult CONS 11/18/24 Transmitted 11:06 Dietary Evaluation Review Comments: [facility]-45 cardiac diet Glucerna PO 240ml bid supplementation Expected Outcomes/Goals: Gradaully healed wounds. Gradual wt gain Date of Service: Nov 18, 2024 Billing Provider: ZENAIDA DE MD Common Visit Codes: [id number] INP/OBS CARE(HIGH) RAUL MCCRACKEN RESIDENT Nov 18, 2024 14:50 ZENAIDA DE MD Nov 18, 2024 17:40
--- NOTE | 2024-11-18 23:45 | DVHINCON2 ---
Date Seen: Nov 18, 2024 Referring Physician MD Елена resident Reason for Consultation Cardiac risk stratification History of Present Illness This is a Armenian-speaking 84-year-old male with a PMH of questionable coronary artery disease, congestive heart failure, hypertension, dyslipidemia, peripheral arterial disease, and BPH who presented to the ED with complaints of left great toe wound. The patient came to the ED for further evaluation of his left great toe which was becoming necrotic at home. During this admission, the patient underwent a left foot I&D to bone and left hallux amputation. Cardiology consultation has been requested by vascular for cardiac risk stratification pending possible [id number] amputation. No twelve lead electrocardiogram was done during this admission. A twelve lead electrocardiogram was ordered at time of assessment and reveals normal sinus rhythm with nonspecific ST segment changes to anterolateral leads. The patient denies any cardiac symptoms such as chest pain, shortness of breath, or palpitations. The patient states he sees sap analyst in the outpatient setting. The patient is a very poor historian, but claims that he has had a coronary angiogram in the past to which no stents were placed but he was told that he had a "blockage" and has since then been medically managed with Plavix. Past Medical History Past medical history reviewed. No other significant than mentioned above. Past Surgical History Appendectomy Left foot I&D to bone and left hallux amputation on 11/12/2024 Family History: Diabetes mellitus G8 MOTHER G8 FATHER Allergies: Coded Allergies: NO KNOWN ALLERGIES (Unverified , 09/09/24) Home Meds Reported Medications Carvedilol (Carvedilol) 3.125 Mg Tab, 1 TAB PO BID for 90 Days, #180 11/18/24 Simvastatin (Simvastatin) 20 Mg Tab, 1 TAB PO DAILY for 31 Days, #31 11/18/24 Clopidogrel Bisulfate (CLOPIDOGREL) 75 Mg Tab, 1 TAB PO DAILY 11/11/24 Metolazone (Metolazone) 5 Mg Tab, 2.5 MG PO DAILY 11/11/24 Empagliflozin (Jardiance) 25 Mg Tab, 1 TAB PO DAILY 11/11/24 Linezolid (Linezolid) 600 Mg Tab, 1 TAB PO BID 11/11/24 Sacubitril-Valsartan (Entresto 24-26 mg) 1 Tab Tab, 1 TAB PO BID 11/11/24 Aspirin (Aspirin Low Dose) 81 Mg Tab, 1 TAB PO DAILY 11/11/24 Gabapentin (Gabapentin) 100 Mg Cap, 1 CAP PO DAILY 11/11/24 Tamsulosin Hcl (Tamsulosin Hcl) 0.4 Mg Cap, 0.4 MG PO DAILY 11/11/24 Current Medications Current Medications Medications (Trade) Dose Ordered Sig/Miranda Route PRN Reason Start Time Stop Time Status Last Admin Patient Own Medication 1 tab DAILY PO 11/18/24 10:00 11/18/24 06:55 DC Empaglifozin (Jardiance) 25 mg DAILY PO 11/18/24 10:00 11/18/24 10:34 Review of Systems Constitutional: No symptom reported Ears, Nose, & Throat: No symptom reported Eyes: No symptom reported Neurological: No symptoms reported Pulmonary/Respiratory: No symptoms reported Cardiovascular: No symptom reported Gastrointestinal: No symptom reported Genitourinary: No symptom reported Musculoskeletal: No symptom reported Skin: Left great toe wound Psychiatric: No symptom reported Endocrine: No symptom reported Hematologic/Lymphatic: No symptom reported Vital Signs Vital Signs Date Time Temp Pulse Resp B/P (MAP) Pulse Ox O2 Delivery O2 Flow Rate FiO2 11/18/24 21:00 97.8 84 18 91/53 (66) 98 97.8 11/18/24 20:00 Room Air* 0 21 Physical Exam GENERAL: Alert and oriented x 3. No acute distress. EYES: PERRL, EOMI. Anicteric. HENT: Moist mucous membranes. LUNGS: Clear to auscultation bilaterally. CARDIOVASCULAR: Regular rate and rhythm. ABDOMEN: Soft, non-tender and non-distended. EXTREMITIES: No edema. NEUROLOGIC: No focal neurological deficits. SKIN: Warm, dry. Labs/Diagnostic Data Labs Test 11/18/24 21:00 11/18/24 10:55 11/17/24 06:58 11/14/24 08:10 Range/Units POC Glucose 143 H 70-106 mg/dl Iron Level 25 L 65-175 ug/dL Total Iron Binding Capacity 186 L 250-425 ug/dL Percent Iron Saturation 13.4 L 20-55 % Ferritin 308.2 22-322 ng/mL B-Type Natriuretic Peptide 3467.64 0-100 pg/mL White Blood Count 10.5 4.4-10.8 10^3/uL Red Blood Count 3.37 L 4.5-5.90 10^6/uL Hemoglobin 10.2 L 13.5-17.5 g/dL Hematocrit 29.7 L 41.0-53.0 % Mean Corpuscular Volume 88.2 80.0-100.0 fL Mean Corpuscular Hemoglobin 30.3 28.0-32.0 pg Mean Corpuscular Hemoglobin Concent 34.3 32.0-36.0 g/dL Red Cell Distribution Width 15.9 H 11.8-14.3 % Platelet Count 255 # 140-450 10^3/uL Mean Platelet Volume 8.7 6.9-10.8 fL Neutrophils (%) (Auto) 86.7 H 37.0-80.0 % Lymphocytes (%) (Auto) 7.8 L 10.0-50.0 % Monocytes (%) (Auto) 5.2 0.0-12.0 % Eosinophils (%) (Auto) 0.1 0.0-7.0 % Basophils (%) (Auto) 0.2 0.0-2.0 % Neutrophils # (Auto) 9.1 H 1.6-8.6 10 ^3/uL Lymphocytes # (Auto) 0.8 0.4-5.4 10 ^3/uL Monocytes # (Auto) 0.5 0-1.3 10 ^3/uL Eosinophils # (Auto) 0 0-0.8 10 ^3/uL Basophils # (Auto) 0 0-0.2 10 ^3/uL Nucleated Red Blood Cells 0.1 % Erythrocyte Sedimentation Rate 49 H 0-20 mm/hr Prothrombin Time 11.5 9.3-11.8 sec Prothrombin Time INR 1.09 0.9-1.15 Sodium Level 135 #L 136-145 mmol/L Potassium Level 4.3 3.5-5.1 mmol/L Chloride Level 99 98-107 mmol/L Carbon Dioxide Level 25 20-31 mmol/L Anion Gap 11 5-15 Blood Urea Nitrogen 24 H 9-23 mg/dL Creatinine 0.87 0.700-1.30 mg/dL Glomerular Filtration Rate Calc 85 >90 mL/min BUN/Creatinine Ratio 27.6 H 10.0-20.0 Serum Glucose 143 H 74-106 mg/dL Calcium Level 8.5 L 8.7-10.4 mg/dL C-Reactive Protein High Sensitivity 6.67 H <1.0 mg/dL Influenza Type A Antigen Negative Negative Influenza Type B Antigen Negative Negative SARS-CoV-2 Antigen (Rapid) Negative NEGATIVE Test 11/12/24 06:28 11/11/24 12:05 11/11/24 08:47 11/11/24 03:30 Range/Units Activated Partial Thromboplast Time 49.0 H 24.5-34.5 SEC Random Vancomycin Level 11.3 H 5-10 ug/mL Lactic Acid Level 1.1 0.4-2.0 mmol/L Total Bilirubin 0.5 0.2-1.0 mg/dL Aspartate Amino Transferase (AST) 16 13-40 U/L Alanine Aminotransferase (ALT) 12 7-40 U/L Alkaline Phosphatase 90 46-116 U/L Total Protein 6.0 5.7-8.2 g/dL Albumin 3.5 3.2-4.8 g/dL Thyroid Stimulating Hormone (TSH) 0.82 0.55-4.78 uIU/mL Plasma/Serum Blood Alcohol 3.0 <10 mg/dL Urine Color Light-yellow Yellow Urine Clarity Clear Clear Urine pH 5.0 5.0-9.0 Urine Specific [place] 1.022 1.001-1.035 Urine Protein Negative Negative Urine Ketones Negative Negative Urine Blood Negative Negative /uL Urine Nitrite Negative Negative Urine Bilirubin Negative Negative Urine Urobilinogen Normal Negative mg/dL Urine Leukocyte Esterase 1+ Negative /uL Urine RBC 3 0 - 3 /hpf Urine Microscopic WBC 2 0-3 /HPF Urine Squamous Epithelial Cells Few <5 /hpf Urine Bacteria None seen None Seen /hpf Urine Yeast (Budding) Few None Seen /hpf Urine Creatinine 63.45 30.0-125.0 mg/dL Urine Microalbumin 4.0 <30.0 mg/L Urine Protein/Creatinine Ratio 0.10 Urine Glucose 4+ H Normal mg/dL Urine Total Protein 6.1 1-14 mg/dL Urine Opiates Screen Neg NEGATIVE Urine Fentanyl Screen Neg NEGATIVE Urine Barbiturates Screen Neg NEGATIVE Urine Phencyclidine Screen Neg NEGATIVE Urine Amphetamines Screen Neg NEGATIVE Urine Benzodiazepines Screen Neg NEGATIVE Urine Cocaine Screen Neg NEGATIVE Urine Cannabinoids Screen Neg NEGATIVE Test 11/10/24 16:22 Range/Units Hemoglobin A1c 9.8 H <5.7 % A1C Microbiology Date/Time Source Procedure Growth Status 11/12/24 16:46 Foot Left Gram Stain - Final Complete 11/12/24 16:46 Foot Left Anaerobic Culture - Final Complete 11/12/24 16:46 Aerobic Culture - Final Citrobacter freundii Klebsiella oxytoca Complete 11/12/24 09:20 Blood Blood Culture - Final NO GROWTH AFTER 5 DAYS OF INCUBATION. Complete Assessment Preprocedural cardiovascular examination. Chronic compensated HFrEF, NYHA class II. Coronary artery disease without stent placement (on Plavix). Severe peripheral arterial disease. Moderate aortic and mitral regurgitation. Hypertension. Dyslipidemia. Type 2 diabetes mellitus. BPH. Plan/Recommendation I agree with your ongoing assessment and care of plan. Patient has been seen by Olga Grider NP on my behalf. We have discussed the plan with the patient. Patient seen and examined at bedside. A previous transthoracic echocardiogram from 09/26/2024 reveals an EF of 10-15% with a global hypokinesis and RVSP 43 mmHg. A chest x-ray done on this admission reveals no acute cardiopulmonary disease. Revised cardiac risk index (Shaji criteria): 2 points (5% risk of major cardiac event). The patient does have an underlying history of congestive heart failure as well as coronary artery disease. At the time of assessment, the patient has no cardiac symptoms. Prior to admission, the patient reports a good functional capacity. Per Cardiology standpoint, the patient is at a moderate risk for moderate risk surgery. Spoke with the patient and educated him that he has a low ejection fraction and he has at least a moderate risk for surgery. Patient verified understanding, all questions answered. There is no additional cardiac workup indicated prior to surgery. Additional plan as per the hospital course. Plan discussed with: Patient NYHA Physical activity limitations: Class2(Slight)fatigue,sob Date of Service: Nov 18, 2024 Billing Provider: LUIGI WALL MD Cardiology Common Codes: [id number] INP/OBS CARE (High) Cardiology Consultation Codes: [id number] CONSULT <45MIN LUIGI WALL MD Nov 18, 2024 23:45
[2024-11-19] VITALS (8 sets, daily range): BP systolic 102–119; BP diastolic 62–67; PULSE 74–91; RESP 16–20; TEMP 97.3–98; O2SAT 95–100
[2024-11-19 06:42] LABS: Hematocrit 27.3 % (41.0-53.0); Hemoglobin 9.6 g/dL (13.5-17.5); Mean Corpuscular Hemoglobin 31.0 pg (28.0-32.0); Mean Corpuscular Volume 87.6 fL (80.0-100.0); Nucleated Red Blood Cells % 0.1 %
[2024-11-19 07:08] LABS: Anion Gap 8 (5-15); Carbon Dioxide 25 mmol/L (20-31); Chloride 99 mmol/L (98-107); Potassium 4.0 mmol/L (3.5-5.1)
[2024-11-19 07:15] LABS: BUN/Creatinine Ratio 22.7 (10.0-20.0)
[2024-11-19 07:18] LABS: Blood Urea Nitrogen 25 mg/dL (9-23); Calcium 8.4 mg/dL (8.7-10.4); Glucose 134 mg/dL (74-106); Sodium 132 mmol/L (136-145)
[2024-11-19 07:45] LABS: INR 1.09 (0.9-1.15); Partial Thromboplastin Time 41.9 SEC (24.5-34.5); Prothrombin Time 11.5 sec (9.3-11.8)
--- NOTE | 2024-11-19 08:51 | ECG ---
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
--- NOTE | 2024-11-19 10:54 | DVHPNRES ---
Progress Note Date Seen: Nov 19, 2024 Resident Creating Document: RAUL MCCRACKEN RESIDENT Medical Necessity Reason Pt with a Central, PICC or Fol: No Subjective Review of Systems 84-year-old male with a past medical history of CHF with HFrEF 10 -15%, diabetes mellitus type 2 (HBA1c 9.8), CAD and BPH came to the emergency yesterday with chief complaints discoloration of his left great toe associated with left foot redness, cool to touch, swelling and pain of 7/ in 10 intensity with pins and needles sensation. He says that he is being having these symptoms for the past 2 weeks. Patient reports that in September you need to cough his bandage from his legs this can we would go off and he had come to the hospital and podiatry had done an incision and drainage procedure. He was sent home with home health services and wound care and his home health worker had gone for a vacation. It was then that his left big toe became black and so when she came back suggested that he come to the hospital. PMH: CHF, CAD, type 2 diabetes mellitus, BPH PSH: None ( patient refused pacemaker suggested by debug technician) Family History: reviewed and noncontributory to this case Smoke: Quit (Smoked for about 15 years, quit >20 years ago. ) ALCOHOL: none Drugs: None Lives: Alone Code status : DNR PCP: Dr. Antony. 11/12/2024 patient was seen and examined by me at the bedside. Overnight events were reviewed. Patient has no new active complaints. 11/13/2024: Patient was seen and examined by me at the bedside. Overnight events were reviewed. Patient has no new active complaints. he had an amputation of the left for stool done yesterday. Patient tolerated the procedure well. Patient offered PT evaluation which she declined today. We consulted vascular surgery as podiatry had suggested patient needs consult vascular. Aspirin to be continued, Plavix held. 11/14/2024. Patient was seen and examined by me at the bedside. Overnight events were reviewed. Patient reports he has been in the sole of his feet on the operated leg. Patient declined PT evaluation yesterday and is going to be evaluated today. We are waiting on vascular surgery. we are holding Plavix for now, aspirin will be held from Sunday and Lovenox is being continued for now. 11/15/2024: Patient was seen and examined by me at the bedside. Overnight events were reviewed. Patient complained that he had pain and denied and pain killers helped him. He has agreed for physical therapy evaluation today. We are going to be discontinuing aspirin tomorrow, Plavix held. Waiting for vascular surgery to see him tomorrow. 11/16/2024: patient was seen at bedside. no overnight events were noted. Patient complained of pain in left foot . waiting for vascular surgery to see him tomorrow. RCRI score 3 points, 10% of major cardiac event. 11/17/2024: Patient was seen at bedside. No overnight events were noted. Patient still complains of slight pain in the left foot. arterial duplex was ordered and showed-No hemodynamically significant stenosis based on peak systolic velocity criteria. ask the surgery consult pending. 11/18/2024: Patient was seen at the bedside. No overnight events were noted. Patient is of pain in the left foot. Vascular surgery consult was done and we are awaiting cardiac clearance so that a procedure can be done by vascular surgery tomorrow. 11/19/24: patient was seen at the bedside. Patient reports that this still pain in his left foot. Cardiac clearance was given yesterday and suggested moderate risk for surgery. Vascular surgery was consulted and they have plan to do a procedure of [id number] amputation on the Left leg tomorrow. Patient will be kept NPO after midnight. Objective vital signs Vital Sign Date Time Temp Pulse Resp B/P (MAP) Pulse Ox O2 Delivery O2 Flow Rate FiO2 11/19/24 09:00 97.4 86 16 108/67 (81) 100 97.4 11/18/24 20:00 Room Air* 0 21 Total Intake and Output 11/18/24 11/18/24 11/19/24 14:59 22:59 06:59 Intake Total 50 ml 50 ml 50 ml Balance 50 ml 50 ml 50 ml medications Current Medications Medications Dose Ordered Sig/Miranda Route Start Time Stop Time Status Last Admin Dose Admin Acetaminophen/ Hydrocodone Bitart 1 tab Q4HP PRN PO 11/10/24 21:30 11/19/24 05:31 1 TAB Morphine Sulfate 2 mg Q4HPRN PRN IV 11/10/24 21:30 11/13/24 13:17 2 MG Enoxaparin Sodium 30 mg DAILY SC 11/11/24 10:00 Hold 11/18/24 10:34 30 MG Gabapentin 100 mg TID PO 11/10/24 22:00 11/19/24 05:06 100 MG Pantoprazole Sodium 40 mg DAILY PO 11/11/24 10:00 11/19/24 10:20 40 MG Diagnostic Test (Pha) 1 strip Q6HR 11/11/24 00:00 11/19/24 05:29 1 STRIP Insulin Human Regular Q6HR SC 11/11/24 00:00 11/19/24 05:19 2 UNITS Dextrose 50 ml UD PRN IV 11/10/24 23:00 Metolazone 2.5 mg DAILY PO 11/11/24 10:00 Hold Sacubitril/ Valsartan 1 tab BID PO 11/11/24 10:00 Hold Aspirin 81 mg DAILY PO 11/14/24 10:00 Hold 11/18/24 10:29 81 MG Ceftazidime/ Dextrose 50 ml @ 12.5 mls/hr Q8HR IV 11/14/24 14:00 UNV Ceftazidime/ Dextrose 1 gm/ Sodium Chloride 50 ml @ 16.667 mls/ hr Q8HR IV 11/17/24 14:00 11/19/24 05:06 16.667 MLS/HR Empaglifozin 25 mg DAILY PO 11/18/24 10:00 11/19/24 10:20 25 MG Examination General Appearance: Alert, Oriented X3, Cooperative, mild distress HEENT: Atraumatic, PERRLA, Mucous membr. moist/pink Respiratory: Clear to auscultation, Normal air movement Cardiovascular: Regular rate, Normal S1, Normal S2, No murmurs Abdominal: Normal bowel sounds, Soft, No tenderness, No hepatospenomegaly, No masses Extremities: No clubbing, No cyanosis, bandage wrapped around the left foot no soakage. right foot has chronic wound on 2nd toe which is black in color.) Skin: No rashes, No breakdown, No significant lesion (Multiple scars of healed ulcer on left polk and leg. ) Neuro: Normal speech, Strength at 5/5 X4 ext, Normal tone, Cranial nerves 3-12 NL Psych/Mental Status: Mental status NL, Mood NL laboratory and microbiology Laboratory Tests 11/19/24 05:58 Test 11/19/24 05:58 Range/Units Serum Glucose 134 H 74-106 mg/dL Microbiology Date/Time Source Procedure Growth Status 11/12/24 16:46 Foot Left Gram Stain - Final Complete 11/12/24 16:46 Foot Left Anaerobic Culture - Final Complete 11/12/24 16:46 Aerobic Culture - Final Citrobacter freundii Klebsiella oxytoca Complete 11/12/24 09:20 Blood Blood Culture - Final NO GROWTH AFTER 5 DAYS OF INCUBATION. 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 -Clindamycin IV stopped replaced by vancomycin IV -Cefepime IV stopped -Morphine 2mg IV -Surgical consult -Wound Consult -Left foot I&D to bone, Left hallux amputation -pt declined today, will try tomm -aspirin continued, Plavix hold -wound culture reports show Citrobacter freundii and klebsiella oxytoca -abx changed to ceftazidime since 11/15/24 -Art duplex(11/17)- No hemodynamically significant stenosis based on peak systolic velocity criteria. -vasc surg consult, Left SFA occlusion severe peripheral vascular disease nonhealing toe amputation on the left side 1st digit with gangrenous changes of his remaining digits. At this point in time he has a severe peripheral vascular disease with a significantly low EF. Discussed with the patient his options of highly risky bypass surgery versus below-knee amputation. We will discuss with the Cardiology tomorrow regarding the possibility of clearing for any intervention. -cardiac consultation suggested-Per Cardiology standpoint, the patient is at a moderate risk for moderate risk surgery. -BKA on left leg tomm as per vascsurg -NPO from midnight #Peripheral neuropathy -Gabapentin 100mg TID #Uncontrolled DM2 with hyperglycemia HbA1c- 9.8 -Mod Insulin Sliding scale #CHF -Entresto 2mg (med reconciliation) -Jardiance 25mg #BPH -Tamsulosin (med reconciliation) GI prophylaxis: Protonix 40 mg per orally daily DVT prophylaxis: Lovenox 40 mg subcutaneous daily Diet: diabetic diet Goals of care discussed with the patient for more than 27 minutes: Full code status Case discussed with Dr. De, patient and nurse. Plan discussed with: Patient, Other (rn) My Orders My Orders Orders - RAUL MCCRACKEN Procedure Category Date Status Time * Cardiology Consult CONS 11/18/24 Transmitted 11:06 Cardiac DIET 11/19/24 Transmitted Diet-2gna,Lofat,Lochol Lunch Dietary Evaluation Review Comments: [facility]-45 cardiac diet Glucerna PO 240ml bid supplementation Expected Outcomes/Goals: Gradaully healed wounds. Gradual wt gain Date of Service: Nov 19, 2024 Billing Provider: ZENAIDA DE MD Common Visit Codes: [id number] INP/OBS CARE(HIGH) RAUL MCCRACKEN Nov 19, 2024 10:54 ZENAIDA DE MD Nov 19, 2024 23:56
--- NOTE | 2024-11-19 23:40 | DVHPN2 ---
Progress Note - Dictate Date Seen: Nov 19, 2024 Medical Necessity Reason Pt with a Central, PICC or Fol: No Subjective Patient was seen and evaluated in follow up. Patient is complaining of LLE pain. The patient is scheduled for a LLE BKA tomorrow by Dr. Christie. HGB 9.6, HCT 27.3, PT 41.9, NA 132, BUN 25, GLUC 319, CA 8.4. Telemetry reviewed. vital signs Vital Sign Date Time Temp Pulse Resp B/P (MAP) Pulse Ox O2 Delivery O2 Flow Rate FiO2 11/19/24 21:00 98.0 87 18 108/62 (77) 100 98.0 11/19/24 08:00 Room Air* 0 21 Total Intake and Output 11/18/24 11/18/24 11/19/24 15:00 23:00 07:00 Intake Total 50 ml 50 ml 50 ml Balance 50 ml 50 ml 50 ml medications Current Medications Medications Dose Ordered Sig/Miranda Route Start Time Stop Time Status Last Admin Dose Admin Acetaminophen/ Hydrocodone Bitart 1 tab Q4HP PRN PO 11/10/24 21:30 11/19/24 18:10 1 TAB Morphine Sulfate 2 mg Q4HPRN PRN IV 11/10/24 21:30 11/13/24 13:17 2 MG Enoxaparin Sodium 30 mg DAILY SC 11/11/24 10:00 Hold 11/18/24 10:34 30 MG Gabapentin 100 mg TID PO 11/10/24 22:00 11/19/24 21:45 100 MG Pantoprazole Sodium 40 mg DAILY PO 11/11/24 10:00 11/19/24 10:20 40 MG Diagnostic Test (Pha) 1 strip Q6HR 11/11/24 00:00 11/19/24 18:02 1 STRIP Insulin Human Regular Q6HR SC 11/11/24 00:00 11/19/24 18:05 12 UNITS Dextrose 50 ml UD PRN IV 11/10/24 23:00 Metolazone 2.5 mg DAILY PO 11/11/24 10:00 Hold Sacubitril/ Valsartan 1 tab BID PO 11/11/24 10:00 Hold Aspirin 81 mg DAILY PO 11/14/24 10:00 Hold 11/18/24 10:29 81 MG Ceftazidime/ Dextrose 50 ml @ 12.5 mls/hr Q8HR IV 11/14/24 14:00 UNV Empaglifozin 25 mg DAILY PO 11/18/24 10:00 11/19/24 10:20 25 MG Ceftazidime/ Dextrose 1 gm/ Sodium Chloride 50 ml @ 16.667 mls/ hr Q12HR IV 11/20/24 10:00 objective GENERAL: Alert and oriented x 3. No acute distress. EYES: PERRL, EOMI. Anicteric. HENT: Moist mucous membranes. LUNGS: Clear to auscultation bilaterally. CARDIOVASCULAR: Regular rate and rhythm. ABDOMEN: Soft, non-tender and non-distended. EXTREMITIES: No edema. NEUROLOGIC: No focal neurological deficits. SKIN: Warm, dry. laboratory and microbiology Laboratory Tests 11/19/24 05:58 Test 11/19/24 05:58 Range/Units Serum Glucose 134 H 74-106 mg/dL Problem List Preprocedural cardiovascular examination. Chronic compensated HFrEF, NYHA class II. Coronary artery disease without stent placement (on Plavix). Severe peripheral arterial disease. Moderate aortic and mitral regurgitation. Hypertension. Dyslipidemia. Type 2 diabetes mellitus. BPH. Assessment/Plan Continued all current supportive medical care. Morphine and Urania for pain management. IV antibiotics as ordered. GI prophylactics. Additional plan as per the hospital course. [facility]ary Evaluation [facility] Glucerna PO 240ml bid supplementation Expected Outcomes/Goals: Gradaully healed wounds. Gradual wt gain Plan discussed with: Patient LUIGI WALL MD Nov 19, 2024 22:08
[2024-11-20] VITALS (11 sets, daily range): BP systolic 101–118; BP diastolic 59–69; PULSE 74–94; RESP 12–19; TEMP 97.3–98; O2SAT 98–100
[2024-11-20] MEDS: HYDROcodone-ACET 5/325MG TAB PO PRN (05:21)
--- NOTE | 2024-11-20 05:32 | DVH ---
CHEST RADIOGRAPH Indication: Surgery Technique: Single frontal view of the chest was obtained Comparison: XY CHEST XRAY 1 VIEW on DOS: 11/12/24 FINDINGS: Lines and Tubes: None Lungs: No focal consolidation. Pleura: No effusion. No pneumothorax. Cardiomediastinal contours: Cardiomegaly. Bones: No acute osseous abnormality. IMPRESSION: 1. No acute cardiopulmonary disease.
[2024-11-20] MEDS: LIDOCAINE 2% JELLY 11ml (GLYDO) ONE (07:23)
[2024-11-20] MEDS: BUPIVACAINE 0.5% P/F INJ 10 ML VIAL ONE (07:30)
[2024-11-20] MEDS: ceFAZolin 2 GM/D5W50ml 50 ML IV ONE (07:35)
[2024-11-20] MEDS ORDERED: LIDOCAINE 1% INJ PF 5ML AMP ONE (07:36)
[2024-11-20] MEDS ORDERED: MIDAZOLAM HCL 2MG/2ML 2ml VIAL (1mg/ml) ONE (07:36)
[2024-11-20] MEDS ORDERED: PROPOFOL 10 MG/ML 20 ML IV ONE (07:36)
[2024-11-20] MEDS ORDERED: fentaNYL CITRATE 100 MCG/2 ML VL ONE (07:36)
[2024-11-20] MEDS: LIDOCAINE 1% HCL (LOCAL ANESTH.) INJ 20ML MDV ONE (08:07)
[2024-11-20] MEDS: BUPIVACAINE 0.25% INJ 50ML VIAL ONE (08:07)
[2024-11-20] MEDS ORDERED: hydrALAZINE HCL 20 MG/ML VL IV PRN (08:15)
[2024-11-20] MEDS ORDERED: HYDROmorphone HCL 2 MG/ML VL/or syr IV PRN (08:15)
[2024-11-20] MEDS ORDERED: MORPHINE SULFATE 4 MG/ML SYR/VIAL IV PRN (08:15)
[2024-11-20] MEDS ORDERED: MIDAZOLAM HCL 2MG/2ML 2ml VIAL (1mg/ml) IV PRN (08:15)
[2024-11-20] MEDS: ONDANSETRON HCL 4 MG/2 ML VIAL IV ONE (08:15)
--- NOTE | 2024-11-20 09:09 | DVHOP2 ---
Operative Report - 2 Report Details Date: 11/20/24 Preop Diagnosis: Severe peripheral vascular disease left foot gangrene Postop Diagnosis: Same as preop Surgeon: Eliceo Christie MD Anesthesiologist: Dr. carr Anesthesia: [facility] Consent: The patient was informed of the risks and benefits of the procedure. These include but are not limited to complications of anesthesia, postoperative infection, incomplete relief of symptoms, recurrence of symptoms, damage to blood vessels, nerves and tendons, deep venous thrombosis, pulmonary embolism and possible need for repeat surgery in the future. Estimated Blood Loss: 150 mL Name of Procedure Performed Left below-knee amputation Procedure Details Procedure Details: Patient was identified in the preop hold area is being Mr. Langston. He was consented and preopped by myself he was brought back to the operating room placed the operating table in supine position after adequate induction of anesthesia antibiotics and time-out the left leg was then prepped and draped in normal surgical fashion. Incision was made 10 cm below the tibial tuberosity a standard BKA incision was made with a posterior flaps dissection was taken down to the tibia tibia was circumferentially controlled the anterior compartment was then divided the anterior tibial artery was ligated however it was heavily calcified with minimal bleeding. Attention was then placed to the saphenous vein which was divided and ligated. The fibula was also then circumferentially controlled. Using a bone saw the tibia was then divided and then beveled the fibula was then divided with a bone saw a proximally 1 cm higher. The posterior muscles were then taken off of the tibia and fibula it with sharp dissection. The specimen was then sent off for pathology. The posterior flap was healthy. There was tibioperoneal arteries were ligated distally there was minimal bleeding from those as well. Heavily calcified vessels. The flap was then irrigated out there was no signs of infection healthy muscle. The pretibial fascia was then sewn to the Achilles tendon create the posterior flap. The deep layer was then closed with 2-0 Vicryl sutures followed by dermal layers of 2-0 Vicryl sutures followed by skin closure with christina. Sponge and needle counts were correct a sterile dressing was applied and the patient was taken to the PACU in stable condition. Specimen: Left below-knee amputation Condition Good Disposition Still a Patient ELICEO CHRISTIE Jr., MD Nov 20, 2024 09:09
[2024-11-20] MEDS: cefTAZidime 1 GM in SODIUM CHL 0.9% 50 ML IV SCH (10:00)
[2024-11-20] MEDS: ACCU-CHEK COMFORT CURVE STRIP VI ONE (10:02)
[2024-11-20] MEDS ORDERED: LEVO750T40 PO (10:52)
[2024-11-20] MEDS ORDERED: LEVO500T91 PO (11:14)
[2024-11-20 11:15] LABS: Hematocrit 26.6 % (41.0-53.0); Hemoglobin 9.0 g/dL (13.5-17.5); Mean Corpuscular Hemoglobin 29.9 pg (28.0-32.0); Mean Corpuscular Volume 88.5 fL (80.0-100.0); Nucleated Red Blood Cells % 0.0 %
[2024-11-20 11:20] LABS: Chloride 99 mmol/L (98-107); Potassium 4.6 mmol/L (3.5-5.1)
[2024-11-20 11:21] LABS: Anion Gap 10 (5-15); Carbon Dioxide 25 mmol/L (20-31); Sodium 134 mmol/L (136-145)
[2024-11-20 11:23] LABS: Calcium 8.5 mg/dL (8.7-10.4)
[2024-11-20 11:26] LABS: BUN/Creatinine Ratio 21.2 (10.0-20.0)
[2024-11-20 11:27] LABS: Blood Urea Nitrogen 24 mg/dL (9-23); Glucose 207 mg/dL (74-106)
--- NOTE | 2024-11-20 20:07 | DVHPNRES ---
Progress Note Date Seen: Nov 20, 2024 Resident Creating Document: RAUL MCCRACKEN RESIDENT Medical Necessity Reason Pt with a Central, PICC or Fol: No Subjective Review of Systems 84-year-old male with a past medical history of CHF with HFrEF 10 -15%, diabetes mellitus type 2 (HBA1c 9.8), CAD and BPH came to the emergency yesterday with chief complaints discoloration of his left great toe associated with left foot redness, cool to touch, swelling and pain of 7/ in 10 intensity with pins and needles sensation. He says that he is being having these symptoms for the past 2 weeks. Patient reports that in September you need to cough his bandage from his legs this can we would go off and he had come to the hospital and podiatry had done an incision and drainage procedure. He was sent home with home health services and wound care and his home health worker had gone for a vacation. It was then that his left big toe became black and so when she came back suggested that he come to the hospital. PMH: CHF, CAD, type 2 diabetes mellitus, BPH PSH: None ( patient refused pacemaker suggested by stockroom associate) Family History: reviewed and noncontributory to this case Smoke: Quit (Smoked for about 15 years, quit >20 years ago. ) ALCOHOL: none Drugs: None Lives: Alone Code status : DNR PCP: Dr. Antony. 11/12/2024 patient was seen and examined by me at the bedside. Overnight events were reviewed. Patient has no new active complaints. 11/13/2024: Patient was seen and examined by me at the bedside. Overnight events were reviewed. Patient has no new active complaints. he had an amputation of the left for stool done yesterday. Patient tolerated the procedure well. Patient offered PT evaluation which she declined today. We consulted vascular surgery as podiatry had suggested patient needs consult vascular. Aspirin to be continued, Plavix held. 11/14/2024. Patient was seen and examined by me at the bedside. Overnight events were reviewed. Patient reports he has been in the sole of his feet on the operated leg. Patient declined PT evaluation yesterday and is going to be evaluated today. We are waiting on vascular surgery. we are holding Plavix for now, aspirin will be held from Sunday and Lovenox is being continued for now. 11/15/2024: Patient was seen and examined by me at the bedside. Overnight events were reviewed. Patient complained that he had pain and denied and pain killers helped him. He has agreed for physical therapy evaluation today. We are going to be discontinuing aspirin tomorrow, Plavix held. Waiting for vascular surgery to see him tomorrow. 11/16/2024: patient was seen at bedside. no overnight events were noted. Patient complained of pain in left foot . waiting for vascular surgery to see him tomorrow. RCRI score 3 points, 10% of major cardiac event. 11/17/2024: Patient was seen at bedside. No overnight events were noted. Patient still complains of slight pain in the left foot. arterial duplex was ordered and showed-No hemodynamically significant stenosis based on peak systolic velocity criteria. ask the surgery consult pending. 11/18/2024: Patient was seen at the bedside. No overnight events were noted. Patient is of pain in the left foot. Vascular surgery consult was done and we are awaiting cardiac clearance so that a procedure can be done by vascular surgery tomorrow. 11/19/24: patient was seen at the bedside. Patient reports that this still pain in his left foot. Cardiac clearance was given yesterday and suggested moderate risk for surgery. Vascular surgery was consulted and they have plan to do a procedure of vzhso-ldv-bucp amputation on the Left leg tomorrow. Patient will be kept NPO after midnight. 11/20: Patient was seen at the bedside by me. Patient 11/18/2024: Patient was seen at the bedside. No overnight events were noted. Patient is of pain in the left foot. Vascular surgery consult was done and we are awaiting cardiac clearance so that a procedure can be done by vascular surgery tomorrow. 11/19/24: patient was seen at the bedside. patient had a yeftb-hck-vtwr amputation of the left leg with vascular surgery today. Possible discharge tomorrow. Objective vital signs Vital Sign Date Time Temp Pulse Resp B/P (MAP) Pulse Ox O2 Delivery O2 Flow Rate FiO2 11/20/24 17:02 97.3 91 16 101/59 (73) 100 97.3 11/20/24 10:18 Room Air* 0 21 Total Intake and Output 11/19/24 11/19/24 11/20/24 15:00 23:00 07:00 Intake Total 50 ml 100 ml 50 ml Output Total 400 ml Balance 50 ml 100 ml -350 ml medications Current Medications Medications Dose Ordered Sig/Miranda Route Start Time Stop Time Status Last Admin Dose Admin Enoxaparin Sodium 30 mg DAILY SC 11/11/24 10:00 Hold 11/18/24 10:34 30 MG Gabapentin 100 mg TID PO 11/10/24 22:00 11/20/24 14:40 100 MG Pantoprazole Sodium 40 mg DAILY PO 11/11/24 10:00 11/20/24 13:17 40 MG Diagnostic Test (Pha) 1 strip Q6HR 11/11/24 00:00 11/20/24 17:16 1 STRIP Insulin Human Regular Q6HR SC 11/11/24 00:00 11/20/24 17:29 15 UNITS Dextrose 50 ml UD PRN IV 11/10/24 23:00 Metolazone 2.5 mg DAILY PO 11/11/24 10:00 Hold Sacubitril/ Valsartan 1 tab BID PO 11/11/24 10:00 Hold Aspirin 81 mg DAILY PO 11/14/24 10:00 Hold 11/18/24 10:29 81 MG Ceftazidime/ Dextrose 50 ml @ 12.5 mls/hr Q8HR IV 11/14/24 14:00 UNV Empaglifozin 25 mg DAILY PO 11/18/24 10:00 11/20/24 13:17 25 MG Ceftazidime/ Dextrose 1 gm/ Sodium Chloride 50 ml @ 16.667 mls/ hr Q12HR IV 11/20/24 10:00 Acetaminophen/ Hydrocodone Bitart 1 tab Q4HPRN PRN PO 11/20/24 05:15 11/20/24 05:21 1 TAB Examination General Appearance: Alert, Oriented X3, Cooperative, mild distress HEENT: Atraumatic, PERRLA, Mucous membr. moist/pink Respiratory: Clear to auscultation, Normal air movement Cardiovascular: Regular rate, Normal S1, Normal S2, No murmurs Abdominal: Normal bowel sounds, Soft, No tenderness, No hepatospenomegaly, No masses Extremities: No clubbing, No cyanosis, rflbe-xuk-zind amputation done today (left leg), right foot has chronic wound on 2nd toe which is black in color.) Skin: No rashes, No breakdown, No significant lesion (Multiple scars of healed ulcer on left polk and leg. ) Neuro: Normal speech, Strength at 5/5 X4 ext, Normal tone, Cranial nerves 3-12 NL Psych/Mental Status: Mental status NL, Mood NL laboratory and microbiology Laboratory Tests 11/20/24 10:56 Test 11/20/24 10:56 Range/Units Serum Glucose 207 H 74-106 mg/dL Microbiology Date/Time Source Procedure Growth Status 11/12/24 16:46 Foot Left Gram Stain - Final Complete 11/12/24 16:46 Foot Left Anaerobic Culture - Final Complete 11/12/24 16:46 Aerobic Culture - Final Citrobacter freundii Klebsiella oxytoca Complete 11/12/24 09:20 Blood Blood Culture - Final NO GROWTH AFTER 5 DAYS OF INCUBATION. 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 -Clindamycin IV stopped replaced by vancomycin IV -Cefepime IV stopped -Morphine 2mg IV -Surgical consult -Wound Consult -Left foot I&D to bone, Left hallux amputation -pt declined today, will try tomm -aspirin continued, Plavix hold -wound culture reports show Citrobacter freundii and klebsiella oxytoca -abx changed to ceftazidime since 11/15/24 -Art duplex(11/17)- No hemodynamically significant stenosis based on peak systolic velocity criteria. -vasc surg consult, Left SFA occlusion severe peripheral vascular disease nonhealing toe amputation on the left side 1st digit with gangrenous changes of his remaining digits. At this point in time he has a severe peripheral vascular disease with a significantly low EF. Discussed with the patient his options of highly risky bypass surgery versus below-knee amputation. We will discuss with the Cardiology tomorrow regarding the possibility of clearing for any intervention. -cardiac consultation suggested-Per Cardiology standpoint, the patient is at a moderate risk for moderate risk surgery. -BKA on left leg Done today on 11/20/2024 #Peripheral neuropathy -Gabapentin 100mg TID #Uncontrolled DM2 with hyperglycemia HbA1c- 9.8 -Mod Insulin Sliding scale #CHF -Entresto 2mg (med reconciliation) -Jardiance 25mg #BPH -Tamsulosin (med reconciliation) GI prophylaxis: Protonix 40 mg per orally daily DVT prophylaxis: Lovenox 40 mg subcutaneous daily Diet: diabetic diet Goals of care discussed with the patient for more than 27 minutes: Full code status Case discussed with Dr. De, patient and nurse. Plan discussed with: Patient, Other (rn) My Orders My Orders Orders - RAUL MCCRACKEN Procedure Category Date Status Time * Account Leader CONS 11/20/24 Transmitted Consult Dietary Evaluation Review Comments: CCHO-45 cardiac diet Glucerna PO 240ml bid supplementation Expected Outcomes/Goals: Gradaully healed wounds. Gradual wt gain Date of Service: Nov 20, 2024 Billing Provider: ZENAIDA DE MD Common Visit Codes: [id number] INP/OBS CARE(HIGH) RAUL MCCRACKEN RESIDENT Nov 20, 2024 20:07 ZENAIDA DE MD Nov 20, 2024 21:41
--- NOTE | 2024-11-20 23:02 | DVHPN2 ---
Progress Note - Dictate Date Seen: Nov 20, 2024 Medical Necessity Reason Pt with a Central, PICC or Fol: No Subjective Patient was seen and evaluated in follow up. Patient underwent left below-knee amputation by Dr. Christie. Patient tolerated procedure well. Patient complains of pain at the amputation site. WBC 11.7, HGB 9, HCT 26.6, BUN 24, CA 8.5. Chest x-ray showed NAD. Telemetry reviewed. vital signs Vital Sign Date Time Temp Pulse Resp B/P (MAP) Pulse Ox O2 Delivery O2 Flow Rate FiO2 11/20/24 10:49 81 16 112/66 (81) 98 11/20/24 09:30 Room Air 0 11/20/24 09:30 100 11/20/24 09:05 97.2 97.2 Total Intake and Output 11/19/24 11/19/24 11/20/24 15:00 23:00 07:00 Intake Total 50 ml 100 ml 50 ml Output Total 400 ml Balance 50 ml 100 ml -350 ml medications Current Medications Medications Dose Ordered Sig/Miranda Route Start Time Stop Time Status Last Admin Dose Admin Enoxaparin Sodium 30 mg DAILY SC 11/11/24 10:00 Hold 11/18/24 10:34 30 MG Gabapentin 100 mg TID PO 11/10/24 22:00 11/20/24 05:19 100 MG Pantoprazole Sodium 40 mg DAILY PO 11/11/24 10:00 11/19/24 10:20 40 MG Diagnostic Test (Pha) 1 strip Q6HR 11/11/24 00:00 11/20/24 12:00 1 STRIP Insulin Human Regular Q6HR SC 11/11/24 00:00 11/19/24 18:05 12 UNITS Dextrose 50 ml UD PRN IV 11/10/24 23:00 Metolazone 2.5 mg DAILY PO 11/11/24 10:00 Hold Sacubitril/ Valsartan 1 tab BID PO 11/11/24 10:00 Hold Aspirin 81 mg DAILY PO 11/14/24 10:00 Hold 11/18/24 10:29 81 MG Ceftazidime/ Dextrose 50 ml @ 12.5 mls/hr Q8HR IV 11/14/24 14:00 UNV Empaglifozin 25 mg DAILY PO 11/18/24 10:00 11/19/24 10:20 25 MG Ceftazidime/ Dextrose 1 gm/ Sodium Chloride 50 ml @ 16.667 mls/ hr Q12HR IV 11/20/24 10:00 Acetaminophen/ Hydrocodone Bitart 1 tab Q4HPRN PRN PO 11/20/24 05:15 11/20/24 05:21 1 TAB objective GENERAL: Alert and oriented x 3. No acute distress. EYES: PERRL, EOMI. Anicteric. HENT: Moist mucous membranes. LUNGS: Clear to auscultation bilaterally. CARDIOVASCULAR: Regular rate and rhythm. ABDOMEN: Soft, non-tender and non-distended. EXTREMITIES: No edema. NEUROLOGIC: No focal neurological deficits. SKIN: Warm, dry. laboratory and microbiology Laboratory Tests 11/20/24 10:56 Test 11/20/24 10:56 Range/Units Serum Glucose 207 H 74-106 mg/dL Problem List Preprocedural cardiovascular examination. Chronic compensated HFrEF, NYHA class II. Coronary artery disease without stent placement (on Plavix). Severe peripheral arterial disease. Moderate aortic and mitral regurgitation. Hypertension. Dyslipidemia. Type 2 diabetes mellitus. BPH. Assessment/Plan Continued all current supportive medical care. [place] for pain management. IV antibiotics as ordered. Additional plan as per the hospital course. Dietary Evaluation Review Comments: CCHO-45 cardiac diet Glucerna PO 240ml bid supplementation Expected Outcomes/Goals: Gradaully healed wounds. Gradual wt gain Plan discussed with: Patient LUIGI WALL MD Nov 20, 2024 13:00
[2024-11-21] VITALS (9 sets, daily range): BP systolic 98–118; BP diastolic 59–72; PULSE 65–88; RESP 14–19; TEMP 97.3–97.9; O2SAT 98–100
[2024-11-21 10:23] LABS: Chloride 102 mmol/L (98-107); Potassium 4.5 mmol/L (3.5-5.1)
[2024-11-21 10:24] LABS: Anion Gap 9 (5-15); Carbon Dioxide 24 mmol/L (20-31)
[2024-11-21 10:29] LABS: BUN/Creatinine Ratio 21.3 (10.0-20.0); Blood Urea Nitrogen 23 mg/dL (9-23)
--- NOTE | 2024-11-21 10:30 | DVHPNRES ---
Progress Note Date Seen: Nov 21, 2024 Resident Creating Document: RAUL MCCRACKEN RESIDENT Medical Necessity Reason Pt with a Central, PICC or Fol: No Subjective Review of Systems 84-year-old male with a past medical history of CHF with HFrEF 10 -15%, diabetes mellitus type 2 (HBA1c 9.8), CAD and BPH came to the emergency yesterday with chief complaints discoloration of his left great toe associated with left foot redness, cool to touch, swelling and pain of 7/ in 10 intensity with pins and needles sensation. He says that he is being having these symptoms for the past 2 weeks. Patient reports that in September you need to cough his bandage from his legs this can we would go off and he had come to the hospital and podiatry had done an incision and drainage procedure. He was sent home with home health services and wound care and his home health worker had gone for a vacation. It was then that his left big toe became black and so when she came back suggested that he come to the hospital. PMH: CHF, CAD, type 2 diabetes mellitus, BPH PSH: None ( patient refused pacemaker suggested by warranty manager) Family History: reviewed and noncontributory to this case Smoke: Quit (Smoked for about 15 years, quit >20 years ago. ) ALCOHOL: none Drugs: None Lives: Alone Code status : DNR PCP: Dr. Antony. 11/12/2024 patient was seen and examined by me at the bedside. Overnight events were reviewed. Patient has no new active complaints. 11/13/2024: Patient was seen and examined by me at the bedside. Overnight events were reviewed. Patient has no new active complaints. he had an amputation of the left for stool done yesterday. Patient tolerated the procedure well. Patient offered PT evaluation which she declined today. We consulted vascular surgery as podiatry had suggested patient needs consult vascular. Aspirin to be continued, Plavix held. 11/14/2024. Patient was seen and examined by me at the bedside. Overnight events were reviewed. Patient reports he has been in the sole of his feet on the operated leg. Patient declined PT evaluation yesterday and is going to be evaluated today. We are waiting on vascular surgery. we are holding Plavix for now, aspirin will be held from Sunday and Lovenox is being continued for now. 11/15/2024: Patient was seen and examined by me at the bedside. Overnight events were reviewed. Patient complained that he had pain and denied and pain killers helped him. He has agreed for physical therapy evaluation today. We are going to be discontinuing aspirin tomorrow, Plavix held. Waiting for vascular surgery to see him tomorrow. 11/16/2024: patient was seen at bedside. no overnight events were noted. Patient complained of pain in left foot . waiting for vascular surgery to see him tomorrow. RCRI score 3 points, 10% of major cardiac event. 11/17/2024: Patient was seen at bedside. No overnight events were noted. Patient still complains of slight pain in the left foot. arterial duplex was ordered and showed-No hemodynamically significant stenosis based on peak systolic velocity criteria. ask the surgery consult pending. 11/18/2024: Patient was seen at the bedside. No overnight events were noted. Patient is of pain in the left foot. Vascular surgery consult was done and we are awaiting cardiac clearance so that a procedure can be done by vascular surgery tomorrow. 11/19/24: patient was seen at the bedside. Patient reports that this still pain in his left foot. Cardiac clearance was given yesterday and suggested moderate risk for surgery. Vascular surgery was consulted and they have plan to do a procedure of exoif-gim-nnst amputation on the Left leg tomorrow. Patient will be kept NPO after midnight. 11/20: Patient was seen at the bedside by me. Patient 11/18/2024: Patient was seen at the bedside. No overnight events were noted. Patient is of pain in the left foot. Vascular surgery consult was done and we are awaiting cardiac clearance so that a procedure can be done by vascular surgery tomorrow. 11/19/24: patient was seen at the bedside. patient had a jgndg-vyg-kaut amputation of the left leg with vascular surgery today. Possible discharge tomorrow. 11/19/2024: Patient was seen at bedside. Below the knee amputation done yesterday, patient complains of no pain. He has no new active complaints. Possible discharge tomorrow with home hospice as daughter will be back in [place] only than. We resumed aspirin and Plavix from today. Objective vital signs Vital Sign Date Time Temp Pulse Resp B/P (MAP) Pulse Ox O2 Delivery O2 Flow Rate FiO2 11/21/24 08:58 97.3 82 14 108/63 (78) 98 97.3 11/20/24 20:00 Room Air* 0 21 Total Intake and Output 11/20/24 11/20/24 11/21/24 15:00 23:00 07:00 Intake Total 50 ml 640 ml 50 ml Output Total 600 ml Balance 50 ml 640 ml -550 ml medications Current Medications Medications Dose Ordered Sig/Miranda Route Start Time Stop Time Status Last Admin Dose Admin Enoxaparin Sodium 30 mg DAILY SC 11/11/24 10:00 Hold 11/18/24 10:34 30 MG Gabapentin 100 mg TID PO 11/10/24 22:00 11/21/24 06:12 100 MG Pantoprazole Sodium 40 mg DAILY PO 11/11/24 10:00 11/21/24 09:39 40 MG Diagnostic Test (Pha) 1 strip Q6HR 11/11/24 00:00 11/21/24 06:08 1 STRIP Insulin Human Regular Q6HR SC 11/11/24 00:00 11/21/24 06:16 6 UNITS Dextrose 50 ml UD PRN IV 11/10/24 23:00 Metolazone 2.5 mg DAILY PO 11/11/24 10:00 Hold Sacubitril/ Valsartan 1 tab BID PO 11/11/24 10:00 Hold Aspirin 81 mg DAILY PO 11/14/24 10:00 Hold 11/18/24 10:29 81 MG Ceftazidime/ Dextrose 50 ml @ 12.5 mls/hr Q8HR IV 11/14/24 14:00 UNV Empaglifozin 25 mg DAILY PO 11/18/24 10:00 11/21/24 09:39 25 MG Ceftazidime/ Dextrose 1 gm/ Sodium Chloride 50 ml @ 16.667 mls/ hr Q12HR IV 11/20/24 10:00 11/21/24 09:39 16.667 MLS/HR Acetaminophen/ Hydrocodone Bitart 1 tab Q4HPRN PRN PO 11/20/24 05:15 11/20/24 21:21 1 TAB Examination General Appearance: Alert, Oriented X3, Cooperative, mild distress HEENT: Atraumatic, PERRLA, Mucous membr. moist/pink Respiratory: Clear to auscultation, Normal air movement Cardiovascular: Regular rate, Normal S1, Normal S2, No murmurs Abdominal: Normal bowel sounds, Soft, No tenderness, No hepatospenomegaly, No masses Extremities: No clubbing, No cyanosis, gasto-nho-syqm amputation of the left leg, Fresh bandage wrapped around the left foot no soakage. right foot has chronic wound on 2nd toe which is black in color.) Skin: No rashes, No breakdown, No significant lesion (Multiple scars of healed ulcer on left polk and leg. ) Neuro: Normal speech, Strength at 5/5 X4 ext, Normal tone, Cranial nerves 3-12 NL Psych/Mental Status: Mental status NL, Mood NL laboratory and microbiology Laboratory Tests 11/20/24 10:56 Test 11/21/24 09:42 Range/Units Serum Glucose Pending Microbiology Date/Time Source Procedure Growth Status 11/12/24 16:46 Foot Left Gram Stain - Final Complete 11/12/24 16:46 Foot Left Anaerobic Culture - Final Complete 11/12/24 16:46 Aerobic Culture - Final Citrobacter freundii Klebsiella oxytoca Complete 11/12/24 09:20 Blood Blood Culture - Final NO GROWTH AFTER 5 DAYS OF INCUBATION. 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 -Clindamycin IV stopped replaced by vancomycin IV -Cefepime IV stopped -Morphine 2mg IV -Surgical consult -Wound Consult -Left foot I&D to bone, Left hallux amputation -pt declined today, will try tomm -aspirin continued, Plavix hold -wound culture reports show Citrobacter freundii and klebsiella oxytoca -abx changed to ceftazidime since 11/15/24 -Art duplex(11/17)- No hemodynamically significant stenosis based on peak systolic velocity criteria. -vasc surg consult, Left SFA occlusion severe peripheral vascular disease nonhealing toe amputation on the left side 1st digit with gangrenous changes of his remaining digits. At this point in time he has a severe peripheral vascular disease with a significantly low EF. Discussed with the patient his options of highly risky bypass surgery versus below-knee amputation. We will discuss with the Cardiology tomorrow regarding the possibility of clearing for any intervention. -cardiac consultation suggested-Per Cardiology standpoint, the patient is at a moderate risk for moderate risk surgery. -BKA on left leg Done today on 11/20/2024 #Peripheral neuropathy -Gabapentin 100mg TID #Uncontrolled DM2 with hyperglycemia HbA1c- 9.8 -Mod Insulin Sliding scale #Chronic compensated HFrEF, NYHA class II #Moderate aortic and mitral regurgitation #hypertension #Coronary artery disease without stent placement (on Plavix). -Entresto 2mg (med reconciliation) -Jardiance 25mg -aspirin and plavix resumed today (11/21/24) #BPH -Tamsulosin (med reconciliation) GI prophylaxis: Protonix 40 mg per orally daily DVT prophylaxis: Lovenox 40 mg subcutaneous daily Diet: diabetic diet Goals of care discussed with the patient for more than 27 minutes: Full code status Case discussed with Dr. De, patient and nurse. Plan discussed with: Patient, Other (rn) My Orders My Orders Orders - RAUL MCCRACKEN Procedure Category Date Status Time * Waste Baler CONS 11/20/24 Transmitted Consult Complete Blood Count LAB 11/21/24 Logged 04:00 Basic Metabolic Panel LAB 11/21/24 In Process 04:00 Aspirin Tablet PHA 11/21/24 Logged 10:30 Clopidogrel Bisulfate PHA 11/21/24 Logged (Plavix) 10:30 Dietary Evaluation Review Comments: CCHO-45 cardiac diet Glucerna PO 240ml bid supplementation Expected Outcomes/Goals: Gradaully healed wounds. Gradual wt gain Date of Service: Nov 21, 2024 Billing Provider: ZENAIDA DE MD Common Visit Codes: [id number] INP/OBS CARE(HIGH) RAUL MCCRACKEN Nov 21, 2024 10:30 ZENAIDA DE MD Nov 21, 2024 23:26
[2024-11-21 10:39] LABS: Calcium 8.6 mg/dL (8.7-10.4); Glucose 190 mg/dL (74-106); Sodium 135 mmol/L (136-145)
[2024-11-21] MEDS: CLOPIDOGREL BISULFATE 75 MG TAB PO SCH (12:20)
[2024-11-21] MEDS: ARTIFICIAL TEARS 15ml EACHEYE PRN (18:09)
--- NOTE | 2024-11-21 20:24 | DVHPN2 ---
Progress Note - Dictate Date Seen: Nov 21, 2024 Medical Necessity Reason Pt with a Central, PICC or Fol: No Subjective Patient was seen and evaluated in follow up. Patient complains of amputation site pain. GLUC 228. Telemetry reviewed. vital signs Vital Sign Date Time Temp Pulse Resp B/P (MAP) Pulse Ox O2 Delivery O2 Flow Rate FiO2 11/21/24 08:58 97.3 82 14 108/63 (78) 98 97.3 11/21/24 07:50 Room Air* 0 21 Total Intake and Output 11/20/24 11/20/24 11/21/24 15:00 23:00 07:00 Intake Total 50 ml 640 ml 50 ml Output Total 600 ml Balance 50 ml 640 ml -550 ml medications Current Medications Medications Dose Ordered Sig/Miranda Route Start Time Stop Time Status Last Admin Dose Admin Enoxaparin Sodium 30 mg DAILY SC 11/11/24 10:00 Hold 11/18/24 10:34 30 MG Gabapentin 100 mg TID PO 11/10/24 22:00 11/21/24 06:12 100 MG Pantoprazole Sodium 40 mg DAILY PO 11/11/24 10:00 11/21/24 09:39 40 MG Diagnostic Test (Pha) 1 strip Q6HR 11/11/24 00:00 11/21/24 12:22 1 STRIP Insulin Human Regular Q6HR SC 11/11/24 00:00 11/21/24 12:19 6 UNITS Dextrose 50 ml UD PRN IV 11/10/24 23:00 Metolazone 2.5 mg DAILY PO 11/11/24 10:00 Hold Sacubitril/ Valsartan 1 tab BID PO 11/11/24 10:00 Hold Ceftazidime/ Dextrose 50 ml @ 12.5 mls/hr Q8HR IV 11/14/24 14:00 UNV Empaglifozin 25 mg DAILY PO 11/18/24 10:00 11/21/24 09:39 25 MG Ceftazidime/ Dextrose 1 gm/ Sodium Chloride 50 ml @ 16.667 mls/ hr Q12HR IV 11/20/24 10:00 11/21/24 09:39 16.667 MLS/HR Acetaminophen/ Hydrocodone Bitart 1 tab Q4HPRN PRN PO 11/20/24 05:15 11/20/24 21:21 1 TAB Aspirin 81 mg DAILY PO 11/21/24 10:30 11/21/24 12:20 81 MG Clopidogrel Bisulfate 75 mg DAILY PO 11/21/24 10:30 11/21/24 12:20 75 MG objective GENERAL: Alert and oriented x 3. No acute distress. EYES: PERRL, EOMI. Anicteric. HENT: Moist mucous membranes. LUNGS: Clear to auscultation bilaterally. CARDIOVASCULAR: Regular rate and rhythm. ABDOMEN: Soft, non-tender and non-distended. EXTREMITIES: No edema. NEUROLOGIC: No focal neurological deficits. SKIN: Warm, dry. laboratory and microbiology Laboratory Tests 11/21/24 09:42 11/20/24 10:56 Test 11/21/24 09:42 Range/Units Serum Glucose 190 H 74-106 mg/dL Problem List Preprocedural cardiovascular examination. Chronic compensated HFrEF, NYHA class II. Coronary artery disease without stent placement (on Plavix). Severe peripheral arterial disease. Moderate aortic and mitral regurgitation. Hypertension. Dyslipidemia. Type 2 diabetes mellitus. BPH. Assessment/Plan Continued all current supportive medical care. Aspirin, Plavix. GI prophylactics. IV antibiotics as ordered. Additional plan as per the hospital course. [facility] Evaluation [facility] Glucerna PO 240ml bid supplementation Expected Outcomes/Goals: Gradaully healed wounds. Gradual wt gain Plan discussed with: Patient LUIGI WALL MD Nov 21, 2024 13:27
[2024-11-22] VITALS (9 sets, daily range): BP systolic 95–107; BP diastolic 45–58; PULSE 19–88; RESP 15–89; TEMP 97.3–98.6; O2SAT 93–100
[2024-11-22 08:50] LABS: Hematocrit 27.1 % (41.0-53.0); Hemoglobin 9.2 g/dL (13.5-17.5); Mean Corpuscular Hemoglobin 30.1 pg (28.0-32.0); Mean Corpuscular Volume 88.5 fL (80.0-100.0); Nucleated Red Blood Cells % 0.1 %
--- NOTE | 2024-11-22 16:11 | DVHDSRES ---
Discharge Summary Date of Admission Resident Creating Document: RAUL MCCRACKEN RESIDENT Nov 10, 2024 at 21:20 Date of Discharge: Nov 22, 2024 Admitting Diagnosis Diabetic ulcer of the 1st toe on the left leg Labs/Diagnostic Data: Laboratory Results Test 11/22/24 12:45 11/22/24 07:41 11/21/24 09:42 11/19/24 05:58 POC Glucose 241 mg/dl (70-106) White Blood Count 8.6 10^3/uL (4.4-10.8) Red Blood Count 3.06 10^6/uL (4.5-5.90) Hemoglobin 9.2 g/dL (13.5-17.5) Hematocrit 27.1 % (41.0-53.0) Mean Corpuscular Volume 88.5 fL (80.0-100.0) Mean Corpuscular Hemoglobin 30.1 pg (28.0-32.0) Mean Corpuscular Hemoglobin Concent 34.1 g/dL (32.0-36.0) Red Cell Distribution Width 17.0 % (11.8-14.3) Platelet Count 383 10^3/uL (140-450) Mean Platelet Volume 8.5 fL (6.9-10.8) Neutrophils (%) (Auto) 77.5 % (37.0-80.0) Lymphocytes (%) (Auto) 13.0 % (10.0-50.0) Monocytes (%) (Auto) 9.1 % (0.0-12.0) Eosinophils (%) (Auto) 0.1 % (0.0-7.0) Basophils (%) (Auto) 0.3 % (0.0-2.0) Neutrophils # (Auto) 6.6 10 ^3/uL (1.6-8.6) Lymphocytes # (Auto) 1.1 10 ^3/uL (0.4-5.4) Monocytes # (Auto) 0.8 10 ^3/uL (0-1.3) Eosinophils # (Auto) 0 10 ^3/uL (0-0.8) Basophils # (Auto) 0 10 ^3/uL (0-0.2) Nucleated Red Blood Cells 0.1 % Sodium Level 135 mmol/L (136-145) Potassium Level 4.5 mmol/L (3.5-5.1) Chloride Level 102 mmol/L (98-107) Carbon Dioxide Level 24 mmol/L (20-31) Anion Gap 9 (5-15) Blood Urea Nitrogen 23 mg/dL (9-23) Creatinine 1.08 mg/dL (0.700-1.30) Glomerular Filtration Rate Calc 67 mL/min (>90) BUN/Creatinine Ratio 21.3 (10.0-20.0) Serum Glucose 190 mg/dL (74-106) Calcium Level 8.6 mg/dL (8.7-10.4) Prothrombin Time 11.5 sec (9.3-11.8) Prothrombin Time INR 1.09 (0.9-1.15) Activated Partial Thromboplast Time 41.9 SEC (24.5-34.5) Test 11/18/24 10:55 11/17/24 06:58 11/14/24 08:10 11/12/24 06:28 Iron Level 25 ug/dL (65-175) Total Iron Binding Capacity 186 ug/dL (250-425) Percent Iron Saturation 13.4 % (20-55) Ferritin 308.2 ng/mL (22-322) B-Type Natriuretic Peptide 3467.64 pg/mL (0-100) Erythrocyte Sedimentation Rate 49 mm/hr (0-20) C-Reactive Protein High Sensitivity 6.67 mg/dL (<1.0) Influenza Type A Antigen Negative (Negative) Influenza Type B Antigen Negative (Negative) SARS-CoV-2 Antigen (Rapid) Negative (NEGATIVE) Random Vancomycin Level 11.3 ug/mL (5-10) Test 11/11/24 12:05 11/11/24 08:47 11/11/24 03:30 11/10/24 16:22 Lactic Acid Level 1.1 mmol/L (0.4-2.0) Total Bilirubin 0.5 mg/dL (0.2-1.0) Aspartate Amino Transferase (AST) 16 U/L (13-40) Alanine Aminotransferase (ALT) 12 U/L (7-40) Alkaline Phosphatase 90 U/L (46-116) Total Protein 6.0 g/dL (5.7-8.2) Albumin 3.5 g/dL (3.2-4.8) Thyroid Stimulating Hormone (TSH) 0.82 uIU/mL (0.55-4.78) Plasma/Serum Blood Alcohol 3.0 mg/dL (<10) Urine Color Light-yellow (Yellow) Urine Clarity Clear (Clear) Urine pH 5.0 (5.0-9.0) Urine Specific [place] 1.022 (1.001-1.035) Urine Protein Negative (Negative) Urine Ketones Negative (Negative) Urine Blood Negative /uL (Negative) Urine Nitrite Negative (Negative) Urine Bilirubin Negative (Negative) Urine Urobilinogen Normal mg/dL (Negative) Urine Leukocyte Esterase 1+ /uL (Negative) Urine RBC 3 /hpf (0 - 3) Urine Microscopic WBC 2 /HPF (0-3) Urine Squamous Epithelial Cells Few /hpf (<5) Urine Bacteria None seen /hpf (None Seen) Urine Yeast (Budding) Few /hpf (None Seen) Urine Creatinine 63.45 mg/dL (30.0-125.0) Urine Microalbumin 4.0 mg/L (<30.0) Urine Protein/Creatinine Ratio 0.10 Urine Glucose 4+ mg/dL (Normal) Urine Total Protein 6.1 mg/dL (1-14) Urine Opiates Screen Neg (NEGATIVE) Urine Fentanyl Screen Neg (NEGATIVE) Urine Barbiturates Screen Neg (NEGATIVE) Urine Phencyclidine Screen Neg (NEGATIVE) Urine Amphetamines Screen Neg (NEGATIVE) Urine Benzodiazepines Screen Neg (NEGATIVE) Urine Cocaine Screen Neg (NEGATIVE) Urine Cannabinoids Screen Neg (NEGATIVE) Hemoglobin A1c 9.8 % A1C (<5.7) Other Laboratory Tests 11/22/24 07:41 11/21/24 09:42 Brief Hx & Hospital Course: 84-year-old male with a past medical history of CHF with HFrEF 10 -15%, diabetes mellitus type 2 (HBA1c 9.8), CAD and BPH came to the emergency yesterday with chief complaints discoloration of his left great toe associated with left foot redness, cool to touch, swelling and pain of 7/ in 10 intensity with pins and needles sensation. He says that he is being having these symptoms for the past 2 weeks. Patient reports that in September you need to cough his bandage from his legs this can we would go off and he had come to the hospital and podiatry had done an incision and drainage procedure. He was sent home with home health services and wound care and his home health worker had gone for a vacation. It was then that his left big toe became black and so when she came back suggested that he come to the hospital. 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 ) ALCOHOL: none Drugs: None Lives: Alone Code status : DNR PCP: Dr. nAtony. Brief history of hospitalization: Patient came in with left foot 1st and 2nd digit osteomyelitis with necrosis. 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 We gave the patient clindamycin first and replaced it by vancomycin. Cefepime was given in the beginning and stopped. For his pain we gave morphine 2 mg IV and did a surgical and wound consult. Podiatry was consulted and they did a left foot incision and drainage to bone, left hallux amputation. Wound culture showed Citrobacter for freundii and klebsiella oxytoca ceftazidime was begun since 11/15/2024. Pod[address] Dr. Patel, reported that there was minimal bleeding during his procedure which is why we consulted vascular surgery. Arterial duplex on 11/17 showed no hemodynamically significant stenosis based on peak systolic velocity criteria. Vascular surgery reviewed and suggested that the patient had left SFA occlusion, severe peripheral vascular disease, nonhealing toe amputation of the left 1st digit with gangrenous changes of his remaining digits. Patient was counseled that he needed a [id number] amputation which the patient agreed to. Cardiology clearance was received with a moderate risk surgery consult and patient had a [id number] amputation of the left leg done on 11/20/2024. Patient reports no pain in the stump site and a bandage was placed over it which has not been soaked. For patient's peripheral neuropathy gabapentin 100 mg twice a day was continued. For uncontrolled diabetes mellitus with hyperglycemia and lab value of HbA1c 9.8 -moderate sliding scale insulin was begun. Patient had chronic compensated HFrEF NYHA class 2, hypertension, moderate aortic and mitral regurgitation, coronary artery disease without stent placement on Plavix. We continued with his Salome Valladares. Plavix was held 5 days before, and aspirin one day before the day of amputation and resumed the next day post BKA. For patient's BPH we continued the tamsulosin during hospitalization. Patient was also given Protonix 40 mg orally and Lovenox 40 mg subcutaneously throughout his hospitalization. Patient is now stable for discharge. Signals Collection Technician have been consulted for wound care and home health physical therapy. Spoke to the patient's daughter regarding home hospice which will be provided to the patient and patient and daughter both have communicated understanding and agreed to the discharge plan. General Appearance: Alert, Oriented X3, Cooperative, mild distress HEENT: Atraumatic, PERRLA, Mucous membr. moist/pink Respiratory: Clear to auscultation, Normal air movement Cardiovascular: Regular rate, Normal S1, Normal S2, No murmurs Abdominal: Normal bowel sounds, Soft, No tenderness, No hepatospenomegaly, No masses Extremities: No clubbing, No cyanosis, [id number] amputation of the left leg, bandage wrapped around the left foot- no soakage. right foot has chronic wound on 2nd toe which is black in color. Skin: No rashes, No breakdown, Multiple scars of healed ulcer on left polk and leg. Neuro: Normal speech, Strength at 5/5 X4 ext, Normal tone, Cranial nerves 3-12 NL Psych/Mental Status: Mental status NL, Mood NL Operations or Procedures PROCEDURE(s): LFTCT - CT L FOOT WO CONTRAST EXAMINATION: CT CT L FOOT WO CONTRAST IMPRESSION: 1. 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 2. No other CT evidence of osteomyelitis within the left foot. CHEST RADIOGRAPH Indication: congestion, chf IMPRESSION: No acute cardiopulmonary disease. Bilateral Lower Extremity Arterial Duplex Clinical History: PAD, history of angioplasty one month back IMPRESSION: No hemodynamically significant stenosis based on peak systolic velocity criteria. Monophasic arterial waveforms are present within bilateral lower extremities suggestive of underlying peripheral arterial disease. REFERENCE VALUES, [facility] ([facility]) vascular Imaging Lab Criteria: Peak systolic velocity ranges (in cm/sec) are as follows: <150 cm/s - <20 % stenosis 150-200 cm/s - 20-49% stenosis 200-300 cm/s - 50-75% stenosis >300 cm/s -> 75% stenosis CHEST RADIOGRAPH Indication: Surgery IMPRESSION: No acute cardiopulmonary disease. Condition at Discharge: Stable Final Diagnosis/Problems List #Left foot 1st and 2nd digit osteomyelitis with necrosis. #s/p d10 Left hallux amputation #s/p d2 Left Below the knee amputation #Severe Peripheral artery disease #Diabetic left foot ulcer #Peripheral neuropathy #Uncontrolled DM2 with hyperglycemia HbA1c- 9.8 #Chronic compensated HFrEF, NYHA class II #Moderate aortic and mitral regurgitation #hypertension #Coronary artery disease without stent placement (on Plavix). #BPH Discharge Disposition: Home with Health Services Discharge Instruct/Medications Diet: Consistent carbohydrate, Cardiac 2g Na,low cholest Activity: No Restrictions, As Tolerated Follow Up/Referral: Follow up with primary care physician within 10 days Medications: Resume home medications Scheduled Aspirin (Aspirin Low Dose), 1 TAB PO DAILY, (Reported) Carvedilol (Carvedilol), 1 TAB PO BID, (Reported) Clopidogrel Bisulfate (Clopidogrel), 1 TAB PO DAILY, (Reported) Empagliflozin (Jardiance), 1 TAB PO DAILY, (Reported) Gabapentin (Gabapentin), 1 CAP PO DAILY, (Reported) Levofloxacin Hemihydrate (Levaquin 500 Mg), 500 MG PO DAILY Linezolid (Linezolid), 1 TAB PO BID, (Reported) Metolazone (Metolazone), 2.5 MG PO DAILY, (Reported) Sacubitril-Valsartan (Entresto 24-26 mg), 1 TAB PO BID, (Reported) Simvastatin (Simvastatin), 1 TAB PO DAILY, (Reported) Tamsulosin Hcl (Tamsulosin Hcl), 0.4 MG PO DAILY, (Reported) Discharge Statement: "Patient was advised to return to the ER or call 911 if any headaches, dizziness, shortness of breath, chest pain, abdominal pain, bleeding, fevers, or worsening of medical condition. Patient was counseled about treatment plan, medications, possible side effects, patientverbalized understanding. All questions were answered to the best of my ability. This discharge took greater then 30 minutes in planning, reviewing documentation, counseling the patient, and discussing with other team members." ASSESSMENT ASSESSMENT Assessment Status post day 2 left [id number] amputation RAUL MCCRACKEN RESIDENT Nov 22, 2024 16:11
[2024-11-22] MEDS: SODIUM CHLORIDE 0.9% 500 ML IV ONE (17:02)
--- NOTE | 2024-11-22 23:45 | DVHPN2 ---
Progress Note - Dictate Date Seen: Nov 22, 2024 Medical Necessity Reason Pt with a Central, PICC or Fol: No Subjective Patient was seen and evaluated in follow up. Patient complains of amputation site discomfort. Sitter at bedside. Patient complains of dry eyes. HGB 9.2, HCT 27.1, GLUC 241. Telemetry reviewed. vital signs Vital Sign Date Time Temp Pulse Resp B/P (MAP) Pulse Ox O2 Delivery O2 Flow Rate FiO2 11/22/24 13:00 97.8 84 20 99/49 (66) 97 97.8 11/21/24 20:00 Room Air* 0 21 Total Intake and Output 11/21/24 11/21/24 11/22/24 14:59 22:59 06:59 Intake Total 50 ml 600 ml Balance 50 ml 600 ml medications Current Medications Medications Dose Ordered Sig/Miranda Route Start Time Stop Time Status Last Admin Dose Admin Enoxaparin Sodium 30 mg DAILY SC 11/11/24 10:00 Hold 11/18/24 10:34 30 MG Gabapentin 100 mg TID PO 11/10/24 22:00 11/22/24 13:12 100 MG Pantoprazole Sodium 40 mg DAILY PO 11/11/24 10:00 11/22/24 09:52 40 MG Diagnostic Test (Pha) 1 strip Q6HR 11/11/24 00:00 11/22/24 12:49 1 STRIP Insulin Human Regular Q6HR SC 11/11/24 00:00 11/22/24 12:51 6 UNITS Dextrose 50 ml UD PRN IV 11/10/24 23:00 Metolazone 2.5 mg DAILY PO 11/11/24 10:00 Hold Sacubitril/ Valsartan 1 tab BID PO 11/11/24 10:00 Hold Ceftazidime/ Dextrose 50 ml @ 12.5 mls/hr Q8HR IV 11/14/24 14:00 UNV Empaglifozin 25 mg DAILY PO 11/18/24 10:00 11/22/24 09:53 25 MG Ceftazidime/ Dextrose 1 gm/ Sodium Chloride 50 ml @ 16.667 mls/ hr Q12HR IV 11/20/24 10:00 11/22/24 09:55 16.667 MLS/HR Acetaminophen/ Hydrocodone Bitart 1 tab Q4HPRN PRN PO 11/20/24 05:15 11/22/24 03:53 1 TAB Aspirin 81 mg DAILY PO 11/21/24 10:30 11/22/24 09:52 81 MG Clopidogrel Bisulfate 75 mg DAILY PO 11/21/24 10:30 11/22/24 09:52 75 MG Artificial Tears 1 drop Q6HP PRN EACHEYE 11/21/24 16:45 11/21/24 23:02 1 DROP objective GENERAL: Alert and oriented x 3. No acute distress. EYES: PERRL, EOMI. Anicteric. HENT: Moist mucous membranes. LUNGS: Clear to auscultation bilaterally. CARDIOVASCULAR: Regular rate and rhythm. ABDOMEN: Soft, non-tender and non-distended. EXTREMITIES: No edema. NEUROLOGIC: No focal neurological deficits. SKIN: Warm, dry. laboratory and microbiology Laboratory Tests 11/22/24 07:41 11/21/24 09:42 Test 11/21/24 09:42 Range/Units Serum Glucose 190 H 74-106 mg/dL Problem List Preprocedural cardiovascular examination. Chronic compensated HFrEF, NYHA class II. Coronary artery disease without stent placement (on Plavix). Severe peripheral arterial disease. Moderate aortic and mitral regurgitation. Hypertension. Dyslipidemia. Type 2 diabetes mellitus. BPH. Assessment/Plan Continued all current supportive medical care. Aspirin, Plavix. GI prophylactics. IV antibiotics as ordered. Additional plan as per the hospital course. [facility] Evaluation [facility] Comments[facility] Glucerna PO 240ml bid supplementation Expected Outcomes/Goals: Gradaully healed wounds. Gradual wt gain Plan discussed with: Patient LUIGI WALL MD Nov 22, 2024 13:55
[2024-11-23] VITALS (8 sets, daily range): BP systolic 112–122; BP diastolic 60–76; PULSE 85–104; RESP 15–20; TEMP 97.8–99.2; O2SAT 93–100
--- NOTE | 2024-11-23 21:41 | DVHPNRES ---
Progress Note Date Seen: Nov 23, 2024 Resident Creating Document: MONICA BARROS RESIDENT Medical Necessity Reason Pt with a Central, PICC or Fol: No Subjective Review of Systems 84-year-old male with a past medical history of CHF with HFrEF 10 -15%, diabetes mellitus type 2 (HBA1c 9.8), CAD and BPH came to the emergency yesterday with chief complaints discoloration of his left great toe associated with left foot redness, cool to touch, swelling and pain of 7/ in 10 intensity with pins and needles sensation. He says that he is being having these symptoms for the past 2 weeks. Patient reports that in September you need to cough his bandage from his legs this can we would go off and he had come to the hospital and podiatry had done an incision and drainage procedure. He was sent home with home health services and wound care and his home health worker had gone for a vacation. It was then that his left big toe became black and so when she came back suggested that he come to the hospital. PMH: CHF, CAD, type 2 diabetes mellitus, BPH PSH: None ( patient refused pacemaker suggested by senior research scientist) Family History: reviewed and noncontributory to this case Smoke: Quit (Smoked for about 15 years, quit >20 years ago. ) ALCOHOL: none Drugs: None Lives: Alone Code status : DNR PCP: Dr. Antony. 11/12/2024 patient was seen and examined by me at the bedside. Overnight events were reviewed. Patient has no new active complaints. 11/13/2024: Patient was seen and examined by me at the bedside. Overnight events were reviewed. Patient has no new active complaints. he had an amputation of the left for stool done yesterday. Patient tolerated the procedure well. Patient offered PT evaluation which she declined today. We consulted vascular surgery as podiatry had suggested patient needs consult vascular. Aspirin to be continued, Plavix held. 11/14/2024. Patient was seen and examined by me at the bedside. Overnight events were reviewed. Patient reports he has been in the sole of his feet on the operated leg. Patient declined PT evaluation yesterday and is going to be evaluated today. We are waiting on vascular surgery. we are holding Plavix for now, aspirin will be held from Sunday and Lovenox is being continued for now. 11/15/2024: Patient was seen and examined by me at the bedside. Overnight events were reviewed. Patient complained that he had pain and denied and pain killers helped him. He has agreed for physical therapy evaluation today. We are going to be discontinuing aspirin tomorrow, Plavix held. Waiting for vascular surgery to see him tomorrow. 11/16/2024: patient was seen at bedside. no overnight events were noted. Patient complained of pain in left foot . waiting for vascular surgery to see him tomorrow. RCRI score 3 points, 10% of major cardiac event. 11/17/2024: Patient was seen at bedside. No overnight events were noted. Patient still complains of slight pain in the left foot. arterial duplex was ordered and showed-No hemodynamically significant stenosis based on peak systolic velocity criteria. ask the surgery consult pending. 11/18/2024: Patient was seen at the bedside. No overnight events were noted. Patient is of pain in the left foot. Vascular surgery consult was done and we are awaiting cardiac clearance so that a procedure can be done by vascular surgery tomorrow. 11/19/24: patient was seen at the bedside. Patient reports that this still pain in his left foot. Cardiac clearance was given yesterday and suggested moderate risk for surgery. Vascular surgery was consulted and they have plan to do a procedure of [id number] amputation on the Left leg tomorrow. Patient will be kept NPO after midnight. 11/20: Patient was seen at the bedside by me. Patient 11/18/2024: Patient was seen at the bedside. No overnight events were noted. Patient is of pain in the left foot. Vascular surgery consult was done and we are awaiting cardiac clearance so that a procedure can be done by vascular surgery tomorrow. 11/19/24: patient was seen at the bedside. patient had a [id number] amputation of the left leg with vascular surgery today. Possible discharge tomorrow. 11/21/2024: Patient was seen at bedside. Below the knee amputation done yesterday, patient complains of no pain. He has no new active complaints. Possible discharge tomorrow with home hospice as daughter will be back in [place] only than. We resumed aspirin and Plavix from today. 11/23/14: patient seen at bedside. he is alert x3, has no new complaints, he states that he has 6/10 pain in his left stump. patient is to resume hospice. contacted social service liaison about discharging the patient to home with home hospice. Objective vital signs Vital Sign Date Time Temp Pulse Resp B/P (MAP) Pulse Ox O2 Delivery O2 Flow Rate FiO2 11/23/24 21:30 98.1 89 16 112/63 (79) 98 98.1 11/23/24 08:00 Room Air* 0 21 Total Intake and Output 11/22/24 11/22/24 11/23/24 15:00 23:00 07:00 Intake Total 50 ml 700 ml 290 ml Output Total 925 ml 400 ml Balance 50 ml -225 ml -110 ml medications Current Medications Medications Dose Ordered Sig/Miranda Route Start Time Stop Time Status Last Admin Dose Admin Enoxaparin Sodium 30 mg DAILY SC 11/11/24 10:00 Hold 11/18/24 10:34 30 MG Gabapentin 100 mg TID PO 11/10/24 22:00 11/23/24 13:12 100 MG Pantoprazole Sodium 40 mg DAILY PO 11/11/24 10:00 11/23/24 11:27 40 MG Diagnostic Test (Pha) 1 strip Q6HR 11/11/24 00:00 11/23/24 18:06 1 STRIP Insulin Human Regular Q6HR SC 11/11/24 00:00 11/23/24 18:06 3 UNITS Dextrose 50 ml UD PRN IV 11/10/24 23:00 Metolazone 2.5 mg DAILY PO 11/11/24 10:00 Hold Sacubitril/ Valsartan 1 tab BID PO 11/11/24 10:00 Hold Ceftazidime/ Dextrose 50 ml @ 12.5 mls/hr Q8HR IV 11/14/24 14:00 UNV Empaglifozin 25 mg DAILY PO 11/18/24 10:00 11/23/24 11:27 25 MG Ceftazidime/ Dextrose 1 gm/ Sodium Chloride 50 ml @ 16.667 mls/ hr Q12HR IV 11/20/24 10:00 11/22/24 22:19 16.667 MLS/HR Acetaminophen/ Hydrocodone Bitart 1 tab Q4HPRN PRN PO 11/20/24 05:15 11/23/24 20:39 1 TAB Aspirin 81 mg DAILY PO 11/21/24 10:30 11/23/24 11:27 81 MG Clopidogrel Bisulfate 75 mg DAILY PO 11/21/24 10:30 11/23/24 11:27 75 MG Artificial Tears 1 drop Q6HP PRN EACHEYE 11/21/24 16:45 11/21/24 23:02 1 DROP Examination General Appearance: Alert, Oriented X3, Cooperative, mild distress HEENT: Atraumatic, PERRLA, Mucous membr. moist/pink Respiratory: Clear to auscultation, Normal air movement Cardiovascular: Regular rate, Normal S1, Normal S2, No murmurs Abdominal: Normal bowel sounds, Soft, No tenderness, No hepatospenomegaly, No masses Extremities: No clubbing, No cyanosis, [id number] amputation of the left leg, Fresh bandage wrapped around the left foot no soakage. right foot has chronic wound on 2nd toe which is black in color.) Skin: No rashes, No breakdown, No significant lesion (Multiple scars of healed ulcer on left polk and leg. ) Neuro: Normal speech, Strength at 5/5 X4 ext, Normal tone, Cranial nerves 3-12 NL Psych/Mental Status: Mental status NL, Mood NL laboratory and microbiology Laboratory Tests 11/22/24 07:41 11/21/24 09:42 Test 11/21/24 09:42 Range/Units Serum Glucose 190 H 74-106 mg/dL Microbiology Date/Time Source Procedure Growth Status 11/12/24 16:46 Foot Left Gram Stain - Final Complete 11/12/24 16:46 Foot Left Anaerobic Culture - Final Complete 11/12/24 16:46 Aerobic Culture - Final Citrobacter freundii Klebsiella oxytoca Complete 11/12/24 09:20 Blood Blood Culture - Final NO GROWTH AFTER 5 DAYS OF INCUBATION. 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 -Clindamycin IV stopped replaced by vancomycin IV -Cefepime IV stopped -Morphine 2mg IV -Surgical consult -Wound Consult -Left foot I&D to bone, Left hallux amputation -pt declined today, will try tomm -aspirin continued, Plavix hold -wound culture reports show Citrobacter freundii and klebsiella oxytoca -abx changed to ceftazidime since 11/15/24 -Art duplex(11/17)- No hemodynamically significant stenosis based on peak systolic velocity criteria. -vasc surg consult, Left SFA occlusion severe peripheral vascular disease nonhealing toe amputation on the left side 1st digit with gangrenous changes of his remaining digits. At this point in time he has a severe peripheral vascular disease with a significantly low EF. Discussed with the patient his options of highly risky bypass surgery versus below-knee amputation. We will discuss with the Cardiology tomorrow regarding the possibility of clearing for any intervention. -cardiac consultation suggested-Per Cardiology standpoint, the patient is at a moderate risk for moderate risk surgery. -BKA on left leg Done on 11/20/2024 #Peripheral neuropathy -Gabapentin 100mg TID #Uncontrolled DM2 with hyperglycemia HbA1c- 9.8 -Mod Insulin Sliding scale #Chronic compensated HFrEF, NYHA class II #Moderate aortic and mitral regurgitation #hypertension #Coronary artery disease without stent placement (on Plavix). -Entresto 2mg (med reconciliation) -Jardiance 25mg -aspirin and plavix resumed today (11/21/24) #BPH -Tamsulosin (med reconciliation) GI prophylaxis: Protonix 40 mg per orally daily DVT prophylaxis: Lovenox 40 mg subcutaneous daily Diet: diabetic diet Goals of care discussed with the patient for more than 27 minutes: Full code status Case discussed with Dr. De, patient and nurse. Plan discussed with: Patient Dietary Evaluation Review Comments: [facility]-45 cardiac diet Glucerna PO 240ml bid supplementation Expected Outcomes/Goals: Gradaully healed wounds. Gradual wt gain Date of Service: Nov 23, 2024 Billing Provider: ZENAIDA DE MD Common Visit Codes: 63968-[id number] INP/OBS CARE(HIGH) MONICA BARROS RESIDENT Nov 23, 2024 21:41 ZENAIDA DE MD Nov 24, 2024 10:03
--- NOTE | 2024-11-23 23:52 | DVHPN2 ---
Progress Note - Dictate Date Seen: Nov 23, 2024 Medical Necessity Reason Pt with a Central, PICC or Fol: No Subjective Patient was seen and evaluated in follow up. Patient complains of amputation site discomfort. BS are in the 270's. Patient is pending discharge with hospice care. Telemetry reviewed. vital signs Vital Sign Date Time Temp Pulse Resp B/P (MAP) Pulse Ox O2 Delivery O2 Flow Rate FiO2 11/23/24 08:28 99.2 104 20 122/76 (91) 96 99.2 11/22/24 20:30 Room Air* 0 21 Total Intake and Output 11/22/24 11/22/24 11/23/24 15:00 23:00 07:00 Intake Total 50 ml 700 ml 290 ml Output Total 925 ml 400 ml Balance 50 ml -225 ml -110 ml medications Current Medications Medications Dose Ordered Sig/Miranda Route Start Time Stop Time Status Last Admin Dose Admin Enoxaparin Sodium 30 mg DAILY SC 11/11/24 10:00 Hold 11/18/24 10:34 30 MG Gabapentin 100 mg TID PO 11/10/24 22:00 11/23/24 13:12 100 MG Pantoprazole Sodium 40 mg DAILY PO 11/11/24 10:00 11/23/24 11:27 40 MG Diagnostic Test (Pha) 1 strip Q6HR 11/11/24 00:00 11/23/24 12:00 1 STRIP Insulin Human Regular Q6HR SC 11/11/24 00:00 11/23/24 13:19 9 UNITS Dextrose 50 ml UD PRN IV 11/10/24 23:00 Metolazone 2.5 mg DAILY PO 11/11/24 10:00 Hold Sacubitril/ Valsartan 1 tab BID PO 11/11/24 10:00 Hold Ceftazidime/ Dextrose 50 ml @ 12.5 mls/hr Q8HR IV 11/14/24 14:00 UNV Empaglifozin 25 mg DAILY PO 11/18/24 10:00 11/23/24 11:27 25 MG Ceftazidime/ Dextrose 1 gm/ Sodium Chloride 50 ml @ 16.667 mls/ hr Q12HR IV 11/20/24 10:00 11/22/24 22:19 16.667 MLS/HR Acetaminophen/ Hydrocodone Bitart 1 tab Q4HPRN PRN PO 11/20/24 05:15 11/23/24 11:28 1 TAB Aspirin 81 mg DAILY PO 11/21/24 10:30 11/23/24 11:27 81 MG Clopidogrel Bisulfate 75 mg DAILY PO 11/21/24 10:30 11/23/24 11:27 75 MG Artificial Tears 1 drop Q6HP PRN EACHEYE 11/21/24 16:45 11/21/24 23:02 1 DROP objective GENERAL: Alert and oriented x 3. No acute distress. EYES: PERRL, EOMI. Anicteric. HENT: Moist mucous membranes. LUNGS: Clear to auscultation bilaterally. CARDIOVASCULAR: Regular rate and rhythm. ABDOMEN: Soft, non-tender and non-distended. EXTREMITIES: No edema. NEUROLOGIC: No focal neurological deficits. SKIN: Warm, dry. laboratory and microbiology Laboratory Tests 11/22/24 07:41 11/21/24 09:42 Test 11/21/24 09:42 Range/Units Serum Glucose 190 H 74-106 mg/dL Problem List Preprocedural cardiovascular examination. Chronic compensated HFrEF, NYHA class II. Coronary artery disease without stent placement (on Plavix). Severe peripheral arterial disease. Moderate aortic and mitral regurgitation. Hypertension. Dyslipidemia. Type 2 diabetes mellitus. BPH. Assessment/Plan Continued all current supportive medical care. Aspirin, Plavix. GI prophylactics. Additional plan as per the hospital course. Dietary Evaluation Review Comments: [facility] Glucerna PO 240ml bid supplementation Expected Outcomes/Goals: Gradaully healed wounds. Gradual wt gain Plan discussed with: Patient LUIGI WALL MD Nov 23, 2024 14:30
[2024-11-24 01:30] VITALS: BP 114/69; PULSE 79; RESP 17; TEMP 98.1; O2SAT 96
[2024-11-24 05:10] VITALS: BP 121/70; PULSE 82; RESP 17; TEMP 97.9; O2SAT 100
[2024-11-24 08:00] VITALS: PULSE 85; RESP 18; O2SAT 98
--- NOTE | 2024-11-24 09:59 | DVHDSRES ---
Discharge Summary Date of Admission Resident Creating Document: RAUL MCCRACKEN RESIDENT Nov 10, 2024 at 21:20 Date of Discharge: Nov 24, 2024 Labs/Diagnostic Data: Laboratory Results Test 11/23/24 17:04 11/22/24 07:41 11/21/24 09:42 11/19/24 05:58 POC Glucose 171 mg/dl (70-106) White Blood Count 8.6 10^3/uL (4.4-10.8) Red Blood Count 3.06 10^6/uL (4.5-5.90) Hemoglobin 9.2 g/dL (13.5-17.5) Hematocrit 27.1 % (41.0-53.0) Mean Corpuscular Volume 88.5 fL (80.0-100.0) Mean Corpuscular Hemoglobin 30.1 pg (28.0-32.0) Mean Corpuscular Hemoglobin Concent 34.1 g/dL (32.0-36.0) Red Cell Distribution Width 17.0 % (11.8-14.3) Platelet Count 383 10^3/uL (140-450) Mean Platelet Volume 8.5 fL (6.9-10.8) Neutrophils (%) (Auto) 77.5 % (37.0-80.0) Lymphocytes (%) (Auto) 13.0 % (10.0-50.0) Monocytes (%) (Auto) 9.1 % (0.0-12.0) Eosinophils (%) (Auto) 0.1 % (0.0-7.0) Basophils (%) (Auto) 0.3 % (0.0-2.0) Neutrophils # (Auto) 6.6 10 ^3/uL (1.6-8.6) Lymphocytes # (Auto) 1.1 10 ^3/uL (0.4-5.4) Monocytes # (Auto) 0.8 10 ^3/uL (0-1.3) Eosinophils # (Auto) 0 10 ^3/uL (0-0.8) Basophils # (Auto) 0 10 ^3/uL (0-0.2) Nucleated Red Blood Cells 0.1 % Sodium Level 135 mmol/L (136-145) Potassium Level 4.5 mmol/L (3.5-5.1) Chloride Level 102 mmol/L (98-107) Carbon Dioxide Level 24 mmol/L (20-31) Anion Gap 9 (5-15) Blood Urea Nitrogen 23 mg/dL (9-23) Creatinine 1.08 mg/dL (0.700-1.30) Glomerular Filtration Rate Calc 67 mL/min (>90) BUN/Creatinine Ratio 21.3 (10.0-20.0) Serum Glucose 190 mg/dL (74-106) Calcium Level 8.6 mg/dL (8.7-10.4) Prothrombin Time 11.5 sec (9.3-11.8) Prothrombin Time INR 1.09 (0.9-1.15) Activated Partial Thromboplast Time 41.9 SEC (24.5-34.5) Test 11/18/24 10:55 11/17/24 06:58 11/14/24 08:10 11/12/24 06:28 Iron Level 25 ug/dL (65-175) Total Iron Binding Capacity 186 ug/dL (250-425) Percent Iron Saturation 13.4 % (20-55) Ferritin 308.2 ng/mL (22-322) B-Type Natriuretic Peptide 3467.64 pg/mL (0-100) Erythrocyte Sedimentation Rate 49 mm/hr (0-20) C-Reactive Protein High Sensitivity 6.67 mg/dL (<1.0) Influenza Type A Antigen Negative (Negative) Influenza Type B Antigen Negative (Negative) SARS-CoV-2 Antigen (Rapid) Negative (NEGATIVE) Random Vancomycin Level 11.3 ug/mL (5-10) Test 11/11/24 12:05 11/11/24 08:47 11/11/24 03:30 11/10/24 16:22 Lactic Acid Level 1.1 mmol/L (0.4-2.0) Total Bilirubin 0.5 mg/dL (0.2-1.0) Aspartate Amino Transferase (AST) 16 U/L (13-40) Alanine Aminotransferase (ALT) 12 U/L (7-40) Alkaline Phosphatase 90 U/L (46-116) Total Protein 6.0 g/dL (5.7-8.2) Albumin 3.5 g/dL (3.2-4.8) Thyroid Stimulating Hormone (TSH) 0.82 uIU/mL (0.55-4.78) Plasma/Serum Blood Alcohol 3.0 mg/dL (<10) Urine Color Light-yellow (Yellow) Urine Clarity Clear (Clear) Urine pH 5.0 (5.0-9.0) Urine Specific [place] 1.022 (1.001-1.035) Urine Protein Negative (Negative) Urine Ketones Negative (Negative) Urine Blood Negative /uL (Negative) Urine Nitrite Negative (Negative) Urine Bilirubin Negative (Negative) Urine Urobilinogen Normal mg/dL (Negative) Urine Leukocyte Esterase 1+ /uL (Negative) Urine RBC 3 /hpf (0 - 3) Urine Microscopic WBC 2 /HPF (0-3) Urine Squamous Epithelial Cells Few /hpf (<5) Urine Bacteria None seen /hpf (None Seen) Urine Yeast (Budding) Few /hpf (None Seen) Urine Creatinine 63.45 mg/dL (30.0-125.0) Urine Microalbumin 4.0 mg/L (<30.0) Urine Protein/Creatinine Ratio 0.10 Urine Glucose 4+ mg/dL (Normal) Urine Total Protein 6.1 mg/dL (1-14) Urine Opiates Screen Neg (NEGATIVE) Urine Fentanyl Screen Neg (NEGATIVE) Urine Barbiturates Screen Neg (NEGATIVE) Urine Phencyclidine Screen Neg (NEGATIVE) Urine Amphetamines Screen Neg (NEGATIVE) Urine Benzodiazepines Screen Neg (NEGATIVE) Urine Cocaine Screen Neg (NEGATIVE) Urine Cannabinoids Screen Neg (NEGATIVE) Hemoglobin A1c 9.8 % A1C (<5.7) Other Laboratory Tests 11/22/24 07:41 11/21/24 09:42 Brief Hx & Hospital Course: 84-year-old male with a past medical history of CHF with HFrEF 10 -15%, diabetes mellitus type 2 (HBA1c 9.8), CAD and BPH came to the emergency yesterday with chief complaints discoloration of his left great toe associated with left foot redness, cool to touch, swelling and pain of 7/ in 10 intensity with pins and needles sensation. He says that he is being having these symptoms for the past 2 weeks. Patient reports that in September you need to cough his bandage from his legs this can we would go off and he had come to the hospital and podiatry had done an incision and drainage procedure. He was sent home with home health services and wound care and his home health worker had gone for a vacation. It was then that his left big toe became black and so when she came back suggested that he come to the hospital. PMH: CHF, CAD, type 2 diabetes mellitus, BPH PSH: None ( patient refused pacemaker suggested by regional ehs manager) Family History: reviewed and noncontributory to this case Smoke: Quit (Smoked for about 15 years, quit >20 years ago. ) ALCOHOL: none Drugs: None Lives: Alone Code status : DNR PCP: Dr. Antony. Brief history of hospitalization: Patient came in with left foot 1st and 2nd digit osteomyelitis with necrosis. 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 We gave the patient clindamycin first and replaced it by vancomycin. Cefepime was given in the beginning and stopped. For his pain we gave morphine 2 mg IV and did a surgical and wound consult. Podiatry was consulted and they did a left foot incision and drainage to bone, left hallux amputation. Wound culture showed Citrobacter for freundii and klebsiella oxytoca ceftazidime was begun since 11/15/2024. Pod[address] Patel, reported that there was minimal bleeding during his procedure which is why we consulted vascular surgery. Arterial duplex on 11/17 showed no hemodynamically significant stenosis based on peak systolic velocity criteria. Vascular surgery reviewed and suggested that the patient had left SFA occlusion, severe peripheral vascular disease, nonhealing toe amputation of the left 1st digit with gangrenous changes of his remaining digits. Patient was counseled that he needed a [id number] amputation which the patient agreed to. Cardiology clearance was received with a moderate risk surgery consult and patient had a [id number] amputation of the left leg done on 11/20/2024. Patient reports no pain in the stump site and a bandage was placed over it which has not been soaked. For patient's peripheral neuropathy gabapentin 100 mg twice a day was continued. For uncontrolled diabetes mellitus with hyperglycemia and lab value of HbA1c 9.8 -moderate sliding scale insulin was begun. Patient had chronic compensated HFrEF NYHA class 2, hypertension, moderate aortic and mitral regurgitation, coronary artery disease without stent placement on Plavix. We continued with his Salome Valladares. Plavix was held 5 days before, and aspirin one day before the day of amputation and resumed the next day post BKA. For patient's BPH we continued the tamsulosin during hospitalization. Patient was also given Protonix 40 mg orally and Lovenox 40 mg subcutaneously throughout his hospitalization. Patient is now stable for discharge. Stallion Manager have been consulted for wound care and home health physical therapy. Spoke to the patient's daughter regarding home hospice which will be provided to the patient and patient and daughter both have communicated understanding and agreed to the discharge plan. General Appearance: Alert, Oriented X3, Cooperative, mild distress HEENT: Atraumatic, PERRLA, Mucous membr. moist/pink Respiratory: Clear to auscultation, Normal air movement Cardiovascular: Regular rate, Normal S1, Normal S2, No murmurs Abdominal: Normal bowel sounds, Soft, No tenderness, No hepatospenomegaly, No masses Extremities: No clubbing, No cyanosis, [id number] amputation of the left leg, bandage wrapped around the left foot- no soakage. right foot has chronic wound on 2nd toe which is black in color. Skin: No rashes, No breakdown, Multiple scars of healed ulcer on left polk and leg. Neuro: Normal speech, Strength at 5/5 X4 ext, Normal tone, Cranial nerves 3-12 NL Psych/Mental Status: Mental status NL, Mood NL Advice: Follow up with PCP in 10 days Follow up with urologist regarding swelling of penis Operations or Procedures PROCEDURE(s): LFTCT - CT L FOOT WO CONTRAST EXAMINATION: CT CT L FOOT WO CONTRAST IMPRESSION: 1. 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 2. No other CT evidence of osteomyelitis within the left foot. CHEST RADIOGRAPH Indication: congestion, chf IMPRESSION: No acute cardiopulmonary disease. Bilateral Lower Extremity Arterial Duplex Clinical History: PAD, history of angioplasty one month back IMPRESSION: No hemodynamically significant stenosis based on peak systolic velocity criteria. Monophasic arterial waveforms are present within bilateral lower extremities suggestive of underlying peripheral arterial disease. REFERENCE VALUES, [facility] ([facility]) vascular Imaging Lab Criteria: Peak systolic velocity ranges (in cm/sec) are as follows: <150 cm/s - <20 % stenosis 150-200 cm/s - 20-49% stenosis 200-300 cm/s - 50-75% stenosis >300 cm/s -> 75% stenosis CHEST RADIOGRAPH Indication: Surgery IMPRESSION: No acute cardiopulmonary disease. Condition at Discharge: Stable Final Diagnosis/Problems List #Left foot 1st and 2nd digit osteomyelitis with necrosis. #s/p d12 Left hallux amputation #s/p d4 Left Below the knee amputation #Severe Peripheral artery disease #Diabetic left foot ulcer #Peripheral neuropathy #Uncontrolled DM2 with hyperglycemia HbA1c- 9.8 #Chronic compensated HFrEF, NYHA class II #Moderate aortic and mitral regurgitation #hypertension #Coronary artery disease without stent placement (on Plavix). #BPH Discharge Disposition: Hospice - Home Discharge Instruct/Medications Diet: Consistent carbohydrate, Cardiac 2g Na,low cholest Activity: No Restrictions, As Tolerated Follow Up/Referral: Follow up with primary care physician within 10 days Medications: Resume home medications Scheduled Aspirin (Aspirin Low Dose), 1 TAB PO DAILY, (Reported) Carvedilol (Carvedilol), 1 TAB PO BID, (Reported) Clopidogrel Bisulfate (Clopidogrel), 1 TAB PO DAILY, (Reported) Empagliflozin (Jardiance), 1 TAB PO DAILY, (Reported) Gabapentin (Gabapentin), 1 CAP PO DAILY, (Reported) Levofloxacin Hemihydrate (Levaquin 500 Mg), 500 MG PO DAILY Linezolid (Linezolid), 1 TAB PO BID, (Reported) Metolazone (Metolazone), 2.5 MG PO DAILY, (Reported) Sacubitril-Valsartan (Entresto 24-26 mg), 1 TAB PO BID, (Reported) Simvastatin (Simvastatin), 1 TAB PO DAILY, (Reported) Tamsulosin Hcl (Tamsulosin Hcl), 0.4 MG PO DAILY, (Reported) Discharge Statement: "Patient was advised to return to the ER or call 911 if any headaches, dizziness, shortness of breath, chest pain, abdominal pain, bleeding, fevers, or worsening of medical condition. Patient was counseled about treatment plan, medications, possible side effects, patientverbalized understanding. All questions were answered to the best of my ability. This discharge took greater then 30 minutes in planning, reviewing documentation, counseling the patient, and discussing with other team members." ASSESSMENT ASSESSMENT Assessment Status post day 2 left [id number]-[id number] amputation RAUL MCCRACKEN RESIDENT Nov 24, 2024 09:59
[2024-11-24 13:00] VITALS: BP 130/78; PULSE 108; RESP 18; TEMP 97.7; O2SAT 94
[2024-11-24] MEDS: FUROSEMIDE 40 MG/4 ML VIAL IV ONE (14:53)
--- NOTE | 2024-11-24 23:24 | DVHPN2 ---
Progress Note - Dictate Date Seen: Nov 24, 2024 Medical Necessity Reason Pt with a Central, PICC or Fol: No Subjective Patient was seen and evaluated in follow up. Patient has no new complaints at this time. Patient denies any cardiac symptoms. Patient is cardiac stable for discharge. Telemetry reviewed. vital signs Vital Sign Date Time Temp Pulse Resp B/P (MAP) Pulse Ox O2 Delivery O2 Flow Rate FiO2 11/24/24 13:00 97.7 108 18 130/78 (95) 94 97.7 11/24/24 08:00 Room Air* 0 21 Total Intake and Output 11/23/24 11/23/24 11/24/24 15:00 23:00 07:00 Intake Total 50 ml Balance 50 ml medications Current Medications Medications Dose Ordered Sig/Miranda Route Start Time Stop Time Status Last Admin Dose Admin Ceftazidime/ Dextrose 50 ml @ 12.5 mls/hr Q8HR IV 11/14/24 14:00 UNV objective GENERAL: Alert and oriented x 3. No acute distress. EYES: PERRL, EOMI. Anicteric. HENT: Moist mucous membranes. LUNGS: Clear to auscultation bilaterally. CARDIOVASCULAR: Regular rate and rhythm. ABDOMEN: Soft, non-tender and non-distended. EXTREMITIES: No edema. NEUROLOGIC: No focal neurological deficits. SKIN: Warm, dry. laboratory and microbiology Laboratory Tests 11/22/24 07:41 11/21/24 09:42 Test 11/21/24 09:42 Range/Units Serum Glucose 190 H 74-106 mg/dL Problem List Preprocedural cardiovascular examination. Chronic compensated HFrEF, NYHA class II. Coronary artery disease without stent placement (on Plavix). Severe peripheral arterial disease. Moderate aortic and mitral regurgitation. Hypertension. Dyslipidemia. Type 2 diabetes mellitus. BPH. Assessment/Plan Continued all current supportive medical care. Aspirin, Plavix. GI prophylactics. Additional plan as per the hospital course. Dietary Evaluation Review Comments: CCHO-45 cardiac diet Glucerna PO 240ml bid supplementation Expected Outcomes/Goals: Gradaully healed wounds. Gradual wt gain Plan discussed with: Patient LUIGI WALL MD Nov 24, 2024 23:24
== END 2024-11-24 15:08 | disposition hospice, home (50) | DRG 239 ==
LOC: ER 14:19 → OVERFLOW 21:20 → EAST 11-11 03:42 → TELE-EAST 11-18 20:55
PROVIDERS: ADMIT Student in an Organized Health Care Education/Training Program; ATTEND Student in an Organized Health Care Education/Training Program
PROC: 0Y9N0ZX Drainage of Left Foot, Open Approach, Diagnostic (ICD-10-PCS; 2024-11-12)
PROC: 0Y6Q0Z0 Detachment at Left 1st Toe, Complete, Open Approach (ICD-10-PCS; principal; 2024-11-12 16:36)
PROC: 0Y6J0Z1 Detachment at Left Lower Leg, High, Open Approach (ICD-10-PCS; 2024-11-20)
DX: E11.52 Type 2 diabetes mellitus with diabetic peripheral angiopathy with gangrene (principal); A48.0 Gas gangrene; R65.11 Systemic inflammatory response syndrome (SIRS) of non-infectious origin with acute organ dysfunction; I50.22 Chronic systolic (congestive) heart failure; L03.116 Cellulitis of left lower limb; L02.612 Cutaneous abscess of left foot; M86.8X7 Other osteomyelitis, ankle and foot; E87.20 Acidosis, unspecified; Z51.5 Encounter for palliative care; E11.621 Type 2 diabetes mellitus with foot ulcer; E11.69 Type 2 diabetes mellitus with other specified complication; L97.529 Non-pressure chronic ulcer of other part of left foot with unspecified severity; N40.0 Benign prostatic hyperplasia without lower urinary tract symptoms; E11.65 Type 2 diabetes mellitus with hyperglycemia; R13.12 Dysphagia, oropharyngeal phase; I08.0 Rheumatic disorders of both mitral and aortic valves; E78.5 Hyperlipidemia, unspecified; I25.10 Atherosclerotic heart disease of native coronary artery without angina pectoris; E11.42 Type 2 diabetes mellitus with diabetic polyneuropathy; I11.0 Hypertensive heart disease with heart failure; L03.032 Cellulitis of left toe; Z79.82 Long term (current) use of aspirin; Z79.84 Long term (current) use of oral hypoglycemic drugs; Z83.3 Family history of diabetes mellitus
CPT/HCPCS: 36415; 71045; 73700; 80048; 80053; 80202; 80307; 80320; 81001; 82043; 82565; 82570; 82728; 82962; 83036; 83540; 83550; 83605; 83880; 84156; 84443; 85025; 85610; 85652; 85730; 86141; 86850; 86900; 86901; 87040; 87070; 87075; 87077; 87081; 87186; 87205; 87426; 87804; 93005; 93925; 97163; 99291; 99292; G0378; J0713; J1100; J1815; J2003; J2250; J2405; J2543; J2704; J3490

== ENCOUNTER 2025-02-03 09:15 | Outpatient (CLI) | payer MEDICAID ==
[~2025-02-03 09:15] MED LIST changes: +ASPI-325 PO; +CLOP75TA70 PO; +EMPA1TAB3 PO; +GAB100C PO; +LEVO500T91 PO; +METO5TAB5 PO; +SACU1TAB PO; +TAMS0.4C39 PO
[2025-02-03 10:43] LABS: Potassium 3.8 mmol/L (3.5-5.1); Sodium 136 mmol/L (136-145)
[2025-02-03 10:44] LABS: Anion Gap 8 (5-15); Calcium 9.2 mg/dL (8.7-10.4); Carbon Dioxide 31 mmol/L (20-31)
[2025-02-03 10:49] LABS: BUN/Creatinine Ratio 19.1 (10.0-20.0)
[2025-02-03 10:53] LABS: Blood Urea Nitrogen 26 mg/dL (9-23); Chloride 97 mmol/L (98-107); Glucose 116 mg/dL (74-106)
[2025-02-03 11:14] LABS: Alanine Aminotransferase 19 U/L (7-40); Albumin 4.3 g/dL (3.2-4.8); Anion Gap 10 (5-15); BUN/Creatinine Ratio 19.3 (10.0-20.0); Bilirubin, Total 0.5 mg/dL (0.2-1.0); Calcium 9.2 mg/dL (8.7-10.4); Carbon Dioxide 29 mmol/L (20-31); Potassium 3.8 mmol/L (3.5-5.1); Sodium 136 mmol/L (136-145); Total Protein 7.5 g/dL (5.7-8.2)
[2025-02-03 11:16] LABS: Chloride 97 mmol/L (98-107); Glucose 116 mg/dL (74-106)
[2025-02-03 11:17] LABS: Alkaline Phosphatase 119 U/L (46-116); Blood Urea Nitrogen 26 mg/dL (9-23)
== END 2025-02-03 17:00 | disposition home or self-care (01) ==
LOC: LAB 09:15
PROVIDERS: ATTEND Student in an Organized Health Care Education/Training Program
DX: I11.0 Hypertensive heart disease with heart failure (principal); I50.9 Heart failure, unspecified
CPT/HCPCS: 36415; 80048; 80053